=== PATIENT | male | born 1965 | race Caucasian/White ===

== ENCOUNTER → 2021-01-07 | Outpatient (CLI) | payer OTHER ==
[2021-01-07 11:27] LABS: African American GFR (CKD) >90 (>60 ml/min/1.73 sqM); Blood Urea Nitrogen 14 mg/dL (9-20); Non-African American GFR(CKD) >90 (>60 ml/min/1.73 sqM)
--- NOTE | 2021-01-07 13:45 | CT ---
EXAMINATION TYPE: CT angio abd aorta w/Runoff DATE OF EXAM: 01/07/2021 COMPARISON: HISTORY: Occlusion, Iliac and LLE non healing wound CT DLP: 2441.60 mGycm, Automated Exposure Control for Dose Reduction was Utilized. CONTRAST: CT scan of the abdomen and pelvis is performed without and with IV Contrast, patient injected with 10 0 ml mL of Isovue 370. Three-dimensional reconstructions performed on an alternate workstation. FINDINGS: The abdominal aorta shows some atheromatous change. The celiac axis, superior mesenteric a rtery, bilateral renal arteries are patent. Common iliac arteries are patent, left common iliac arter y shows a mildly reduced caliber in relation to the right. Internal iliac arteries are patent bilater ally as is the right external iliac artery, the right external iliac artery is occluded. There is rec onstitution of the external iliac artery peripherally via collateral flow on the left. Common femoral artery on the left shows atheromatous narrowing, plaque. The superficial femoral artery is occluded proximally on the left. The left deep femoral artery branches are patent, there is reconstitution of the popliteal artery central to the level of the knee. The left lower extremity shows patent poplitea l artery at the level of the knee which appears somewhat diminutive. Atheromatous changes are present , the anterior tibial artery is thought to be patent. The tibioperoneal trunk, posterior tibial arter y are not patent proximally but show some possible segmental reconstitution peripherally. The right common femoral artery also shows atheromatous change. Superficial femoral artery shows athe romatous changes, tandem stenoses, areas occlusion at Scott's canal on the right, reconstitution of the popliteal artery is present central to the level of the knee, the trifurcation vessels show ather omatous change, there are atheromatous changes involving the trifurcation vessels which are not well enhanced, posterior tibial artery is diminutive but thought to be patent, peroneal artery does not en aga, anterior tibial artery shows extensive atheromatous change, tandem areas of nonenhancement. There is extensive edema change present bilaterally within the legs. There are coronary calcifications present. LUNG BASES: No significant abnormality is appreciated. LIVER/GB: There is low attenuation within the liver possibly due to hepatic steatosis, gallbladder is within normal limits.. PANCREAS: No significant abnormality is seen. SPLEEN: No significant abnormality is seen. ADRENALS: Prominence of the adrenal glands is noted, possibly due to adrenal hyperplasia. KIDNEYS: No significant abnormality is seen. BOWEL: No significant abnormality is seen. PROSTATE/SEMINAL VESICLES: Prostate shows associated calcification. LYMPH NODES: No greater than 1cm abdominal or pelvic lymph nodes are appreciated. OSSEOUS STRUCTURES: Degenerative disc changes are present visualized spine. There is facet arthropath y especially at the lower lumbar spine.. OTHER: No significant additional abnormality is seen. IMPRESSION: Peripheral vascular occlusive disease as described, additional findings above
== END | disposition home or self-care (01) ==
LOC: RADCTMAIN 10:33
PROVIDERS: ATTEND Surgery
DX: I73.9 Peripheral vascular disease, unspecified (principal)
CPT/HCPCS: 82565; 84520; 75635; 36415; Q9967

== ENCOUNTER → 2021-01-17 | Outpatient (CLI) | payer OTHER ==
[2021-01-17 08:48] LABS: Basophils % (A) 0 %; Eosinophils # (A) 0.1 k/uL (0-0.7); Eosinophils % (A) 1 %; HCT 51.6 % (39.0-53.0); HGB 16.7 gm/dL (13.0-17.5); Lymphocytes # (A) 1.3 k/uL (1.0-4.8); Lymphocytes % (A) 15 %; MCH 33.5 pg (25.0-35.0); MCHC 32.3 g/dL (31.0-37.0); MCV 103.8 fL (80.0-100.0); Macrocytosis Slight; Monocytes # (A) 0.5 k/uL (0-1.0); Monocytes % (A) 5 %; Neutrophils # (A) 6.7 k/uL (1.3-7.7); Neutrophils % (A) 77 %; Platelet Count 246 k/uL (150-450); RBC 4.97 m/uL (4.30-5.90); RDW 13.3 % (11.5-15.5); WBC 8.7 k/uL (3.8-10.6)
[2021-01-17 08:59] LABS: African American GFR (CKD) >90 (>60 ml/min/1.73 sqM); Anion Gap 10 mmol/L; Blood Urea Nitrogen 13 mg/dL (9-20); Carbon Dioxide 24 mmol/L (22-30); Chloride 98 mmol/L (98-107); Non-African American GFR(CKD) >90 (>60 ml/min/1.73 sqM); Potassium 4.5 mmol/L (3.5-5.1); Sodium 132 mmol/L (137-145)
== END | disposition home or self-care (01) ==
LOC: LABPAT 07:44
PROVIDERS: ATTEND Surgery
DX: Z01.812 Encounter for preprocedural laboratory examination (principal); I77.1 Stricture of artery
CPT/HCPCS: 80051; 82565; 84520; 85025

== ENCOUNTER 2021-01-22 07:13 | Inpatient (IN) | payer OTHER ==
[~2021-01-22 07:13] MED LIST: SODIUM CHLORIDE 0.9% 1,000 ML in EMPTY BAG 1 BAG IV ONE
[2021-01-22] MEDS ORDERED: SODIUM CHLORIDE 0.9% 1,000 ML IV ONE (07:59)
[2021-01-22] MEDS ORDERED: LIDOCAINE 1% INJ 10MG/ML (20 ML MDV) ONE (09:10)
[2021-01-22] MEDS ORDERED: fentaNYL (PF) 50 MCG/ML 2 ML AMP ONE (09:18)
[2021-01-22] MEDS ORDERED: MIDAZOLAM 2 MG/2 ML VIAL IVP ONE (09:25)
[2021-01-22] MEDS: fentaNYL (PF) 50 MCG/ML 2 ML AMP IVP ONE ×2 (09:25→09:37)
[2021-01-22] MEDS ORDERED: LIDOCAINE 1% INJ 10MG/ML (20 ML MDV) SQ ONE (09:26)
[2021-01-22] MEDS ORDERED: HYDROmorphone 0.5 MG/0.5 ML SYRINGE IVP ONE (09:56)
[2021-01-22] MEDS ORDERED: IOPAMIDOL-250 100ML BTL INTRAARTER ONE (10:21)
[2021-01-22] MEDS ORDERED: MAG HYDROX/AL HYDROX/SIMETH 30 ML CUP PO PRN (11:02)
--- NOTE | 2021-01-22 11:02 | P.OP ---
Date of Procedure: 01/22/21 Preoperative Diagnosis: #1: Left external iliac artery occlusion in combination with left superficial femoral artery occlusion with secondary arterial insufficiency of the left lower extremity. Postoperative Diagnosis: Same. Procedure(s) Performed: #1: Ultrasound-guided cannulation of the left and right femoral arteries. #2: Abdominal aortogram with runoffs. #3: Selective cannulization of the contralateral iliac artery. #4: Inability to cross lesion. Anesthesia: local (With moderate conscious sedation 55 minutes.) Surgeon: Ramesh Vargas Estimated Blood Loss (ml): 50 Urine output (ml): 0 Pathology: none sent Condition: stable Disposition: other (Admitted for further medical clearance with intent of surgical bypass.) Indications for Procedure: Patient is a 55-year-old male who originally presented with a venous ulceration left lower extremity however soon clear that there was a severe arterial insufficiency component. He had undergone arterial Doppler which demonstrated markedly diminished ankle brachial index. CT angiography was also performed which demonstrated the aforementioned external iliac artery occlusion as well as a left SFA occlusion. A shunt was offered attempt at percutaneous revascularization. The procedure, risk and benefits were discussed with the patient patient wished to proceed. Description of Procedure: Patient was brought to special procedure suite. Both groins were sterilely p repped and draped in usual manner. He did receive both Versed and fentanyl for moderate conscious IV sedation purposes. Utilizing ultrasound the right common femoral artery was identified. Tissues overlying the femoral artery were localized with 1% Xylocaine and through this anesthetized area and with the aid of ultrasound a multipurpose needle was utilized to cannulate the artery. Once cannulated Softip guidewire is advanced into the artery. The needle was withdrawn and a 5-[place] sheath was placed. A Omni flush catheter and guidewire combinations were advanced through the sheath and abdominal aortogram with bilateral femoral, popliteal and tibial angiography was performed. This demonstrated normal aortic as well as a normal right iliac system. The left common iliac artery was patent however there is an occlusion of the external iliac at its origin for a distance of approximately 6- 7 cm. The catheter was then utilized to select the origin of the internal iliac and eventually multiple guidewire and catheter combinations were utilized in an attempt to cross the lesion however this was unsuccessful. As such an attempt to cross lesion from the left femoral approach was then performed. The left common femoral artery was identified with ultrasound and 1% Xylocaine was lysed local anesthesia tissues overlying the femoral artery. Through this anesthetized area a multipurpose needle was utilized candidate the artery with the aid of ultrasound. Once cannulated Softip guidewire is advanced into the artery. The needle was withdrawn and a 6-[place] sheath was placed. Again multiple attempts at crossing the lesion were unsuccessful and this approach was eventually abandoned. With the above findings noted all catheters and guidewires were withdrawn and both she's were withdrawn. Pressure was held at each puncture site for hemostasis. Patient tolerated procedure well and was returned to the outpatient area. Plan is to admit the patient for medical evaluation with eventual femoral- femoral bypass.
--- NOTE | 2021-01-22 12:21 | IR ---
Fluoroscopy HISTORY: Pain left leg 19.3 minutes fluoroscopy time supplied to the referring clinician. 237 intraoperative C-arm images d ocument the procedure. See dictated report from vascular surgery.
[2021-01-22] MEDS: HYDROcodone/APAP 5-325MG 1 EACH TAB PO PRN ×3 (13:28→22:05)
[2021-01-22] MEDS: NICOTINE 21MG/24HR PATCH TRANSDERM SCH (16:16)
[2021-01-22] MEDS: SODIUM CHLORIDE 0.9% 1,000 ML IV SCH ×2 (16:17→22:06)
[2021-01-22] MEDS: NYSTATIN 100,000UNIT/GM CREAM 30 GM TUBE TOPICAL SCH (22:06)
[2021-01-23] MEDS: HYDROcodone/APAP 5-325MG 1 EACH TAB PO PRN ×5 (02:58→21:16)
[2021-01-23] MEDS: SYMBICORT 80-4.5 MCG INHALER INHALATION SCH ×2 (07:41→20:23)
[2021-01-23] MEDS: ASPIRIN 325 MG TAB PO SCH (08:30)
[2021-01-23] MEDS: NICOTINE 21MG/24HR PATCH TRANSDERM SCH (08:30)
[2021-01-23] MEDS: NYSTATIN 100,000UNIT/GM CREAM 30 GM TUBE TOPICAL SCH ×2 (08:31→21:20)
[2021-01-23] MEDS ORDERED: NON FORMULARY DRUG (Potassium Gluconate [Potassium Gluconate Er] 99 MG Tablet) PO SCH (09:00)
[2021-01-23] MEDS ORDERED: hydroCHLOROthiazide 25 MG TAB PO SCH (09:00)
[2021-01-23] MEDS ORDERED: lisinopriL 10 MG TAB PO SCH (09:00)
[2021-01-23 09:11] LABS: Basophils % (A) 0 %; Eosinophils # (A) 0.1 k/uL (0-0.7); Eosinophils % (A) 1 %; HCT 46.6 % (39.0-53.0); HGB 15.9 gm/dL (13.0-17.5); Lymphocytes # (A) 0.8 k/uL (1.0-4.8); Lymphocytes % (A) 8 %; MCH 33.8 pg (25.0-35.0); MCHC 34.1 g/dL (31.0-37.0); MCV 99.2 fL (80.0-100.0); Mean Platelet Volume 7.9; Monocytes # (A) 0.7 k/uL (0-1.0); Monocytes % (A) 7 %; Neutrophils # (A) 8.4 k/uL (1.3-7.7); Neutrophils % (A) 83 %; Platelet Count 266 k/uL (150-450); RBC 4.69 m/uL (4.30-5.90); RDW 13.7 % (11.5-15.5); WBC 10.1 k/uL (3.8-10.6)
[2021-01-23 09:40] LABS: African American GFR (CKD) >90 (>60 ml/min/1.73 sqM); Anion Gap 7 mmol/L; Blood Urea Nitrogen 11 mg/dL (9-20); Calcium 8.9 mg/dL (8.4-10.2); Carbon Dioxide 30 mmol/L (22-30); Chloride 90 mmol/L (98-107); Glucose 108 mg/dL (74-99); Non-African American GFR(CKD) >90 (>60 ml/min/1.73 sqM); Potassium 4.5 mmol/L (3.5-5.1); Sodium 127 mmol/L (137-145)
--- NOTE | 2021-01-23 11:24 | P.CONS ---
History of Present Illness - Reason for Consult Preoperative clearance - History of Present Illness Patient is a pleasant 55-year-old male is admitted the for elective atherotomy and stenting of left iliac and left superficial femoral artery occlusions. Patient has severe professor disease patient can use to smoke. Patient is obese probably has a sleep apnea was never tested for that. I ordered an EKG which is not available yet. Patient is bit hyponatremic does have significant swelling in bilateral lower expertise patient does have chronic venous stasis I'm obtaining an echocardiogram to see if patient has any pulmonary hypertension. Patient is scheduled to undergo stenting of the above-mentioned vessels. Patient does have a venous ulcer please refer to vascular surgery documentation for further details. Patient's functional status although is fairly good. REVIEW OF SYSTEMS: CONSTITUTIONAL: No fever, no malaise, no fatigue. HEENT: No recent visual problems or hearing problems. Denied any sore throat. CARDIOVASCULAR: No chest pain, orthopnea, PND, no palpitations, no syncope. PULMONARY: No shortness of breath, no cough, no hemoptysis. GASTROINTESTINAL: No diarrhea, no nausea, no vomiting, no abdominal pain. NEUROLOGICAL: No headaches, no weakness, no numbness. HEMATOLOGICAL: Denies any bleeding or petechiae. GENITOURINARY: Denies any burning micturition, frequency, or urgency. MUSCULOSKELETAL/RHEUMATOLOGICAL: Denies any joint pain, swelling, or any muscle pain. ENDOCRINE: Denies any polyuria or polydipsia. The rest of the 14-point review of systems is negative. PHYSICAL EXAMINATION: GENERAL: The patient is alert and oriented x3, not in any acute distress. Well developed, well nourished. HEENT: Pupils are round and equally reacting to light. EOMI. No scleral icterus. No conjunctival pallor. Normocephalic, atraumatic. No pharyngeal erythema. No thyromegaly. CARDIOVASCULAR: S1 and S2 present. No murmurs, rubs, or gallops. PULMONARY: Chest is clear to auscultation, no wheezing or crackles. ABDOMEN: Soft, nontender, nondistended, normoactive bowel sounds. No palpable organomegaly. MUSCULOSKELETAL: No joint swelling or deformity. EXTREMITIES: No cyanosis, clubbing, significant swelling in bilateral lower extremities NEUROLOGICAL: Gross neurological examination did not reveal any focal deficits. SKIN: Left lower expertise ulcer for further details refer to vascular surgery Assessment and plan -Preoperative risk assessment: Patient is moderate risk for vascular surgeries risk factors includes smoking, obesity plus or minus pulmonary hypertension. I'll obtain echo cardiac exam imaging EKG. Discussed this with the patient and patient is agreeable to undergo the procedure. -Hypovolemic hyponatremia: Patient will be started on Lasix IV patient has a chronic venous insufficiency clinically not in heart failure. We'll repeat a left twice again tomorrow morning -Severe peripheral vascular disease -Nicotine abuse: Counseling was provided -Hypertension: Patient is on 10 mg of his medicines I'm giving him IV Lasix and patient will undergo surgery and Wednesday his blood pressure is expected to go down and we'll cut down the Lasix to 5 mg -Obesity patient will be worked up for metabolic syndrome although her lipase panel is not emergent, will order hemoglobin A1c. May have sleep apnea. -Venous ulcer and left lower extremity: Management as per the primary service DVT prophylaxis: As per primary service Past Medical History Past Medical History: Hypertension, Osteoarthritis (OA), Skin Disorder, Vascular Disorder Additional Past Medical History / Comment(s): open sore left lombardi History of Any Multi-Drug Resistant Organisms: None Reported Past Surgical History: Cholecystectomy Past Anesthesia/Blood Transfusion Reactions: No Reported Reaction Past Psychological History: No Psychological Hx Reported Smoking Status: Current every day smoker Past Alcohol Use History: Rare Additional Past Alcohol Use History / Comment(s): 1ppd for 30 yrs. Past Drug Use History: None Reported Medications and Allergies Home Medications Medication Instructions Recorded Confirmed Type Aspirin 325 mg PO DAILY 01/21/21 01/22/21 History Benazepril [Lotensin] 10 mg PO DAILY 01/21/21 01/22/21 History Fluticasone Propion/Salmeterol 1 inhalation PO DAILY 01/21/21 01/22/21 History [Wixela 250-50 Inhub] Potassium Gluconate [Potassium 99 mg PO DAILY 01/21/21 01/22/21 History Gluconate ER] hydroCHLOROthiazide [Hydrodiuril] 25 mg PO DAILY 01/21/21 01/22/21 History Allergies Allergy/AdvReac Type Severity Reaction Status Date / Time No Known Allergies Allergy Verified 01/20/21 07:37 Physical Exam Vitals: Vital Signs Temp Pulse Pulse Resp BP Pulse Ox 01/23/21 08:00 99.0 F 101 H 18 128/70 92 L 01/23/21 03:31 97.9 F 95 17 127/85 92 L 01/23/21 02:00 95 19 01/23/21 00:00 97.9 F 95 18 127/85 92 L 01/22/21 22:48 98.6 F 95 17 126/78 93 L 01/22/21 19:39 99.1 F 92 18 119/73 92 L 01/22/21 16:48 96 18 146/82 95 01/22/21 14:59 97.7 F 106 H 18 131/69 92 L 01/22/21 13:03 102 H 16 112/61 95 01/22/21 12:33 100 16 127/75 92 L 01/22/21 12:03 100 18 126/73 92 L 01/22/21 11:33 100 18 125/65 90 L Intake and Output 01/22/21 01/23/21 01/23/21 22:59 06:59 14:59 Intake Total 120 480 Balance 120 480 Intake: Oral 120 480 Other: Voiding Method Urinal Urinal # Voids 1 1 Weight 132.5 kg 133.3 kg Results CBC & Chem 7: 01/23/21 08:07 01/23/21 08:07 Labs: Abnormal Lab Results - Last 24 Hours (Table) 01/23/21 01/23/21 Range/Units 08:07 08:07 Neutrophils # 8.4 H (1.3-7.7) k/uL Lymphocytes # 0.8 L (1.0-4.8) k/uL Sodium 127 L (137-145) mmol/L Chloride 90 L (98-107) mmol/L Glucose 108 H (74-99) mg/dL
[2021-01-23] MEDS: FUROSEMIDE 10 MG/ML 4 ML VIAL IV SCH ×2 (11:27→21:15)
--- NOTE | 2021-01-23 12:48 | P.PN ---
Subjective Progress Note Date: 01/23/21 Principal diagnosis: Left external iliac artery occlusion with left superficial femoral artery occlusion with secondary arterial insufficiency of the left lower extremity. Patient was seen and examined sitting up at the bedside. He is without any complaints or acute changes through the night. Yesterday the patient underwent abdominal aortogram with runoff for left external iliac occlusion in combination with left superficial femoral artery occlusion with secondary arterial insufficiency of the left lower extremity. There was inability to cross the lesion therefore the patient was admitted for further medical evaluation and clearance for femoral-femoral bypass. Objective - Vital Signs Vital signs: Vital Signs Temp 99.0 F 01/23/21 08:00 Pulse 101 H 01/23/21 08:00 Resp 18 01/23/21 08:00 BP 128/70 01/23/21 08:00 Pulse Ox 92 L 01/23/21 08:00 Intake & Output 01/22/21 01/23/21 01/23/21 18:59 06:59 18:59 Intake Total 220 480 Output Total 800 Balance -580 480 Weight 132.5 kg 133.3 kg Intake: IV 100 Oral 120 480 Output: Urine 800 Other: Voiding Method Urinal # Voids 1 - Exam General appearance: The patient is alert, oriented, in no acute distress. Obese. HET: Head is normocephalic and atraumatic. Neck: Supple without lymphadenopathy. Trachea midline. Abdomen: Soft, nontender, nondistended. Obese. Extremities: Bilateral lower extremity edema. Venous ulcer to the left lower extremity with dressing. Bilateral groins with candidiasis. Neurological: No focal deficits. Alert and oriented 3. - Labs CBC & Chem 7: 01/23/21 08:07 01/23/21 08:07 Assessment and Plan Assessment: 1. Left external iliac artery occlusion with left superficial femoral artery occlusion with secondary arterial insufficiency of the left lower extremity. 2. Tobacco abuse 3. Candiadias 4. COPD 5. Obesity next 6. Hypertension 7. Venous insufficiency Plan: 1. Plan is to perform femoral femoral bypass 2. Medicine consulted for medical managment and clearance for fem-fem bypass 3. Nystatin cream to bilateral groins 4. Recommend Smoking cessation 5. Further recommendations on date for procedure, tentatively planned for 01/25/21 The impression and plan of care has been dictated as directed. Dr. Vargas I performed a history and examination of this patient, discussed the same with the dictator. I agree with the dictator's note ,documented as a scribe. Any additional findings or plans will be noted.
[2021-01-24] MEDS: HYDROcodone/APAP 5-325MG 1 EACH TAB PO PRN ×5 (02:51→19:27)
[2021-01-24] MEDS: FUROSEMIDE 10 MG/ML 4 ML VIAL IV SCH ×2 (07:49→21:25)
[2021-01-24] MEDS: NYSTATIN 100,000UNIT/GM CREAM 30 GM TUBE TOPICAL SCH ×2 (07:50→21:26)
[2021-01-24] MEDS: NICOTINE 21MG/24HR PATCH TRANSDERM SCH (07:50)
[2021-01-24] MEDS: ASPIRIN 325 MG TAB PO SCH (07:50)
[2021-01-24] MEDS: lisinopriL 5 MG TAB PO SCH (07:50)
[2021-01-24 08:20] LABS: African American GFR (CKD) >90 (>60 ml/min/1.73 sqM); Anion Gap 6 mmol/L; Blood Urea Nitrogen 13 mg/dL (9-20); Calcium 8.9 mg/dL (8.4-10.2); Carbon Dioxide 29 mmol/L (22-30); Chloride 91 mmol/L (98-107); Glucose 139 mg/dL (74-99); Non-African American GFR(CKD) >90 (>60 ml/min/1.73 sqM); Potassium 4.7 mmol/L (3.5-5.1); Sodium 126 mmol/L (137-145)
[2021-01-24] MEDS: SYMBICORT 80-4.5 MCG INHALER INHALATION SCH ×2 (09:40→19:30)
--- NOTE | 2021-01-24 10:15 | ECHOF ---
Referral Reason:LV function MEASUREMENTS -------- HEIGHT: 165.1 cm WEIGHT: 132.9 kg BP: IVSd: 1.4 cm (0.6 - 1.1) LVIDd: 5.0 cm (3.9 - 5.3) LVPWd: 2.3 cm (0.6 - 1.1) IVSs: 1.9 cm LVIDs: 3.4 cm LVPWs: 2.0 cm FINDINGS -------- Sinus rhythm. Morbid Obesity This was a techncally difficult study with suboptimal views, , Definity utilized for enhancement of images. Overall left ventricular systolic function is low-normal with, an EF between 50 - 55 %. The RV was not well visualized. The left atrium was not well visualized. The right atrium was not well visualized. xx ml of Lumason was utilized for enhancement of images. The aortic valve was not well visualized. The mitral valve was not well visualized. The tricuspid valve was not well visualized. Unable to estimate RVSP due to inadequate TR jet spect ral doppler profile. The pulmonic valve was not well visualized. The aortic root size is normal. There is no pericardial effusion. CONCLUSIONS -------- 1. Morbid Obesity 2. This was a techncally difficult study with suboptimal views, , Definity utilized for enhancement o f images. 3. Overall left ventricular systolic function is low-normal with, an EF between 50 - 55 %. 4. The RV was not well visualized. 5. The left atrium was not well visualized. 6. The right atrium was not well visualized. 7. xx ml of Lumason was utilized for enhancement of images. 8. The aortic valve was not well visualized. 9. The mitral valve was not well visualized. 10. The tricuspid valve was not well visualized. 11. Unable to estimate RVSP due to inadequate TR jet spectral doppler profile. 12. The pulmonic valve was not well visualized. 13. The aortic root size is normal. 14. There is no pericardial effusion. [employer]MENT [employer] ATTORNEY: Anusha Jacques RDCS
--- NOTE | 2021-01-24 10:28 | P.PN ---
Subjective Patient is a pleasant 55-year-old male is admitted the for elective atherotomy and stenting of left iliac and left superficial femoral artery occlusions. Patient has severe professor disease patient can use to smoke. Patient is obese probably has a sleep apnea was never tested for that. I ordered an EKG which is not available yet. Patient is bit hyponatremic does have significant swelling in bilateral lower expertise patient does have chronic venous stasis I'm obtaining an echocardiogram to see if patient has any pulmonary hypertension. Patient is scheduled to undergo stenting of the above-mentioned vessels. Patient does have a venous ulcer please refer to vascular surgery documentation for further details. Patient's functional status although is fairly good. 01/24/21 Patient had an echo cardiac exam showed normal ejection fraction patient the bilateral lower extremity edema is improving although serum sodium dropped by 1 point I'm expecting it to improve by tomorrow because of which are good and continue with IV Lasix but at a lower dose. EKG although not a really good tracing did not show any acute ST-T wave changes. I do not believe patient will need further preoperative evaluation or workup. Unfortunately echocardiogram is unable to assess RVSP. Constitutional: Denied any fatigue denied any fever. Cardio vascular: denied any chest pain, palpitations Gastrointestinal denied any nausea vomiting Pulmonary: Denied any shortness of breath cough Neurologic denied any new focal deficits All inpatient medications were reviewed and appropriate changes in these medications as dictated in the interval history and assessment and plan. PHYSICAL EXAMINATION: GENERAL: The patient is alert and oriented x3, not in any acute distress. Well developed, well nourished. HEENT: Pupils are round and equally reacting to light. EOMI. No scleral icterus. No conjunctival pallor. Normocephalic, atraumatic. No pharyngeal erythema. No thyromegaly. CARDIOVASCULAR: S1 and S2 present. No murmurs, rubs, or gallops. PULMONARY: Chest is clear to auscultation, no wheezing or crackles. ABDOMEN: Soft, nontender, nondistended, normoactive bowel sounds. No palpable organomegaly. MUSCULOSKELETAL: No joint swelling or deformity. EXTREMITIES: No cyanosis, clubbing, significant swelling in bilateral lower extremities NEUROLOGICAL: Gross neurological examination did not reveal any focal deficits. SKIN: Left lower expertise ulcer for further details refer to vascular surgery Assessment and plan -Preoperative risk assessment: Patient is moderate risk for vascular surgeries risk factors includes smoking, obesity plus or minus pulmonary hypertension. I'll obtain echo cardiac exam imaging EKG. Discussed this with the patient and patient is agreeable to undergo the procedure. -Hypovolemic hyponatremia: We will be continued on IV Lasix at a lower dose expecting his serum sodium did improve and repeat the sodium tomorrow as serum sodium of 125 one 26 showed and limit him from going surgery to surgery -Severe peripheral vascular disease -Nicotine abuse: Counseling was provided -Hypertension: Continue to supple 5 mg -Obesity patient will be worked up for metabolic syndrome although her lipase panel is not emergent, will order hemoglobin A1c. May have sleep apnea. -Venous ulcer and left lower extremity: Management as per the primary service DVT prophylaxis: As per primary service Objective - Vital Signs Vital signs: Vital Signs Temp 98 F 01/24/21 07:56 Pulse 94 01/24/21 08:00 Resp 18 01/24/21 08:00 BP 124/71 01/24/21 07:56 Pulse Ox 94 L 01/24/21 07:56 Intake & Output 01/23/21 01/24/21 01/24/21 18:59 06:59 18:59 Intake Total 1277 1500 Output Total 600 1675 Balance 1277 900 -1675 Weight 133.3 kg 133.3 kg Intake: IV 200 Sodium Chloride 0.9% 1, 200 000 ml @ 50 mls/hr IV . Q20H [facility] Rx#:[id number] Oral 1077 1500 Output: Urine 600 1675 Other: Voiding Method Urinal # Voids 1 - Labs CBC & Chem 7: 01/23/21 08:07 01/24/21 07:31 Labs: Abnormal Lab Results - Last 24 Hours (Table) 01/24/21 Range/Units 07:31 Sodium 126 L (137-145) mmol/L Chloride 91 L (98-107) mmol/L Creatinine 0.61 L (0.66-1.25) mg/dL Glucose 139 H (74-99) mg/dL
--- NOTE | 2021-01-24 14:13 | P.PN ---
Subjective Progress Note Date: 01/24/21 Principal diagnosis: Left external iliac artery occlusion with left superficial femoral artery occlusion with secondary arterial insufficiency of the left lower extremity. Patient was seen and examined sitting up at the bedside. He is without any complaints or acute changes through the night. He was tentatively scheduled for fem-fem bypass on Wednesday however this has been moved to Wednesday. Possible fem- fem bypass versus stenting. Patient will need to be nothing by mouth after midnight Wednesday. Objective - Vital Signs Vital signs: Vital Signs Temp 98 F 01/24/21 07:56 Pulse 101 H 01/24/21 07:56 Resp 18 01/24/21 07:56 BP 124/71 01/24/21 07:56 Pulse Ox 94 L 01/24/21 07:56 Intake & Output 01/23/21 01/24/21 01/24/21 18:59 06:59 18:59 Intake Total 1277 1500 Output Total 600 Balance 1277 900 Weight 133.3 kg 133.3 kg Intake: IV 200 Sodium Chloride 0.9% 1, 200 000 ml @ 50 mls/hr IV . Q20H [facility] Rx#:[id number] Oral 1077 1500 Output: Urine 600 Other: Voiding Method Urinal # Voids 1 - Exam General appearance: The patient is alert, oriented, in no acute distress. Obese. HET: Head is normocephalic and atraumatic. Neck: Supple without lymphadenopathy. Trachea midline. Abdomen: Soft, nontender, nondistended. Obese. Extremities: Bilateral lower extremity edema. Venous ulcer to the left lower extremity with dressing. Bilateral groins with candidiasis. Neurological: No focal deficits. Alert and oriented 3. - Labs CBC & Chem 7: 01/23/21 08:07 01/24/21 07:31 Labs: Abnormal Lab Results - Last 24 Hours (Table) 01/23/21 01/23/21 01/24/21 Range/Units 08:07 08:07 07:31 Neutrophils # 8.4 H (1.3-7.7) k/uL Lymphocytes # 0.8 L (1.0-4.8) k/uL Sodium 127 L 126 L (137-145) mmol/L Chloride 90 L 91 L (98-107) mmol/L Creatinine 0.61 L (0.66-1.25) mg/dL Glucose 108 H 139 H (74-99) mg/dL Assessment and Plan Assessment: 1. Left external iliac artery occlusion with left superficial femoral artery occlusion with secondary arterial insufficiency of the left lower extremity. 2. Tobacco abuse 3. Candiadias 4. COPD 5. Obesity next 6. Hypertension 7. Venous insufficiency Plan: 1. Plan is to perform femoral femoral bypass 2. Medicine consulted for medical managment and clearance for fem-fem bypass 3. Nystatin cream to bilateral groins 4. Recommend Smoking cessation 5. Plan is for possible fem-fem bypass versus stenting on 01/26/2021 6. Patient will need to be nothing by mouth after midnight Wednesday 7. Type and screen ordered The impression and plan of care has been dictated as directed. Dr. Montez I performed a history and examination of this patient, discussed the same with the dictator. I agree with the dictator's note ,documented as a scribe. Any additional findings or plans will be noted.
[2021-01-25] MEDS: HYDROcodone/APAP 5-325MG 1 EACH TAB PO PRN ×5 (00:31→19:55)
[2021-01-25] MEDS: SYMBICORT 80-4.5 MCG INHALER INHALATION SCH ×2 (07:30→19:59)
[2021-01-25 08:55] LABS: African American GFR (CKD) >90 (>60 ml/min/1.73 sqM); Anion Gap 6 mmol/L; Blood Urea Nitrogen 16 mg/dL (9-20); Calcium 9.2 mg/dL (8.4-10.2); Carbon Dioxide 29 mmol/L (22-30); Chloride 92 mmol/L (98-107); Glucose 132 mg/dL (74-99); Non-African American GFR(CKD) >90 (>60 ml/min/1.73 sqM); Potassium 4.2 mmol/L (3.5-5.1); Sodium 127 mmol/L (137-145)
[2021-01-25] MEDS: lisinopriL 5 MG TAB PO SCH (09:30)
[2021-01-25] MEDS: ASPIRIN 325 MG TAB PO SCH (09:30)
[2021-01-25] MEDS: NYSTATIN 100,000UNIT/GM CREAM 30 GM TUBE TOPICAL SCH ×2 (09:31→19:58)
[2021-01-25] MEDS: FUROSEMIDE 10 MG/ML 4 ML VIAL IV SCH ×2 (09:31→19:55)
[2021-01-25] MEDS: NICOTINE 21MG/24HR PATCH TRANSDERM SCH (09:31)
[2021-01-26] MEDS: HYDROcodone/APAP 5-325MG 1 EACH TAB PO PRN ×5 (00:15→22:38)
--- NOTE | 2021-01-26 00:24 | P.PN ---
Subjective Progress Note Date: 01/25/21 Principal diagnosis: Left femoral artery occlusion Mr. Blue is a 55-year-old male with a past medical history of significant peripheral vascular disease, hypertension, osteoarthritis admitted for elective atherectomy and stenting of left iliac and left superficial femoral artery occlusion. On 01/25/2021 -patient is seen and examined at the bedside. Patient states that he continues to have pain in the left lower extremity. Patient denies having any chest pain or palpitations. No cough or difficulty in breathing. No fever chills or rigors. NO nausea vomiting or diarrhea. No dysuria or hematuria. On reviewing the patient's vitals T-max of 99.3, heart rate 99, respiratory 20, blood pressure 117 x 71 saturating at 94% on room air. On reviewing the patient's vitals sodium 127, potassium 4.2, chloride 92, bicarb 29, BUN 16, creatinine 0.66. Patient's medications have been reviewed Active Medications Hydrocodone Bitart/Acetaminophen (Hydrocodone/Apap 5-325mg 1 Each Tab) 1 each PO Q4HR PRN PRN Reason: Pain Stop: 02/21/21 11:03 Last Admin: 01/26/21 00:15 Dose: 1 each Documented by: Al Hydroxide/Mg Hydroxide (Mag Hydrox/Al Hydrox/Simeth 30 Ml Cup) 30 ml PO Q4HR PRN PRN Reason: Indigestion Stop: 02/21/21 11:03 Aspirin (Aspirin 325 Mg Tab) 325 mg PO DAILY [facility] Stop: 02/22/21 09:01 Last Admin: 01/25/21 09:30 Dose: 325 mg Documented by: Budesonide/Formoterol Fumarate (Symbicort 80-4.5 Mcg Inhaler) 2 puff INHALATION RT-BID [facility] Stop: 02/22/21 08:01 Last Admin: 01/25/21 19:59 Dose: 2 puff Documented by: Furosemide (Furosemide 10 Mg/Ml 4 Ml Vial) 20 mg IV Q12HR [facility] Last Admin: 01/25/21 19:55 Dose: 20 mg Documented by: Cefazolin Sodium 3 gm/ Sodium (Chloride) 100 mls @ 200 mls/hr IVPB ONCE PRN PRN Reason: PRE-OP Stop: 01/26/21 20:00 Lisinopril (Lisinopril 5 Mg Tab) 5 mg PO DAILY [facility] Stop: 02/22/21 09:01 Last Admin: 01/25/21 09:30 Dose: 5 mg Documented by: Nicotine (Nicotine 21mg/24hr Patch) 1 patch TRANSDERM DAILY [facility] Stop: 02/21/21 10:46 Last Admin: 01/25/21 09:31 Dose: 1 patch Documented by: Nystatin (Nystatin 100,000unit/Gm Cream 30 Gm Tube) 1 applic TOPICAL BID [facility]; Protocol Stop: 02/21/21 21:01 Last Admin: 01/25/21 19:58 Dose: 1 applic Documented by: Objective - Vital Signs Vital signs: Vital Signs Temp 98.3 F 01/25/21 04:00 Pulse 96 01/25/21 04:00 Resp 18 01/25/21 04:00 BP 132/84 01/25/21 04:00 Pulse Ox 96 01/25/21 07:31 Intake & Output 01/24/21 01/25/21 01/25/21 18:59 06:59 18:59 Intake Total 118 10 222 Output Total 2074 3800 2200 Balance -1956 Weight 132.4 kg Intake: IV 10 Invasive Line 1 10 Oral 118 222 Output: Urine 20740 2200 Other: Voiding Method Urinal # Voids 4 - Exam PHYSICAL EXAMINATION: GENERAL: The patient is alert and oriented x3, not in any acute distress. Well developed, well nourished. HEENT: Pupils are round and equally reacting to light. EOMI. No scleral icterus. No conjunctival pallor. Normocephalic, atraumatic. No pharyngeal erythema. No thyromegaly. CARDIOVASCULAR: S1 and S2 present. No murmurs, rubs, or gallops. PULMONARY: Chest is clear to auscultation, no wheezing or crackles. ABDOMEN: Soft, nontender, nondistended, normoactive bowel sounds. No palpable organomegaly. MUSCULOSKELETAL: No joint swelling or deformity. EXTREMITIES: No cyanosis, clubbing, significant swelling in bilateral lower extremities NEUROLOGICAL: Gross neurological examination did not reveal any focal deficits. SKIN: Left lower ulcer for further details refer to vascular surgery - Labs CBC & Chem 7: 01/23/21 08:07 01/25/21 08:17 Labs: Abnormal Lab Results - Last 24 Hours (Table) 01/25/21 Range/Units 08:17 Sodium 127 L (137-145) mmol/L Chloride 92 L (98-107) mmol/L Glucose 132 H (74-99) mg/dL Assessment and Plan Assessment: Assessment and plan -Preoperative risk assessment: Patient is moderate risk for vascular surgeries risk factors includes smoking, obesity plus or minus pulmonary hypertension. -Hypovolemic hyponatremia- Na slowly trending up -Severe peripheral vascular disease -Nicotine abuse -Hypertension -Obesity patient will be worked up for metabolic syndrome although her lipase panel is not emergent, will order hemoglobin A1c. May have sleep apnea. -Venous ulcer and left lower extremity: Management as per the primary service - DVT prophylaxis: As per primary service Plan: As a part of work-up for preop evaluation patient had an echocardiogram done showing ejection fraction of 50 to 55%. RVSP could not be estimated due to inadequate TR jet spectral Doppler profile. Patient sodium has been trending up slowly his sodium from today is 127. He has been getting 20 mg of IV Lasix twice daily. We will repeat his a.m. sodium. Patient is tentatively reported for surgery for tomorrow morning, to be kept NPO tonight. Further recommendations to follow depending on the progress of the patient.
[2021-01-26] MEDS ORDERED: ceFAZolin 3 GM in SODIUM CHLORIDE 0.9% 100 ML IVPB PRN (06:00)
[2021-01-26] MEDS: FUROSEMIDE 10 MG/ML 4 ML VIAL IV SCH ×2 (06:02→22:37)
[2021-01-26] MEDS: NYSTATIN 100,000UNIT/GM CREAM 30 GM TUBE TOPICAL SCH ×2 (06:03→22:38)
[2021-01-26] MEDS: NICOTINE 21MG/24HR PATCH TRANSDERM SCH (06:07)
[2021-01-26] MEDS: ASPIRIN 325 MG TAB PO SCH (06:07)
[2021-01-26] MEDS: lisinopriL 5 MG TAB PO SCH (06:07)
[2021-01-26] MEDS ORDERED: GLYCOPYRROLATE 0.2 MG/ML 2 ML VIAL ONE (07:29)
[2021-01-26] MEDS ORDERED: HEPARIN SODIUM,PORCINE 10,000 UNIT/ML 1 ML VIAL ONE (07:29)
[2021-01-26] MEDS ORDERED: SUCCINYLCHOLINE CHLORIDE VIAL 200 MG/10 ML VIAL IV ONE (07:29)
[2021-01-26] MEDS ORDERED: PROTAMINE SULFATE 10 MG/ML 5 ML VIAL IV ONE (07:29)
[2021-01-26] MEDS ORDERED: NEOSTIGMINE 1 MG/ML 10 ML VIAL ONE (07:29)
[2021-01-26] MEDS ORDERED: ROCURONIUM 10 MG/ML (5 ML VIAL) IV ONE (07:29)
[2021-01-26] MEDS ORDERED: PHENYLEPHRINE-0.9% NACL SYG 1,000 MCG/10 ML SYRINGE ONE (07:29)
[2021-01-26] MEDS ORDERED: PROPOFOL 10 MG/ML 20 ML VIAL IV ONE (07:29)
[2021-01-26] MEDS ORDERED: LIDOCAINE 1% INJ 10MG/ML (20 ML MDV) ONE (07:29)
[2021-01-26] MEDS ORDERED: fentaNYL (PF) 50 MCG/ML 2 ML AMP ONE (07:29)
[2021-01-26] MEDS ORDERED: LACTATED RINGERS 900 ML IV ONE (07:42)
[2021-01-26] MEDS ORDERED: LACTATED RINGERS 1,000 ML IV ONE ×2 (07:42→10:28)
[2021-01-26] MEDS ORDERED: HEPARIN SODIUM,PORCINE 10,000 UNIT in SODIUM CHLORIDE 0.9% 1,000 ML IRRIGATION ONE (07:42)
[2021-01-26] MEDS: SYMBICORT 80-4.5 MCG INHALER INHALATION SCH ×2 (08:02→19:07)
[2021-01-26] MEDS ORDERED: IOPAMIDOL-370 50ML BTL MISCELLANE ONE (08:20)
[2021-01-26] MEDS ORDERED: ceFAZolin 4,000 MG in SODIUM CHLORIDE 0.9% 1,000 ML IRRIGATION ONE (08:38)
[2021-01-26 08:41] LABS: ABG HCO3 28 mmol/L (21-25); ABG Oxygen Saturation 98.5 % (94-97); ABG PCO2 39 mmHg (35-45); ABG PH 7.46 (7.35-7.45); ABG PO2 107 mmHg (83-108); Allen Test Performed? Yes
--- NOTE | 2021-01-26 11:18 | P.OP ---
Date of Procedure: 01/26/21 Preoperative Diagnosis: #1: Left iliac occlusion. #2: Left superficial femoral artery occlusion. #3: Ischemic rest pain and nonhealing ulceration left lower extremity secondary to #1 and #2. Postoperative Diagnosis: Same. Procedure(s) Performed: #1: Ultrasound-guided cannulation right common femoral artery. #2: Selective catheterization left common iliac artery. #3: Left iliac angiogram. #4: Attempt at a setting a left iliac occlusion, unsuccessful. #5: Femoral to femoral bypass utilizing 8 mm polytetrafluoroethylene. Anesthesia: GETA Surgeon: Ramesh Vargas Working Manager #1: Chad Garcia Estimated Blood Loss (ml): 200 Urine output (ml): 150 Pathology: none sent Condition: stable Disposition: no change Indications for Procedure: Patient is a 55-year-old male with a history of hypertension, tobacco abuse, obesity who presented to the office with a complaint of ulceration affecting the medial aspect of the left lower extremity at the malleolar level as well as severe claudication which eventually progressed to ischemic rest pain. Physical examination revealed absent femoral, popliteal, DP and PT pulses on the left and arterial Dopplers demonstrated advanced arterial insufficiency of the left lower extremity. The patient had undergone angiogram with previous attempt at percutaneous revascularization of a totally occluded external iliac segment on the left. This was unsuccessful. Patient is now offered another attempt at percutaneous revascularization of this were to fail than femoral-femoral bypass. The procedures, risk and benefits were discussed. Patient wished to proceed. Description of Procedure: Patient was brought to the [facility] and placed in supine position Mr. general endotracheal anesthesia delivered by the department of anesthesiology. Patient received 2 g of Ancef intravenously in the perioperative phase for prophylactic antibiotic therapy. Montez cath was placed to gravity drainage. The lower abdominal area bilateral inguinal areas and anterior thigh areas were sterilely prepped and draped in usual manner. Utilizing ultrasound the right common femoral artery was identified. Multipurpose needle was utilized to cannulate the common femoral artery with the aid of ultrasound and once cannulated Softip guidewire is advanced into the artery. The needle was withdrawn and a 5-Turkish sheath was advanced over the guidewire. A guidewire and catheter combination were then utilized to cannulate the origin of the left external iliac artery. Angiogram was performed. Utilizing roadmapping multiple attempts at crossing the lesion was unsuccessful and thus attempted percutaneous revascularization was aborted. It was thus felt appropriate to go forward with femoral-femoral bypass. Skin incision was made along the inguinal crease on the right and carried down through subcu change tissues. Hemostasis was achieved using electrocautery. The femoral sheath was incised and the femoral artery was identified. Vesseloops were placed about the common femoral artery and origins of the profundus and superficial femoral segments. A similar procedure was performed on the contralateral side. The patient was systemically heparinized and ACT is were drawn and additional doses of heparin were administered based on ACT measurements. Prior to heparinization a subcutaneous tunnel between the 2 incisions was made and a 8 mm PTFE graft was tunneled between the 2 incisions. Vessel loops surrounding the femoral vessels on the right were drawn closed. Arteriotomy was made and extended with Pott Dubois scissors. Good inflow and backflow was noted. The graft was spatulated match arteriotomy and an end-to-side anastomosis between the graft and the artery was performed utilizing 6-0 Prolene suture. Just prior to completion of the anastomotic line the artery was back flushed and bled and no thrombus was retrieved. The anastomotic line was completed and flow restored through the femoral artery. Excellent pulse at the distal end of the graft was identified and the graft was occluded. Excellent pulse in the superficial and profundus femoris arterial segments was also noted. Vessel loops surrounding the femoral segments on the left were drawn closed. Arteriotomy was made in the distal common femoral extended into the origin of the profundus as the superficial femoral artery was occluded. Good backbleeding was identified. The graft was cut the appropriate length and spatulated. End-to-side anastomosis was completed with 5-0 Prolene suture placed in running fashion. Just prior to completion anastomotic line the graft was flushed the artery was backbled and fore bled and no thrombus was retrieved. The anastomotic line was then completed and flow restored through the graft into the diomede arterial segments. Excellent pulse in the profundus was identified. Patient was admitted to 25 mg of protamine to reverse the heparin effect. Both wounds were irrigated with antibiotic containing solution and were inspected for hemostasis. Hemostasis judged be adequate. Both wounds were closed in multiple layers with Vicryl suture. Dermis was reapproximated using running intradermal suture of 4-0 Monocryl. Steri-Strips and Provine is were placed over each wound. Patient tolerated procedure well awoke without apparent complication was transferred to recovery area satisfactory and stable condition
[2021-01-26 15:50] LABS: Basophils % (A) 0 %; Eosinophils # (A) 0.1 k/uL (0-0.7); Eosinophils % (A) 1 %; HCT 43.5 % (39.0-53.0); HGB 14.1 gm/dL (13.0-17.5); Lymphocytes # (A) 0.7 k/uL (1.0-4.8); Lymphocytes % (A) 5 %; MCH 33.1 pg (25.0-35.0); MCHC 32.5 g/dL (31.0-37.0); MCV 101.9 fL (80.0-100.0); Macrocytosis Slight; Mean Platelet Volume 7.8; Monocytes # (A) 0.7 k/uL (0-1.0); Monocytes % (A) 6 %; Neutrophils # (A) 11.1 k/uL (1.3-7.7); Neutrophils % (A) 87 %; Platelet Count 276 k/uL (150-450); RBC 4.26 m/uL (4.30-5.90); WBC 12.8 k/uL (3.8-10.6)
[2021-01-26 15:59] LABS: African American GFR (CKD) >90 (>60 ml/min/1.73 sqM); Anion Gap 4 mmol/L; Blood Urea Nitrogen 17 mg/dL (9-20); Calcium 7.9 mg/dL (8.4-10.2); Carbon Dioxide 29 mmol/L (22-30); Chloride 94 mmol/L (98-107); Glucose 136 mg/dL (74-99); Non-African American GFR(CKD) >90 (>60 ml/min/1.73 sqM); Potassium 4.8 mmol/L (3.5-5.1); Sodium 127 mmol/L (137-145)
--- NOTE | 2021-01-26 23:06 | P.PN ---
Subjective Progress Note Date: 01/26/21 Principal diagnosis: Left femoral artery occlusion Mr. Blue is a 55-year-old male with a past medical history of significant peripheral vascular disease, hypertension, osteoarthritis admitted for elective atherectomy and stenting of left iliac and left superficial femoral artery occlusion. On 01/25/2021 -patient is seen and examined at the bedside. Patient states that he continues to have pain in the left lower extremity. Patient denies having any chest pain or palpitations. No cough or difficulty in breathing. No fever chills or rigors. NO nausea vomiting or diarrhea. No dysuria or hematuria. On reviewing the patient's vitals T-max of 99.3, heart rate 99, respiratory 20, blood pressure 117 x 71 saturating at 94% on room air. On reviewing the patient's vitals sodium 127, potassium 4.2, chloride 92, bicarb 29, BUN 16, creatinine 0.66. On 01/26/2021 patient is examined at the bedside. Patient just got back from the OR. He denies having any chest pain or palpations. No fever cough or difficulty in breathing. On reviewing the vitals T-max of 98.1, heart rate 77, respiratory rate 25, blood pressure 145/65 saturating at 96% on room air. Labs from this morning still pending. Patient's medications have been reviewed. Active Medications Hydrocodone Bitart/Acetaminophen (Hydrocodone/Apap 5-325mg 1 Each Tab) 1 each PO Q4HR PRN PRN Reason: Pain Stop: 02/21/21 11:03 Last Admin: 01/26/21 22:38 Dose: 1 each Documented by: Al Hydroxide/Mg Hydroxide (Mag Hydrox/Al Hydrox/Simeth 30 Ml Cup) 30 ml PO Q4HR PRN PRN Reason: Indigestion Stop: 02/21/21 11:03 Aspirin (Aspirin 325 Mg Tab) 325 mg PO DAILY [facility] Stop: 02/22/21 09:01 Last Admin: 01/26/21 06:07 Dose: 325 mg Documented by: Budesonide/Formoterol Fumarate (Symbicort 80-4.5 Mcg Inhaler) 2 puff INHALATION RT-BID [facility] Stop: 02/22/21 08:01 Last Admin: 01/26/21 19:07 Dose: 2 puff Documented by: Furosemide (Furosemide 10 Mg/Ml 4 Ml Vial) 20 mg IV Q12HR [facility] Last Admin: 01/26/21 22:37 Dose: 20 mg Documented by: Cefazolin Sodium 2 gm/ Sodium (Chloride) 50 mls @ 100 mls/hr IVPB Q8H [facility] Last Admin: 01/26/21 22:38 Dose: 100 mls/hr Documented by: Lisinopril (Lisinopril 5 Mg Tab) 5 mg PO DAILY [facility] Stop: 02/22/21 09:01 Last Admin: 01/26/21 06:07 Dose: 5 mg Documented by: Nicotine (Nicotine 21mg/24hr Patch) 1 patch TRANSDERM DAILY [facility] Stop: 02/21/21 10:46 Last Admin: 01/26/21 06:07 Dose: 1 patch Documented by: Nystatin (Nystatin 100,000unit/Gm Cream 30 Gm Tube) 1 applic TOPICAL BID [facility]; Protocol Stop: 02/21/21 21:01 Last Admin: 01/26/21 22:38 Dose: 1 applic Documented by: Objective - Vital Signs Vital signs: Vital Signs Temp 98.1 F 01/26/21 10:47 Pulse 93 01/26/21 11:16 Resp 22 01/26/21 11:16 BP 122/57 01/26/21 11:16 Pulse Ox 100 01/26/21 11:16 Intake & Output 01/25/21 01/26/21 01/26/21 19:59 06:59 18:59 Intake Total 1902 Output Total 930 Balance 972 Weight Intake: IV 1902 Oral 0 Output: Urine 730 Estimated Blood Loss 200 Other: Voiding Method # Voids - Exam PHYSICAL EXAMINATION: GENERAL: The patient is alert and oriented x3, not in any acute distress. Well developed, well nourished. HEENT: Pupils are round and equally reacting to light. EOMI. No scleral icterus. No conjunctival pallor. CARDIOVASCULAR: S1 and S2 present. No murmurs, rubs, or gallops. PULMONARY: Chest is clear to auscultation, no wheezing or crackles. ABDOMEN: Soft, nontender, nondistended, normoactive bowel sounds. No palpable organomegaly. MUSCULOSKELETAL: No joint swelling or deformity. EXTREMITIES: No cyanosis, clubbing, significant swelling in bilateral lower extremities NEUROLOGICAL: Gross neurological examination did not reveal any focal deficits. SKIN: Left lower ulcer for further details refer to vascular surgery - Labs CBC & Chem 7: 01/26/21 15:43 01/26/21 15:43 Labs: Abnormal Lab Results - Last 24 Hours (Table) 01/26/21 Range/Units Unknown ABG pH 7.46 H (7.35-7.45) ABG HCO3 28 H (21-25) mmol/L ABG O2 Saturation 98.5 H (94-97) % Assessment and Plan Assessment: Assessment and plan -S/p Femoro femoral by pass grafting done todat 01/26/2021 -Hypovolemic hyponatremia- Na slowly trending up -Severe peripheral vascular disease -Nicotine abuse -Hypertension -Obesity patient will be worked up for metabolic syndrome although her lipase panel is not emergent, will order hemoglobin A1c. May have sleep apnea. -Venous ulcer and left lower extremity: Management as per the primary service - DVT prophylaxis: As per primary service Plan: As a part of work-up for preop evaluation patient had an echocardiogram done showing ejection fraction of 50 to 55%. RVSP could not be estimated due to inadequate TR jet spectral Doppler profile. Patient sodium has been trending up slowly his sodium from today is 127. He has been getting 20 mg of IV Lasix twice daily. Patient had the procedure done this morning, postop doing okay so far. Awaiting labs from this morning. Continue with the rest of his current medication regimen. Further recommendations to follow depending on the progress of the patient.
[2021-01-27] MEDS: HYDROcodone/APAP 5-325MG 1 EACH TAB PO PRN ×4 (05:26→21:36)
--- NOTE | 2021-01-27 06:23 | FL ---
EXAMINATION TYPE: FL guidance operating room DATE OF EXAM: 01/26/2021 CLINICAL HISTORY: Peripheral vascular disease TECHNIQUE: Fluoroscopy. COMPARISON: None. FINDINGS: Fluoroscopic guidance was provided during femoral bypass procedure performed by Dr. Tyrone barr. A total of estimated 15 seconds of fluoroscopic time was utilized during the procedure and 2 spo t images were acquired. IMPRESSION: As Above.
[2021-01-27] MEDS: SYMBICORT 80-4.5 MCG INHALER INHALATION SCH ×2 (08:24→19:49)
[2021-01-27 08:31] VITALS: BMI 40.1
[2021-01-27] MEDS: FUROSEMIDE 10 MG/ML 4 ML VIAL IV SCH ×2 (09:21→21:34)
[2021-01-27] MEDS: NICOTINE 21MG/24HR PATCH TRANSDERM SCH (09:21)
[2021-01-27] MEDS: ASPIRIN 325 MG TAB PO SCH (09:21)
[2021-01-27] MEDS: lisinopriL 5 MG TAB PO SCH (09:21)
[2021-01-27] MEDS: NYSTATIN 100,000UNIT/GM CREAM 30 GM TUBE TOPICAL SCH ×2 (09:22→21:41)
[2021-01-27 10:27] LABS: Basophils % (A) 0 %; Eosinophils # (A) 0.2 k/uL (0-0.7); Eosinophils % (A) 1 %; HGB 15.8 gm/dL (13.0-17.5); Lymphocytes # (A) 0.8 k/uL (1.0-4.8); Lymphocytes % (A) 7 %; MCH 33.5 pg (25.0-35.0); MCHC 33.7 g/dL (31.0-37.0); MCV 99.6 fL (80.0-100.0); Mean Platelet Volume 7.6; Monocytes # (A) 0.8 k/uL (0-1.0); Monocytes % (A) 7 %; Neutrophils # (A) 9.9 k/uL (1.3-7.7); Neutrophils % (A) 84 %; Platelet Count 306 k/uL (150-450); RBC 4.72 m/uL (4.30-5.90); RDW 13.6 % (11.5-15.5); WBC 11.8 k/uL (3.8-10.6)
[2021-01-27 10:45] LABS: African American GFR (CKD) >90 (>60 ml/min/1.73 sqM); Anion Gap 7 mmol/L; Blood Urea Nitrogen 15 mg/dL (9-20); Calcium 8.5 mg/dL (8.4-10.2); Carbon Dioxide 28 mmol/L (22-30); Chloride 93 mmol/L (98-107); Glucose 114 mg/dL (74-99); Non-African American GFR(CKD) >90 (>60 ml/min/1.73 sqM); Potassium 4.4 mmol/L (3.5-5.1); Sodium 128 mmol/L (137-145)
[2021-01-27] MEDS: SODIUM CHLORIDE 0.9% 1,000 ML IV SCH (12:26)
[2021-01-27] MEDS: CLOPIDOGREL 75 MG TAB PO SCH (12:41)
[2021-01-27] MEDS ORDERED: VANCOMYCIN IV PER PHARMACY 1 EACH MISC MISCELLANE PRN (12:47)
[2021-01-27] MEDS ORDERED: VANCOMYCIN 1,750 MG in SODIUM CHLORIDE 0.9% 500 ML 500 ML IVPB ONE (13:15)
--- NOTE | 2021-01-27 13:54 | P.PN ---
Subjective Progress Note Date: 01/27/21 Principal diagnosis: Left external iliac artery occlusion with left superficial femoral artery occlusion with secondary arterial insufficiency of the left lower extremity. Patient seen and examined lying in bed. He is postop day #1 for fem-fem bypass. He is without any major complaints. States he does have some tenderness in the groins. He has Prevena a wound VAC in place. Nursing reported a low-grade temp of 99.3 this morning. No other acute changes through the night. Denies any shortness of breath or chest pain. Denies any chills. He is able to move bilateral lower extremities. Objective - Vital Signs Vital signs: Vital Signs Temp 99.3 F 01/27/21 09:20 Pulse 103 H 01/27/21 09:20 Resp 19 01/27/21 09:20 BP 163/80 01/27/21 09:20 Pulse Ox 95 01/27/21 09:20 Intake & Output 01/26/21 01/27/21 01/27/21 18:59 06:59 18:59 Intake Total 2382 140 Output Total 1280 1900 Balance 1102 -1900 140 Weight 113 kg 113 kg Intake: IV 1902 Oral 480 140 Output: Urine 1080 1900 Estimated Blood Loss 200 Other: Voiding Method Urinal Indwelling Catheter # Bowel Movements 1 - Exam General appearance: The patient is alert, oriented, in no acute distress. Obese. HET: Head is normocephalic and atraumatic. Neck: Supple without lymphadenopathy. Trachea midline. Abdomen: Soft, nontender, nondistended. Obese. Extremities: Bilateral lower extremity edema. Cellulitis to the left lower ext remity. Venous ulcer to the left lower extremity with dressing with copious amounts of pearly length drainage. Ulcer to the left posterior aspect of his lower leg without any drainage.. Neurological: No focal deficits. Alert and oriented 3. - Labs CBC & Chem 7: 01/27/21 09:54 01/27/21 09:54 Labs: Abnormal Lab Results - Last 24 Hours (Table) 01/26/21 01/26/21 Range/Units 15:43 15:43 WBC 12.8 H (3.8-10.6) k/uL RBC 4.26 L (4.30-5.90) m/uL MCV 101.9 H (80.0-100.0) fL Neutrophils # 11.1 H (1.3-7.7) k/uL Lymphocytes # 0.7 L (1.0-4.8) k/uL Sodium 127 L (137-145) mmol/L Chloride 94 L (98-107) mmol/L Glucose 136 H (74-99) mg/dL Calcium 7.9 L (8.4-10.2) mg/dL Assessment and Plan Assessment: 1. Postop day #1 fem-fem bypass 2. 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 Venous ulcer to left lower extremity with cellulitis 4. Tobacco abuse 5. Candi[place]ias 6. COPD 7. Obesity 8. Hypertension 9. Venous insufficiency Plan: 1. Continue current IV antibiotics until patient seen by infectious disease 2. Infectious disease consulted for further recommendations on the antibiotics 3. Wound cultures ordered 4. Consult to wound care clinic 5. Plavix and aspirin 6. Incentive spirometer ordered, please educate and encourage patient to use 7. Encourage ambulation The impression and plan of care has been dictated as directed. I performed a history and examination of this patient, discussed the same with the dictator. I agree with the dictator's note ,documented as a scribe. Any additional findings or plans will be noted.
[2021-01-27] MEDS: VANCOMYCIN 1,750 MG in SODIUM CHLORIDE 0.9% 500 ML 500 ML IVPB SCH (21:34)
--- NOTE | 2021-01-28 01:55 | P.PN ---
Subjective Progress Note Date: 01/27/21 Principal diagnosis: Left femoral artery occlusion Mr. Blue is a 55-year-old male with a past medical history of significant peripheral vascular disease, hypertension, osteoarthritis admitted for elective atherectomy and stenting of left iliac and left superficial femoral artery occlusion. On 01/25/2021 -patient is seen and examined at the bedside. Patient states that he continues to have pain in the left lower extremity. Patient denies having any chest pain or palpitations. No cough or difficulty in breathing. No fever chills or rigors. NO nausea vomiting or diarrhea. No dysuria or hematuria. On reviewing the patient's vitals T-max of 99.3, heart rate 99, respiratory 20, blood pressure 117 x 71 saturating at 94% on room air. On reviewing the patient's vitals sodium 127, potassium 4.2, chloride 92, bicarb 29, BUN 16, creatinine 0.66. On 01/26/2021 patient is examined at the bedside. Patient just got back from the OR. He denies having any chest pain or palpations. No fever cough or difficulty in breathing. On reviewing the vitals T-max of 98.1, heart rate 77, respiratory rate 25, blood pressure 145/65 saturating at 96% on room air. Labs from this morning still pending. On 01/27/2021 patient is seen and examined at the bedside. Patient is comfortably lying in bed appears to be no acute distress. He complains of pain in his left lower extremity. Patient denies having any fever chills or rigors. No chest pain or palpitations. No cough or difficulty breathing. No nausea vomiting or diarrhea. On reviewing the patient's vitals he had a low-grade temperature of 99.3 was slightly tachycardic at 110s, respiratory rate 20, blood pressure 153/78 saturating at 96% on room air. On reviewing the patient's labs white count of 11.8, hemoglobin 15.8, platelets 306. Sodium 138, potassium 4.4, chloride 93, bicarb 28, BUN 15, creatinine 0.65. Patient's medications have been reviewed Objective - Vital Signs Vital signs: Vital Signs Temp 99.3 F 01/27/21 09:20 Pulse 103 H 01/27/21 09:20 Resp 19 01/27/21 09:20 BP 163/80 01/27/21 09:20 Pulse Ox 95 11/08/21 09:20 Intake & Output 01/26/21 01/27/21 01/27/21 18:59 06:59 18:59 Intake Total 2382 140 Output Total 1280 1900 Balance 1102 -1900 140 Weight 113 kg 113 kg Intake: IV 1902 Oral 480 140 Output: Urine 1080 1900 Estimated Blood Loss 200 Other: Voiding Method Urinal Indwelling Catheter # Bowel Movements 1 - Exam PHYSICAL EXAMINATION: GENERAL: The patient is alert and oriented x3, not in any acute distress. Obese HEENT: Pupils are round and equally reacting to light. EOMI. No scleral icterus. No conjunctival pallor. CARDIOVASCULAR: S1 and S2 present. No murmurs, rubs, or gallops. PULMONARY: Chest is clear to auscultation, no wheezing or crackles. ABDOMEN: Soft, nontender, nondistended, normoactive bowel sounds. No palpable organomegaly. MUSCULOSKELETAL: No joint swelling or deformity. EXTREMITIES: No cyanosis, clubbing, significant swelling in bilateral lower extremities NEUROLOGICAL: Gross neurological examination did not reveal any focal deficits. SKIN: Left lower ulcer for further details refer to vascular surgery - Labs CBC & Chem 7: 01/27/21 09:54 01/27/21 09:54 Labs: Abnormal Lab Results - Last 24 Hours (Table) 01/26/21 01/26/21 01/27/21 Range/Units 15:43 15:43 09:54 WBC 12.8 H 11.8 H (3.8-10.6) k/uL RBC 4.26 L (4.30-5.90) m/uL MCV 101.9 H (80.0-100.0) fL Neutrophils # 11.1 H 9.9 H (1.3-7.7) k/uL Lymphocytes # 0.7 L 0.8 L (1.0-4.8) k/uL Sodium 127 L (137-145) mmol/L Chloride 94 L (98-107) mmol/L Creatinine (0.66-1.25) mg/dL Glucose 136 H (74-99) mg/dL Calcium 7.9 L (8.4-10.2) mg/dL 01/27/21 Range/Units 09:54 WBC (3.8-10.6) k/uL RBC (4.30-5.90) m/uL MCV (80.0-100.0) fL Neutrophils # (1.3-7.7) k/uL Lymphocytes # (1.0-4.8) k/uL Sodium 128 L (137-145) mmol/L Chloride 93 L (98-107) mmol/L Creatinine 0.65 L (0.66-1.25) mg/dL Glucose 114 H (74-99) mg/dL Calcium (8.4-10.2) mg/dL Assessment and Plan Assessment: Assessment and plan -S/p Femoro femoral by pass grafting done todat 01/26/2021 -Hypovolemic hyponatremia- Na slowly trending up -Severe peripheral vascular disease -Nicotine abuse -Hypertension -Obesity patient will be worked up for metabolic syndrome although her lipase panel is not emergent, will order hemoglobin A1c. May have sleep apnea. -Venous ulcer and left lower extremity: Management as per the primary service - DVT prophylaxis: As per primary service Plan: Status post femoral-femoral bypass grafting postop day 1 Patient spiked a fever, infectious disease Dr. William consulted for antibiotic stewardship Wound cultures have been taken Patient to be continued on aspirin Plavix He continues to be on Lasix 20 IV twice daily Sodium 128 this morning Continue with the current medication regimen Pain management and anticoagulation as per primary care team
[2021-01-28] MEDS: SODIUM CHLORIDE 0.9% 1,000 ML IV SCH ×2 (03:27→11:25)
[2021-01-28] MEDS: HYDROcodone/APAP 5-325MG 1 EACH TAB PO PRN ×4 (04:03→20:49)
[2021-01-28] MEDS: VANCOMYCIN 1,750 MG in SODIUM CHLORIDE 0.9% 500 ML 500 ML IVPB SCH (05:39)
[2021-01-28] MEDS: SYMBICORT 80-4.5 MCG INHALER INHALATION SCH ×2 (07:30→19:33)
--- NOTE | 2021-01-28 08:15 | P.CONS ---
History of Present Illness - Reason for Consult Consult date: 01/27/21 left leg wound infection Requesting physician: Patricia Sims - Chief Complaint left leg non healing wound x days and redness - History of Present Illness History of present illness : Patient is 55-year-old male with a past medical history significant for a chronic nonhealing wound to the left lower extremity in this patient with underlying PAD admitted elected to leave to the hospital on 01/22/2021 for left lower extremity angiogram and subsequently the patient had did have a unsuccessful left iliac stenting and is status post femoral to femoral bypass patient did have a nonhealing wound to the left lower extremity and noticed to have increasing swelling redness to the left leg patient complaining of some dull aching pain to the left leg foot 5-10 and no radiation patient did not have any fever during this admission he was noticed to have some purulent drainage which has been cultured this morning patient was empirically started on cefazolin infectious disease was consulted for further management of antibiotic therapy patient did have a normal white count on admission to the hospital which is up to 12.8 yesterday however down to 11.8 today did have normal kidney function whitaker PCR was negative during this admission no x-rays of the leg were done Review of system: CONSTITUTIONAL: Positive for weakness denies fever. EYES: No complaint. ENT: No complaint. RESPIRATORY: No complaint. CARDIOVASCULAR: No complaint. GENITOURINARY: No complaint. GASTROINTESTINAL: No complaint. MUSCULOSKELETAL: As per history of present illness. INTEGUMENTARY: As per history of present illness. PSYCHOLOGIC: No complaint. ENDOCRINE: No complaint. NEUROLOGIC: No complaint. Past medical history : Reviewed, documented below Past surgical history : Reviewed, documented below Social history: Reviewed, documented below Medications: Reviewed, as documented below EXAMINATION: Vital sigans= Reviewed and documented below GENERAL DESCRIPTION: Middle-aged male up in bed, no distress. No tachypnea or accessory muscle of respiration use. HEENT: Shows Pallor , no scleral icterus. Oral mucous membrane is dry. NECK: Trachea central, no thyromegaly. LUNGS: Unlabored breathing. Clear to auscultation anteriorly. No wheeze or crackle. HEART: S1, S2, regular rate and rhythm. ABDOMEN: Soft, no tenderness , guarding or rigidity EXTREMITIES: Left lower extremity with the wound on the medial aspect with purulent drainage with surrounding swelling and redness. SKIN: No rash, no masses palpable. NEUROLOGICAL: The patient is awake, alert, oriented x3, mood and affect normal. LABS AND RADIOLOGY: Reviewed results see below Assessment : Patient with a chronic nonhealing wound to the left lower extremity with underlying PAD in this patient with unsuccessful stenting of the left iliac artery s/p femorofemoral bypass surgery during this admission now with evidence of wound infection with purulent drainage and secondary cellulitis over likely from gram-positive skin monica and will need to cover for resistant gram-negative while waiting for the culture to finalize Plan: 1-we will repeat blood cultures CRP and sed rate local culture has only been obtained 2-discontinue cefazolin 3-vancomycin pharmacy to dose with a target trough of 15 while watching kidney function and Vanco trough closely. We will follow on clinical condition and cultures to further adjust medication if needed Thank you for this consultation we will follow the patient along with you Past Medical History Past Medical History: Hypertension, Osteoarthritis (OA), Skin Disorder, Vascular Disorder Additional Past Medical History / Comment(s): open sore left l[place]ardi History of Any Multi-Drug Resistant Organisms: None Reported Past Surgical History: Cholecystectomy Past Anesthesia/Blood Transfusion Reactions: No Reported Reaction Past Psychological History: No Psychological Hx Reported Smoking Status: Current every day smoker Past Alcohol Use History: Rare Additional Past Alcohol Use History / Comment(s): 1ppd for 30 yrs. Past Drug Use History: None Reported Medications and Allergies Home Medications Medication Instructions Recorded Confirmed Type Aspirin 325 mg PO DAILY 01/21/21 01/22/21 History Benazepril [Lotensin] 10 mg PO DAILY 01/21/21 01/22/21 History Fluticasone Propion/Salmeterol 1 inhalation PO DAILY 01/21/21 01/22/21 History [Wixela 250-50 Inhub] Potassium Gluconate [Potassium 99 mg PO DAILY 01/21/21 01/22/21 History Gluconate ER] hydroCHLOROthiazide [Hydrodiuril] 25 mg PO DAILY 01/21/21 01/22/21 History Allergies Allergy/AdvReac Type Severity Reaction Status Date / Time No Known Allergies Allergy Verified 01/20/21 07:37 Physical Exam Vitals: Vital Signs Temp Pulse Pulse Resp BP BP BP 01/27/21 09:20 99.3 F 103 H 19 163/80 01/27/21 08:00 94 11/08/21 05:00 98.1 F 94 18 126/77 01/26/21 12:30 91 100/67 01/26/21 12:15 85 104/66 01/26/21 12:00 89 111/72 01/26/21 11:46 98 20 01/26/21 11:45 90 20 101/66 01/26/21 11:31 93 22 126/62 01/26/21 11:16 93 22 122/57 141/56 01/26/21 11:00 70 25 H 129/61 138/49 01/26/21 10:47 98.1 F 77 25 H 145/65 165/64 Pulse Ox 01/27/21 09:20 95 01/27/21 08:00 01/27/21 05:00 94 L 01/26/21 12:30 92 L 01/26/21 12:15 95 01/26/21 12:00 95 01/26/21 11:46 01/26/21 11:45 95 01/26/21 11:31 97 01/26/21 11:16 100 01/26/21 11:00 97 01/26/21 10:47 97 Intake and Output 01/26/21 01/27/21 01/27/21 22:59 06:59 14:59 Intake Total 140 Output Total 350 1550 Balance -350 -1550 140 Intake: Oral 140 Output: Urine 350 1550 Other: Voiding Method Indwelling Catheter Indwelling Catheter # Bowel Movements 1 Weight 113 kg 113 kg Results CBC & Chem 7: 01/27/21 09:54 01/27/21 09:54 Labs: Abnormal Lab Results - Last 24 Hours (Table) 01/26/21 01/26/21 01/27/21 Range/Units 15:43 15:43 09:54 WBC 12.8 H 11.8 H (3.8-10.6) k/uL RBC 4.26 L (4.30-5.90) m/uL MCV 101.9 H (80.0-100.0) fL Neutrophils # 11.1 H 9.9 H (1.3-7.7) k/uL Lymphocytes # 0.7 L 0.8 L (1.0-4.8) k/uL Sodium 127 L (137-145) mmol/L Chloride 94 L (98-107) mmol/L Glucose 136 H (74-99) mg/dL Calcium 7.9 L (8.4-10.2) mg/dL
[2021-01-28] MEDS: ASPIRIN 81 MG PO SCH (09:19)
[2021-01-28] MEDS: NICOTINE 21MG/24HR PATCH TRANSDERM SCH (09:19)
[2021-01-28] MEDS: FUROSEMIDE 10 MG/ML 4 ML VIAL IV SCH ×2 (09:19→20:48)
[2021-01-28] MEDS: lisinopriL 5 MG TAB PO SCH (09:19)
[2021-01-28] MEDS: CLOPIDOGREL 75 MG TAB PO SCH (09:19)
[2021-01-28] MEDS: NYSTATIN 100,000UNIT/GM CREAM 30 GM TUBE TOPICAL SCH ×2 (09:20→20:54)
--- NOTE | 2021-01-28 10:05 | P.CONS ---
History of Present Illness - Reason for Consult Consult date: 01/28/21 wound care - History of Present Illness This a 55-year-old patient known to Dr. Landon who underwent a fem-fem bypass on Wednesday. Patient has a nonhealing ulceration to the left lower extremity posterior and left lower extremity medial. Patient states that the ulcerations have been there for approximately 1 year. There is a copious amount of drainage from the posterior ulceration. The posterior ulceration measures approximately 3 x 2 x 0.4 cm. There is a significant amount of eschar and purulent drainage to the site. The periwound is macerated with erythema. The medial ulceration measures presently 2 x 2 x 0.2 cm with fat layer exposure. Granulation seen throughout the wound bed, with slough noted. The periwound has erythema. A wound culture was obtained yesterday. Past medical history significant for hypertension, osteoarthritis, vascular disorder, current every day smoker. Denies diabetes. Review Of Systems: Constitutional: No fever, no chills, no night sweats. No weight change. No weakness, fatigue or lethargy. No daytime sleepiness. Integumentary:reports wounds, no lesions. No rash or pruritus. No unusual bruising. No change in hair or nails. Physical exam: General Appearance: Alert, cooperative, no distress, appears stated age. Skin: See HPI all other Skin color, texture, tugor normal, no rashes or lesions. Neurologic: Alert oriented x3 Assessment: 1. Arthrosclerosis of [place] vessel with ulceration to calf and ankle 2. Nonhealing ulceration to the left ankle with fatty layer exposure 3. Nonhealing ulceration to left calf with fat layer exposure 4. Nicotine dependence Plan: 1. Apply Santyl, saline moistened gauze, dry gauze, rolled gauze and secure with paper tape. Change daily. Patient would benefit from aggressive wound debridement and outpatient setting. Discussed with patient the need for continued wound care and outpatient setting patient was agreeable. Thank you for the consultation any questions please contact the wound care center DNP note has been reviewed and discussed with Dr. Stone and the impression and plan of care has been directed as dictated. Past Medical History Past Medical History: Hypertension, Osteoarthritis (OA), Skin Disorder, Vascular Disorder Additional Past Medical History / Comment(s): open sore left l[place] History of Any Multi-Drug Resistant Organisms: None Reported Past Surgical History: Cholecystectomy Past Anesthesia/Blood Transfusion Reactions: No Reported Reaction Past Psychological History: No Psychological Hx Reported Smoking Status: Current every day smoker Past Alcohol Use History: Rare Additional Past Alcohol Use History / Comment(s): 1ppd for 30 yrs. Past Drug Use History: None Reported Medications and Allergies Home Medications Medication Instructions Recorded Confirmed Type Aspirin 325 mg PO DAILY 01/21/21 01/22/21 History Benazepril [Lotensin] 10 mg PO DAILY 01/21/21 01/22/21 History Fluticasone Propion/Salmeterol 1 inhalation PO DAILY 01/21/21 01/22/21 History [Wixela 250-50 Inhub] Potassium Gluconate [Potassium 99 mg PO DAILY 01/21/21 01/22/21 History Gluconate ER] hydroCHLOROthiazide [Hydrodiuril] 25 mg PO DAILY 01/21/21 01/22/21 History Allergies Allergy/AdvReac Type Severity Reaction Status Date / Time No Known Allergies Allergy Verified 01/20/21 07:37 Physical Exam Vitals: Vital Signs Temp Pulse Resp BP BP Pulse Ox 01/28/21 05:00 98.1 F 93 20 135/76 94 L 01/28/21 01:00 98.1 F 103 H 18 110/75 93 L 01/27/21 20:30 98.2 F 102 H 20 153/78 96 01/27/21 19:50 96 01/27/21 16:34 99.4 F 99 17 134/80 94 L 01/27/21 11:57 98.7 F 102 H 18 117/71 91 L Intake and Output 01/27/21 01/28/21 01/28/21 22:59 06:59 14:59 Intake Total 360 1640 236 Output Total 300 1600 600 Balance 60 40 -364 Intake: Intake, IV Titration 1000 Amount Sodium Chloride 0.9% 1, 500 000 ml @ 0 mls/hr IV .[facility] Rx#:[id number] Vancomycin 1,750 mg In 500 Sodium Chloride 0.9% 500 ml 500 ml @ 167 mls/hr IVPB Q8H [facility] Rx#: [id number] Oral 360 640 236 Output: Urine 300 1600 600 Other: # Voids 1 2 Weight 120.5 kg Results CBC & Chem 7: 01/27/21 09:54 01/27/21 09:54 Labs: Abnormal Lab Results - Last 24 Hours (Table) 01/27/21 01/27/21 Range/Units 09:54 09:54 WBC 11.8 H (3.8-10.6) k/uL Neutrophils # 9.9 H (1.3-7.7) k/uL Lymphocytes # 0.8 L (1.0-4.8) k/uL Sodium 128 L (137-145) mmol/L Chloride 93 L (98-107) mmol/L Creatinine 0.65 L (0.66-1.25) mg/dL Glucose 114 H (74-99) mg/dL Microbiology - Last 24 Hours (Table) 01/27/21 12:30 Gram Stain - Preliminary Ankle - Left Wound Culture - Preliminary 01/27/21 12:30 Anaerobic Culture - Preliminary Ankle - Left Assessment and Plan (1) Atherosclerosis of [place] arteries of left leg with ulceration of ankle Current Visit: Yes Status: Acute Code(s): I70.243 - ATHSCL K[place] ARTERIES OF LEFT LEG W ULCERATION OF ANKLE SNOMED Code(s): 321339775 (2) Atherosclerosis of [place] arteries of left leg with ulceration of calf Current Visit: Yes Status: Acute Code(s): I70.242 - ATHSCL [place] ARTERIES OF LEFT LEG W ULCERATION OF CALF SNOMED Code(s): 785096954 (3) Non-pressure chronic ulcer of left ankle with fat layer exposed Current Visit: Yes Status: Acute Code(s): L97.322 - NON-PRESSURE CHRONIC ULCER OF LEFT ANKLE W FAT LAYER EXPOSED SNOMED Code(s): 51434161833403863 (4) Non-pressure chronic ulcer of left calf with fat layer exposed Current Visit: Yes Status: Acute Code(s): L97.222 - NON-PRESSURE CHRONIC ULCER OF LEFT CALF W FAT LAYER EXPOSED SNOMED Code(s): 96388642105274628 (5) Nicotine dependence Current Visit: Yes Status: Acute Code(s): F17.200 - NICOTINE DEPENDENCE, UNSPECIFIED, UNCOMPLICATED SNOMED Code(s): 38460954
--- NOTE | 2021-01-28 10:28 | P.PN ---
Subjective Progress Note Date: 01/28/21 Patient seen and examined lying in bed. He is postop day #2 for fem-fem bypass. He is without any major complaints. States he does have some tenderness in the right groin. He has Prevena a wound VAC in place. No acute changes through the night. Infectious disease saw patient and changed antibiotics to Cefepime. Wound care consulted for further wound management of the left lower extremity ulcers. He's been afebrile. Objective - Vital Signs Vital signs: Vital Signs Temp 98.1 F 01/28/21 05:00 Pulse 93 01/28/21 05:00 Resp 20 01/28/21 05:00 BP 135/76 01/28/21 05:00 Pulse Ox 94 L 01/28/21 05:00 Intake & Output 01/27/21 01/28/21 01/28/21 18:59 06:59 18:59 Intake Total 500 1640 236 Output Total 1400 1900 600 Balance -900 260 -364 Weight 113 kg 120.5 kg Intake: Intake, IV Titration 1000 Amount Sodium Chloride 0.9% 1, 500 000 ml @ 0 mls/hr IV .[facility] Rx#:[id number] Vancomycin 1,750 mg In 500 Sodium Chloride 0.9% 500 ml 500 ml @ 167 mls/hr IVPB Q8H [facility] Rx#: [id number] Oral 500 640 236 Output: Urine 1400 1900 600 Other: Voiding Method Indwelling Catheter # Voids 2 - Exam General appearance: The patient is alert, oriented, in no acute distress. Obese. HET: Head is normocephalic and atraumatic. Neck: Supple without lymphadenopathy. Trachea midline. Abdomen: Soft, nontender, nondistended. Obese. Extremities: Bilateral lower extremity edema. Prevena dressings intact, right groin with significant amount of ecchymosis with no palpable hematoma. Left groin with minimal amount of echymosis. Ulcers left ankle and posterior lower left leg with surrounding cellulitis. Posterior ulcer with eschar and drainage. Ulcer on left ankle with slough tissue and drainage. Bilateral doppler signals, good capillary refills. Neurological: No focal deficits. Alert and oriented 3. - Labs CBC & Chem 7: 01/28/21 10:14 01/28/21 10:15 Labs: Abnormal Lab Results - Last 24 Hours (Table) 01/27/21 01/27/21 Range/Units 09:54 09:54 WBC 11.8 H (3.8-10.6) k/uL Neutrophils # 9.9 H (1.3-7.7) k/uL Lymphocytes # 0.8 L (1.0-4.8) k/uL Sodium 128 L (137-145) mmol/L Chloride 93 L (98-107) mmol/L Creatinine 0.65 L (0.66-1.25) mg/dL Glucose 114 H (74-99) mg/dL Microbiology - Last 24 Hours (Table) 01/27/21 12:30 Gram Stain - Preliminary Ankle - Left Wound Culture - Preliminary 01/27/21 12:30 Anaerobic Culture - Preliminary Ankle - Left Assessment and Plan Assessment: 1. Postop day #2 fem-fem bypass 2. 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 Venous ulcers to left lower extremity with cellulitis 4. Tobacco abuse 5. [place] 6. COPD 7. Obesity 8. Hypertension 9. Venous insufficiency Plan: 1. Continue current IV antibiotics recommended by infectious disease 2. Wound Culture is pending 3. Wound care clinic on consult, local dressing changes per the recommendations 4. Plavix and aspirin 5. Encourage incentive spirometer 6. Encourage ambulation 7. Tobacco cessation 8. Will need to follow up outpatient with wound care clinic The impression and plan of care has been dictated as directed. I performed a history and examination of this patient, discussed the same with the dictator. I agree with the dictator's note ,documented as a scribe. Any additional findings or plans will be noted.
[2021-01-28 10:32] LABS: Basophils # (A) 0.1 k/uL (0-0.2); Basophils % (A) 0 %; Eosinophils # (A) 0.2 k/uL (0-0.7); Eosinophils % (A) 2 %; HCT 45.3 % (39.0-53.0); Lymphocytes % (A) 8 %; MCH 33.4 pg (25.0-35.0); MCHC 33.2 g/dL (31.0-37.0); MCV 100.8 fL (80.0-100.0); Mean Platelet Volume 7.6; Monocytes # (A) 0.9 k/uL (0-1.0); Monocytes % (A) 7 %; Neutrophils # (A) 10.6 k/uL (1.3-7.7); Neutrophils % (A) 82 %; Platelet Count 318 k/uL (150-450); RDW 12.9 % (11.5-15.5)
[2021-01-28 10:46] LABS: African American GFR (CKD) >90 (>60 ml/min/1.73 sqM); Anion Gap 6 mmol/L; Blood Urea Nitrogen 16 mg/dL (9-20); Calcium 8.3 mg/dL (8.4-10.2); Carbon Dioxide 28 mmol/L (22-30); Chloride 94 mmol/L (98-107); Glucose 113 mg/dL (74-99); Non-African American GFR(CKD) >90 (>60 ml/min/1.73 sqM); Potassium 4.3 mmol/L (3.5-5.1); Sodium 128 mmol/L (137-145)
[2021-01-28] MEDS: CEFEPIME 2 GM in SODIUM CHLORIDE 0.9% 100 ML IVPB SCH ×2 (11:25→18:37)
[2021-01-28] MEDS: COLLAGENASE 250 UNIT/GM OINTMENT 30 GM TUBE TOPICAL SCH (11:26)
--- NOTE | 2021-01-28 15:19 | P.PN ---
Subjective Progress Note Date: 01/28/21 Left femoral artery occlusion Mr. Blue is a 55-year-old male with a past medical history of significant peripheral vascular disease, hypertension, osteoarthritis admitted for elective atherectomy and stenting of left iliac and left superficial femoral artery occlusion. On 01/25/2021 -patient is seen and examined at the bedside. Patient states that he continues to have pain in the left lower extremity. Patient denies having any chest pain or palpitations. No cough or difficulty in breathing. No fever chills or rigors. NO nausea vomiting or diarrhea. No dysuria or hematuria. On reviewing the patient's vitals T-max of 99.3, heart rate 99, respiratory 20, blood pressure 117 x 71 saturating at 94% on room air. On reviewing the patient's vitals sodium 127, potassium 4.2, chloride 92, bicarb 29, BUN 16, creatinine 0.66. On 01/26/2021 patient is examined at the bedside. Patient just got back from the OR. He denies having any chest pain or palpations. No fever cough or difficulty in breathing. On reviewing the vitals T-max of 98.1, heart rate 77, respiratory rate 25, blood pressure 145/65 saturating at 96% on room air. Labs from this morning still pending. On 01/27/2021 patient is seen and examined at the bedside. Patient is comfortably lying in bed appears to be no acute distress. He complains of pain in his left lower extremity. Patient denies having any fever chills or rigors. No chest pain or palpitations. No cough or difficulty breathing. No nausea vomiting or diarrhea. On reviewing the patient's vitals he had a low-grade temperature of 99.3 was slightly tachycardic at 110s, respiratory rate 20, blood pressure 153/78 saturating at 96% on room air. On reviewing the patient's labs white count of 11.8, hemoglobin 15.8, platelets 306. Sodium 138, potassium 4.4, chloride 93, bicarb 28, BUN 15, creatinine 0.65. 01/28/2021 Patient is seen and evaluated and follow-up with vascular surgery Dr. Garcia at the bedside. Multiple other medical consultations following including infectious disease and wound care has been consulted. PT/OT therapy to evaluate the patient daily as patient is weak requiring assistance on getting up and needs education on weightbearing restrictions of the left lower extremity. Patient continues on IV cefepime with infectious disease following closely. Preliminary wound culture showing gram-negative bacilli and awaiting for fi nalized cultures. IV vancomycin has been discontinued. Labs: White blood count is 13.0, hemoglobin is 15.0, platelets are 318, sodium is 128, potassium is 4.3, creatinine is 0.65 Review of systems: Constitutional: No reports of fatigue, fever, or chills Cardiovascular: No reports of chest pain or palpitations Respiratory: No reports of shortness of breath or cough GI: No reports of nausea, vomiting, or diarrhea : No reports of dysuria or retention Neurovascular: reports of generalized weakness All medications have been reviewed Active Medications Hydrocodone Bitart/Acetaminophen (Hydrocodone/Apap 5-325mg 1 Each Tab) 1 each PO Q4HR PRN PRN Reason: Pain Stop: 02/21/21 11:03 Last Admin: 01/28/21 09:21 Dose: 1 each Documented by: Al Hydroxide/Mg Hydroxide (Mag Hydrox/Al Hydrox/Simeth 30 Ml Cup) 30 ml PO Q4HR PRN PRN Reason: Indigestion Stop: 02/21/21 11:03 Aspirin (Aspirin 81 Mg) 81 mg PO DAILY [facility] Last Admin: 01/28/21 09:19 Dose: 81 mg Documented by: Budesonide/Formoterol Fumarate (Symbicort 80-4.5 Mcg Inhaler) 2 puff INHALATION RT-BID [facility] Stop: 02/22/21 08:01 Last Admin: 01/28/21 07:30 Dose: 2 puff Documented by: Clopidogrel Bisulfate (Clopidogrel 75 Mg Tab) 75 mg PO DAILY [facility] Last Admin: 01/28/21 09:19 Dose: 75 mg Documented by: Collagenase (Collagenase 250 Unit/Gm Ointment 30 Gm Tube) 1 applic TOPICAL DAILY [facility]; Protocol Last Admin: 01/28/21 11:26 Dose: 1 applic Documented by: Furosemide (Furosemide 10 Mg/Ml 4 Ml Vial) 20 mg IV Q12HR [facility] Last Admin: 01/28/21 09:19 Dose: 20 mg Documented by: Sodium Chloride (Saline 0.9%) 1,000 mls @ 75 mls/hr IV .[id number] [facility] Last Admin: 01/28/21 11:25 Dose: 75 mls/hr Documented by: Cefepime HCl 2 gm/ Sodium (Chloride) 100 mls @ 25 mls/hr IVPB Q8H [facility] Last Admin: 01/28/21 11:25 Dose: 25 mls/hr Documented by: Lisinopril (Lisinopril 5 Mg Tab) 5 mg PO DAILY [facility] Stop: 02/22/21 09:01 Last Admin: 01/28/21 09:19 Dose: 5 mg Documented by: Nicotine (Nicotine 21mg/24hr Patch) 1 patch TRANSDERM DAILY [facility] Stop: 02/21/21 10:46 Last Admin: 01/28/21 09:19 Dose: 1 patch Documented by: Nystatin (Nystatin 100,000unit/Gm Cream 30 Gm Tube) 1 applic TOPICAL BID VISHAL; Protocol Stop: 02/21/21 21:01 Last Admin: 01/28/21 09:20 Dose: 1 applic Documented by: Physical exam: GENERAL: The patient is alert and oriented x3, not in any acute distress. Obese HEENT: Pupils are round and equally reacting to light. EOMI. No scleral icterus. No conjunctival pallor. CARDIOVASCULAR: S1 and S2 present. No murmurs, rubs, or gallops. PULMONARY: Diminished breath sounds bilaterally with some scattered rhonchi noted ABDOMEN: Soft, obese. nontender, nondistended, normoactive bowel sounds. No palpable organomegaly. MUSCULOSKELETAL: No joint swelling or deformity. EXTREMITIES: No cyanosis, clubbing, significant swelling in bilateral lower extremities NEUROLOGICAL: Gross neurological examination did not reveal any focal deficits. SKIN: Left lower ulcer for further details refer to vascular surgery, left lower extremity redness and swelling noted Assessment: -S/p Femoro femoral by pass grafting done 01/26/2021 -Hypovolemic hyponatremia -Severe peripheral vascular disease -Nicotine abuse -Hypertension -Obesity patient will be worked up for metabolic syndrome although her lipase panel is not emergent, will order hemoglobin A1c. May have sleep apnea. -Venous ulcer of left lower extremity: Management as per the primary service -DVT prophylaxis: As per primary service -Full code Plan: Recommend to continue with current medications, management, and symptomatic treatment. Patient is status post fem-pop bypass of the left lower extremity. Multiple medical consultations including infectious disease and wound care consulted and following. Patient is maintained on IV antibiotics in the form of cefepime and awaiting for cultures to finalized. IV vancomycin has been discontinued. Wound care consulted. Patient is maintained on aspirin and Cristina vix per vascular surgery services patient also continues on IV Lasix 20 mg twice daily and sodium continues to be low. Patient was also continued on IV hydration and will discontinue and add fluid restrictions and repeat a.m. labs. PT/OT to evaluate the patient daily as patient is weak and would like to go home on discharge once stabilized. Prognosis is guarded. Further recommendations to follow based on the clinical course of the patient. Thank you for this consultation. Objective - Vital Signs Vital signs: Vital Signs Temp 99.5 F 01/28/21 12:05 Pulse 93 01/28/21 12:05 Resp 17 01/28/21 14:23 BP 134/75 01/28/21 12:05 Pulse Ox 93 L 01/28/21 12:05 Intake & Output 01/27/21 01/28/21 01/28/21 18:59 06:59 18:59 Intake Total 500 1640 316 Output Total 1400 1900 600 Balance -900 260 -284 Weight 113 kg 120.5 kg Intake: Intake, IV Titration 1000 Amount Sodium Chloride 0.9% 1, 500 000 ml @ 0 mls/hr IV [facility] Rx#:[id number] Vancomycin 1,750 mg In 500 Sodium Chloride 0.9% 500 ml 500 ml @ 167 mls/hr IVPB Q8H [facility] Rx#: [id number] Oral 500 640 316 Output: Urine 1400 1900 600 Other: Voiding Method Indwelling Catheter # Voids 2 - Labs CBC & Chem 7: 01/28/21 10:14 01/28/21 10:15 Labs: Abnormal Lab Results - Last 24 Hours (Table) 01/28/21 01/28/21 Range/Units 10:14 10:15 WBC 13.0 H (3.8-10.6) k/uL MCV 100.8 H (80.0-100.0) fL Neutrophils # 10.6 H (1.3-7.7) k/uL Sodium 128 L (137-145) mmol/L Chloride 94 L (98-107) mmol/L Creatinine 0.65 L (0.66-1.25) mg/dL Glucose 113 H (74-99) mg/dL Calcium 8.3 L (8.4-10.2) mg/dL Microbiology - Last 24 Hours (Table) 01/27/21 12:30 Gram Stain - Preliminary Ankle - Left Wound Culture - Preliminary Gram Neg Bacilli 01/27/21 12:30 Anaerobic Culture - Preliminary Ankle - Left
--- NOTE | 2021-01-28 23:03 | PN ---
PROGRESS NOTE DATE OF SERVICE: 01/28/2021 REASON FOR FOLLOWUP: Left leg wound and cellulitis. INTERVAL HISTORY: The patient is afebrile. He is breathing comfortably. The patient denies any worsening pain to the left leg wound area. The patient denies having any chest pain, shortness of breath or cough. No abdominal pain or diarrhea. PHYSICAL EXAMINATION: Blood pressure is 124/76 pulse 103, temperature 99.6. He is 93% on room air. General description is a middle-aged male up in the bed in no distress. Respiratory system: Unlabored breathing, decreased intensity of breath sounds. No wheeze. Heart S1, S2. Regular rate and rhythm. Abdomen soft, no tenderness. Left medial leg wound is currently dressed. No obvious drainage on the dressing. LABS: Hemoglobin is 15, white count 13, BUN of 16, creatinine 0.65. DIAGNOSTIC IMPRESSION AND PLAN: Patient with left leg wound infection with secondary cellulitis. Culture is showing a Gram-negative. Patient's antibiotic has been adjusted to cefepime. That will be continued while waiting for the culture to finalize to determine discharge antibiotics. Local care to continue with Tamela. MMDAINAL / IJN: [id number] /
[2021-01-29] MEDS: CEFEPIME 2 GM in SODIUM CHLORIDE 0.9% 100 ML IVPB SCH ×3 (03:43→18:13)
[2021-01-29 06:34] LABS: African American GFR (CKD) >90 (>60 ml/min/1.73 sqM); Anion Gap 4 mmol/L; Blood Urea Nitrogen 20 mg/dL (9-20); Calcium 8.5 mg/dL (8.4-10.2); Carbon Dioxide 31 mmol/L (22-30); Chloride 97 mmol/L (98-107); Glucose 103 mg/dL (74-99); Non-African American GFR(CKD) >90 (>60 ml/min/1.73 sqM); Potassium 4.7 mmol/L (3.5-5.1); Sodium 132 mmol/L (137-145)
[2021-01-29] MEDS: HYDROcodone/APAP 5-325MG 1 EACH TAB PO PRN ×4 (06:48→22:00)
[2021-01-29 07:50] LABS: Basophils # (A) 0.1 k/uL (0-0.2); Basophils % (A) 1 %; Eosinophils # (A) 0.3 k/uL (0-0.7); Eosinophils % (A) 2 %; HCT 45.2 % (39.0-53.0); HGB 14.7 gm/dL (13.0-17.5); Lymphocytes # (A) 1.1 k/uL (1.0-4.8); Lymphocytes % (A) 10 %; MCH 33.4 pg (25.0-35.0); MCHC 32.5 g/dL (31.0-37.0); Macrocytosis Slight; Mean Platelet Volume 7.8; Monocytes # (A) 0.9 k/uL (0-1.0); Monocytes % (A) 8 %; Neutrophils # (A) 8.2 k/uL (1.3-7.7); Neutrophils % (A) 77 %; Platelet Count 332 k/uL (150-450); RBC 4.39 m/uL (4.30-5.90); RDW 12.9 % (11.5-15.5); WBC 10.7 k/uL (3.8-10.6)
[2021-01-29] MEDS: NICOTINE 21MG/24HR PATCH TRANSDERM SCH (08:36)
[2021-01-29] MEDS: CLOPIDOGREL 75 MG TAB PO SCH (08:36)
[2021-01-29] MEDS: FUROSEMIDE 10 MG/ML 4 ML VIAL IV SCH ×2 (08:36→22:01)
[2021-01-29] MEDS: ASPIRIN 81 MG PO SCH (08:36)
[2021-01-29] MEDS: lisinopriL 5 MG TAB PO SCH (08:36)
[2021-01-29] MEDS: NYSTATIN 100,000UNIT/GM CREAM 30 GM TUBE TOPICAL SCH ×2 (08:44→22:08)
[2021-01-29] MEDS: COLLAGENASE 250 UNIT/GM OINTMENT 30 GM TUBE TOPICAL SCH (08:44)
[2021-01-29] MEDS: SYMBICORT 80-4.5 MCG INHALER INHALATION SCH ×2 (09:05→19:01)
--- NOTE | 2021-01-29 11:24 | P.PN ---
Subjective Progress Note Date: 01/29/21 Patient seen and examined sitting up in the bedside chair. He is postop day #3 for fem-fem bypass. No acute changes through the night. He continues to complain of 5 left lower extremity pain. Apparently according to the physical therapy note he was requiring two-person assist yesterday due to pain in the left lower extremity. Postop she was ordered. Patient today to get up with a 1 person assist is using walker to offload pressure to the left lower extremity. Discussed with patient increased pain to the left lower extremity is to be expected as there is increase blood flow to that area. Currently waiting on final wound cultures, preliminary showing gram-negative bacilli. Patient is covered with cefepime. Prevena wound VACs in place. Patient was seen yesterday by wound care center, recommending C and told to lower extremity ulcers as well as outpatient follow-up for further treatment and care including debridement. He is afebrile. WBC trending down today is 10.7, hemoglobin stable 14.7 Objective - Vital Signs Vital signs: Vital Signs Temp 97.9 F 01/29/21 08:37 Pulse 91 01/29/21 08:37 Resp 18 01/29/21 08:37 BP 136/80 01/29/21 08:37 Pulse Ox 94 L 01/29/21 08:37 Intake & Output 01/28/21 01/29/21 01/29/21 18:59 06:59 18:59 Intake Total 556 118 Output Total 1400 875 Balance -844 -875 118 Weight 129 kg Intake: Oral 556 118 Output: Urine 1400 875 - Exam General appearance: The patient is alert, oriented, in no acute distress. Obese. HET: Head is normocephalic and atraumatic. Neck: Supple without lymphadenopathy. Trachea midline. Abdomen: Soft, nontender, nondistended. Obese. Extremities: Bilateral lower extremity edema. Prevena dressings intact, right groin with significant amount of ecchymosis with no palpable hematoma. Left groin with minimal amount of echymosis. Left lower extremity dressings clean dry and intact. Bilateral doppler signals, good capillary refills. Neurological: No focal deficits. Alert and oriented 3. - Labs CBC & Chem 7: 01/29/21 05:53 01/29/21 05:53 Labs: Abnormal Lab Results - Last 24 Hours (Table) 01/28/21 01/28/21 01/29/21 Range/Units 10:14 10:15 05:53 WBC 13.0 H (3.8-10.6) k/uL MCV 100.8 H (80.0-100.0) fL Neutrophils # 10.6 H (1.3-7.7) k/uL Sodium 128 L 132 L (137-145) mmol/L Chloride 94 L 97 L (98-107) mmol/L Carbon Dioxide 31 H (22-30) mmol/L Creatinine 0.65 L (0.66-1.25) mg/dL Glucose 113 H 103 H (74-99) mg/dL Calcium 8.3 L (8.4-10.2) mg/dL 01/29/21 Range/Units 05:53 WBC 10.7 H (3.8-10.6) k/uL MCV 103.0 H (80.0-100.0) fL Neutrophils # 8.2 H (1.3-7.7) k/uL Sodium (137-145) mmol/L Chloride (98-107) mmol/L Carbon Dioxide (22-30) mmol/L Creatinine (0.66-1.25) mg/dL Glucose (74-99) mg/dL Calcium (8.4-10.2) mg/dL Microbiology - Last 24 Hours (Table) 01/27/21 14:36 Blood Culture - Preliminary Blood No Growth after 24 hours 01/27/21 12:30 Gram Stain - Preliminary Ankle - Left Wound Culture - Preliminary Gram Neg Bacilli Assessment and Plan Assessment: 1. Postop day #3 fem-fem bypass 2. 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 Venous ulcers to left lower extremity with cultures positive for gram negatives bacilli 4. Tobacco abuse 5. Candiadias 6. COPD 7. Obesity 8. Hypertension 9. Venous insufficiency Plan: 1. Continue current IV antibiotics recommended by infectious disease 2. Wound Culture preliminary showing gram negative bacilli, await final culture 3. Wound care clinic on consult, local dressing changes per the recommendations 4. Plavix and aspirin 5. Encourage incentive spirometer 6. Encourage ambulation 7. Tobacco cessation 8. Will need to follow up outpatient with wound care clinic 9. Plan is for discharge home with home care services in the next 24-48 hours pending final wound culture and recommendations for outpatient antibiotics per infectious disease 10. Gabapentin 300 mg 3 times a day started The impression and plan of care has been dictated as directed. Dr. Montez I performed a history and examination of this patient, discussed the same with the dictator. I agree with the dictator's note ,documented as a scribe. Any additional findings or plans will be noted.
[2021-01-29] MEDS ORDERED: VANCOMYCIN TROUGH DUE 1 EACH MISC MISCELLANE ONE (13:00)
--- NOTE | 2021-01-29 14:19 | PN ---
PROGRESS NOTE DATE OF SERVICE: 01/29/2021 REASON FOR FOLLOWUP: Left leg wound and cellulitis. INTERVAL HISTORY: The patient is afebrile. He is currently breathing comfortably. The patient denies having any chest pain or shortness of breath or cough. No abdominal pain or pain to the left lower extremity wound area. PHYSICAL EXAMINATION: Blood pressure 110/66, pulse of 84, temperature 97.4. He is 95% on room air. General description is a middle-aged male up in the bed in no distress. Respiratory system: Unlabored breathing, clear to auscultation anteriorly. Heart S1, S2. Regular rate and rhythm. Abdomen soft, no tenderness. Left medial leg wound is currently dressed. No obvious drainage on the dressing. LABS: Hemoglobin is 14, white count 10.7, creatinine 0.67. Wound culture with E coli and Staph aureus. DIAGNOSTIC IMPRESSION AND PLAN: Patient left leg wound with secondary cellulitis. Culture now showing Staph aureus and E coli. Patient is covered cefepime. Waiting for sensitivity on the Staph aureus to determine discharge antibiotics. Local care with Santyl followed by moist dressing. Continue with supportive care. MMODL / IJN: [id number] /
[2021-01-29] MEDS: GABAPENTIN 300 MG CAP PO SCH ×2 (16:21→22:00)
[2021-01-29] MEDS ORDERED: ACETAMINOPHEN TAB 500 MG TAB PO STA (17:59)
--- NOTE | 2021-01-30 00:33 | P.PN ---
Subjective Progress Note Date: 01/29/21 Left femoral artery occlusion Mr. Blue is a 55-year-old male with a past medical history of significant peripheral vascular disease, hypertension, osteoarthritis admitted for elective atherectomy and stenting of left iliac and left superficial femoral artery occlusion. On 01/25/2021 -patient is seen and examined at the bedside. Patient states that he continues to have pain in the left lower extremity. Patient denies having any chest pain or palpitations. No cough or difficulty in breathing. No fever chills or rigors. NO nausea vomiting or diarrhea. No dysuria or hematuria. On reviewing the patient's vitals T-max of 99.3, heart rate 99, respiratory 20, blood pressure 117 x 71 saturating at 94% on room air. On reviewing the patient's vitals sodium 127, potassium 4.2, chloride 92, bicarb 29, BUN 16, creatinine 0.66. On 01/26/2021 patient is examined at the bedside. Patient just got back from the OR. He denies having any chest pain or palpations. No fever cough or difficulty in breathing. On reviewing the vitals T-max of 98.1, heart rate 77, respiratory rate 25, blood pressure 145/65 saturating at 96% on room air. Labs from this morning still pending. On 01/27/2021 patient is seen and examined at the bedside. Patient is comfortably lying in bed appears to be no acute distress. He complains of pain in his left lower extremity. Patient denies having any fever chills or rigors. No chest pain or palpitations. No cough or difficulty breathing. No nausea vomiting or diarrhea. On reviewing the patient's vitals he had a low-grade temperature of 99.3 was slightly tachycardic at 110s, respiratory rate 20, blood pressure 153/78 saturating at 96% on room air. On reviewing the patient's labs white count of 11.8, hemoglobin 15.8, platelets 306. Sodium 138, potassium 4.4, chloride 93, bicarb 28, BUN 15, creatinine 0.65. 01/28/2021 Patient is seen and evaluated and follow-up with vascular surgery Dr. Garcia at the bedside. Multiple other medical consultations following including infectious disease and wound care has been consulted. PT/OT therapy to evaluate the patient daily as patient is weak requiring assistance on getting up and needs education on weightbearing restrictions of the left lower extremity. Patient continues on IV cefepime with infectious disease following closely. Preliminary wound culture showing gram-negative bacilli and awaiting for fi nalized cultures. IV vancomycin has been discontinued. 01/29/2021 Patient is seen in follow up this morning. Patient is status post fem fem bypass of the left extremity. Vascular surgery, infection disease, wound care following and awaiting for culture sensitivities to finalize as preliminary showing ecoli and presumptive staph aureus. Patient working with physical therapy daily and was able to ambulate today. Plan is for home with homecare and close outpatient follow up at the wound center. Sodium improved and patient is maintained on IV lasix. Encouraged oral intake and increased activity as tolerated. WBC trending down. Patient is afebrile. Labs: White blood count is 10.7, hemoglobin is 14.7, platelets are 332, sodium is 132, potassium is 4.7, creatinine is 0.67 Review of systems: Constitutional: No reports of fatigue, fever, or chills Cardiovascular: No reports of chest pain or palpitations Respiratory: No reports of shortness of breath or cough GI: No reports of nausea, vomiting, or diarrhea : No reports of dysuria or retention Neurovascular: reports of generalized weakness and left leg pain although improving All medications have been reviewed Active Medications Hydrocodone Bitart/Acetaminophen (Hydrocodone/Apap 5-325mg 1 Each Tab) 1 each PO Q4HR PRN PRN Reason: Pain Stop: 02/21/21 11:03 Last Admin: 01/29/21 22:00 Dose: 1 each Documented by: Al Hydroxide/Mg Hydroxide (Mag Hydrox/Al Hydrox/Simeth 30 Ml Cup) 30 ml PO Q4HR PRN PRN Reason: Indigestion Stop: 02/21/21 11:03 Aspirin (Aspirin 81 Mg) 81 mg PO DAILY [facility] Last Admin: 01/29/21 08:36 Dose: 81 mg Documented by: Budesonide/Formoterol Fumarate (Symbicort 80-4.5 Mcg Inhaler) 2 puff INHALATION RT-BID [facility] Stop: 02/22/21 08:01 Last Admin: 01/29/21 19:01 Dose: 2 puff Documented by: Clopidogrel Bisulfate (Clopidogrel 75 Mg Tab) 75 mg PO DAILY [facility] Last Admin: 01/29/21 08:36 Dose: 75 mg Documented by: Collagenase (Collagenase 250 Unit/Gm Ointment 30 Gm Tube) 1 applic TOPICAL DAILY [facility]; Protocol Last Admin: 01/29/21 08:44 Dose: Not Given Documented by: Furosemide (Furosemide 10 Mg/Ml 4 Ml Vial) 20 mg IV Q12HR [facility] Last Admin: 01/29/21 22:01 Dose: 20 mg Documented by: Gabapentin (Gabapentin 300 Mg Cap) 300 mg PO TID [facility] Last Admin: 01/29/21 22:00 Dose: 300 mg Documented by: Cefepime HCl 2 gm/ Sodium (Chloride) 100 mls @ 25 mls/hr IVPB Q8H [facility] Last Admin: 01/29/21 18:13 Dose: 25 mls/hr Documented by: Lisinopril (Lisinopril 5 Mg Tab) 5 mg PO DAILY [facility] Stop: 02/22/21 09:01 Last Admin: 01/29/21 08:36 Dose: 5 mg Documented by: Nicotine (Nicotine 21mg/24hr Patch) 1 patch TRANSDERM DAILY [facility] Stop: 02/21/21 10:46 Last Admin: 01/29/21 08:36 Dose: 1 patch Documented by: Nystatin (Nystatin 100,000unit/Gm Cream 30 Gm Tube) 1 applic TOPICAL BID [facility]; Protocol Stop: 02/21/21 21:01 Last Admin: 01/29/21 22:08 Dose: 1 applic Documented by: Physical exam: GENERAL: The patient is alert and oriented x3, not in any acute distress. Obese. Temp is 97.1, pulse is 91, resp are 18, blood pressure is 136/80, pulse ox is 94% on room air HEENT: Pupils are round and equally reacting to light. EOMI. No scleral icterus. No conjunctival pallor. CARDIOVASCULAR: S1 and S2 muffled PULMONARY: Diminished breath sounds bilaterally with no wheezing or rhonchi noted ABDOMEN: Soft, obese. nontender, nondistended, normoactive bowel sounds. No palpable organomegaly. MUSCULOSKELETAL: No joint swelling or deformity. EXTREMITIES: No cyanosis, clubbing, significant swelling in bilateral lower extremities NEUROLOGICAL: Gross neurological examination did not reveal any focal deficits. SKIN: Left lower ulcer wound is covered with dressing, left lower extremity redness and swelling noted, improving Assessment: -S/p Femoro femoral by pass grafting done 01/26/2021 -Hypovolemic hyponatremia -Severe peripheral vascular disease -Nicotine abuse -Hypertension -Obesity with possible component of sleep apnea. -Venous ulcers of left lower extremity -DVT prophylaxis -Full code Plan: Recommend to continue with current medications, management, and symptomatic treatment. Patient is status post fem-pop bypass of the left lower extremity. Multiple medical consultations including infectious disease and wound care following. Patient is maintained on IV antibiotics in the form of cefepime and awaiting for cultures to finalize. Cultures showing ecoli and presumptive staph aureus and awaiting for sensitivities to determine discharge antibiotics. Wound care following for left lower extremity ulcer and recommend to continue with santyl and dressing changes. Patient will need outpatient follow up at the wound care center. Patient is maintained on aspirin and Plavix per vascular surgery services patient also continues on IV Lasix 20 mg twice daily. Case management following and working on discharge planning needs. Plan is for home with homecare once stabilized and discharged. Prognosis is guarded. Further recommendations to follow based on the clinical course of the patient. Thank you for this consultation. Objective - Vital Signs Vital signs: Vital Signs Temp 99.4 F 01/29/21 03:46 Pulse 92 01/29/21 03:46 Resp 16 01/29/21 03:46 BP 133/80 01/29/21 03:46 Pulse Ox 93 L 01/29/21 03:46 Intake & Output 01/28/21 01/29/21 01/29/21 18:59 06:59 18:59 Intake Total 556 Output Total 1400 875 Balance -844 -875 Weight 129 kg Intake: Oral 556 Output: Urine 1400 875 - Labs CBC & Chem 7: 01/29/21 05:53 01/29/21 05:53 Labs: Abnormal Lab Results - Last 24 Hours (Table) 01/28/21 01/28/21 01/29/21 Range/Units 10:14 10:15 05:53 WBC 13.0 H (3.8-10.6) k/uL MCV 100.8 H (80.0-100.0) fL Neutrophils # 10.6 H (1.3-7.7) k/uL Sodium 128 L 132 L (137-145) mmol/L Chloride 94 L 97 L (98-107) mmol/L Carbon Dioxide 31 H (22-30) mmol/L Creatinine 0.65 L (0.66-1.25) mg/dL Glucose 113 H 103 H (74-99) mg/dL Calcium 8.3 L (8.4-10.2) mg/dL 01/29/21 Range/Units 05:53 WBC 10.7 H (3.8-10.6) k/uL MCV 103.0 H (80.0-100.0) fL Neutrophils # 8.2 H (1.3-7.7) k/uL Sodium (137-145) mmol/L Chloride (98-107) mmol/L Carbon Dioxide (22-30) mmol/L Creatinine (0.66-1.25) mg/dL Glucose (74-99) mg/dL Calcium (8.4-10.2) mg/dL Microbiology - Last 24 Hours (Table) 01/27/21 14:36 Blood Culture - Preliminary Blood No Growth after 24 hours 01/27/21 12:30 Gram Stain - Preliminary Ankle - Left Wound Culture - Preliminary Gram Neg Bacilli
[2021-01-30] MEDS: HYDROcodone/APAP 5-325MG 1 EACH TAB PO PRN ×4 (03:18→23:12)
[2021-01-30] MEDS: CEFEPIME 2 GM in SODIUM CHLORIDE 0.9% 100 ML IVPB SCH ×3 (03:55→18:47)
[2021-01-30] MEDS: SYMBICORT 80-4.5 MCG INHALER INHALATION SCH ×2 (09:04→19:52)
[2021-01-30] MEDS: lisinopriL 5 MG TAB PO SCH (11:00)
[2021-01-30] MEDS: ASPIRIN 81 MG PO SCH (11:00)
[2021-01-30] MEDS: FUROSEMIDE 10 MG/ML 4 ML VIAL IV SCH ×2 (11:00→21:01)
[2021-01-30] MEDS: GABAPENTIN 300 MG CAP PO SCH ×3 (11:00→21:02)
[2021-01-30] MEDS: CLOPIDOGREL 75 MG TAB PO SCH (11:00)
[2021-01-30] MEDS: NICOTINE 21MG/24HR PATCH TRANSDERM SCH (11:01)
--- NOTE | 2021-01-30 13:53 | P.PN ---
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 Patient seen and examined sitting up in the bedside chair. He is postop day #4 for fem-fem bypass. No acute changes through the night. He continues to complain of 5 left lower extremity pain. Apparently according to the physical therapy note he was requiring two-person assist yesterday due to pain in the left lower extremity. Postop she was ordered. Patient today to get up with a 1 person assist is using walker to offload pressure to the left lower extremity. Discussed with patient increased pain to the left lower extremity is to be expected as there is increase blood flow to that area. Currently waiting on final wound cultures, preliminary showing gram-negative bacilli. Patient is covered with cefepime. Prevena wound VACs in place. Wound culture final showing E. coli and Staphylococcus coccus aureus, sensitivity pending. Awaiting recommendations from infectious disease on home antibiotics. Patient states he's been up and ambulating with assistance. States he still has pain in his lower extremity however it is improved with the gabapentin. Objective - Vital Signs Vital signs: Vital Signs Temp 98.4 F 01/30/21 09:00 Pulse 95 01/30/21 09:00 Resp 18 01/30/21 09:00 BP 146/88 01/30/21 09:00 Pulse Ox 93 L 01/30/21 09:00 Intake & Output 01/29/21 01/30/21 01/30/21 18:59 06:59 18:59 Intake Total 332 480 Output Total 550 1600 Balance -218 -1600 480 Weight 129.5 kg Intake: Oral 332 480 Output: Urine 550 1600 - Exam General appearance: The patient is alert, oriented, in no acute distress. Obese. HET: Head is normocephalic and atraumatic. Neck: Supple without lymphadenopathy. Trachea midline. Abdomen: Soft, nontender, nondistended. Obese. Extremities: Bilateral lower extremity edema. Prevena dressings intact, right groin with significant amount of ecchymosis with no palpable hematoma. Left groin with minimal amount of echymosis. Left lower extremity dressings clean dry and intact. Bilateral doppler signals, good capillary refills. Neurological: No focal deficits. Alert and oriented 3. - Labs CBC & Chem 7: 01/29/21 05:53 01/29/21 05:53 Labs: Microbiology - Last 24 Hours (Table) 01/27/21 12:30 Gram Stain - Final Ankle - Left Wound Culture - Final Escherichia coli Staphylococcus aureus 01/27/21 14:36 Blood Culture - Preliminary Blood No Growth after 48 hours 01/27/21 12:30 Anaerobic Culture - Preliminary Ankle - Left Assessment and Plan Assessment: 1. Postop day #3 fem-fem bypass 2. 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 Venous ulcers to left lower extremity with cultures positive for E. coli and Staphylococcus aureus 4. Tobacco abuse 5. Candiadias 6. COPD 7. Obesity 8. Hypertension 9. Venous insufficiency Plan: 1. Continue current IV antibiotics recommended by infectious disease. Await recommendations for outpatient antibiotics 2. Wound care clinic on consult, local dressing changes per the recommendations 3. Plavix and aspirin 3. Encourage incentive spirometer 4. Encourage ambulation 5. Tobacco cessation 6. Will need to follow up outpatient with wound care clinic for further wound management and debridement. 7. Plan is for discharge home with home care services in the next 24-48 hours pending final wound culture and recommendations for outpatient antibiotics per infectious disease 8. Gabapentin 300 mg 3 times a day started 9. Patient is cleared for discharge from vascular surgery once infectious disease gives a recommendation on outpatient antibiotics The impression and plan of care has been dictated as directed. Dr. Montez I performed a history and examination of this patient, discussed the same with the dictator. I agree with the dictator's note ,documented as a scribe. Any additional findings or plans will be noted.
[2021-01-30] MEDS: COLLAGENASE 250 UNIT/GM OINTMENT 30 GM TUBE TOPICAL SCH (18:23)
[2021-01-30] MEDS: NYSTATIN 100,000UNIT/GM CREAM 30 GM TUBE TOPICAL SCH ×2 (18:23→21:02)
--- NOTE | 2021-01-30 22:31 | PN ---
PROGRESS NOTE DATE OF SERVICE: 01/30/2021 REASON FOR FOLLOWUP: Left medial leg wound infection. INTERVAL HISTORY: The patient is afebrile. The patient is feeling better, breathing comfortably. Denies having any chest pain or shortness of breath or cough. No abdominal pain or diarrhea. PHYSICAL EXAMINATION: Blood pressure is 147/68 with a pulse of 79, temperature 98.4. He is 92% on 2 L nasal cannula. General description is a middle-aged male up in the bed in no distress. Respiratory system: Unlabored breathing, clear to auscultation anteriorly. Heart S1, S2. Regular rate and rhythm. Abdomen soft, no tenderness. Extremities no edema of the feet. LABS: Hemoglobin is 14.7, white count 10.7, creatinine 0.67. DIAGNOSTIC IMPRESSION AND PLAN: Patient with left leg wound infection with secondary cellulitis. Culture has been positive for MSSA and E coli. Patient is on cefepime. Finish therapy with oral Keflex 500 mg 3 times a day for 10 days. Local wound care with Santyl and close outpatient followup. MMODL / IJN: [id number] /
--- NOTE | 2021-01-30 22:50 | P.PN ---
Subjective Progress Note Date: 01/30/21 Left femoral artery occlusion Mr. Blue is a 55-year-old male with a past medical history of significant peripheral vascular disease, hypertension, osteoarthritis admitted for elective atherectomy and stenting of left iliac and left superficial femoral artery occlusion. On 01/25/2021 -patient is seen and examined at the bedside. Patient states that he continues to have pain in the left lower extremity. Patient denies having any chest pain or palpitations. No cough or difficulty in breathing. No fever chills or rigors. NO nausea vomiting or diarrhea. No dysuria or hematuria. On reviewing the patient's vitals T-max of 99.3, heart rate 99, respiratory 20, blood pressure 117 x 71 saturating at 94% on room air. On reviewing the patient's vitals sodium 127, potassium 4.2, chloride 92, bicarb 29, BUN 16, creatinine 0.66. On 01/26/2021 patient is examined at the bedside. Patient just got back from the OR. He denies having any chest pain or palpations. No fever cough or difficulty in breathing. On reviewing the vitals T-max of 98.1, heart rate 77, respiratory rate 25, blood pressure 145/65 saturating at 96% on room air. Labs from this morning still pending. On 01/27/2021 patient is seen and examined at the bedside. Patient is comfortably lying in bed appears to be no acute distress. He complains of pain in his left lower extremity. Patient denies having any fever chills or rigors. No chest pain or palpitations. No cough or difficulty breathing. No nausea vomiting or diarrhea. On reviewing the patient's vitals he had a low-grade temperature of 99.3 was slightly tachycardic at 110s, respiratory rate 20, blood pressure 153/78 saturating at 96% on room air. On reviewing the patient's labs white count of 11.8, hemoglobin 15.8, platelets 306. Sodium 138, potassium 4.4, chloride 93, bicarb 28, BUN 15, creatinine 0.65. 01/28/2021 Patient is seen and evaluated and follow-up with vascular surgery Dr. Garcia at the bedside. Multiple other medical consultations following including infectious disease and wound care has been consulted. PT/OT therapy to evaluate the patient daily as patient is weak requiring assistance on getting up and needs education on weightbearing restrictions of the left lower extremity. Patient continues on IV cefepime with infectious disease following closely. Preliminary wound culture showing gram-negative bacilli and awaiting for fi nalized cultures. IV vancomycin has been discontinued. 01/29/2021 Patient is seen in follow up this morning. Patient is status post fem fem bypass of the left extremity. Vascular surgery, infection disease, wound care following and awaiting for culture sensitivities to finalize as preliminary showing ecoli and presumptive staph aureus. Patient working with physical therapy daily and was able to ambulate today. Plan is for home with homecare and close outpatient follow up at the wound center. Sodium improved and patient is maintained on IV lasix. Encouraged oral intake and increased activity as tolerated. WBC trending down. Patient is afebrile. 01/30/2021 Patien in seen and examined this morning and following along closely with Vascular surgery. Patient is having brief episodes of heart rate being in the 40s-50s and asymptomatic. Recommend to continue telemetry. Patient is extremely weak and states he is unable to get up this morning and awaiting physical therapy. Discussed with the patient about discharge planning and he was unsure, but stated he will have homecare. Encouraged increased activity as tolerated. Patient continues with lower extremity weakness and pain. Review of systems: Constitutional: No reports of fatigue, fever, or chills Cardiovascular: No reports of chest pain or palpitations Respiratory: No reports of shortness of breath or cough GI: No reports of nausea, vomiting, or diarrhea : No reports of dysuria or retention Neurovascular: reports of generalized weakness and left leg pain although improving All medications have been reviewed Active Medications Hydrocodone Bitart/Acetaminophen (Hydrocodone/Apap 5-325mg 1 Each Tab) 1 each PO Q4HR PRN PRN Reason: Pain Stop: 02/21/21 11:03 Last Admin: 01/30/21 18:18 Dose: 1 each Documented by: Al Hydroxide/Mg Hydroxide (Mag Hydrox/Al Hydrox/Simeth 30 Ml Cup) 30 ml PO Q4HR PRN PRN Reason: Indigestion Stop: 02/21/21 11:03 Aspirin (Aspirin 81 Mg) 81 mg PO DAILY [facility] Last Admin: 01/30/21 11:00 Dose: 81 mg Documented by: Budesonide/Formoterol Fumarate (Symbicort 80-4.5 Mcg Inhaler) 2 puff INHALATION RT-BID [facility] Stop: 02/22/21 08:01 Last Admin: 01/30/21 19:52 Dose: 2 puff Documented by: Clopidogrel Bisulfate (Clopidogrel 75 Mg Tab) 75 mg PO DAILY [facility] Last Admin: 01/30/21 11:00 Dose: 75 mg Documented by: Collagenase (Collagenase 250 Unit/Gm Ointment 30 Gm Tube) 1 applic TOPICAL DAILY [facility]; Protocol Last Admin: 01/30/21 18:23 Dose: 1 applic Documented by: Furosemide (Furosemide 10 Mg/Ml 4 Ml Vial) 20 mg IV Q12HR [facility] Last Admin: 01/30/21 21:01 Dose: 20 mg Documented by: Gabapentin (Gabapentin 300 Mg Cap) 300 mg PO TID [facility] Last Admin: 01/30/21 21:02 Dose: 300 mg Documented by: Cefepime HCl 2 gm/ Sodium (Chloride) 100 mls @ 25 mls/hr IVPB Q8H [facility] Last Admin: 01/30/21 18:47 Dose: 25 mls/hr Documented by: Lisinopril (Lisinopril 5 Mg Tab) 5 mg PO DAILY [facility] Stop: 02/22/21 09:01 Last Admin: 01/30/21 11:00 Dose: 5 mg Documented by: Nicotine (Nicotine 21mg/24hr Patch) 1 patch TRANSDERM DAILY [facility] Stop: 02/21/21 10:46 Last Admin: 01/30/21 11:01 Dose: 1 patch Documented by: Nystatin (Nystatin 100,000unit/Gm Cream 30 Gm Tube) 1 applic TOPICAL BID [facility]; Protocol Stop: 02/21/21 21:01 Last Admin: 01/30/21 21:02 Dose: 1 applic Documented by: Physical exam: GENERAL: The patient is alert and oriented x3, Lying flat. Obese. Temp is 98.4, pulse is 95, resp are 18, blood pressure is 146/88, pulse ox is 93% on room air HEENT: Pupils are round and equally reacting to light. EOMI. No scleral icterus. No conjunctival pallor. CARDIOVASCULAR: S1 and S2 muffled PULMONARY: Diminished breath sounds bilaterally with no wheezing or rhonchi noted ABDOMEN: Soft, obese. nontender, nondistended, normoactive bowel sounds. No palpable organomegaly. MUSCULOSKELETAL: No joint swelling or deformity. EXTREMITIES: No cyanosis, clubbing, improving swelling in bilateral lower extremities NEUROLOGICAL: Gross neurological examination did not reveal any focal deficits. SKIN: Left lower ulcer wound is covered, left lower extremity redness and swelling noted, improving Assessment: -S/p Femoro femoral by pass grafting done 01/26/2021 -Hypovolemic hyponatremia -Severe peripheral vascular disease -Nicotine abuse -Hypertension -Obesity with possible component of sleep apnea. -Venous ulcers of left lower extremity -DVT prophylaxis -Full code Plan: Recommend to continue with current medications, management, and symptomatic treatment. Patient is status post fem-pop bypass of the left lower extremity. Multiple medical consultations including infectious disease and wound care following. Patient is maintained on IV antibiotics in the form of cefepime and cultures have finalized with ecoli and staph aureus with sensitivities and ID recommending discharge antibiotics. Wound care following and patient will need close outpatient follow up. Case management following and working on discharge planning needs. Plan is for home with homecare once stabilized and discharged. PT/OT to work with patient daily. Prognosis is guarded. Further recommendations to follow based on the clinical course of the patient. Thank you for this consultation. Objective - Vital Signs Vital signs: Vital Signs Temp 98.3 F 01/30/21 01:00 Pulse 88 01/30/21 05:00 Resp 20 01/30/21 05:00 BP 131/77 01/30/21 05:00 Pulse Ox 93 L 01/30/21 05:00 Intake & Output 01/29/21 01/30/21 01/30/21 18:59 06:59 18:59 Intake Total 332 Output Total 550 1600 Balance -218 -1600 Weight 129.5 kg Intake: Oral 332 Output: Urine 550 1600 - Labs CBC & Chem 7: 01/29/21 05:53 01/29/21 05:53 Labs: Microbiology - Last 24 Hours (Table) 01/27/21 14:36 Blood Culture - Preliminary Blood No Growth after 48 hours 01/27/21 12:30 Anaerobic Culture - Preliminary Ankle - Left 01/27/21 12:30 Gram Stain - Preliminary Ankle - Left Wound Culture - Preliminary Escherichia coli Presumptive Staph aureus
[2021-01-31] MEDS: CEFEPIME 2 GM in SODIUM CHLORIDE 0.9% 100 ML IVPB SCH ×2 (03:35→15:02)
[2021-01-31 04:37] VITALS: RESP 20
[2021-01-31 08:48] LABS: Basophils # (A) 0.1 k/uL (0-0.2); Basophils % (A) 1 %; Eosinophils # (A) 0.2 k/uL (0-0.7); Eosinophils % (A) 2 %; HCT 45.8 % (39.0-53.0); HGB 14.6 gm/dL (13.0-17.5); Lymphocytes # (A) 1.6 k/uL (1.0-4.8); Lymphocytes % (A) 20 %; MCH 32.9 pg (25.0-35.0); MCHC 31.9 g/dL (31.0-37.0); Macrocytosis Slight; Mean Platelet Volume 7.6; Monocytes # (A) 0.5 k/uL (0-1.0); Monocytes % (A) 6 %; Neutrophils # (A) 5.8 k/uL (1.3-7.7); Neutrophils % (A) 71 %; Platelet Count 360 k/uL (150-450); RBC 4.44 m/uL (4.30-5.90); RDW 13.1 % (11.5-15.5); WBC 8.2 k/uL (3.8-10.6)
[2021-01-31] MEDS: SYMBICORT 80-4.5 MCG INHALER INHALATION SCH (09:17)
[2021-01-31 09:25] LABS: African American GFR (CKD) >90 (>60 ml/min/1.73 sqM); Anion Gap 3 mmol/L; Blood Urea Nitrogen 23 mg/dL (9-20); Calcium 8.8 mg/dL (8.4-10.2); Carbon Dioxide 31 mmol/L (22-30); Chloride 100 mmol/L (98-107); Glucose 121 mg/dL (74-99); Non-African American GFR(CKD) >90 (>60 ml/min/1.73 sqM); Sodium 134 mmol/L (137-145)
[2021-01-31] MEDS: NICOTINE 21MG/24HR PATCH TRANSDERM SCH (09:25)
[2021-01-31] MEDS: FUROSEMIDE 10 MG/ML 4 ML VIAL IV SCH (09:25)
[2021-01-31] MEDS: CLOPIDOGREL 75 MG TAB PO SCH (09:25)
[2021-01-31] MEDS: HYDROcodone/APAP 5-325MG 1 EACH TAB PO PRN ×2 (09:26→14:46)
[2021-01-31] MEDS: ASPIRIN 81 MG PO SCH (09:26)
[2021-01-31] MEDS: GABAPENTIN 300 MG CAP PO SCH ×2 (09:26→14:46)
[2021-01-31] MEDS: lisinopriL 5 MG TAB PO SCH (09:26)
[2021-01-31 11:07] VITALS: TEMP 97.8
--- NOTE | 2021-01-31 12:51 | P.DS ---
Providers Date of admission: 01/22/21 10:20 Attending physician: Ramesh Vargas DO Consults: 01/22/21 10:40 Consult Physician Routine Consulting Provider: Karma Resendiz Consult Reason/Comments: medical management and medical clearance for Fem/Fem bypass on 01/24/21 Do you want consulting provider notified?: Yes 01/27/21 09:46 Consult Physician Routine Consulting Provider: Dl William Consult Reason/Comments: left lower extremity ulcer, cellulitis Do you want consulting provider notified?: Yes Primary care physician: Chip Elder [facility] Course: This a 55-year-old male with multiple comorbidities including left external iliac artery occlusion in combination with left superficial femoral artery occlusion with secondary arterial insufficiency to the left lower extremity. He initially came in on 01/22/2021 to undergo outpatient ultrasound-guided abdominal aortogram with runoffs with selective cannulization of the contralateral iliac artery however inability to cross lesion. Patient then admitted to the hospital for medical clearance for a femoral to femoral bypass. The patient also had left lower extremity venous ulcers with concern for infection and cellulitis. Cultures were obtained during the admission and infectious disease was consulted for further antibiotic management. The patient did undergo a femoral to femoral bypass on 01/26/2021. He tolerated procedure well. He has been working with physical therapy was having some difficulty with ambulation due to pain in the left lower extremity. Also was awaiting final cultures and sensitivities from left lower extremity wound. Patient is going to be discharged home on oral Keflex 500 mg 3 times a day. He will be discharged with home care for dressing changes as well as follow-up with outpatient wound care weekly for treatment of ulcers including debridement. He has been afebrile, WBC 8.2 hemoglobin 14.6. It has been up and ambulating with use of walker. He was started on gabapentin 300 mg 3 times a day with improvement in left lower extremity pain. Plan is for discharge home today on Physical exam: General appearance: The patient is alert, oriented, appears in no acute distress. Obese. HET: Head is normocephalic and atraumatic. Pupils are equal and reactive. Oropharynx is clear without lesions. Neck: Supple without lymphadenopathy. Trachea midline. Heart: S1 S2. Regular rate and rhythm. Lungs: No crackles or wheezes are heard. Abdomen: Soft, nontender, nondistended. Extremities: Bilateral dressing removed. Incisions well approximated and clean dry and intact. Prevena Left lower extremity with dressing clean dry and intact, still some cellulitis noted to the left lombardi. Bilateral lower extremities warm to the touch with good capillary refill. Neurological: No focal deficits. Strength and sensation are grossly intact. The impression and plan of care has been dictated as directed. Dr. Montez I performed a history and examination of this patient, discussed the same with the dictator. I agree with the dictator's note ,documented as a scribe. Any additional findings or plans will be noted. Procedures: 01/22/2021 ultrasound-guided abdominal aortogram with runoffs with selective cannulization of the contralateral iliac artery however inability to cross lesi on 01/26/2021 femoral to femoral bypass Patient Condition at Discharge: Stable Plan - Discharge Summary Discharge Rx Participant: No New Discharge Prescriptions: New Aspirin 81 mg PO DAILY tab Nicotine 21Mg/24Hr Patch [Habitrol] 1 patch TRANSDERM DAILY #30 patch Nystatin 100,000Unit/gm Cream [Mycostatin Cream] 1 applic TOPICAL BID #30 gm Clopidogrel [Plavix] 75 mg PO DAILY #30 tab Cephalexin [Keflex] 500 mg PO Q8HR 10 Days #30 cap Gabapentin [Neurontin] 300 mg PO TID 7 Days #21 cap Furosemide [Lasix] 20 mg PO DAILY 30 Days #30 tab Collagenase [Santyl] 1 applic TOPICAL DAILY #30 gm Continue Benazepril [Lotensin] 10 mg PO DAILY Fluticasone Propion/Salmeterol [Wixela 250-50 Inhub] 1 inhalation PO DAILY Discontinued hydroCHLOROthiazide [Hydrodiuril] 25 mg PO DAILY Aspirin 325 mg PO DAILY Potassium Gluconate [Potassium Gluconate ER] 99 mg PO DAILY Discharge Medication List Benazepril [Lotensin] 10 mg PO DAILY 01/21/21 [History] Fluticasone Propion/Salmeterol [Wixela 250-50 Inhub] 1 inhalation PO DAILY 01/21/21 [History] Aspirin 81 mg PO DAILY tab 01/29/21 [Rx] Clopidogrel [Plavix] 75 mg PO DAILY #30 tab 01/29/21 [Rx] Nicotine 21Mg/24Hr Patch [Habitrol] 1 patch TRANSDERM DAILY #30 patch 01/29/21 [Rx] Nystatin 100,000Unit/gm Cream [Mycostatin Cream] 1 applic TOPICAL BID #30 gm 01/29/21 [Rx] Cephalexin [Keflex] 500 mg PO Q8HR 10 Days #30 cap 01/31/21 [Rx] Collagenase [Santyl] 1 applic TOPICAL DAILY #30 gm 01/31/21 [Rx] Furosemide [Lasix] 20 mg PO DAILY 30 Days #30 tab 01/31/21 [Rx] Gabapentin [Neurontin] 300 mg PO TID 7 Days #21 cap 01/31/21 [Rx] Follow up Appointment(s)/Referral(s): Ramesh Vargas DO [Doctor of Osteopathic Medicine] - 1 Week [facility], [NON-STAFF] - Wound Center,[facility] [NON-STAFF] - 1 Week Chip Bauman III, MD [Primary Care Provider] - 3 Days Patient Instructions/Handouts: How to Stop Smoking (DC), Cigarette Smoking and Your Health (GEN) Activity/Diet/Wound Care/Special Instructions: Patient requires a bedside commode at discharge secondary to inability to climb stairs to get into his bathroom due to unsteady gait from iliac artery occlusion s/p fem-fem bypass No heavy lifting or strenuous activity greater than 5-10 pounds. Patient may shower but no tub bathing until further evaluated by vascular surgery. Discharge Disposition: HOME WITH HOME HEALTH SERVICES
--- NOTE | 2021-01-31 14:28 | P.PN ---
Subjective Progress Note Date: 01/31/21 Left femoral artery occlusion Mr. Blue is a 55-year-old male with a past medical history of significant peripheral vascular disease, hypertension, osteoarthritis admitted for elective atherectomy and stenting of left iliac and left superficial femoral artery occlusion. On 01/25/2021 -patient is seen and examined at the bedside. Patient states that he continues to have pain in the left lower extremity. Patient denies having any chest pain or palpitations. No cough or difficulty in breathing. No fever chills or rigors. NO nausea vomiting or diarrhea. No dysuria or hematuria. On reviewing the patient's vitals T-max of 99.3, heart rate 99, respiratory 20, blood pressure 117 x 71 saturating at 94% on room air. On reviewing the patient's vitals sodium 127, potassium 4.2, chloride 92, bicarb 29, BUN 16, creatinine 0.66. On 01/26/2021 patient is examined at the bedside. Patient just got back from the OR. He denies having any chest pain or palpations. No fever cough or difficulty in breathing. On reviewing the vitals T-max of 98.1, heart rate 77, respiratory rate 25, blood pressure 145/65 saturating at 96% on room air. Labs from this morning still pending. On 01/27/2021 patient is seen and examined at the bedside. Patient is comfortably lying in bed appears to be no acute distress. He complains of pain in his left lower extremity. Patient denies having any fever chills or rigors. No chest pain or palpitations. No cough or difficulty breathing. No nausea vomiting or diarrhea. On reviewing the patient's vitals he had a low-grade temperature of 99.3 was slightly tachycardic at 110s, respiratory rate 20, blood pressure 153/78 saturating at 96% on room air. On reviewing the patient's labs white count of 11.8, hemoglobin 15.8, platelets 306. Sodium 138, potassium 4.4, chloride 93, bicarb 28, BUN 15, creatinine 0.65. 01/28/2021 Patient is seen and evaluated and follow-up with vascular surgery Dr. Garcia at the bedside. Multiple other medical consultations following including infectious disease and wound care has been consulted. PT/OT therapy to evaluate the patient daily as patient is weak requiring assistance on getting up and needs education on weightbearing restrictions of the left lower extremity. Patient continues on IV cefepime with infectious disease following closely. Preliminary wound culture showing gram-negative bacilli and awaiting for fi nalized cultures. IV vancomycin has been discontinued. 01/29/2021 Patient is seen in follow up this morning. Patient is status post fem fem bypass of the left extremity. Vascular surgery, infection disease, wound care following and awaiting for culture sensitivities to finalize as preliminary showing ecoli and presumptive staph aureus. Patient working with physical therapy daily and was able to ambulate today. Plan is for home with homecare and close outpatient follow up at the wound center. Sodium improved and patient is maintained on IV lasix. Encouraged oral intake and increased activity as tolerated. WBC trending down. Patient is afebrile. 01/30/2021 Patien in seen and examined this morning and following along closely with Vascular surgery. Patient is having brief episodes of heart rate being in the 40s-50s and asymptomatic. Recommend to continue telemetry. Patient is extremely weak and states he is unable to get up this morning and awaiting physical therapy. Discussed with the patient about discharge planning and he was unsure, but stated he will have homecare. Encouraged increased activity as tolerated. Patient continues with lower extremity weakness and pain. 01/31/2021 Patient is seen and evaluated in follow up this morning with no acute overnight issues. Has been evaluated by PT/OT therapy and will be going home with home care and will require a commode as he is confined and unable to climb stairs secondary to his recent fem-fem bypass of the left lower extremity. Patient to continue with current medication regimen on med reconciliation and follow-up wit h his primary care provider in regards to blood pressure medications. Vascular surgery arranging for discharge planning. Review of systems: Constitutional: No reports of fatigue, fever, or chills Cardiovascular: No reports of chest pain or palpitations Respiratory: No reports of shortness of breath or cough GI: No reports of nausea, vomiting, or diarrhea : No reports of dysuria or retention Neurovascular: reports of generalized weakness and left leg pain although improving All medications have been reviewed Active Medications Hydrocodone Bitart/Acetaminophen (Hydrocodone/Apap 5-325mg 1 Each Tab) 1 each PO Q4HR PRN PRN Reason: Pain Stop: 02/21/21 11:03 Last Admin: 01/31/21 09:26 Dose: 1 each Documented by: Al Hydroxide/Mg Hydroxide (Mag Hydrox/Al Hydrox/Simeth 30 Ml Cup) 30 ml PO Q4HR PRN PRN Reason: Indigestion Stop: 02/21/21 11:03 Aspirin (Aspirin 81 Mg) 81 mg PO DAILY [facility] Last Admin: 01/31/21 09:26 Dose: 81 mg Documented by: Budesonide/Formoterol Fumarate (Symbicort 80-4.5 Mcg Inhaler) 2 puff INHALATION RT-BID [facility] Stop: 02/22/21 08:01 Last Admin: 01/31/21 09:17 Dose: 2 puff Documented by: Clopidogrel Bisulfate (Clopidogrel 75 Mg Tab) 75 mg PO DAILY [facility] Last Admin: 01/31/21 09:25 Dose: 75 mg Documented by: Collagenase (Collagenase 250 Unit/Gm Ointment 30 Gm Tube) 1 applic TOPICAL DAILY [facility]; Protocol Last Admin: 01/30/21 18:23 Dose: 1 applic Documented by: Furosemide (Furosemide 10 Mg/Ml 4 Ml Vial) 20 mg IV Q12HR [facility] Last Admin: 01/31/21 09:25 Dose: 20 mg Documented by: Gabapentin (Gabapentin 300 Mg Cap) 300 mg PO TID [facility] Last Admin: 01/31/21 09:26 Dose: 300 mg Documented by: Cefepime HCl 2 gm/ Sodium (Chloride) 100 mls @ 25 mls/hr IVPB Q8H [facility] Last Admin: 01/31/21 03:35 Dose: 25 mls/hr Documented by: Lisinopril (Lisinopril 5 Mg Tab) 5 mg PO DAILY [facility] Stop: 02/22/21 09:01 Last Admin: 01/31/21 09:26 Dose: 5 mg Documented by: Nicotine (Nicotine 21mg/24hr Patch) 1 patch TRANSDERM DAILY [facility] Stop: 02/21/21 10:46 Last Admin: 01/31/21 09:25 Dose: 1 patch Documented by: Nystatin (Nystatin 100,000unit/Gm Cream 30 Gm Tube) 1 applic TOPICAL BID [facility]; Protocol Stop: 02/21/21 21:01 Last Admin: 01/30/21 21:02 Dose: 1 applic Documented by: Physical exam: GENERAL: The patient is alert and oriented x3,. Morbidly Obese. Well- developed, well-nourished HEENT: Pupils are round and equally reacting to light. EOMI. No scleral icterus. No conjunctival pallor. CARDIOVASCULAR: S1 and S2 muffled PULMONARY: Diminished breath sounds bilaterally with no wheezing or rhonchi noted ABDOMEN: Soft, obese. nontender, nondistended, normoactive bowel sounds. No palpable organomegaly. MUSCULOSKELETAL: No joint swelling or deformity. EXTREMITIES: No cyanosis, clubbing, improving swelling in bilateral lower extremities NEUROLOGICAL: Gross neurological examination did not reveal any focal deficits. SKIN: Left lower ulcer wound is covered, left lower extremity redness and swelling noted, improving Assessment: -S/p Femoro femoral by pass grafting done 01/26/2021 -Hypovolemic hyponatremia -Severe peripheral vascular disease -Nicotine abuse -Hypertension -Obesity with possible component of sleep apnea. -Venous ulcers of left lower extremity -DVT prophylaxis -Full code Plan: Recommend to continue with current medications, management, and symptomatic treatment. Patient is status post fem-pop bypass of the left lower extremity. Multiple medical consultations including infectious disease and wound care following. Patient is maintained on IV antibiotics in the form of cefepime and cultures have finalized with ecoli and staph aureus with sensitivities and ID recommending discharge antibiotics in the form of Keflex. Wound care following and patient will need close outpatient follow up. Case management following and working on discharge planning needs. Patient being arranged for homecare today with possible discharge from vascular surgery. Prognosis is guarded. Med reconciliation done and recommend the patient to continue with current medication regimen and monitor blood pressure closely and follow-up with primary care provider once discharged. Will continue to follow with vascular surgery during hospitalization. Thank you for this consultation. Patient is being discharged today. Objective - Vital Signs Vital signs: Vital Signs Temp 98.4 F 01/30/21 19:00 Pulse 92 01/31/21 03:00 Resp 20 01/31/21 03:00 BP 140/72 01/31/21 03:00 Pulse Ox 91 L 01/31/21 03:00 Intake & Output 01/30/21 01/31/21 01/31/21 18:59 06:59 18:59 Intake Total 720 118 Output Total 500 625 Balance 220 -625 118 Weight 129.3 kg Intake: Oral 720 118 Output: Urine 500 625 Other: Voiding Method Indwelling Catheter - Labs CBC & Chem 7: 01/31/21 08:09 01/31/21 08:09 Labs: Abnormal Lab Results - Last 24 Hours (Table) 01/31/21 01/31/21 Range/Units 08:09 08:09 MCV 103.0 H (80.0-100.0) fL Sodium 134 L (137-145) mmol/L Carbon Dioxide 31 H (22-30) mmol/L BUN 23 H (9-20) mg/dL Creatinine 0.65 L (0.66-1.25) mg/dL Glucose 121 H (74-99) mg/dL Microbiology - Last 24 Hours (Table) 01/27/21 14:36 Blood Culture - Preliminary Blood No Growth after 72 hours 01/27/21 12:30 Gram Stain - Final Ankle - Left Wound Culture - Final Escherichia coli Staphylococcus aureus
[2021-01-31 15:00] VITALS: BP 130/76; PULSE 92
[2021-01-31] MEDS: NYSTATIN 100,000UNIT/GM CREAM 30 GM TUBE TOPICAL SCH (15:03)
[2021-01-31] MEDS: COLLAGENASE 250 UNIT/GM OINTMENT 30 GM TUBE TOPICAL SCH (15:03)
--- NOTE | 2021-01-31 17:46 | PN ---
PROGRESS NOTE DATE OF SERVICE: 01/31/2021 REASON FOR FOLLOWUP: Left lower extremity wound and cellulitis. INTERVAL HISTORY: The patient is afebrile. The patient is currently breathing comfortably. The patient denies having any chest pain or shortness of breath or cough. No abdominal pain. Overall pain to the left foot is currently controlled. PHYSICAL EXAMINATION: Blood pressure 130/76, pulse of 92, temperature 97.8. He is 94% on room air. General description is a middle-aged male up in the chair in no distress. Respiratory system: Unlabored breathing, clear to auscultation anteriorly. Heart S1, S2. Regular rate and rhythm. Abdomen soft, no tenderness. Left foot overall swelling and redness has decreased. No drainage on the dressing. LABS: Hemoglobin is 14.6, white count 8.2, creatinine 0.65. DIAGNOSTIC IMPRESSION AND PLAN: Patient with left leg wound with secondary cellulitis. Culture positive for MSSA and E coli. Patient to finish therapy with oral Keflex 500 mg every 8 hours for 10 days and close outpatient followup. Questions and concerns were answered. MMODL / IJN: [id number] /
== END 2021-01-31 15:30 | disposition home health service (06) | DRG 253 ==
LOC: CATHCVL 07:13 → 3SCARD 10:20
PROVIDERS: ADMIT Surgery; ATTEND Surgery
PROC: B41D1ZZ Fluoroscopy of Aorta and Bilateral Lower Extremity Arteries using Low Osmolar Contrast (ICD-10-PCS; 2021-01-22 09:00)
PROC: 04HJ33Z Insertion of Infusion Device into Left External Iliac Artery, Percutaneous Approach (ICD-10-PCS; 2021-01-26)
PROC: 3E053KZ Introduction of Other Diagnostic Substance into Peripheral Artery, Percutaneous Approach (ICD-10-PCS; 2021-01-26)
PROC: B41J1ZZ Fluoroscopy of Other Lower Arteries using Low Osmolar Contrast (ICD-10-PCS; 2021-01-26)
PROC: 041L0JJ Bypass Left Femoral Artery to Left Femoral Artery with Synthetic Substitute, Open Approach (ICD-10-PCS; principal; 2021-01-26 07:30)
DX: I74.5 Embolism and thrombosis of iliac artery (principal); I74.3 Embolism and thrombosis of arteries of the lower extremities; E87.1 Hypo-osmolality and hyponatremia; B37.89 Other sites of candidiasis; L03.116 Cellulitis of left lower limb; L97.322 Non-pressure chronic ulcer of left ankle with fat layer exposed; L97.222 Non-pressure chronic ulcer of left calf with fat layer exposed; E66.9 Obesity, unspecified; I10 Essential (primary) hypertension; M19.90 Unspecified osteoarthritis, unspecified site; I87.2 Venous insufficiency (chronic) (peripheral); I87.8 Other specified disorders of veins; E86.1 Hypovolemia; Z20.822 Contact with and (suspected) exposure to COVID-19; Z71.6 Tobacco abuse counseling; I70.242 Atherosclerosis of native arteries of left leg with ulceration of calf; I70.243 Atherosclerosis of native arteries of left leg with ulceration of ankle; J44.9 Chronic obstructive pulmonary disease, unspecified; Z79.51 Long term (current) use of inhaled steroids; Z79.82 Long term (current) use of aspirin; Z79.899 Other long term (current) drug therapy; B95.61 Methicillin susceptible Staphylococcus aureus infection as the cause of diseases classified elsewhere; B96.20 Unspecified Escherichia coli [E. coli] as the cause of diseases classified elsewhere; F17.200 Nicotine dependence, unspecified, uncomplicated; G47.30 Sleep apnea, unspecified; L98.9 Disorder of the skin and subcutaneous tissue, unspecified
CPT/HCPCS: 36200; 75625; 75716; 80048; 82805; 83036; 85025; 86850; 86900; 86901; 87040; 87070; 87075; 87077; 87186; 87205; 87635; 93306; 94640; 94760

== ENCOUNTER 2021-02-19 15:59 | Inpatient (IN) | payer OTHER ==
[2021-02-19] MEDS ORDERED: HYDROcodone/APAP 5-325MG 1 EACH TAB PO STA (17:00)
[2021-02-19] MEDS ORDERED: MORPHINE SULFATE 4 MG/ML SYRINGE IVP STA (20:30)
[2021-02-19] MEDS ORDERED: cefTRIAXone IN SWFI 1,000 MG/10 ML SYRINGE IVP STA (20:30)
[2021-02-19] MEDS ORDERED: VANCOMYCIN IV PER PHARMACY 1 EACH MISC MISCELLANE PRN (20:30)
[2021-02-19] MEDS ORDERED: VANCOMYCIN 1,750 MG in SODIUM CHLORIDE 0.9% 500 ML 500 ML IVPB ONE (21:00)
--- NOTE | 2021-02-19 21:17 | XR ---
EXAMINATION TYPE: XR ankle limited LT DATE OF EXAM: 02/19/2021 COMPARISON: None HISTORY: Chronic pain and nonhealing wound TECHNIQUE: 2 view left ankle FINDINGS: There may be a wound on the posterior and medial ankle. No acute osseous abnormality is hyun dent. No cortical erosions are evident. Achilles tendon calcaneal heel spur is present. IMPRESSION: 1. No suspicious changes to suggest osteomyelitis. 2. Wound along the posterior and medial aspect of the distal ankle is evident.
--- NOTE | 2021-02-19 21:27 | ED ---
Wound/Laceration HPI - General Chief Complaint: Wound/Laceration Stated Complaint: wound on leg Time Seen by Provider: 02/19/21 19:59 Source: patient, RN notes reviewed, old records reviewed Mode of arrival: wheelchair Limitations: no limitations - History of Present Illness Initial Comments: Patient is a 55-year-old male with history of vascular disorder, hypertension, presenting to the emergency department from the wound care requesting admission for IV antibiotics. Patient has been dealing with a chronic wound on the medial dorsal of his left foot for over a year now. He states about 3-4 weeks ago they noticed another wound open up on his left heel. Patient was at wound care today and they recommended coming in for IV antibiotics. Patient states his pain has been increasing over the past couple days, the redness and swelling in his left leg has also worsened. Patient has not been on antibiotics for over a week, he was on Keflex. Patient denies any fevers, no nausea or vomiting, no chest pain or shortness of breath. He states he's been just trying to take Tylenol or Motrin for discomfort but it is not working. Patient did have a recent femoral to femoral bypass on January 26 secondary to an occluded left iliac. Patient has no further complaints at this time. Upon arrival to the ER, his vital signs are stable. - Related Data Home Medications Medication Instructions Recorded Confirmed Benazepril [Lotensin] 10 mg PO DAILY 01/21/21 02/19/21 Fluticasone Propion/Salmeterol 1 puff INHALATION RT-DAILY 01/21/21 02/19/21 [Wixela 250-50 Inhub] Medihoney Patches 1 patch TOPICAL DAILY PRN 02/19/21 02/19/21 Nicotine Gum (Polacrilex) 2 mg BUCCAL Q3H PRN 02/19/21 02/19/21 [Nicorette] Previous Rx's Medication Instructions Recorded Clopidogrel [Plavix] 75 mg PO DAILY #30 tab 01/29/21 Nicotine 21Mg/24Hr Patch [Habitrol] 1 patch TRANSDERM DAILY #30 patch 01/29/21 Furosemide [Lasix] 20 mg PO DAILY 30 Days #30 tab 01/31/21 Gabapentin [Neurontin] 300 mg PO TID 7 Days #21 cap 01/31/21 Allergies Allergy/AdvReac Type Severity Reaction Status Date / Time No Known Allergies Allergy Verified 02/19/21 21:30 Review of Systems ROS Statement: Those systems with pertinent positive or pertinent negative responses have been documented in the HPI. ROS Other: All systems not noted in ROS Statement are negative. Past Medical History Past Medical History: Hypertension, Osteoarthritis (OA), Skin Disorder, Vascular Disorder Additional Past Medical History / Comment(s): open sore left lombardi History of Any Multi-Drug Resistant Organisms: None Reported Past Surgical History: Cholecystectomy Past Anesthesia/Blood Transfusion Reactions: No Reported Reaction Past Psychological History: No Psychological Hx Reported Smoking Status: Former smoker Past Alcohol Use History: Rare Past Drug Use History: None Reported General Exam - General Exam Comments Initial Comments: GENERAL: Patient is well-developed and well-nourished. Patient is nontoxic and in no acute distress. HEAD: Atraumatic, normocephalic. EYES: Pupils equal round and reactive to light, extraocular movements intact, sclera anicteric, conjunctiva are normal. Eyelids were unremarkable. ENT: Moist mucous membranes. NECK: Normal range of motion, supple without lymphadenopathy or JVD. LUNGS: Unlabored respirations. Breath sounds clear to auscultation bilaterally and equal. No wheezes rales or rhonchi. HEART: Regular rate and rhythm without murmurs, rubs or gallops. ABDOMEN: Soft, nontender, normoactive bowel sounds. MUSCULOSKELETAL: Normal extremities with adequate strength and normal range of motion. Patient has bilateral lower leg edema. No clubbing or cyanosis. NEUROLOGICAL: Patient is alert and oriented x 3. SKIN: Warm, Dry, normal turgor. Patient has an approximate 2 cm in diameter chronic wound to the left dorsal ankle, medial aspect. There is surrounding erythema and swelling noted to the area with some mild drainage. Patient has a second open wound on the left Achilles, approximate 5 x 3 cm with visible tendon exposure. His left lower leg is erythematous, painful to the touch. The right lower leg is also slightly erythematous, no pain in the right lower leg. No open sores of the right lower leg. Limitations: no limitations Course Vital Signs 02/19/21 02/19/21 16:54 21:26 Temperature 98.6 F Pulse Rate 106 H 94 Respiratory 18 17 Rate Blood Pressure 117/64 114/62 O2 Sat by Pulse 93 L 96 Oximetry Medical Decision Making - Medical Decision Making Patient is a 55-year-old male with history of hypertension, vascular disorder, presenting from a wound care for IV antibiotics. Patient has 2 wounds on his left ankle, one on the left heel which has exposed Achilles tendon. He has worsening erythema and spreading infection, discontinued oral antibiotics over a week ago with increasing symptoms. His vital signs are stable today. Labs show a normal white count, rest of labs unremarkable, x-ray of the left ankle reveal no signs of osteomyelitis. Blood cultures are pending. Patient was started on Rocephin and vancomycin. Patient will be admitted with a wound care consult. Patient exhibited by Dr. Cabrales. Case discussed with Dr. Pretty. - Lab Data Result diagrams: 02/19/21 21:06 02/19/21 21:06 Lab Results 02/19/21 02/19/21 02/19/21 Range/Units 21:06 21:06 21:06 WBC 7.9 (3.8-10.6) k/uL RBC 4.05 L (4.30-5.90) m/uL Hgb 14.2 (13.0-17.5) gm/dL Hct 40.6 (39.0-53.0) % MCV 100.3 H (80.0-100.0) fL MCH 35.1 H (25.0-35.0) pg MCHC 35.0 (31.0-37.0) g/dL RDW 13.8 (11.5-15.5) % Plt Count 246 (150-450) k/uL MPV 8.0 Neutrophils % 76 % Lymphocytes % 15 % Monocytes % 6 % Eosinophils % 2 % Basophils % 0 % Neutrophils # 6.0 (1.3-7.7) k/uL Lymphocytes # 1.2 (1.0-4.8) k/uL Monocytes # 0.4 (0-1.0) k/uL Eosinophils # 0.1 (0-0.7) k/uL Basophils # 0.0 (0-0.2) k/uL Macrocytosis Slight Sodium 137 (137-145) mmol/L Potassium 4.5 (3.5-5.1) mmol/L Chloride 106 (98-107) mmol/L Carbon Dioxide 25 (22-30) mmol/L Anion Gap 6 mmol/L BUN 14 (9-20) mg/dL Creatinine 0.69 (0.66-1.25) mg/dL Est GFR (CKD-EPI)AfAm >90 (>60 ml/min/1.73 sqM) Est GFR (CKD-EPI)NonAf >90 (>60 ml/min/1.73 sqM) Glucose 97 (74-99) mg/dL Plasma Lactic Acid Rob 1.5 (0.7-2.0) mmol/L Calcium 9.1 (8.4-10.2) mg/dL Total Bilirubin 0.4 (0.2-1.3) mg/dL AST 34 (17-59) U/L ALT 44 (4-49) U/L Alkaline Phosphatase 81 (38-126) U/L C-Reactive Protein 1.4 H (<1.0) mg/dL Total Protein 6.0 L (6.3-8.2) g/dL Albumin 3.4 L (3.5-5.0) g/dL Disposition Clinical Impression: Non-healing open wound of left heel, Cellulitis of left lower leg, Pain in left leg, Non-pressure chronic ulcer of left ankle with fat layer exposed Disposition: ADMITTED IP TO THIS HOSP Condition: Stable Referrals: Chip Bauman III, MD [Primary Care Provider] - 1-2 days Decision Date: 02/19/21 Decision Time: 22:00
[2021-02-19 21:28] LABS: ALT 44 U/L (4-49); AST 34 U/L (17-59); African American GFR (CKD) >90 (>60 ml/min/1.73 sqM); Albumin 3.4 g/dL (3.5-5.0); Alkaline Phosphatase 81 U/L (38-126); Anion Gap 6 mmol/L; Blood Urea Nitrogen 14 mg/dL (9-20); C Reactive Protein 1.4 mg/dL (<1.0); Calcium 9.1 mg/dL (8.4-10.2); Carbon Dioxide 25 mmol/L (22-30); Chloride 106 mmol/L (98-107); Glucose 97 mg/dL (74-99); Non-African American GFR(CKD) >90 (>60 ml/min/1.73 sqM); Potassium 4.5 mmol/L (3.5-5.1); Sodium 137 mmol/L (137-145); Total Bilirubin 0.4 mg/dL (0.2-1.3)
[2021-02-19 21:49] LABS: Basophils % (A) 0 %; Eosinophils # (A) 0.1 k/uL (0-0.7); Eosinophils % (A) 2 %; HCT 40.6 % (39.0-53.0); HGB 14.2 gm/dL (13.0-17.5); Lymphocytes # (A) 1.2 k/uL (1.0-4.8); Lymphocytes % (A) 15 %; MCH 35.1 pg (25.0-35.0); MCV 100.3 fL (80.0-100.0); Macrocytosis Slight; Monocytes # (A) 0.4 k/uL (0-1.0); Monocytes % (A) 6 %; Neutrophils % (A) 76 %; Platelet Count 246 k/uL (150-450); RBC 4.05 m/uL (4.30-5.90); RDW 13.8 % (11.5-15.5); WBC 7.9 k/uL (3.8-10.6)
[2021-02-19] MEDS ORDERED: ONDANSETRON 4 MG/2 ML VIAL IVP PRN (21:55)
[2021-02-19] MEDS ORDERED: ACETAMINOPHEN TAB 325 MG TAB PO PRN (21:55)
[2021-02-19] MEDS ORDERED: NALOXONE 0.4 MG/ML 1 ML VIAL IV PRN (21:55)
[2021-02-19] MEDS ORDERED: IBUPROFEN 400 MG TAB PO PRN (21:55)
[2021-02-19 22:20] LABS: Erythrocyte Sedimentation Rate 28 mm/hr (0-15)
[2021-02-20] MEDS: MORPHINE SULFATE 4 MG/ML SYRINGE IV PRN ×3 (00:35→11:24)
[2021-02-20] MEDS: HYDROcodone/APAP 5-325MG 1 EACH TAB PO PRN ×4 (03:43→20:55)
[2021-02-20] MEDS: VANCOMYCIN 2,000 MG in SODIUM CHLORIDE 0.9% 500 ML 500 ML IVPB SCH ×2 (11:38→20:55)
[2021-02-20] MEDS ORDERED: MEDIHONEY TOPICAL PRN (11:42)
[2021-02-20] MEDS ORDERED: FUROSEMIDE 10 MG/ML 2 ML VIAL IV SCH (11:45)
[2021-02-20] MEDS: lisinopriL 10 MG TAB PO SCH (13:24)
[2021-02-20] MEDS: NICOTINE 21MG/24HR PATCH TRANSDERM SCH (13:25)
--- NOTE | 2021-02-20 13:53 | P.HPIM ---
History of Present Illness 55-year-old male was sent in from our wound care clinic because of possible infected ulcers patient has left leg a small ulcer on the lombardi area and a large ulcer posterior aspect of the leg just above the ankle. Patient has a stage IV ulcers with the purulent drainage in both ulcers wound cultures were obtained patient was started on IV antibiotics that is Rocephin and the vancomycin infectious disease was consulted. Ankle x-ray did not show any costochondritis. Patient quit smoking. Patient denied any history of peripheral artery disease patient does have swelling in both lower expertise appears to be chronic venous stasis he usually uses 20 mg of Lasix oral at home. Patient does have upper vascular disease had a recent femoral to femoral bypass surgery secondary to occluded left iliac. REVIEW OF SYSTEMS: CONSTITUTIONAL: No fever, no malaise, no fatigue. HEENT: No recent visual problems or hearing problems. Denied any sore throat. CARDIOVASCULAR: No chest pain, orthopnea, PND, no palpitations, no syncope. PULMONARY: No shortness of breath, no cough, no hemoptysis. GASTROINTESTINAL: No diarrhea, no nausea, no vomiting, no abdominal pain. NEUROLOGICAL: No headaches, no weakness, no numbness. HEMATOLOGICAL: Denies any bleeding or petechiae. GENITOURINARY: Denies any burning micturition, frequency, or urgency. MUSCULOSKELETAL/RHEUMATOLOGICAL: Denies any joint pain, swelling, or any muscle pain. ENDOCRINE: Denies any polyuria or polydipsia. The rest of the 14-point review of systems is negative. PHYSICAL EXAMINATION: GENERAL: The patient is alert and oriented x3, not in any acute distress. Well developed, well nourished. HEENT: Pupils are round and equally reacting to light. EOMI. No scleral icterus. No conjunctival pallor. Normocephalic, atraumatic. No pharyngeal erythema. No thyromegaly. CARDIOVASCULAR: S1 and S2 present. No murmurs, rubs, or gallops. PULMONARY: Chest is clear to auscultation, no wheezing or crackles. ABDOMEN: Soft, nontender, nondistended, normoactive bowel sounds. No palpable organomegaly. MUSCULOSKELETAL: No joint swelling or deformity. EXTREMITIES: No cyanosis, clubbing, or pedal edema. NEUROLOGICAL: Gross neurological examination did not reveal any focal deficits. SKIN: About 4 x 2 cm ulcer in the left lombardi area stage IV with purulent draina ge. And the larger posterior overall ulcer which appears to be infected as well. Assessment and plan -Infected left lower extremity ulcers wound cultures were obtained patient will will be continued on above-mentioned above-mentioned antibiotics Rocephin and vancomycin infectious disease was consulted. X-ray didn't show an also myelitis. Patient may need MRI and MRA of the bone scan to rule out osteomyelitis -Chronic venous stasis bilateral lower extremities IV Lasix with the electrolyte and kidney function monitoring -Peripheral vascular disease patient quit smoking recently -Hypertension DVT prophylaxis: Lovenox Past Medical History Past Medical History: Hypertension, Osteoarthritis (OA), Skin Disorder, Vascular Disorder Additional Past Medical History / Comment(s): open sore left lombardi History of Any Multi-Drug Resistant Organisms: None Reported Past Surgical History: Cholecystectomy Additional Past Surgical History / Comment(s): Femoral femoral bypass 01/26/21 Past Anesthesia/Blood Transfusion Reactions: No Reported Reaction Past Psychological History: No Psychological Hx Reported Smoking Status: Former smoker Past Alcohol Use History: Rare Additional Past Alcohol Use History / Comment(s): 1ppd for 30 yrs. Past Drug Use History: None Reported - Past Family History Father Family Medical History: Cancer, Myocardial Infarction ([place]) Additional Family Medical History / Comment(s): Lung CA Mother Family Medical History: Cancer Sister(s) Family Medical History: Cancer Additional Family Medical History / Comment(s): Leukemia Medications and Allergies Home Medications Medication Instructions Recorded Confirmed Type Benazepril [Lotensin] 10 mg PO DAILY 01/21/21 02/19/21 History Fluticasone Propion/Salmeterol 1 puff INHALATION RT-DAILY 01/21/21 02/19/21 History [Wixela 250-50 Inhub] Clopidogrel [Plavix] 75 mg PO DAILY #30 tab 01/29/21 02/19/21 Rx Nicotine 21Mg/24Hr Patch [Habitrol] 1 patch TRANSDERM DAILY #30 patch 01/29/21 02/19/21 Rx Furosemide [Lasix] 20 mg PO DAILY 30 Days #30 tab 01/31/21 02/19/21 Rx Gabapentin [Neurontin] 300 mg PO TID 7 Days #21 cap 01/31/21 02/19/21 Rx Medihoney Patches 1 patch TOPICAL DAILY PRN 02/19/21 02/19/21 History Nicotine Gum (Polacrilex) 2 mg BUCCAL Q3H PRN 02/19/21 02/19/21 History [Nicorette] Allergies Allergy/AdvReac Type Severity Reaction Status Date / Time No Known Allergies Allergy Verified 02/19/21 21:30 Physical Exam Vitals: Vital Signs Temp Pulse Pulse Resp BP BP Pulse Ox 02/20/21 12:44 98.1 F 87 19 125/72 93 L 02/20/21 08:00 98.2 F 61 17 135/82 94 L 02/20/21 04:06 18 02/20/21 03:09 98.1 F 91 139/77 97 02/20/21 00:00 98.0 F 89 16 101/60 96 02/19/21 21:26 94 17 114/62 96 02/19/21 16:54 98.6 F 106 H 18 117/64 93 L Intake and Output 02/19/21 02/20/21 02/20/21 22:59 06:59 14:59 Output Total 400 Balance -400 Output: Urine 400 Other: Voiding Method Urinal Weight 117.934 kg 117.934 kg Results CBC & Chem 7: 02/19/21 21:06 02/19/21 21:06 Labs: Abnormal Lab Results - Last 24 Hours (Table) 02/19/21 02/19/21 Range/Units 21:06 21:06 RBC 4.05 L (4.30-5.90) m/uL MCV 100.3 H (80.0-100.0) fL MCH 35.1 H (25.0-35.0) pg ESR 28 H (0-15) mm/hr C-Reactive Protein 1.4 H (<1.0) mg/dL Total Protein 6.0 L (6.3-8.2) g/dL Albumin 3.4 L (3.5-5.0) g/dL Microbiology - Last 24 Hours (Table) 02/19/21 21:03 Gram Stain - Preliminary Ankle - Left Wound Culture - Preliminary Thrombosis Risk Factor Assmnt - Choose All That Apply Each Factor Represents 1 point: Age 41-60 years, Obesity (BMI >25), Swollen legs (current) Thrombosis Risk Factor Assessment Total Risk Factor Score: 3 Thrombosis Risk Factor Assessment Level: Moderate Risk
[2021-02-20] MEDS: GABAPENTIN 300 MG CAP PO SCH ×2 (15:25→20:54)
[2021-02-20] MEDS: FAMOTIDINE 20 MG TAB PO SCH (20:54)
[2021-02-20] MEDS: FUROSEMIDE 10 MG/ML 2 ML VIAL IV SCH (20:55)
[2021-02-21] MEDS: CEFEPIME 2 GM in SODIUM CHLORIDE 0.9% 100 ML IVPB SCH ×4 (00:21→23:47)
[2021-02-21] MEDS: HYDROcodone/APAP 5-325MG 1 EACH TAB PO PRN ×4 (03:25→21:05)
[2021-02-21] MEDS: FAMOTIDINE 20 MG TAB PO SCH ×2 (08:13→21:55)
[2021-02-21] MEDS: NICOTINE 21MG/24HR PATCH TRANSDERM SCH (08:13)
[2021-02-21] MEDS: CLOPIDOGREL 75 MG TAB PO SCH (08:13)
[2021-02-21] MEDS: ENOXAPARIN 40 MG/0.4 ML SYRINGE SQ SCH (08:13)
[2021-02-21] MEDS: GABAPENTIN 300 MG CAP PO SCH ×3 (08:13→21:55)
[2021-02-21] MEDS: lisinopriL 10 MG TAB PO SCH (08:13)
[2021-02-21] MEDS: FUROSEMIDE 10 MG/ML 2 ML VIAL IV SCH (08:21)
[2021-02-21] MEDS ORDERED: FUROSEMIDE 20 MG TAB PO SCH (09:00)
[2021-02-21] MEDS: SYMBICORT 80-4.5 MCG INHALER INHALATION SCH (09:00)
--- NOTE | 2021-02-21 09:15 | P.CONS ---
History of Present Illness - Reason for Consult Consult date: 02/20/21 left leg wound infection Requesting physician: Karma Resendiz - Chief Complaint left leg pain and redness x days - History of Present Illness History of present illness : Patient is 55-year-old male with a past medical history significant for a chronic nonhealing wound to the left leg wound with the patient to follow-up at [facility] patient was sent to the ER yesterday from the wound care with concern for worsening cellulitis to the left leg and need for IV antibiotic therapy patient be complaining of increasing pain to the left leg wound area over the last few days more of a dull aching at times throbbing 5-6 out of 10 and no radiation patient did have associated swelling or redness in the left leg which seem to have burst patient apparently has been treated with oral Keflex without any improvement with the symptom the patient was evaluated by the ER physician on arrival to the ER the patient was afebrile patient did have a normal white count sed rate of 28 creatinine was normal whitaker PCR was negative wound cultures were obtained which are currently pending patient was started on vancomycin infectious disease was consulted for further management of antibiotic therapy patient did have x-rays of the ankle which was negative for osteomyelitis Review of system: CONSTITUTIONAL: Positive for weakness denies high-grade fever. EYES: No complaint. ENT: No complaint. RESPIRATORY: No complaint. CARDIOVASCULAR: No complaint. GENITOURINARY: No complaint. GASTROINTESTINAL: No complaint. MUSCULOSKELETAL: As per history of present illness. INTEGUMENTARY: As per history of present illness. PSYCHOLOGIC: No complaint. ENDOCRINE: No complaint. NEUROLOGIC: No complaint. Past medical history : Reviewed, documented below Past surgical history : Reviewed, documented below Social history: Reviewed, documented below Medications: Reviewed, as documented below EXAMINATION: Vital sigans= Reviewed and documented below GENERAL DESCRIPTION: Middle-aged male lying in bed, no distress. No tachypnea or accessory muscle of respiration use. HEENT: Shows Pallor , no scleral icterus. Oral mucous membrane is dry. NECK: Trachea central, no thyromegaly. LUNGS: Unlabored breathing. Clear to auscultation anteriorly. No wheeze or crackle. HEART: S1, S2, regular rate and rhythm. ABDOMEN: Soft, no tenderness , guarding or rigidity EXTREMITIES: Left posterior leg wound is deeper with the tendon exposed he did have a wound on the dorsum aspect of the left leg with minimal slough tissue did have a swelling redness to the left leg slightly warm to touch. SKIN: No rash, no masses palpable. NEUROLOGICAL: The patient is awake, alert, oriented x3, mood and affect normal. LABS AND RADIOLOGY: Reviewed results see below Assessment : Patient being admitted to hospital with left leg chronic nonhealing wound now with evidence of secondary cellulitis that has failed outpatient oral Keflex therapy local wound culture now showing presumptive MRSA and gram- negative x-rays were negative for any osteomyelitis Plan: 1-vancomycin pharmacy to dose with a target trough of 15 while watching kidney function and Vanco trough closely. 2-we will add cefepime 2 g every 8 hours to cover for the gram-negative 3-local wound care per the wound care team We will follow on clinical condition and cultures to further adjust medication if needed Thank you for this consultation we will follow the patient along with you Past Medical History Past Medical History: Hypertension, Osteoarthritis (OA), Skin Disorder, Vascular Disorder Additional Past Medical History / Comment(s): open sore left lombardi History of Any Multi-Drug Resistant Organisms: None Reported Past Surgical History: Cholecystectomy Additional Past Surgical History / Comment(s): Femoral femoral bypass 01/26/21 Past Anesthesia/Blood Transfusion Reactions: No Reported Reaction Past Psychological History: No Psychological Hx Reported Smoking Status: Former smoker Past Alcohol Use History: Rare Additional Past Alcohol Use History / Comment(s): 1ppd for 30 yrs. Past Drug Use History: None Reported - Past Family History Father Family Medical History: Cancer, Myocardial Infarction ([place]) Additional Family Medical History / Comment(s): Lung CA Mother Family Medical History: Cancer Sister(s) Family Medical History: Cancer Additional Family Medical History / Comment(s): Leukemia Medications and Allergies Home Medications Medication Instructions Recorded Confirmed Type Benazepril [Lotensin] 10 mg PO DAILY 01/21/21 02/19/21 History Fluticasone Propion/Salmeterol 1 puff INHALATION RT-DAILY 01/21/21 02/19/21 History [Wixela 250-50 Inhub] Clopidogrel [Plavix] 75 mg PO DAILY #30 tab 01/29/21 02/19/21 Rx Nicotine 21Mg/24Hr Patch [Habitrol] 1 patch TRANSDERM DAILY #30 patch 01/29/21 02/19/21 Rx Furosemide [Lasix] 20 mg PO DAILY 30 Days #30 tab 01/31/21 02/19/21 Rx Gabapentin [Neurontin] 300 mg PO TID 7 Days #21 cap 01/31/21 02/19/21 Rx Medihoney Patches 1 patch TOPICAL DAILY PRN 02/19/21 02/19/21 History Nicotine Gum (Polacrilex) 2 mg BUCCAL Q3H PRN 02/19/21 02/19/21 History [Nicorette] Allergies Allergy/AdvReac Type Severity Reaction Status Date / Time No Known Allergies Allergy Verified 02/19/21 21:30 Physical Exam Vitals: Vital Signs Temp Pulse Pulse Resp BP BP Pulse Ox 02/20/21 08:00 98.2 F 61 17 135/82 94 L 02/20/21 04:06 18 02/20/21 03:09 98.1 F 91 139/77 97 02/20/21 00:00 98.0 F 89 16 101/60 96 02/19/21 21:26 94 17 114/62 96 02/19/21 16:54 98.6 F 106 H 18 117/64 93 L Intake and Output 02/19/21 02/20/21 02/20/21 22:59 06:59 14:59 Output Total 400 Balance -400 Output: Urine 400 Other: Voiding Method Urinal Weight 117.934 kg 117.934 kg Results CBC & Chem 7: 02/19/21 21:06 02/19/21 21:06 Labs: Abnormal Lab Results - Last 24 Hours (Table) 02/19/21 02/19/21 Range/Units 21:06 21:06 RBC 4.05 L (4.30-5.90) m/uL MCV 100.3 H (80.0-100.0) fL MCH 35.1 H (25.0-35.0) pg ESR 28 H (0-15) mm/hr C-Reactive Protein 1.4 H (<1.0) mg/dL Total Protein 6.0 L (6.3-8.2) g/dL Albumin 3.4 L (3.5-5.0) g/dL Microbiology - Last 24 Hours (Table) 02/19/21 21:03 Gram Stain - Preliminary Ankle - Left Wound Culture - Preliminary
[2021-02-21 11:07] LABS: African American GFR (CKD) >90 (>60 ml/min/1.73 sqM); Anion Gap 5 mmol/L; Blood Urea Nitrogen 14 mg/dL (9-20); Calcium 8.9 mg/dL (8.4-10.2); Carbon Dioxide 29 mmol/L (22-30); Chloride 101 mmol/L (98-107); Glucose 97 mg/dL (74-99); Non-African American GFR(CKD) >90 (>60 ml/min/1.73 sqM); Potassium 4.2 mmol/L (3.5-5.1); Sodium 135 mmol/L (137-145)
[2021-02-21 11:31] LABS: HCT 38.8 % (39.0-53.0); HGB 13.2 gm/dL (13.0-17.5); Mean Platelet Volume 7.9; Platelet Count 229 k/uL (150-450); RBC 3.88 m/uL (4.30-5.90); RDW 13.2 % (11.5-15.5); WBC 6.9 k/uL (3.8-10.6)
[2021-02-21] MEDS: VANCOMYCIN 2,000 MG in SODIUM CHLORIDE 0.9% 500 ML 500 ML IVPB SCH ×2 (11:33→21:46)
[2021-02-21 11:40] VITALS: BMI 41.9
--- NOTE | 2021-02-21 12:47 | P.PN ---
Subjective Progress Note Date: 02/21/21 55-year-old male was sent in from our wound care clinic because of possible infected ulcers patient has left leg a small ulcer on the lombardi area and a large ulcer posterior aspect of the leg just above the ankle. Patient has a stage IV ulcers with the purulent drainage in both ulcers wound cultures were obtained patient was started on IV antibiotics that is Rocephin and the vancomycin infectious disease was consulted. Ankle x-ray did not show any costochondritis. Patient quit smoking. Patient denied any history of peripheral artery disease patient does have swelling in both lower expertise appears to be chronic venous stasis he usually uses 20 mg of Lasix oral at home. Patient does have upper v ascular disease had a recent femoral to femoral bypass surgery secondary to occluded left iliac. 02/21/2021 Patient evaluated today resting in bed. Left lower extremity is wrapped with Eligio. Medihoney patches were ordered for topical daily to the leg wound patient states that has not been changed. Continues on IV cefepime and IV vancomycin as recommended by ID. Wound cultures are still pending, currently growing gram- negative bacilli and presumptive staph aureus. Blood culture shows no growth over 24 hours. Patient states that the IV Lasix has helped his edema the right leg more than the left. There is still surrounding erythema the left lower extremity. Labs today show white count 6.9, hemoglobin routine 13.2, sodium 135. Vital signs temp 97.8, heart rate 85, blood pressure 111/74 and he is 93% on 3 L nasal cannula. ROS Constitutional: Denied any fatigue denied any fever. Cardio vascular: denied any chest pain, palpitations Gastrointestinal denied any nausea vomiting Pulmonary: Denied any shortness of breath cough Neurologic denied any new focal deficits All inpatient medications were reviewed and appropriate changes in these medications as dictated in the interval history and assessment and plan. PHYSICAL EXAMINATION: GENERAL: The patient is alert and oriented x3, not in any acute distress. Well developed, well nourished. HEENT: Pupils are round and equally reacting to light. EOMI. No scleral icterus. No conjunctival pallor. Normocephalic, atraumatic. No pharyngeal erythema. No thyromegaly. CARDIOVASCULAR: S1 and S2 present. No murmurs, rubs, or gallops. PULMONARY: Chest is clear to auscultation, no wheezing or crackles. ABDOMEN: Soft, nontender, nondistended, normoactive bowel sounds. No palpable organomegaly. MUSCULOSKELETAL: No joint swelling or deformity. EXTREMITIES: No cyanosis, clubbing, or pedal edema. NEUROLOGICAL: Gross neurological examination did not reveal any focal deficits. SKIN: About 4 x 2 cm ulcer in the left lombardi area stage IV with purulent drainage. And the larger posterior overall ulcer which appears to be infected as well. Assessment and plan -Infected left lower extremity ulcers, ID on consult, IV antibiotics as mentioned above, cultures are pending -Chronic venous stasis bilateral lower extremities - IV Lasix decreased to daily -hyponatremia due to diuresis, decreased IV lasix -Peripheral vascular disease patient quit smoking recently -Hypertension -Obesity DVT prophylaxis: Lovenox Plan Discharge to rehab once cultures are finalized and antibiotic recommendations from ID Review metabolic panel tomorrow Objective - Vital Signs Vital signs: Vital Signs Temp 97.8 F 02/21/21 08:18 Pulse 85 02/21/21 08:18 Resp 16 02/21/21 08:18 BP 111/74 02/21/21 08:18 Pulse Ox 93 L 02/21/21 08:18 Intake & Output 02/20/21 02/21/21 02/21/21 18:59 06:59 18:59 Output Total 1000 2000 Balance -1000 -1999 Weight 117.934 kg Output: Urine 1000 1999 Other: Voiding Method Urinal Urinal # Voids 1 # Bowel Movements 1 - Labs CBC & Chem 7: 02/21/21 10:15 02/21/21 10:15 Labs: Abnormal Lab Results - Last 24 Hours (Table) 02/21/21 02/21/21 Range/Units 10:15 10:15 RBC 3.88 L (4.30-5.90) m/uL Hct 38.8 L (39.0-53.0) % Sodium 135 L (137-145) mmol/L Microbiology - Last 24 Hours (Table) 02/19/21 21:03 Blood Culture - Preliminary Blood No Growth after 24 hours 02/19/21 20:06 Blood Culture - Preliminary Blood No Growth after 24 hours 02/19/21 21:03 Gram Stain - Preliminary Ankle - Left Wound Culture - Preliminary Gram Neg Bacilli Presumptive Staph aureus
--- NOTE | 2021-02-21 15:31 | PN ---
PROGRESS NOTE DATE OF SERVICE: 02/21/2021 REASON FOR FOLLOWUP: Left leg wound and cellulitis. INTERVAL HISTORY: The patient is afebrile. The patient is currently breathing comfortably. The patient denies having any chest pain or shortness of breath or cough. No abdominal pain or worsening pain to the left leg wound area. PHYSICAL EXAMINATION: Blood pressure 111/74, pulse 85, temperature 97.8. He is 93% on L nasal cannula. General description is a middle-aged male lying in bed in no distress. Respiratory system: Unlabored breathing, clear to auscultation anteriorly. Heart S1, S2. Regular rate and rhythm. Abdomen soft, no tenderness. Left leg anterior wound with minimal slough tissue, surrounding redness. Left posterior leg wound did have a tendon exposed and there is slough tissue. LABS: Hemoglobin 13.1, white count 6.9, creatinine 0.74. Wound culture with presumptive Staph aureus and Gram-negative bacilli. DIAGNOSTIC IMPRESSION AND PLAN: Patient with extensive left leg wound with tendon exposed. Will benefit from vascular surgery evaluation for possible debridement of the wound. Patient is covered with cefepime and vancomycin and will be discharged with antibiotics on the basis of the culture report. Continue with supportive care. MMODL / IJN: [id number] /
[2021-02-21] MEDS: MORPHINE SULFATE 4 MG/ML SYRINGE IV PRN (23:39)
[2021-02-22] MEDS: NICOTINE 21MG/24HR PATCH TRANSDERM SCH (07:45)
[2021-02-22] MEDS: CLOPIDOGREL 75 MG TAB PO SCH (07:45)
[2021-02-22] MEDS: FAMOTIDINE 20 MG TAB PO SCH (07:45)
[2021-02-22] MEDS: lisinopriL 10 MG TAB PO SCH (07:45)
[2021-02-22] MEDS: CEFEPIME 2 GM in SODIUM CHLORIDE 0.9% 100 ML IVPB SCH ×2 (07:45→16:20)
[2021-02-22] MEDS: FUROSEMIDE 10 MG/ML 4 ML VIAL IV SCH (07:45)
[2021-02-22] MEDS: ENOXAPARIN 40 MG/0.4 ML SYRINGE SQ SCH (07:45)
[2021-02-22] MEDS: GABAPENTIN 300 MG CAP PO SCH ×2 (07:46→16:20)
[2021-02-22] MEDS: HYDROcodone/APAP 5-325MG 1 EACH TAB PO PRN (07:46)
[2021-02-22] MEDS ORDERED: VANCOMYCIN TROUGH DUE 1 EACH MISC MISCELLANE ONE (09:00)
[2021-02-22] MEDS: SYMBICORT 80-4.5 MCG INHALER INHALATION SCH (09:20)
[2021-02-22 10:09] LABS: African American GFR (CKD) >90 (>60 ml/min/1.73 sqM); Anion Gap 3 mmol/L; Blood Urea Nitrogen 16 mg/dL (9-20); Calcium 8.7 mg/dL (8.4-10.2); Carbon Dioxide 32 mmol/L (22-30); Chloride 102 mmol/L (98-107); Glucose 135 mg/dL (74-99); Non-African American GFR(CKD) >90 (>60 ml/min/1.73 sqM); Potassium 4.3 mmol/L (3.5-5.1); Sodium 137 mmol/L (137-145)
[2021-02-22] MEDS: VANCOMYCIN 2,000 MG in SODIUM CHLORIDE 0.9% 500 ML 500 ML IVPB SCH (12:09)
[2021-02-22] MEDS: MORPHINE SULFATE 4 MG/ML SYRINGE IV PRN ×2 (12:09→16:20)
--- NOTE | 2021-02-22 14:16 | P.PN ---
Subjective Progress Note Date: 02/22/21 55-year-old male was sent in from our wound care clinic because of possible infected ulcers patient has left leg a small ulcer on the lombardi area and a large ulcer posterior aspect of the leg just above the ankle. Patient has a stage IV ulcers with the purulent drainage in both ulcers wound cultures were obtained patient was started on IV antibiotics that is Rocephin and the vancomycin infectious disease was consulted. Ankle x-ray did not show any costochondritis. Patient quit smoking. Patient denied any history of peripheral artery disease patient does have swelling in both lower expertise appears to be chronic venous stasis he usually uses 20 mg of Lasix oral at home. Patient does have upper v ascular disease had a recent femoral to femoral bypass surgery secondary to occluded left iliac. 02/21/2021 Patient evaluated today resting in bed. Left lower extremity is wrapped with Eligio. Medihoney patches were ordered for topical daily to the leg wound patient states that has not been changed. Continues on IV cefepime and IV vancomycin as recommended by ID. Wound cultures are still pending, currently growing gram- negative bacilli and presumptive staph aureus. Blood culture shows no growth over 24 hours. Patient states that the IV Lasix has helped his edema the right leg more than the left. There is still surrounding erythema the left lower extremity. Labs today show white count 6.9, hemoglobin routine 13.2, sodium 135. Vital signs temp 97.8, heart rate 85, blood pressure 111/74 and he is 93% on 3 L nasal cannula. 02/22/2021 Patient is a pending consultation from Dr. Salinas. Cultures were completed today which show E. coli and staph aureus, currently on cefepime and Vanco. Vital signs temp 98, heart rate 71, blood pressure 127/85 and he is 96% on room air. Sodium today improved , 137, potassium 4.3, CO2 32 BUN 16, creatinine 0.75, glucose 135. Lungs are clear, we will continue on IV lasix daily for peripheral edema. ROS Constitutional: Denied any fatigue denied any fever. Cardio vascular: denied any chest pain, palpitations Gastrointestinal denied any nausea vomiting Pulmonary: Denied any shortness of breath cough Neurologic denied any new focal deficits All inpatient medications were reviewed and appropriate changes in these medications as dictated in the interval history and assessment and plan. PHYSICAL EXAMINATION: GENERAL: The patient is alert and oriented x3, not in any acute distress. Well developed, well nourished. HEENT: Pupils are round and equally reacting to light. EOMI. No scleral icterus. No conjunctival pallor. Normocephalic, atraumatic. No pharyngeal erythema. No thyromegaly. CARDIOVASCULAR: S1 and S2 present. No murmurs, rubs, or gallops. PULMONARY: Chest is clear to auscultation, no wheezing or crackles. ABDOMEN: Soft, nontender, nondistended, normoactive bowel sounds. No palpable organomegaly. MUSCULOSKELETAL: No joint swelling or deformity. EXTREMITIES: No cyanosis, clubbing, or pedal edema. NEUROLOGICAL: Gross neurological examination did not reveal any focal deficits. SKIN: About 4 x 2 cm ulcer in the left lombardi area stage IV with purulent drainage. And the larger posterior overall ulcer which appears to be infected as well. Assessment and plan -Infected left lower extremity ulcers, ID on consult, IV antibiotics as mentioned above, vascular consult -Chronic venous stasis bilateral lower extremities - IV Lasix decreased to daily -hyponatremia due to diuresis, improved -Peripheral vascular disease patient quit smoking recently -Hypertension -Obesity DVT prophylaxis: Lovenox Plan Pending Vascular Consult Discharge to rehab hopefully today if there is no plan for surgical debridment. Cultures finalized, IV antibiotics per ID. Objective - Vital Signs Vital signs: Vital Signs Temp 98 F 02/22/21 07:57 Pulse 71 02/22/21 07:57 Resp 16 02/22/21 07:57 BP 127/85 02/22/21 07:57 Pulse Ox 96 02/22/21 07:57 Intake & Output 02/21/21 02/22/21 02/22/21 18:59 06:59 18:59 Intake Total 240 1140 Balance 240 1140 Weight 117.934 kg Intake: Intake, IV Titration 600 Amount Cefepime 2 gm In Sodium 100 Chloride 0.9% 100 ml @ 25 mls/hr IVPB Q8HR [facility] Rx# :[id number] Vancomycin 2,000 mg In 500 Sodium Chloride 0.9% 500 ml 500 ml @ 167 mls/hr IVPB Q12H [facility] Rx#: [id number] Oral 240 540 Other: Voiding Method Urinal Urinal # Voids 2 # Bowel Movements 1 - Labs CBC & Chem 7: 02/21/21 10:15 02/22/21 09:21 Labs: Abnormal Lab Results - Last 24 Hours (Table) 02/22/21 Range/Units 09:21 Carbon Dioxide 32 H (22-30) mmol/L Glucose 135 H (74-99) mg/dL Microbiology - Last 24 Hours (Table) 02/19/21 21:03 Blood Culture - Preliminary Blood No Growth after 48 hours 02/19/21 20:06 Blood Culture - Preliminary Blood No Growth after 48 hours 02/19/21 21:03 Gram Stain - Final Ankle - Left Wound Culture - Final Escherichia coli Staphylococcus aureus
--- NOTE | 2021-02-22 21:06 | PN ---
PROGRESS NOTE DATE OF SERVICE: 02/22/2021 REASON FOR FOLLOWUP: Infected left leg wound with secondary cellulitis. INTERVAL HISTORY: The patient is afebrile, breathing comfortably. No chest pain, shortness of breath or cough. No abdominal pain. Pain to the left leg is currently controlled. No nausea, vomiting or diarrhea. PHYSICAL EXAMINATION: Blood pressure 121/75 with a pulse of 73, temperature 98.2. He is 95% on room air. General description is a middle-aged male lying in bed in no distress. Respiratory system: Unlabored breathing, clear to auscultation anteriorly. Heart S1, S2. Regular rate and rhythm. Abdomen soft, no tenderness. Left leg wound is currently dressed. No obvious drainage on the dressing. LABS: Creatinine 0.75. Culture with MSSA and E coli. DIAGNOSTIC IMPRESSION AND PLAN: Patient with left leg wound infection with secondary cellulitis. Posterior left leg wound is showing a deep wound with tendon exposed. May benefit from vascular surgery evaluation, which has been consulted. Antibiotic will be adjusted to cefazolin. Continue supportive care. MMODL / IJN: [id number] /
[2021-02-23] MEDS: GABAPENTIN 300 MG CAP PO SCH ×4 (00:01→21:53)
[2021-02-23] MEDS: FAMOTIDINE 20 MG TAB PO SCH ×3 (00:01→21:53)
[2021-02-23] MEDS: SYMBICORT 80-4.5 MCG INHALER INHALATION SCH (08:20)
[2021-02-23] MEDS: CLOPIDOGREL 75 MG TAB PO SCH (11:45)
[2021-02-23] MEDS: FUROSEMIDE 10 MG/ML 4 ML VIAL IV SCH (11:45)
[2021-02-23] MEDS: ENOXAPARIN 40 MG/0.4 ML SYRINGE SQ SCH (11:45)
[2021-02-23] MEDS: MORPHINE SULFATE 4 MG/ML SYRINGE IV PRN ×2 (11:45→16:08)
[2021-02-23] MEDS: lisinopriL 10 MG TAB PO SCH (11:45)
[2021-02-23] MEDS: NICOTINE 21MG/24HR PATCH TRANSDERM SCH (11:47)
--- NOTE | 2021-02-23 13:01 | P.PN ---
Subjective Progress Note Date: 02/23/21 55-year-old male was sent in from our wound care clinic because of possible infected ulcers patient has left leg a small ulcer on the lombardi area and a large ulcer posterior aspect of the leg just above the ankle. Patient has a stage IV ulcers with the purulent drainage in both ulcers wound cultures were obtained patient was started on IV antibiotics that is Rocephin and the vancomycin infectious disease was consulted. Ankle x-ray did not show any costochondritis. Patient quit smoking. Patient denied any history of peripheral artery disease patient does have swelling in both lower expertise appears to be chronic venous stasis he usually uses 20 mg of Lasix oral at home. Patient does have upper v ascular disease had a recent femoral to femoral bypass surgery secondary to occluded left iliac. 02/21/2021 Patient evaluated today resting in bed. Left lower extremity is wrapped with Eligio. Medihoney patches were ordered for topical daily to the leg wound patient states that has not been changed. Continues on IV cefepime and IV vancomycin as recommended by ID. Wound cultures are still pending, currently growing gram- negative bacilli and presumptive staph aureus. Blood culture shows no growth over 24 hours. Patient states that the IV Lasix has helped his edema the right leg more than the left. There is still surrounding erythema the left lower extremity. Labs today show white count 6.9, hemoglobin routine 13.2, sodium 135. Vital signs temp 97.8, heart rate 85, blood pressure 111/74 and he is 93% on 3 L nasal cannula. 02/22/2021 Patient is a pending consultation from Dr. Salinas. Cultures were completed today which show E. coli and staph aureus, currently on cefepime and Vanco. Vital signs temp 98, heart rate 71, blood pressure 127/85 and he is 96% on room air. Sodium today improved , 137, potassium 4.3, CO2 32 BUN 16, creatinine 0.75, glucose 135. Lungs are clear, we will continue on IV lasix daily for peripheral edema. 02/23/2021 Patient evaluated today resting in bed. He is pending evaluation by vascular group, which was changed as he [facility] and was seen on Wednesday. There are no labs available today we'll recheck tomorr ow. Otherwise there were no acute events overnight patient has no complaints of pain. He denies any cough or shortness of breath, denies chest pain, chest pressure. Vitals: Temp 98, heart rate 80 sinus rhythm, blood pressure 132/82 and he is 94% on room air. ROS Constitutional: Denied any fatigue denied any fever. Cardio vascular: denied any chest pain, palpitations Gastrointestinal denied any nausea vomiting Pulmonary: Denied any shortness of breath cough Neurologic denied any new focal deficits All inpatient medications were reviewed and appropriate changes in these medications as dictated in the interval history and assessment and plan. PHYSICAL EXAMINATION: GENERAL: The patient is alert and oriented x3, not in any acute distress. Well developed, well nourished. HEENT: Pupils are round and equally reacting to light. EOMI. No scleral icterus. No conjunctival pallor. Normocephalic, atraumatic. No pharyngeal erythema. No thyromegaly. CARDIOVASCULAR: S1 and S2 present. No murmurs, rubs, or gallops. PULMONARY: Chest is clear to auscultation, no wheezing or crackles. ABDOMEN: Soft, nontender, nondistended, normoactive bowel sounds. No palpable organomegaly. MUSCULOSKELETAL: No joint swelling or deformity. EXTREMITIES: No cyanosis, clubbing, or pedal edema. NEUROLOGICAL: Gross neurological examination did not reveal any focal deficits. SKIN: About 4 x 2 cm ulcer in the left lombardi area stage IV with purulent drainage. And the larger posterior overall ulcer which appears to be infected as well with exposed tendon. Assessment and plan -Infected left lower extremity ulcers, ID on consult, IV antibiotics as mentioned above, vascular consult -Chronic venous stasis bilateral lower extremities -hyponatremia due to diuresis, improved -Peripheral vascular disease patient quit smoking recently -Hypertension -Obesity DVT prophylaxis: Lovenox FULL CODE Plan Pending Vascular Consult Possible surgical debridement if recommended Repeat labs tomorrow Change lasix to PO Objective - Vital Signs Vital signs: Vital Signs Temp 98 F 02/23/21 02:00 Pulse 80 02/23/21 02:00 Resp 18 02/23/21 02:00 BP 132/82 02/23/21 02:00 Pulse Ox 94 L 02/23/21 02:00 Intake & Output 02/22/21 02/23/21 02/23/21 18:59 06:59 18:59 Intake Total 1000 Output Total 2099 1999 1199 Balance -2099 -1000 -1200 Intake: Oral 1000 Output: Urine 2100 1999 1200 Other: Voiding Method Urinal Urinal # Voids 2 # Bowel Movements 0 0 - Labs CBC & Chem 7: 02/21/21 10:15 02/22/21 09:21 Labs: Microbiology - Last 24 Hours (Table) 02/19/21 21:03 Blood Culture - Preliminary Blood No Growth after 72 hours 02/19/21 20:06 Blood Culture - Preliminary Blood No Growth after 72 hours
[2021-02-23] MEDS: HYDROcodone/APAP 5-325MG 1 EACH TAB PO PRN ×2 (14:00→18:26)
--- NOTE | 2021-02-23 21:17 | PN ---
PROGRESS NOTE DATE OF SERVICE: 02/23/2021 REASON FOR FOLLOWUP: Left leg infected wound and cellulitis. INTERVAL HISTORY: The patient is afebrile. The patient's pain to the left leg is currently controlled. No chest pain, shortness of breath or cough. No abdominal pain or diarrhea. PHYSICAL EXAMINATION: Blood pressure is 113/69, pulse of 83, temperature 98.2. He is 96% on room air. General description is a middle-aged male lying in bed in no distress. Respiratory system: Unlabored breathing. Clear to auscultation anteriorly. Heart S1, S2. Regular rate and rhythm. Abdomen soft, no tenderness. Left leg is currently dressed. No obvious drainage on the dressing. LABS: Creatinine 0.75. Wound culture with MSSA and E coli. DIAGNOSTIC IMPRESSION AND PLAN: Patient with infected left leg wound with the tendon exposed. Will need surgical debridement. Waiting for vascular surgery evaluation. Patient is covered cefazolin to cover for the two pathogens patient is currently growing from these wounds. Continue supportive care. MMODL / IJN: [id number] /
[2021-02-24] MEDS: HYDROcodone/APAP 5-325MG 1 EACH TAB PO PRN ×3 (08:00→22:00)
[2021-02-24] MEDS: FAMOTIDINE 20 MG TAB PO SCH ×2 (08:02→22:00)
[2021-02-24] MEDS: CLOPIDOGREL 75 MG TAB PO SCH (08:02)
[2021-02-24] MEDS: FUROSEMIDE 40 MG TAB PO SCH (08:02)
[2021-02-24] MEDS: lisinopriL 10 MG TAB PO SCH (08:02)
[2021-02-24] MEDS: NICOTINE 21MG/24HR PATCH TRANSDERM SCH (08:02)
[2021-02-24] MEDS: GABAPENTIN 300 MG CAP PO SCH ×3 (08:02→22:00)
[2021-02-24] MEDS: ENOXAPARIN 40 MG/0.4 ML SYRINGE SQ SCH (08:02)
[2021-02-24] MEDS: SYMBICORT 80-4.5 MCG INHALER INHALATION SCH (08:30)
[2021-02-24] MEDS: MORPHINE SULFATE 4 MG/ML SYRINGE IV PRN (11:42)
[2021-02-24 12:14] LABS: African American GFR (CKD) >90 (>60 ml/min/1.73 sqM); Anion Gap 4 mmol/L; Blood Urea Nitrogen 20 mg/dL (9-20); Calcium 9.1 mg/dL (8.4-10.2); Carbon Dioxide 31 mmol/L (22-30); Chloride 101 mmol/L (98-107); Glucose 121 mg/dL (74-99); Non-African American GFR(CKD) >90 (>60 ml/min/1.73 sqM); Sodium 136 mmol/L (137-145)
[2021-02-24 12:18] LABS: Potassium 5.2 mmol/L (3.5-5.1)
--- NOTE | 2021-02-24 12:23 | P.PN ---
Subjective Progress Note Date: 02/24/21 55-year-old male was sent in from our wound care clinic because of possible infected ulcers patient has left leg a small ulcer on the lombardi area and a large ulcer posterior aspect of the leg just above the ankle. Patient has a stage IV ulcers with the purulent drainage in both ulcers wound cultures were obtained patient was started on IV antibiotics that is Rocephin and the vancomycin infectious disease was consulted. Ankle x-ray did not show any costochondritis. Patient quit smoking. Patient denied any history of peripheral artery disease patient does have swelling in both lower expertise appears to be chronic venous stasis he usually uses 20 mg of Lasix oral at home. Patient does have upper v ascular disease had a recent femoral to femoral bypass surgery secondary to occluded left iliac. 02/21/2021 Patient evaluated today resting in bed. Left lower extremity is wrapped with Eligio. Medihoney patches were ordered for topical daily to the leg wound patient states that has not been changed. Continues on IV cefepime and IV vancomycin as recommended by ID. Wound cultures are still pending, currently growing gram- negative bacilli and presumptive staph aureus. Blood culture shows no growth over 24 hours. Patient states that the IV Lasix has helped his edema the right leg more than the left. There is still surrounding erythema the left lower extremity. Labs today show white count 6.9, hemoglobin routine 13.2, sodium 135. Vital signs temp 97.8, heart rate 85, blood pressure 111/74 and he is 93% on 3 L nasal cannula. 02/22/2021 Patient is a pending consultation from Dr. Salinas. Cultures were completed today which show E. coli and staph aureus, currently on cefepime and Vanco. Vital signs temp 98, heart rate 71, blood pressure 127/85 and he is 96% on room air. Sodium today improved , 137, potassium 4.3, CO2 32 BUN 16, creatinine 0.75, glucose 135. Lungs are clear, we will continue on IV lasix daily for peripheral edema. 02/23/2021 Patient evaluated today resting in bed. He is pending evaluation by vascular group, which was changed as he follows with [facility] and was seen on Wednesday. There are no labs available today we'll recheck tomorr ow. Otherwise there were no acute events overnight patient has no complaints of pain. He denies any cough or shortness of breath, denies chest pain, chest pressure. Vitals: Temp 98, heart rate 80 sinus rhythm, blood pressure 132/82 and he is 94% on room air. 02/24/2021 Patient evaluated today resting in bed. Pending evaluation by vascular surgery regarding left lower extremity wound. This addressed the time of examination, the piercing increasing erythema and cellulitis surrounding the ulcer as well as exposed tendon. Patient does have some pain to the left extremity rates it about a 6 out of 10 and is being controlled with Motrin and Tornado. Denies any other complaints, no acute events overnight. He is eating well. Labs today show a sodium of 136, potassium 5.2. He was changed to oral Lasix yesterday, we will discontinue lisinopril today and monitor blood pressure. Blood pressures on the lower side and BP is 113/75, heart rate 75, afebrile, 94% on room air. ROS Constitutional: Denied any fatigue denied any fever. Cardio vascular: denied any chest pain, palpitations Gastrointestinal: denied any nausea vomiting Pulmonary: Denied any shortness of breath cough Neurologic denied any new focal deficits All inpatient medications were reviewed and appropriate changes in these medications as dictated in the interval history and assessment and plan. PHYSICAL EXAMINATION: GENERAL: The patient is alert and oriented x3, not in any acute distress. Well developed, well nourished. HEENT: Pupils are round and equally reacting to light. EOMI. No scleral icterus. No conjunctival pallor. Normocephalic, atraumatic. No pharyngeal erythema. No thyromegaly. CARDIOVASCULAR: S1 and S2 present. No murmurs, rubs, or gallops. PULMONARY: Chest is clear to auscultation, no wheezing or crackles. ABDOMEN: Soft, nontender, nondistended, normoactive bowel sounds. No palpable organomegaly. MUSCULOSKELETAL: No joint swelling or deformity. EXTREMITIES: No cyanosis, clubbing, or pedal edema. NEUROLOGICAL: Gross neurological examination did not reveal any focal deficits. SKIN: About 4 x 2 cm ulcer in the left lombardi area stage IV with purulent drainage. And the larger posterior overall ulcer which appears to be infected as well with exposed tendon. Assessment and plan -Infected left lower extremity ulcers, ID on consult, IV antibiotics as mentioned above, vascular consult -Chronic venous stasis bilateral lower extremities -hyponatremia due to diuresis, improved -Hyperkalemia, stopped lisinopril, small dose of kayexelate, repeat -Peripheral vascular disease patient quit smoking recently -Hypertension -Obesity DVT prophylaxis: Lovenox FULL CODE Plan Discontinued lisinopril, monitor blood pressures Small dose of kayexelate ordered Pending Vascular Consult Possible surgical debridement if recommended Repeat labs tomorrow Change lasix to PO Objective - Vital Signs Vital signs: Vital Signs Temp 97.6 F 02/24/21 08:00 Pulse 79 02/24/21 08:00 Resp 18 02/24/21 08:00 BP 113/75 02/24/21 08:00 Pulse Ox 94 L 02/24/21 08:00 Intake & Output 02/23/21 02/24/21 02/24/21 18:59 06:59 18:59 Intake Total 50 100 Output Total 2900 500 Balance -2850 -400 Intake: Intake, IV Titration 50 100 Amount ceFAZolin 2 gm In Sodium 50 100 Chloride 0.9% 50 ml @ 100 mls/hr IVPB Q8HR [facility] Rx# :[id number] Output: Urine 2900 500 Other: Voiding Method Urinal Urinal - Labs CBC & Chem 7: 02/21/21 10:15 02/22/21 09:21 Labs: Microbiology - Last 24 Hours (Table) 02/19/21 21:03 Blood Culture - Preliminary Blood No Growth after 96 hours 02/19/21 20:06 Blood Culture - Preliminary Blood No Growth after 96 hours
[2021-02-24] MEDS ORDERED: SODIUM POLYSTYRENE SULFONATE 15 GM/60 ML BOTTLE PO ONE (12:30)
--- NOTE | 2021-02-24 12:36 | P.GSCN ---
History of Present Illness Consult date: 02/24/21 Reason for Consult: left lower extremity debridement Requesting physician: Irma Delong History of present illness: This is a 55-year-old male with a history of peripheral arterial disease, obesity, and hypertension who had presented initially with complaints of venous ulceration to left lower extremity, however there was also found that he had severe arterial insufficiency. In January he had CT angiogram angiography which was performed demonstrating external iliac artery occlusion as well as a left SFA occlusion. He had come in on 01/22/2021 for an aortogram with runoff and selective cannulization of contralateral iliac artery however was unable to cross the lesion. He underwent a femoral to femoral bypass on 01/26/2021. He was discharged and followed up with the wound care center. On 02 19 the patient was admitted to the hospital after being seen by the wound care center with concerns for infected wound with cellulitis. Infectious disease was consulted, left ankle wound culture came back with E. coli and Staphylococcus aureus, and he is currently on cefazolin. He has been afebrile states he does have pain down in the area of the ankle and exposed tendon. Ankle x-ray showed no suspicious changes to suggest osteomyelitis. States he has been walking on that foot. Past Medical History Past Medical History: Hypertension, Osteoarthritis (OA), Skin Disorder, Vascular Disorder Additional Past Medical History / Comment(s): open sore left lombardi History of Any Multi-Drug Resistant Organisms: None Reported Past Surgical History: Cholecystectomy Additional Past Surgical History / Comment(s): Femoral femoral bypass 01/26/21 Past Anesthesia/Blood Transfusion Reactions: No Reported Reaction Past Psychological History: No Psychological Hx Reported Smoking Status: Former smoker Past Alcohol Use History: Rare Additional Past Alcohol Use History / Comment(s): 1ppd for 30 yrs. Past Drug Use History: None Reported - Past Family History Father Family Medical History: Cancer, Myocardial Infarction (MS) Additional Family Medical History / Comment(s): Lung CA Mother Family Medical History: Cancer Sister(s) Family Medical History: Cancer Additional Family Medical History / Comment(s): Leukemia Medications and Allergies Home Medications Medication Instructions Recorded Confirmed Type Benazepril [Lotensin] 10 mg PO DAILY 01/21/21 02/19/21 History Fluticasone Propion/Salmeterol 1 puff INHALATION RT-DAILY 01/21/21 02/19/21 History [Wixela 250-50 Inhub] Clopidogrel [Plavix] 75 mg PO DAILY #30 tab 01/29/21 02/19/21 Rx Nicotine 21Mg/24Hr Patch [Habitrol] 1 patch TRANSDERM DAILY #30 patch 01/29/21 02/19/21 Rx Furosemide [Lasix] 20 mg PO DAILY 30 Days #30 tab 01/31/21 02/19/21 Rx Gabapentin [Neurontin] 300 mg PO TID 7 Days #21 cap 01/31/21 02/19/21 Rx Medihoney Patches 1 patch TOPICAL DAILY PRN 02/19/21 02/19/21 History Nicotine Gum (Polacrilex) 2 mg BUCCAL Q3H PRN 02/19/21 02/19/21 History [Nicorette] Allergies Allergy/AdvReac Type Severity Reaction Status Date / Time No Known Allergies Allergy Verified 02/19/21 21:30 Surgical - Exam Vital Signs Temp Pulse Resp BP Pulse Ox 98.6 F 106 H 18 117/64 93 L 02/19/21 16:54 02/19/21 16:54 02/19/21 16:54 02/19/21 16:54 02/19/21 16:54 Results - Labs 02/21/21 10:15 02/24/21 11:31 Microbiology - Last 24 Hours (Table) 02/19/21 21:03 Blood Culture - Preliminary Blood No Growth after 96 hours 02/19/21 20:06 Blood Culture - Preliminary Blood No Growth after 96 hours Assessment and Plan Assessment: 1. Left lower extremity wound, tendon exposed 2. Left lower extremity cellulitis 3. History of peripheral arterial disease status post fem-fem bypass 01/26/2021 4. Obesity 5. History of hypertension Plan: 1. Continue symptomatic and supportive care 2. Patient may have regular diet 3. Plan is for debridement of left lower extremity on Wednesday 4. Hold [facility] [place] morning of surgery Thank you for this consultation. We will continue to follow. The impression and plan of care has been dictated as directed. Dr. Garcia I performed a history and examination of this patient, discussed the same with the dictator. I agree with the dictator's note ,documented as a scribe. Any additional findings or plans will be noted.
--- NOTE | 2021-02-24 22:03 | PN ---
PROGRESS NOTE DATE OF SERVICE: 02/24/2021 REASON FOR FOLLOWUP: Left leg infected wound. INTERVAL HISTORY: Patient is afebrile. The patient is breathing comfortably. No chest pain, shortness of breath or cough. No abdominal pain or any worsening pain to the left leg wound area. PHYSICAL EXAMINATION: Blood pressure 99/65, pulse of 93, temperature 98. He is 92% on room air. General description is a middle-aged male lying in bed in no distress. Respiratory system: Unlabored breathing. Clear to auscultation anteriorly. Heart S1, S2. Regular rate and rhythm. Abdomen soft, no tenderness. Left leg posterior wound with tendon exposed surrounding swelling, redness has decreased. No drainage. LABS: Creatinine 0.80. DIAGNOSTIC IMPRESSION AND PLAN: Patient with left leg wound infection with secondary cellulitis with tendon exposed. Waiting for surgical debridement. The patient is covered with cefazolin, culture. Continue supportive care. MMODL / IJN: [id number] /
[2021-02-25 05:58] LABS: Basophils % (A) 0 %; Eosinophils # (A) 0.2 k/uL (0-0.7); Eosinophils % (A) 3 %; HCT 42.3 % (39.0-53.0); HGB 14.1 gm/dL (13.0-17.5); Lymphocytes # (A) 1.3 k/uL (1.0-4.8); Lymphocytes % (A) 20 %; MCH 33.5 pg (25.0-35.0); MCHC 33.2 g/dL (31.0-37.0); MCV 100.7 fL (80.0-100.0); Mean Platelet Volume 7.9; Monocytes # (A) 0.4 k/uL (0-1.0); Monocytes % (A) 7 %; Neutrophils # (A) 4.3 k/uL (1.3-7.7); Neutrophils % (A) 68 %; Platelet Count 224 k/uL (150-450); RDW 13.3 % (11.5-15.5); WBC 6.4 k/uL (3.8-10.6)
[2021-02-25 06:18] LABS: African American GFR (CKD) >90 (>60 ml/min/1.73 sqM); Anion Gap 3 mmol/L; Blood Urea Nitrogen 22 mg/dL (9-20); Calcium 8.8 mg/dL (8.4-10.2); Carbon Dioxide 33 mmol/L (22-30); Chloride 101 mmol/L (98-107); Glucose 107 mg/dL (74-99); Non-African American GFR(CKD) >90 (>60 ml/min/1.73 sqM); Potassium 4.6 mmol/L (3.5-5.1); Sodium 137 mmol/L (137-145)
[2021-02-25] MEDS: NICOTINE 21MG/24HR PATCH TRANSDERM SCH (08:43)
[2021-02-25] MEDS: CLOPIDOGREL 75 MG TAB PO SCH ×2 (08:45→18:41)
[2021-02-25] MEDS: FUROSEMIDE 40 MG TAB PO SCH (08:45)
[2021-02-25] MEDS: GABAPENTIN 300 MG CAP PO SCH ×3 (08:45→22:18)
[2021-02-25] MEDS: ENOXAPARIN 40 MG/0.4 ML SYRINGE SQ SCH ×2 (08:45→18:41)
[2021-02-25] MEDS: FAMOTIDINE 20 MG TAB PO SCH ×2 (08:46→22:18)
[2021-02-25] MEDS: HYDROcodone/APAP 5-325MG 1 EACH TAB PO PRN ×4 (08:53→22:17)
[2021-02-25] MEDS: SYMBICORT 80-4.5 MCG INHALER INHALATION SCH (08:59)
--- NOTE | 2021-02-25 10:28 | P.PN ---
Subjective Progress Note Date: 02/25/21 The patient is seen and examined lying in bed. He is without any acute changes through the night. He denies any fevers or chills. No leukocytosis. His been afebrile. Plan is for debridement of left lower extremity wounds tomorrow. Objective - Vital Signs Vital signs: Vital Signs Temp 98.2 F 02/25/21 09:22 Pulse 82 02/25/21 09:22 Resp 16 02/25/21 09:22 BP 118/80 02/25/21 09:22 Pulse Ox 93 L 02/25/21 09:22 Intake & Output 02/24/21 02/25/21 02/25/21 18:59 06:59 18:59 Intake Total 640 300 Balance 640 300 Intake: Intake, IV Titration 100 Amount ceFAZolin 2 gm In Sodium 100 Chloride 0.9% 50 ml @ 100 mls/hr IVPB Q8HR [facility] Rx# :[id number] Oral 540 300 Other: Voiding Method Urinal Urinal # Voids 2 1 # Bowel Movements 1 - Exam General appearance: The patient is alert, oriented, appears in no acute distress. Obese. HET: Head is normocephalic and atraumatic. Neck: Supple without lymphadenopathy. Trachea midline. Extremities: Left lower extremity with dressing clean dry and intact. Meghan lulitis dorsal aspect of left lower extremity. Neuological: No focal deficits. Alert and oriented x3. - Labs CBC & Chem 7: 02/25/21 05:22 02/25/21 05:22 Labs: Abnormal Lab Results - Last 24 Hours (Table) 02/24/21 02/25/21 02/25/21 Range/Units 11:31 05:22 05:22 RBC 4.20 L (4.30-5.90) m/uL MCV 100.7 H (80.0-100.0) fL Sodium 136 L (137-145) mmol/L Potassium 5.2 H (3.5-5.1) mmol/L Carbon Dioxide 31 H 33 H (22-30) mmol/L BUN 22 H (9-20) mg/dL Glucose 121 H 107 H (74-99) mg/dL Microbiology - Last 24 Hours (Table) 02/19/21 21:03 Blood Culture - Preliminary Blood No Growth after 120 hours 02/19/21 20:06 Blood Culture - Preliminary Blood No Growth after 120 hours Assessment and Plan Assessment: 1. Left lower extremity wounds, tendon exposed 2. Left lower extremity cellulitis 3. History of peripheral arterial disease status post fem-fem bypass 01/26/2021 4. Obesity 5. History of hypertension Plan: 1. Continue symptomatic and supportive care 2. Patient may have regular diet, NPO after midnight 3. Plan is for debridement of left lower extremity tomorrow 4. Hold Lovenox for surgery 8. Continue antibiotics per recommendations from I.D. Thank you for this consultation. We will continue to follow. The impression and plan of care has been dictated as directed. Dr. Garcia I performed a history and examination of this patient, discussed the same with the dictator. I agree with the dictator's note ,documented as a scribe. Any additional findings or plans will be noted.
--- NOTE | 2021-02-25 13:08 | P.PN ---
Subjective Progress Note Date: 02/25/21 55-year-old male was sent in from our wound care clinic because of possible infected ulcers patient has left leg a small ulcer on the lombardi area and a large ulcer posterior aspect of the leg just above the ankle. Patient has a stage IV ulcers with the purulent drainage in both ulcers wound cultures were obtained patient was started on IV antibiotics that is Rocephin and the vancomycin infectious disease was consulted. Ankle x-ray did not show any costochondritis. Patient quit smoking. Patient denied any history of peripheral artery disease patient does have swelling in both lower expertise appears to be chronic venous stasis he usually uses 20 mg of Lasix oral at home. Patient does have upper v ascular disease had a recent femoral to femoral bypass surgery secondary to occluded left iliac. 02/21/2021 Patient evaluated today resting in bed. Left lower extremity is wrapped with Eligio. Medihoney patches were ordered for topical daily to the leg wound patient states that has not been changed. Continues on IV cefepime and IV vancomycin as recommended by ID. Wound cultures are still pending, currently growing gram- negative bacilli and presumptive staph aureus. Blood culture shows no growth over 24 hours. Patient states that the IV Lasix has helped his edema the right leg more than the left. There is still surrounding erythema the left lower extremity. Labs today show white count 6.9, hemoglobin routine 13.2, sodium 135. Vital signs temp 97.8, heart rate 85, blood pressure 111/74 and he is 93% on 3 L nasal cannula. 02/22/2021 Patient is a pending consultation from Dr. Salinas. Cultures were completed today which show E. coli and staph aureus, currently on cefepime and Vanco. Vital signs temp 98, heart rate 71, blood pressure 127/85 and he is 96% on room air. Sodium today improved , 137, potassium 4.3, CO2 32 BUN 16, creatinine 0.75, glucose 135. Lungs are clear, we will continue on IV lasix daily for peripheral edema. 02/23/2021 Patient evaluated today resting in bed. He is pending evaluation by vascular group, which was changed as he follows with Dr Stone in [facility] and was seen on Wednesday. There are no labs available today we'll recheck tomorr ow. Otherwise there were no acute events overnight patient has no complaints of pain. He denies any cough or shortness of breath, denies chest pain, chest pressure. Vitals: Temp 98, heart rate 80 sinus rhythm, blood pressure 132/82 and he is 94% on room air. 02/24/2021 Patient evaluated today resting in bed. Pending evaluation by vascular surgery regarding left lower extremity wound. This addressed the time of examination, the piercing increasing erythema and cellulitis surrounding the ulcer as well as exposed tendon. Patient does have some pain to the left extremity rates it about a 6 out of 10 and is being controlled with Motrin and [place]. Denies any other complaints, no acute events overnight. He is eating well. Labs today show a sodium of 136, potassium 5.2. He was changed to oral Lasix yesterday, we will discontinue lisinopril today and monitor blood pressure. Blood pressures on the lower side and BP is 113/75, heart rate 75, afebrile, 94% on room air. 02/25/2021 Patient evaluated today resting in bed. No new complaints today. Patient is scheduled for a surgical debridement of the left lower leg wounds with Dr Garcia tomorrow. Denies chest pain, cough, shortness of breath. Labs today are better, potassium 4.6. Blood pressure 118/80, we will continue to hold li sinopril. Patient is afebrile, heart rate 82, 93% room air. Patient continues IV cefazolin, Lasix daily. Continue to recommend subacute rehab on discharge once stable. ROS Constitutional: Denied any fatigue denied any fever. Cardio vascular: denied any chest pain, palpitations Gastrointestinal: denied any nausea vomiting Pulmonary: Denied any shortness of breath cough Neurologic denied any new focal deficits All inpatient medications were reviewed and appropriate changes in these medications as dictated in the interval history and assessment and plan. PHYSICAL EXAMINATION: GENERAL: The patient is alert and oriented x3, not in any acute distress. Well developed, well nourished. HEENT: Pupils are round and equally reacting to light. EOMI. No scleral icterus. No conjunctival pallor. Normocephalic, atraumatic. No pharyngeal erythema. No thyromegaly. CARDIOVASCULAR: S1 and S2 present. No murmurs, rubs, or gallops. PULMONARY: Chest is clear to auscultation, no wheezing or crackles. ABDOMEN: Soft, nontender, nondistended, normoactive bowel sounds. No palpable organomegaly. MUSCULOSKELETAL: No joint swelling or deformity. EXTREMITIES: No cyanosis, clubbing, or pedal edema. NEUROLOGICAL: Gross neurological examination did not reveal any focal deficits. SKIN: About 4 x 2 cm ulcer in the left lombardi area stage IV with purulent drainage. And the larger posterior overall ulcer which appears to be infected as well with exposed tendon. Assessment and plan -Infected left lower extremity ulcers, ID on consult, IV antibiotics as mentioned above -Chronic venous stasis bilateral lower extremities -hyponatremia due to diuresis, improved -Hyperkalemia, stopped lisinopril, small dose of kayexelate, improved -Peripheral vascular disease patient quit smoking recently -Hypertension, currently BP on the lower side, hold lisinopril -Obesity DVT prophylaxis: Lovenox FULL CODE Plan *Surgical debridement tomorrow Continue IV antibiotics Repeat labs tomorrow Continue all other supportive care Discharged to rehab once stable Objective - Vital Signs Vital signs: Vital Signs Temp 97.8 F 02/25/21 05:55 Pulse 81 02/25/21 05:55 Resp 18 02/25/21 05:55 BP 121/72 02/25/21 05:55 Pulse Ox 94 L 02/25/21 05:55 Intake & Output 02/24/21 02/25/21 02/25/21 18:59 06:59 18:59 Intake Total 640 300 Balance 640 300 Intake: Intake, IV Titration 100 Amount ceFAZolin 2 gm In Sodium 100 Chloride 0.9% 50 ml @ 100 mls/hr IVPB Q8HR [facility] Rx# :[id number] Oral 540 300 Other: Voiding Method Urinal Urinal # Voids 2 1 # Bowel Movements 1 - Labs CBC & Chem 7: 02/25/21 05:22 02/25/21 05:22 Labs: Abnormal Lab Results - Last 24 Hours (Table) 02/24/21 02/25/21 02/25/21 Range/Units 11:31 05:22 05:22 RBC 4.20 L (4.30-5.90) m/uL MCV 100.7 H (80.0-100.0) fL Sodium 136 L (137-145) mmol/L Potassium 5.2 H (3.5-5.1) mmol/L Carbon Dioxide 31 H 33 H (22-30) mmol/L BUN 22 H (9-20) mg/dL Glucose 121 H 107 H (74-99) mg/dL Microbiology - Last 24 Hours (Table) 02/19/21 21:03 Blood Culture - Preliminary Blood No Growth after 120 hours 02/19/21 20:06 Blood Culture - Preliminary Blood No Growth after 120 hours
[2021-02-25] MEDS: MORPHINE SULFATE 4 MG/ML SYRINGE IV PRN (17:08)
--- NOTE | 2021-02-25 22:10 | PN ---
PROGRESS NOTE DATE OF SERVICE: 02/25/2021 REASON FOR FOLLOWUP: Left leg infected wound, MSSA. INTERVAL HISTORY: The patient is afebrile. The patient is breathing comfortably. The patient denies having any chest pain, shortness of breath or cough. No abdominal pain or any worsening pain to the left leg area. PHYSICAL EXAMINATION: Blood pressure 146/77 with a pulse of 70, temperature 98.5. He is 94% on room air. General description is a middle-aged male lying in bed in no distress. Respiratory system: Unlabored breathing. Clear to auscultation anteriorly. Heart S1, S2. Regular rate and rhythm. Abdomen soft, no tenderness. Left leg wound is currently dressed. Minimal drainage on the dressing. LABS: Hemoglobin is 14, white count 6.4, creatinine 0.77. DIAGNOSTIC IMPRESSION AND PLAN: Patient with left leg wound infection with a tendon exposed on the left posterior leg. Waiting for surgical debridement. Patient is covered with cefazolin on the basis of the culture with MSSA and E coli. Continue supportive care. MMODL / IJN: [id number] /
[2021-02-26] MEDS ORDERED: MORPHINE SULFATE 4 MG/ML SYRINGE ONE (02:37)
[2021-02-26 06:45] LABS: African American GFR (CKD) >90 (>60 ml/min/1.73 sqM); Anion Gap 4 mmol/L; Blood Urea Nitrogen 21 mg/dL (9-20); Calcium 8.8 mg/dL (8.4-10.2); Carbon Dioxide 30 mmol/L (22-30); Chloride 102 mmol/L (98-107); Glucose 109 mg/dL (74-99); Non-African American GFR(CKD) >90 (>60 ml/min/1.73 sqM); Potassium 4.6 mmol/L (3.5-5.1); Sodium 136 mmol/L (137-145)
[2021-02-26] MEDS: GABAPENTIN 300 MG CAP PO SCH ×3 (08:02→19:55)
[2021-02-26] MEDS: HYDROcodone/APAP 5-325MG 1 EACH TAB PO PRN ×2 (08:02→19:51)
[2021-02-26] MEDS: FAMOTIDINE 20 MG TAB PO SCH ×2 (08:02→19:51)
[2021-02-26] MEDS: NICOTINE 21MG/24HR PATCH TRANSDERM SCH (08:03)
[2021-02-26] MEDS: SYMBICORT 80-4.5 MCG INHALER INHALATION SCH (09:21)
[2021-02-26] MEDS: MORPHINE SULFATE 4 MG/ML SYRINGE IV PRN ×2 (14:35→23:35)
--- NOTE | 2021-02-26 15:35 | P.PN ---
Subjective Progress Note Date: 02/26/21 Principal diagnosis: Infected left lower extremity ulcers/ PVD Chronic venous stasis bilateral lower extremities Hyponatremia Hyperkalemia 55-year-old male was sent in from our wound care clinic because of possible infected ulcers patient has left leg a small ulcer on the lombardi area and a large ulcer posterior aspect of the leg just above the ankle. Patient has a stage IV ulcers with the purulent drainage in both ulcers wound cultures were obtained p atient was started on IV antibiotics that is Rocephin and the vancomycin infectious disease was consulted. Ankle x-ray did not show any costochondritis. Patient quit smoking. Patient denied any history of peripheral artery disease patient does have swelling in both lower expertise appears to be chronic venous stasis he usually uses 20 mg of Lasix oral at home. Patient does have upper vascular disease had a recent femoral to femoral bypass surgery secondary to occluded left iliac. 02/26/2021 Patient is seen and evaluated resting in bed; awaits wound debridement Vital signs are stable with temperature of 98.2, pulse 81, respiration 18 and blood pressure 136/84, O2 saturation 93-94% on room air Chemical profile revealed sodium 136, potassium 4.6, BUN/creatinine of 21/0.71 Patient remains on IV antibiotics per ID recommendations Patient remains nothing by mouth for surgical debridement this morning; Lovenox remains on hold Objective - Vital Signs Vital signs: Vital Signs Temp 98.2 F 02/26/21 08:32 Pulse 81 02/26/21 08:32 Resp 18 02/26/21 08:32 BP 136/84 02/26/21 08:32 Pulse Ox 93 L 02/26/21 08:32 Intake & Output 02/25/21 02/26/21 02/26/21 18:59 06:59 18:59 Intake Total 100 100 Output Total 1600 Balance -1500 100 Weight 117.934 kg Intake: Intake, IV Titration 100 100 Amount ceFAZolin 2 gm In Sodium 100 100 Chloride 0.9% 50 ml @ 100 mls/hr IVPB Q8HR [facility] Rx# :[id number] Output: Urine 1600 Other: Voiding Method Urinal Urinal - Exam GENERAL: The patient is alert and oriented x3, not in any acute distress. Well developed, well nourished. HEENT: Pupils are round and equally reacting to light. EOMI. No scleral icterus. No conjunctival pallor. Normocephalic, atraumatic. No pharyngeal erythema. No thyromegaly. CARDIOVASCULAR: S1 and S2 present. No murmurs, rubs, or gallops. PULMONARY: Chest is clear to auscultation, no wheezing or crackles. ABDOMEN: Soft, nontender, nondistended, normoactive bowel sounds. No palpable organomegaly. MUSCULOSKELETAL: No joint swelling or deformity. EXTREMITIES: No cyanosis, clubbing, or pedal edema. NEUROLOGICAL: Gross neurological examination did not reveal any focal deficits. SKIN: About 4 x 2 cm ulcer in the left lombardi area stage IV with purulent drainage. And the larger posterior overall ulcer which appears to be infected as well with exposed tendon. - Labs CBC & Chem 7: 02/25/21 05:22 02/26/21 06:15 Labs: Abnormal Lab Results - Last 24 Hours (Table) 02/26/21 Range/Units 06:15 Sodium 136 L (137-145) mmol/L BUN 21 H (9-20) mg/dL Glucose 109 H (74-99) mg/dL Microbiology - Last 24 Hours (Table) 02/19/21 21:03 Blood Culture - Final Blood No Growth after 144 hours 02/19/21 20:06 Blood Culture - Final Blood No Growth after 144 hours Assessment and Plan Assessment: -Infected left lower extremity ulcers, ID on consult, IV antibiotics as mentioned above -Chronic venous stasis bilateral lower extremities -hyponatremia due to diuresis, improved -Hyperkalemia, stopped lisinopril, small dose of kayexelate, improved -Peripheral vascular disease patient quit smoking recently -Hypertension, currently BP on the lower side, hold lisinopril -Obesity DVT prophylaxis: Lovenox FULL CODE Plan *Surgical debridement today Continue IV antibiotics Repeat labs tomorrow Continue all other supportive care
[2021-02-26] MEDS ORDERED: IV FLUID CONTINUATION 1,000 ML IV ONE (16:26)
[2021-02-26] MEDS ORDERED: MIDAZOLAM 2 MG/2 ML VIAL ONE (16:46)
[2021-02-26] MEDS ORDERED: .fentaNYL (PF) 50 MCG/ML 2 ML AMP ONE (16:46)
[2021-02-26] MEDS ORDERED: HYDROmorphone (PF) 1 MG/ML ONE (16:46)
[2021-02-26] MEDS ORDERED: KETAMINE 10 MG/ML 20 ML VIAL ONE (16:46)
[2021-02-26] MEDS ORDERED: PROPOFOL 10 MG/ML 20 ML VIAL IV ONE (16:46)
[2021-02-26] MEDS ORDERED: SODIUM CHLORIDE 0.9% 100 ML with ceFAZolin 2 GM IV ONE ×4 (17:00)
--- NOTE | 2021-02-26 17:29 | P.OP ---
Date of Procedure: 02/26/21 Description of Procedure: Preoperative diagnosis: Left lower extremity wounds Postoperative diagnosis: Same Procedure: []sharp excisional debridement left lower extremity wounds #1 medial calf 7 x 6 x 0.2 cm to subcutaneous tissue #2 posterior 13 x 9 x 0.3 cm to tendon Surgeon: Pushpa Montez D.O. EBL: [5 mL see records] IV fluids: [See records] Urine output: [Not measured] Drains: [None] Complications: [None immediately apparent] Condition: [Stable to recovery] Operative indication and findings: [Patient is a 55-year-old male with peripheral arterial disease and wound to underwent recent revascularization. He continues to have wound of his left lower extremity with areas of necrotic tissue therefore he was recommended undergo operative debridement. Risks and benefits were discussed. He seem understood and was willing to proceed as such] Procedure in detail: [The patient was taken to the operative suite and placed in supine position. The left lower extremity was prepped and draped in usual sterile fashion. A preprocedure timeout was performed, all parties were in agreement. Using a scalpel the overlying portion of tendon that appeared to be necrotic was excised. There was no evidence of purulent drainage or tracking or tunneling with this. The more medial portion of this posterior wound was then debrided with a curet of all its fibrinous slough and debris. The area was abraded down to healthy-appearing tissue. There seemed to be adequate bleeding. The anterior medial wound was then debrided with curet down to healthy appearing subcutaneous tissue. Again bleeding appeared to be adequate. The areas were copiously irrigated. Dressings were placed and the patient was transferred to recovery in stable condition having tolerated the procedure well]
--- NOTE | 2021-02-26 17:43 | PN ---
PROGRESS NOTE DATE OF SERVICE: 02/26/2021 REASON FOR FOLLOWUP: Left leg infected wound and cellulitis. INTERVAL HISTORY: The patient is afebrile. The patient is currently breathing more comfortably. Denies any chest pain or shortness of breath or cough. No abdominal pain or worsening pain to the left leg wound area. PHYSICAL EXAMINATION: Blood pressure 145/76, pulse of 94, temperature 98.2. He is 94% on room air. General description is a middle-aged male lying in bed in no distress. Respiratory system: Unlabored breathing. Clear to auscultation anteriorly. Heart S1, S2. Regular rate and rhythm. Abdomen soft, no tenderness. Left leg wound is currently dressed. No obvious drainage on the dressing. LABS: Creatinine 0.71. DIAGNOSTIC IMPRESSION AND PLAN: Patient with left leg infected wound with exposed, waiting for debridement. Vascular Surgery is on the case. Patient is covered with cefazolin; to continue. Will monitor his clinical course closely. Continue with supportive care. MMODL / IJN: [id number] /
[2021-02-26] MEDS ORDERED: HYDROmorphone 0.5 MG/0.5 ML SYRINGE IVP ONE ×4 (17:44→18:12)
[2021-02-26] MEDS: FUROSEMIDE 40 MG TAB PO SCH (19:51)
[2021-02-27 06:20] LABS: Basophils % (A) 0 %; Eosinophils # (A) 0.2 k/uL (0-0.7); Eosinophils % (A) 2 %; HCT 44.2 % (39.0-53.0); HGB 14.4 gm/dL (13.0-17.5); Lymphocytes # (A) 1.6 k/uL (1.0-4.8); Lymphocytes % (A) 23 %; MCH 34.4 pg (25.0-35.0); MCHC 32.7 g/dL (31.0-37.0); MCV 105.3 fL (80.0-100.0); Macrocytosis Moderate; Mean Platelet Volume 7.8; Monocytes # (A) 0.4 k/uL (0-1.0); Monocytes % (A) 5 %; Neutrophils # (A) 4.5 k/uL (1.3-7.7); Neutrophils % (A) 67 %; Platelet Count 239 k/uL (150-450); RDW 13.8 % (11.5-15.5); WBC 6.7 k/uL (3.8-10.6)
[2021-02-27 06:37] LABS: African American GFR (CKD) >90 (>60 ml/min/1.73 sqM); Anion Gap 5 mmol/L; Blood Urea Nitrogen 17 mg/dL (9-20); Calcium 8.8 mg/dL (8.4-10.2); Carbon Dioxide 30 mmol/L (22-30); Chloride 101 mmol/L (98-107); Glucose 114 mg/dL (74-99); Non-African American GFR(CKD) >90 (>60 ml/min/1.73 sqM); Potassium 4.4 mmol/L (3.5-5.1); Sodium 136 mmol/L (137-145)
[2021-02-27] MEDS: FUROSEMIDE 40 MG TAB PO SCH (08:44)
[2021-02-27] MEDS: ENOXAPARIN 40 MG/0.4 ML SYRINGE SQ SCH (08:44)
[2021-02-27] MEDS: GABAPENTIN 300 MG CAP PO SCH ×3 (08:44→21:02)
[2021-02-27] MEDS: NICOTINE 21MG/24HR PATCH TRANSDERM SCH (08:44)
[2021-02-27] MEDS: FAMOTIDINE 20 MG TAB PO SCH ×2 (08:45→21:02)
[2021-02-27] MEDS: HYDROcodone/APAP 5-325MG 1 EACH TAB PO PRN ×3 (08:47→21:02)
[2021-02-27] MEDS: SYMBICORT 80-4.5 MCG INHALER INHALATION SCH (08:55)
[2021-02-27] MEDS: MORPHINE SULFATE 4 MG/ML SYRINGE IV PRN ×2 (10:49→17:17)
--- NOTE | 2021-02-27 12:01 | P.PN ---
Subjective Progress Note Date: 02/27/21 The patient is seen and examined sitting up in bed. He is postop day #1 status post debridement of the left lower extremity wounds. States he has some discomfort at the debridement site. Denies any fevers or chills or acute changes through the night. He remains on cefazolin per recommendations from in fectious disease. He is afebrile. No leukocytosis. Objective - Vital Signs Vital signs: Vital Signs Temp 97.9 F 02/27/21 08:00 Pulse 67 02/27/21 08:00 Resp 18 02/27/21 08:00 BP 130/78 02/27/21 08:00 Pulse Ox 95 02/27/21 08:00 Intake & Output 02/26/21 02/27/21 02/27/21 18:59 06:59 18:59 Intake Total 450 Output Total 5 350 Balance 445 -350 Weight 117.934 kg Intake: IV 450 Output: Urine 350 Estimated Blood Loss 5 Other: Voiding Method Urinal - Exam General appearance: The patient is alert, oriented, appears in no acute distress. Obese. HET: Head is normocephalic and atraumatic. Neck: Supple without lymphadenopathy. Trachea midline. Extremities: Left lower extremity with debridement medial calf subcutaneous tissue with scant amount of bleeding. Left posterior debridement site down to the tendon, minimal amount of bleeding. Neuological: No focal deficits. Alert and oriented x3. - Labs CBC & Chem 7: 02/27/21 05:52 02/27/21 05:52 Labs: Abnormal Lab Results - Last 24 Hours (Table) 02/27/21 02/27/21 Range/Units 05:52 05:52 RBC 4.20 L (4.30-5.90) m/uL MCV 105.3 H (80.0-100.0) fL Sodium 136 L (137-145) mmol/L Glucose 114 H (74-99) mg/dL Assessment and Plan Assessment: 1. Postop day 1 for sharp excisional debridement of left lower extremity wounds 2. Left lower extremity wounds, tendon exposed 3. Left lower extremity cellulitis 4. History of peripheral arterial disease status post fem-fem bypass 01/26/2021 5. Obesity 6. History of hypertension Plan: 1. Continue symptomatic and supportive care 2. Daily Wet-to-dry dressing changes to debridement sites 3. May resume Lovenox 4. Continue antibiotics per recommendations from infectious disease 5. Patient will need to follow-up in the outpatient wound clinic 6. Patient is cleared for discharge from vascular surgery. Recommend medical boot to the left lower extremity. Offload weight to the left lower extremity Thank you for this consultation. The impression and plan of care has been dictated as directed. Dr. Montez I performed a history and examination of this patient, discussed the same with the dictator. I agree with the dictator's note ,documented as a scribe. Any additional findings or plans will be noted.
--- NOTE | 2021-02-27 15:04 | P.PN ---
Subjective Progress Note Date: 02/27/21 Principal diagnosis: Infected left lower extremity ulcers/ PVD Chronic venous stasis bilateral lower extremities Hyponatremia Hyperkalemia 55-year-old male was sent in from our wound care clinic because of possible infected ulcers patient has left leg a small ulcer on the lombardi area and a large ulcer posterior aspect of the leg just above the ankle. Patient has a stage IV ulcers with the purulent drainage in both ulcers wound cultures were obtained p atient was started on IV antibiotics that is Rocephin and the vancomycin infectious disease was consulted. Ankle x-ray did not show any costochondritis. Patient quit smoking. Patient denied any history of peripheral artery disease patient does have swelling in both lower expertise appears to be chronic venous stasis he usually uses 20 mg of Lasix oral at home. Patient does have upper vascular disease had a recent femoral to femoral bypass surgery secondary to occluded left iliac. 02/26/2021 Patient is seen and evaluated resting in bed; awaits wound debridement Vital signs are stable with temperature of 98.2, pulse 81, respiration 18 and blood pressure 136/84, O2 saturation 93-94% on room air Chemical profile revealed sodium 136, potassium 4.6, BUN/creatinine of 21/0.71 Patient remains on IV antibiotics per ID recommendations Patient remains nothing by mouth for surgical debridement this morning; Lovenox remains on hold 02/27/2021 Patient seen and evaluated resting in bed; reports uncontrollable pain with current regimen; patient is status post debridement of left lower extremity wound; POD 1 Vital signs reviewed stable with temperature of 97.9, pulse 67, respiration 18 and blood pressure 130/78 Lab review, sodium 136, potassium 4.4, BUN 17, creatinine 0.7 and blood glucose of 114, WBC 6.7, hemoglobin 14.4 and platelet count of 239 Patient is status post sharp excisional debridement of left lower extremity wounds with tendon exposed; POD #1; remains on IV antibiotics for lower extremity cellulitis Continue with current management, vascular surgery recommending daily wet-to-dry dressing changes to debridement sites; offload weight to left lower extremity, patient has been cleared to resume Lovenox; IV antibiotics per ID recommendations Objective - Vital Signs Vital signs: Vital Signs Temp 97.9 F 02/27/21 08:00 Pulse 67 02/27/21 08:00 Resp 18 02/27/21 08:00 BP 130/78 02/27/21 08:00 Pulse Ox 95 02/27/21 08:00 Intake & Output 02/26/21 02/27/21 02/27/21 18:59 06:59 18:59 Intake Total 450 Output Total 5 350 Balance 445 -350 Weight 117.934 kg Intake: IV 450 Output: Urine 350 Estimated Blood Loss 5 Other: Voiding Method Urinal - Exam GENERAL: The patient is alert and oriented x3, not in any acute distress. Well developed, well nourished. HEENT: Pupils are round and equally reacting to light. EOMI. No scleral icterus. No conjunctival pallor. Normocephalic, atraumatic. No pharyngeal erythema. No thyromegaly. CARDIOVASCULAR: S1 and S2 present. No murmurs, rubs, or gallops. PULMONARY: Chest is clear to auscultation, no wheezing or crackles. ABDOMEN: Soft, nontender, nondistended, normoactive bowel sounds. No palpable organomegaly. MUSCULOSKELETAL: No joint swelling or deformity. EXTREMITIES: No cyanosis, clubbing, or pedal edema. NEUROLOGICAL: Gross neurological examination did not reveal any focal deficits. SKIN: About 4 x 2 cm ulcer in the left lombardi area stage IV with purulent drainage. And the larger posterior overall ulcer which appears to be infected as well with exposed tendon. - Labs CBC & Chem 7: 02/27/21 05:52 02/27/21 05:52 Labs: Abnormal Lab Results - Last 24 Hours (Table) 02/27/21 02/27/21 Range/Units 05:52 05:52 RBC 4.20 L (4.30-5.90) m/uL MCV 105.3 H (80.0-100.0) fL Sodium 136 L (137-145) mmol/L Glucose 114 H (74-99) mg/dL Assessment and Plan Assessment: -Infected left lower extremity ulcers, ID on consult, IV antibiotics as mentioned above -Chronic venous stasis bilateral lower extremities -hyponatremia due to diuresis, improved -Hyperkalemia, stopped lisinopril, small dose of kayexelate, improved -Peripheral vascular disease patient quit smoking recently -Hypertension, currently BP on the lower side, hold lisinopril -Obesity DVT prophylaxis: Lovenox FULL CODE Plan *Surgical debridement today Continue IV antibiotics Repeat labs tomorrow Continue all other supportive care
--- NOTE | 2021-02-28 00:33 | PN ---
PROGRESS NOTE DATE OF SERVICE: 02/27/2021 REASON FOR FOLLOWUP: Left leg wound infection. INTERVAL HISTORY: The patient is afebrile. The patient is status post debridement of his wound, left leg. The patient has been complaining of more pain to the left leg wound are. The patient denies having any chest pain, shortness of breath or cough. No abdominal pain, no diarrhea. PHYSICAL EXAMINATION: Blood pressure 124/75, pulse of 79, temperature 98.1. He is 94% on room air. General description is a middle-aged male lying in bed in no distress. Respiratory system: Unlabored breathing, clear to auscultation anteriorly. Heart S1, S2. Regular rate and rhythm. Abdomen soft. LABS: Hemoglobin is 14.4, white count 6.7 creatinine 0.74. DIAGNOSTIC IMPRESSION AND PLAN: Patient with left leg wound infection status post debridement. Patient is covered with cefazolin. Local care to continue per surgery. Re-evaluate the wound tomorrow to determine discharge antibiotics. Continue supportive care. MMODL / IJN: [id number] /
[2021-02-28] MEDS: HYDROcodone/APAP 5-325MG 1 EACH TAB PO PRN ×3 (03:59→15:07)
[2021-02-28] MEDS: GABAPENTIN 300 MG CAP PO SCH ×3 (07:53→21:39)
[2021-02-28] MEDS: NICOTINE 21MG/24HR PATCH TRANSDERM SCH (07:54)
[2021-02-28] MEDS: ENOXAPARIN 40 MG/0.4 ML SYRINGE SQ SCH (07:54)
[2021-02-28] MEDS: FAMOTIDINE 20 MG TAB PO SCH ×2 (07:54→21:39)
[2021-02-28] MEDS: FUROSEMIDE 40 MG TAB PO SCH (07:54)
[2021-02-28] MEDS: SYMBICORT 80-4.5 MCG INHALER INHALATION SCH ×2 (08:15→08:39)
[2021-02-28] MEDS: MORPHINE SULFATE 4 MG/ML SYRINGE IV PRN ×3 (08:51→21:39)
--- NOTE | 2021-02-28 10:21 | P.CONS ---
History of Present Illness - Reason for Consult Consult date: 02/28/21 wound care - History of Present Illness This is a 55-year-old gentleman who is known to the wound care center who is being seen on observation for wound care orders. Patient was seen previously in the wound care center where was discussed that he needed additional help in a surgical debridement. Patient states that he will be going to an extended care facility to assist with wound care. Patient has a ulceration to the left Achilles that has tendon exposed. The ulceration was related to arterial insufficiency) pressure ulcer. It measures approximately 6.5 x 5.1 x 1.2 cm no tunneling or undermining noted. Significant amount of serous drainage. Wound edges are distinct without light attached to the wound base. There is granulation is seen throughout the wound bed and minimal necrotic tissue that includes Slough. Second ulcer is to the left distal medial lower leg measuring approximately 2.8 x 2.7 x 0.6 cm Limited to skin breakdown. No tunneling or undermining noted. There is a medium amount of serous drainage noted. The wound margins distinct without light attached to the wound base. There is gran ulation seen within the wound that moderate amount of necrotic tissue that includes Slough. Past medical history is significant for arterial insufficiency, former smoker, denies diabetes, a femoral-femoral bypass on 01/26/2021, and hypertension. Review Of Systems: Constitutional: No fever, no chills, no night sweats. No weight change. No weakness, fatigue or lethargy. No daytime sleepiness. Integumentary:reports wounds, no lesions. No rash or pruritus. No unusual bruising. No change in hair or nails. Physical exam: General Appearance: Alert, cooperative, no distress, appears stated age. Skin: See HPI all other Skin color, texture, tugor normal, no rashes or lesions. Neurologic: Alert oriented x3 Assessment: 1. 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 Arthrosclerosis of torres martinez vessels of left leg with ulceration of ankle 3. Atherosclerosis of torres martinez vessels of left leg with ulceration of calf Plan: 1.Left Achilles and left lower extremity medial distal ulcerations: Apply absorptive silver, saline moistened gauze, dry gauze, rolled gauze and secure with paper tape. Patient's next appointment in the wound care center is March 05 at 1:45 Thank you for the consultation any questions please contact the wound care center DNP note has been reviewed and discussed with Dr. Stone and the impression and plan of care has been directed as dictated. Past Medical History Past Medical History: Hypertension, Osteoarthritis (OA), Skin Disorder, Vascular Disorder Additional Past Medical History / Comment(s): open sore left lombardi History of Any Multi-Drug Resistant Organisms: None Reported Past Surgical History: Cholecystectomy Additional Past Surgical History / Comment(s): Femoral femoral bypass 01/26/21 Past Anesthesia/Blood Transfusion Reactions: No Reported Reaction Past Psychological History: No Psychological Hx Reported Smoking Status: Former smoker Past Alcohol Use History: Rare Additional Past Alcohol Use History / Comment(s): 1ppd for 30 yrs. Past Drug Use History: None Reported - Past Family History Father Family Medical History: Cancer, Myocardial Infarction ([place]) Additional Family Medical History / Comment(s): Lung CA Mother Family Medical History: Cancer Sister(s) Family Medical History: Cancer Additional Family Medical History / Comment(s): Leukemia Medications and Allergies Home Medications Medication Instructions Recorded Confirmed Type Benazepril [Lotensin] 10 mg PO DAILY 01/21/21 02/19/21 History Fluticasone Propion/Salmeterol 1 puff INHALATION RT-DAILY 01/21/21 02/19/21 History [Wixela 250-50 Inhub] Clopidogrel [Plavix] 75 mg PO DAILY #30 tab 01/29/21 02/19/21 Rx Nicotine 21Mg/24Hr Patch [Habitrol] 1 patch TRANSDERM DAILY #30 patch 01/29/21 02/19/21 Rx Furosemide [Lasix] 20 mg PO DAILY 30 Days #30 tab 01/31/21 02/19/21 Rx Gabapentin [Neurontin] 300 mg PO TID 7 Days #21 cap 01/31/21 02/19/21 Rx Medihoney Patches 1 patch TOPICAL DAILY PRN 02/19/21 02/19/21 History Nicotine Gum (Polacrilex) 2 mg BUCCAL Q3H PRN 02/19/21 02/19/21 History [Nicorette] Allergies Allergy/AdvReac Type Severity Reaction Status Date / Time No Known Allergies Allergy Verified 02/19/21 21:30 Physical Exam Vitals: Vital Signs Temp Pulse Pulse Resp BP Pulse Ox 02/28/21 08:06 97.9 F 70 14 131/83 96 12/10/21 02:00 97.4 F L 83 20 114/79 95 02/27/21 20:00 98.3 F 81 78 18 123/74 93 L 02/27/21 13:53 98.4 F 79 18 124/75 94 L Intake and Output 02/27/21 02/28/21 02/28/21 22:59 06:59 14:59 Output Total 400 500 Balance -400 -500 Output: Urine 400 500 Other: Voiding Method Urinal Results CBC & Chem 7: 02/27/21 05:52 02/27/21 05:52 Assessment and Plan (1) Non-pressure chronic ulcer of left ankle with fat layer exposed Current Visit: Yes Status: Acute Code(s): L97.322 - NON-PRESSURE CHRONIC ULCER OF LEFT ANKLE W FAT LAYER EXPOSED SNOMED Code(s): 56140338936138108 (2) Atherosclerosis of torres martinez arteries of left leg with ulceration of ankle Current Visit: No Status: Acute Code(s): I70.243 - ATHSCL [place] ARTERIES OF LEFT LEG W ULCERATION OF ANKLE SNOMED Code(s): 160597067 (3) Atherosclerosis of torres martinez arteries of left leg with ulceration of calf Current Visit: No Status: Acute Code(s): I70.242 - ATHSCL [place] ARTERIES OF LEFT LEG W ULCERATION OF CALF SNOMED Code(s): 921682568
--- NOTE | 2021-02-28 10:58 | P.PN ---
Subjective Progress Note Date: 02/28/21 The patient is seen and examined sitting up in bed. He is postop day #2 status post debridement of the left lower extremity wounds. States he has some discomfort at the debridement site. Denies any fevers or chills or acute changes through the night. He remains on cefazolin per recommendations from in fectious disease. He is afebrile. No leukocytosis. Objective - Vital Signs Vital signs: Vital Signs Temp 97.9 F 02/28/21 08:06 Pulse 70 02/28/21 08:06 Resp 14 02/28/21 08:06 BP 131/83 02/28/21 08:06 Pulse Ox 96 02/28/21 08:06 Intake & Output 02/27/21 02/28/21 02/28/21 18:59 06:59 18:59 Intake Total 118 Output Total 200 400 500 Balance -82 -400 -500 Intake: Oral 118 Output: Urine 200 400 500 Other: Voiding Method Urinal - Exam General appearance: The patient is alert, oriented, appears in no acute distress. Obese. HET: Head is normocephalic and atraumatic. Neck: Supple without lymphadenopathy. Trachea midline. Extremities: Left lower extremity with resting clean dry and intact. Neuological: No focal deficits. Alert and oriented x3. - Labs CBC & Chem 7: 02/27/21 05:52 02/27/21 05:52 Assessment and Plan Assessment: 1. Postop day 2 for sharp excisional debridement of left lower extremity wounds 2. Left lower extremity wounds, tendon exposed 3. Left lower extremity cellulitis 4. History of peripheral arterial disease status post fem-fem bypass 01/26/2021 5. Obesity 6. History of hypertension Plan: 1. Continue symptomatic and supportive care 2. Daily Wet-to-dry dressing changes to debridement sites 3. May resume Lovenox 4. Continue antibiotics per recommendations from infectious disease 5. Patient will need to follow-up in the outpatient wound clinic 6. Consult to retail specialist for recommendations on discharge dressing orders as patient follows with them in the outpatient setting 7. Patient is cleared for discharge from vascular surgery. Recommend medi-boot to the left lower extremity. Offload weight to the left lower extremity Thank you for this consultation. The impression and plan of care has been dictated as directed. Dr. Tc Pierson performed a history and examination of this patient, discussed the same with the dictator. I agree with the dictator's note ,documented as a scribe. Any additional findings or plans will be noted.
--- NOTE | 2021-02-28 15:02 | PN ---
PROGRESS NOTE DATE OF SERVICE: 02/28/2021 REASON FOR FOLLOW UP: Left leg wound infection and cellulitis. INTERVAL HISTORY: The patient is afebrile. The patient is breathing comfortably. The patient denies having any chest pain, shortness of breath or cough. No abdominal pain. Still pain to the left leg wound area but no worsening. PHYSICAL EXAMINATION: Blood pressure 131/83, pulse 70, temperature 97.9. He is 96% on room air. General description is a middle-aged male lying in bed in no distress. Respiratory system: Unlabored breathing. Clear to auscultation anteriorly. Heart S1, S2. Regular rate and rhythm. Abdomen soft, no tenderness. Left leg is currently dressed. No obvious drainage on the dressing. LAB: Hemoglobin 14.5, white count 6.7, creatinine 0.74. DIAGNOSTIC IMPRESSION AND PLAN: This patient with left leg wound infection status post debridement. Culture positive for MSSA E coli. Plan is to continue cefazolin 2 grams q.8 hours for two weeks and close outpatient follow up. Continue supportive care. MMODL / IJN: [id number] /
[2021-03-01] MEDS: HYDROcodone/APAP 5-325MG 1 EACH TAB PO PRN ×4 (01:24→21:23)
[2021-03-01] MEDS: SYMBICORT 80-4.5 MCG INHALER INHALATION SCH (09:28)
[2021-03-01] MEDS: GABAPENTIN 300 MG CAP PO SCH ×3 (09:44→21:23)
[2021-03-01] MEDS: FAMOTIDINE 20 MG TAB PO SCH ×2 (09:44→21:23)
[2021-03-01] MEDS: ENOXAPARIN 40 MG/0.4 ML SYRINGE SQ SCH (09:44)
[2021-03-01] MEDS: FUROSEMIDE 40 MG TAB PO SCH (09:44)
[2021-03-01] MEDS: MORPHINE SULFATE 4 MG/ML SYRINGE IV PRN ×2 (09:44→16:20)
[2021-03-01] MEDS: NICOTINE 21MG/24HR PATCH TRANSDERM SCH (09:46)
[2021-03-02] MEDS: MORPHINE SULFATE 4 MG/ML SYRINGE IV PRN ×2 (00:18→21:13)
--- NOTE | 2021-03-02 02:03 | PN ---
PROGRESS NOTE DATE OF SERVICE: 03/01/2021 REASON FOR FOLLOWUP: Left leg infected wound. INTERVAL HISTORY: Patient is afebrile. The patient is breathing comfortably. Pain to the left leg is currently controlled. No chest pain, shortness of breath or cough. No abdominal pain. No diarrhea. PHYSICAL EXAMINATION: Blood pressure 146/72 with a pulse of 77, temperature 98.5. He is 95% on room air. General description is a middle-aged male lying in bed in no distress. Respiratory system: Unlabored breathing, clear to auscultation anteriorly. Heart S1, S2. Regular rate and rhythm. Abdomen soft, no tenderness. Leg leg wounds is currently dressed. No obvious drainage on the dressing. LABS: Hemoglobin 14.1, white count 6.7, BUN of 17, creatinine 0.74. DIAGNOSTIC IMPRESSION AND PLAN: Patient with left leg infected wound with secondary cellulitis, culture positive for E. Coli and Staph aureus status debridement. The patient to continue cefazolin. Local wound care to continue as ordered and monitor clinical course closely. MMODL / IJN: [id number] /
[2021-03-02 04:09] VITALS: RESP 16
[2021-03-02] MEDS: HYDROcodone/APAP 5-325MG 1 EACH TAB PO PRN ×3 (05:45→17:59)
[2021-03-02] MEDS: SYMBICORT 80-4.5 MCG INHALER INHALATION SCH (08:26)
[2021-03-02] MEDS: NICOTINE 21MG/24HR PATCH TRANSDERM SCH (10:35)
[2021-03-02] MEDS: ENOXAPARIN 40 MG/0.4 ML SYRINGE SQ SCH (10:35)
[2021-03-02] MEDS: GABAPENTIN 300 MG CAP PO SCH ×3 (10:36→21:13)
[2021-03-02] MEDS: FAMOTIDINE 20 MG TAB PO SCH ×2 (10:36→21:13)
[2021-03-02] MEDS: FUROSEMIDE 40 MG TAB PO SCH (10:36)
--- NOTE | 2021-03-02 17:12 | P.PN ---
Subjective Progress Note Date: 02/28/21 Principal diagnosis: Infected left lower extremity ulcers/ PVD Chronic venous stasis bilateral lower extremities Hyponatremia Hyperkalemia 55-year-old male was sent in from our wound care clinic because of possible infected ulcers patient has left leg a small ulcer on the lombardi area and a large ulcer posterior aspect of the leg just above the ankle. Patient has a stage IV ulcers with the purulent drainage in both ulcers wound cultures were obtained p atient was started on IV antibiotics that is Rocephin and the vancomycin infectious disease was consulted. Ankle x-ray did not show any costochondritis. Patient quit smoking. Patient denied any history of peripheral artery disease patient does have swelling in both lower expertise appears to be chronic venous stasis he usually uses 20 mg of Lasix oral at home. Patient does have upper vascular disease had a recent femoral to femoral bypass surgery secondary to occluded left iliac. 02/26/2021 Patient is seen and evaluated resting in bed; awaits wound debridement Vital signs are stable with temperature of 98.2, pulse 81, respiration 18 and blood pressure 136/84, O2 saturation 93-94% on room air Chemical profile revealed sodium 136, potassium 4.6, BUN/creatinine of 21/0.71 Patient remains on IV antibiotics per ID recommendations Patient remains nothing by mouth for surgical debridement this morning; Lovenox remains on hold 02/27/2021 Patient seen and evaluated resting in bed; reports uncontrollable pain with current regimen; patient is status post debridement of left lower extremity wound; POD 1 Vital signs reviewed stable with temperature of 97.9, pulse 67, respiration 18 and blood pressure 130/78 Lab review, sodium 136, potassium 4.4, BUN 17, creatinine 0.7 and blood glucose of 114, WBC 6.7, hemoglobin 14.4 and platelet count of 239 Patient is status post sharp excisional debridement of left lower extremity wounds with tendon exposed; POD #1; remains on IV antibiotics for lower extremity cellulitis Continue with current management, vascular surgery recommending daily wet-to-dry dressing changes to debridement sites; offload weight to left lower extremity, patient has been cleared to resume Lovenox; IV antibiotics per ID recommendations 02/28/2021 Patient is seen and evaluated in room at bedside; reports episodes of uncontrolled leg pain otherwise no specific complaints Vital signs are reviewed with temperature 97.9, pulse 70, respiration 14 and blood pressure 131/83 Patient is POD #2 sharp excisional debridement of left lower extremity which also revealed exposed tendon; patient remains on IV antibiotics ID on board and recommending to continue with IV cefazolin at this time; further recommendations pending Objective - Vital Signs Vital signs: Vital Signs Temp 97.9 F 02/28/21 08:06 Pulse 70 02/28/21 08:06 Resp 14 02/28/21 08:06 BP 131/83 02/28/21 08:06 Pulse Ox 96 02/28/21 08:06 Intake & Output 02/27/21 02/28/21 02/28/21 18:59 06:59 18:59 Intake Total 118 Output Total 185 087 0202 Balance -82 -400 -1450 Intake: Oral 118 Output: Urine 260 192 5960 Other: Voiding Method Urinal Urinal # Voids 2 - Exam GENERAL: The patient is alert and oriented x3, not in any acute distress. Well developed, well nourished. HEENT: Pupils are round and equally reacting to light. EOMI. No scleral icterus. No conjunctival pallor. Normocephalic, atraumatic. No pharyngeal erythema. No thyromegaly. CARDIOVASCULAR: S1 and S2 present. No murmurs, rubs, or gallops. PULMONARY: Chest is clear to auscultation, no wheezing or crackles. ABDOMEN: Soft, nontender, nondistended, normoactive bowel sounds. No palpable organomegaly. MUSCULOSKELETAL: No joint swelling or deformity. EXTREMITIES: No cyanosis, clubbing, or pedal edema. NEUROLOGICAL: Gross neurological examination did not reveal any focal deficits. SKIN: About 4 x 2 cm ulcer in the left lombardi area stage IV with purulent drainage. And the larger posterior overall ulcer which appears to be infected as well with exposed tendon. - Labs CBC & Chem 7: 02/27/21 05:52 02/27/21 05:52 Assessment and Plan Assessment: -Infected left lower extremity ulcers, ID on consult, IV antibiotics as mentioned above -Chronic venous stasis bilateral lower extremities -hyponatremia due to diuresis, improved -Hyperkalemia, stopped lisinopril, small dose of kayexelate, improved -Peripheral vascular disease patient quit smoking recently -Hypertension, currently BP on the lower side, hold lisinopril -Obesity DVT prophylaxis: Lovenox FULL CODE Plan *Surgical debridement today Continue IV antibiotics Repeat labs tomorrow Continue all other supportive care
--- NOTE | 2021-03-02 17:14 | P.PN ---
Subjective Progress Note Date: 03/01/21 Principal diagnosis: Infected left lower extremity ulcers/ PVD Chronic venous stasis bilateral lower extremities Hyponatremia Hyperkalemia 55-year-old male was sent in from our wound care clinic because of possible infected ulcers patient has left leg a small ulcer on the lombardi area and a large ulcer posterior aspect of the leg just above the ankle. Patient has a stage IV ulcers with the purulent drainage in both ulcers wound cultures were obtained p atient was started on IV antibiotics that is Rocephin and the vancomycin infectious disease was consulted. Ankle x-ray did not show any costochondritis. Patient quit smoking. Patient denied any history of peripheral artery disease patient does have swelling in both lower expertise appears to be chronic venous stasis he usually uses 20 mg of Lasix oral at home. Patient does have upper vascular disease had a recent femoral to femoral bypass surgery secondary to occluded left iliac. 02/26/2021 Patient is seen and evaluated resting in bed; awaits wound debridement Vital signs are stable with temperature of 98.2, pulse 81, respiration 18 and blood pressure 136/84, O2 saturation 93-94% on room air Chemical profile revealed sodium 136, potassium 4.6, BUN/creatinine of 21/0.71 Patient remains on IV antibiotics per ID recommendations Patient remains nothing by mouth for surgical debridement this morning; Lovenox remains on hold 02/27/2021 Patient seen and evaluated resting in bed; reports uncontrollable pain with current regimen; patient is status post debridement of left lower extremity wound; POD 1 Vital signs reviewed stable with temperature of 97.9, pulse 67, respiration 18 and blood pressure 130/78 Lab review, sodium 136, potassium 4.4, BUN 17, creatinine 0.7 and blood glucose of 114, WBC 6.7, hemoglobin 14.4 and platelet count of 239 Patient is status post sharp excisional debridement of left lower extremity wounds with tendon exposed; POD #1; remains on IV antibiotics for lower extremity cellulitis Continue with current management, vascular surgery recommending daily wet-to-dry dressing changes to debridement sites; offload weight to left lower extremity, patient has been cleared to resume Lovenox; IV antibiotics per ID recommendations 02/28/2021 Patient is seen and evaluated in room at bedside; reports episodes of uncontrolled leg pain otherwise no specific complaints Vital signs are reviewed with temperature 97.9, pulse 70, respiration 14 and blood pressure 131/83 Patient is POD #2 sharp excisional debridement of left lower extremity which also revealed exposed tendon; patient remains on IV antibiotics ID on board and recommending to continue with IV cefazolin at this time; further recommendations pending 03/01/2021 Patient is seen and evaluated; reports improved pain control; denies any complaint of chest pain or shortness of breath Vital signs are stable with blood pressure 146/72, pulse 77, temperature of 98.5 and O2 saturation of 95% on room air Patient under treatment for left lower extremity infected wound and cellulitis; culture reveals E. coli and staph aureus; patient is currently on IV cefazolin; ID on board and recommending to continue with local wound treatment and cefazolin at this time; we will monitor CBC, CRP and pro-calcitonin Objective - Vital Signs Vital signs: Vital Signs Temp 98.4 F 03/01/21 15:00 Pulse 76 03/01/21 15:00 Resp 16 03/01/21 15:00 BP 123/82 03/01/21 15:00 Pulse Ox 95 03/01/21 15:00 Intake & Output 02/28/21 03/01/21 03/01/21 18:59 06:59 18:59 Intake Total 120 700 180 Output Total 1750 1000 400 Balance -1630 -300 -220 Intake: Intake, IV Titration 100 Amount ceFAZolin 2 gm In Sodium 100 Chloride 0.9% 50 ml @ 100 mls/hr IVPB Q8HR [facility] Rx# :[id number] Oral 120 600 180 Output: Urine 1750 1000 400 Other: Voiding Method Urinal Urinal # Voids 2 1 # Bowel Movements 1 - Exam GENERAL: The patient is alert and oriented x3, not in any acute distress. Well developed, well nourished. HEENT: Pupils are round and equally reacting to light. EOMI. No scleral icterus. No conjunctival pallor. Normocephalic, atraumatic. No pharyngeal erythema. No thyromegaly. CARDIOVASCULAR: S1 and S2 present. No murmurs, rubs, or gallops. PULMONARY: Chest is clear to auscultation, no wheezing or crackles. ABDOMEN: Soft, nontender, nondistended, normoactive bowel sounds. No palpable organomegaly. MUSCULOSKELETAL: No joint swelling or deformity. EXTREMITIES: No cyanosis, clubbing, or pedal edema. NEUROLOGICAL: Gross neurological examination did not reveal any focal deficits. SKIN: About 4 x 2 cm ulcer in the left lombardi area stage IV with purulent drainage. And the larger posterior overall ulcer which appears to be infected as well with exposed tendon. - Labs CBC & Chem 7: 02/27/21 05:52 02/27/21 05:52 Assessment and Plan Assessment: -Infected left lower extremity ulcers, ID on consult, IV antibiotics as mentioned above -Chronic venous stasis bilateral lower extremities -hyponatremia due to diuresis, improved -Hyperkalemia, stopped lisinopril, small dose of kayexelate, improved -Peripheral vascular disease patient quit smoking recently -Hypertension, currently BP on the lower side, hold lisinopril -Obesity DVT prophylaxis: Lovenox FULL CODE Plan *Surgical debridement today Continue IV antibiotics Repeat labs tomorrow Continue all other supportive care
--- NOTE | 2021-03-02 19:08 | P.PN ---
Subjective Progress Note Date: 03/02/21 Principal diagnosis: Infected left lower extremity ulcers/ PVD Chronic venous stasis bilateral lower extremities Hyponatremia Hyperkalemia 55-year-old male was sent in from our wound care clinic because of possible infected ulcers patient has left leg a small ulcer on the lombardi area and a large ulcer posterior aspect of the leg just above the ankle. Patient has a stage IV ulcers with the purulent drainage in both ulcers wound cultures were obtained p atient was started on IV antibiotics that is Rocephin and the vancomycin infectious disease was consulted. Ankle x-ray did not show any costochondritis. Patient quit smoking. Patient denied any history of peripheral artery disease patient does have swelling in both lower expertise appears to be chronic venous stasis he usually uses 20 mg of Lasix oral at home. Patient does have upper vascular disease had a recent femoral to femoral bypass surgery secondary to occluded left iliac. 02/26/2021 Patient is seen and evaluated resting in bed; awaits wound debridement Vital signs are stable with temperature of 98.2, pulse 81, respiration 18 and blood pressure 136/84, O2 saturation 93-94% on room air Chemical profile revealed sodium 136, potassium 4.6, BUN/creatinine of 21/0.71 Patient remains on IV antibiotics per ID recommendations Patient remains nothing by mouth for surgical debridement this morning; Lovenox remains on hold 02/27/2021 Patient seen and evaluated resting in bed; reports uncontrollable pain with current regimen; patient is status post debridement of left lower extremity wound; POD 1 Vital signs reviewed stable with temperature of 97.9, pulse 67, respiration 18 and blood pressure 130/78 Lab review, sodium 136, potassium 4.4, BUN 17, creatinine 0.7 and blood glucose of 114, WBC 6.7, hemoglobin 14.4 and platelet count of 239 Patient is status post sharp excisional debridement of left lower extremity wounds with tendon exposed; POD #1; remains on IV antibiotics for lower extremity cellulitis Continue with current management, vascular surgery recommending daily wet-to-dry dressing changes to debridement sites; offload weight to left lower extremity, patient has been cleared to resume Lovenox; IV antibiotics per ID recommendations 02/28/2021 Patient is seen and evaluated in room at bedside; reports episodes of uncontrolled leg pain otherwise no specific complaints Vital signs are reviewed with temperature 97.9, pulse 70, respiration 14 and blood pressure 131/83 Patient is POD #2 sharp excisional debridement of left lower extremity which also revealed exposed tendon; patient remains on IV antibiotics ID on board and recommending to continue with IV cefazolin at this time; further recommendations pending 03/01/2021 Patient is seen and evaluated; reports improved pain control; denies any complaint of chest pain or shortness of breath Vital signs are stable with blood pressure 146/72, pulse 77, temperature of 98.5 and O2 saturation of 95% on room air Patient under treatment for left lower extremity infected wound and cellulitis; culture reveals E. coli and staph aureus; patient is currently on IV cefazolin; ID on board and recommending to continue with local wound treatment and cefazolin at this time; we will monitor CBC, CRP and pro-calcitonin 03/02/2021 Patient is evaluated at bedside; reports improved pain control Vital signs are reviewed and diffuse temperature of 98.2, pulse 85, respirations 16 and blood pressure 165/78 with O2 saturation of 93% on room air Patient with left lower extremity with cellulitis; cultures positive for E. coli and staph aureus; patient is status post debridement; ID is on board and recommending to continue with Cefzil as ordered along with local wound care Objective - Vital Signs Vital signs: Vital Signs Temp 98.2 F 03/02/21 15:00 Pulse 85 03/02/21 15:00 Resp 16 03/02/21 15:00 BP 165/78 03/02/21 15:00 Pulse Ox 93 L 03/02/21 15:00 Intake & Output 03/01/21 03/02/21 03/02/21 18:59 06:59 18:59 Intake Total 360 700 180 Output Total 917 623 4097 Balance -40 300 -1000 Intake: Intake, IV Titration 100 Amount ceFAZolin 2 gm In Sodium 100 Chloride 0.9% 50 ml @ 100 mls/hr IVPB Q8HR [facility] Rx# :[id number] Oral 360 600 180 Output: Urine 249 714 3285 Other: Voiding Method Urinal # Voids 1 2 3 # Bowel Movements 1 1 - Exam GENERAL: The patient is alert and oriented x3, not in any acute distress. Well developed, well nourished. HEENT: Pupils are round and equally reacting to light. EOMI. No scleral icterus. No conjunctival pallor. Normocephalic, atraumatic. No pharyngeal erythema. No thyromegaly. CARDIOVASCULAR: S1 and S2 present. No murmurs, rubs, or gallops. PULMONARY: Chest is clear to auscultation, no wheezing or crackles. ABDOMEN: Soft, nontender, nondistended, normoactive bowel sounds. No palpable organomegaly. MUSCULOSKELETAL: No joint swelling or deformity. EXTREMITIES: No cyanosis, clubbing, or pedal edema. NEUROLOGICAL: Gross neurological examination did not reveal any focal deficits. SKIN: About 4 x 2 cm ulcer in the left lombardi area stage IV with purulent drainage. And the larger posterior overall ulcer which appears to be infected as well with exposed tendon. - Labs CBC & Chem 7: 02/27/21 05:52 02/27/21 05:52 Assessment and Plan Assessment: -Infected left lower extremity ulcers, ID on consult, IV antibiotics as mentioned above -Chronic venous stasis bilateral lower extremities -hyponatremia due to diuresis, improved -Hyperkalemia, stopped lisinopril, small dose of kayexelate, improved -Peripheral vascular disease patient quit smoking recently -Hypertension, currently BP on the lower side, hold lisinopril -Obesity DVT prophylaxis: Lovenox FULL CODE Plan *Surgical debridement today Continue IV antibiotics Repeat labs tomorrow Continue all other supportive care
--- NOTE | 2021-03-02 23:52 | PN ---
PROGRESS NOTE DATE OF SERVICE: 03/02/2021 REASON FOR FOLLOWUP: Left leg infected wound. INTERVAL HISTORY: The patient is afebrile. The patient is breathing comfortably. Denies having any chest pain, shortness of breath or cough. No nausea, vomiting. No abdominal pain or worsening pain to the left leg wound area. PHYSICAL EXAMINATION: Blood pressure 155/78 with a pulse of 85, temperature 98.2. He is 93% on room air. General description is a middle-aged male lying in bed in no distress. Respiratory system: Unlabored breathing. Clear to auscultation anteriorly. Heart S1, S2. Regular rate and rhythm. Abdomen soft, no tenderness. Left leg wound is currently covered. No drainage on the dressing. LABS: Hemoglobin 14.4, white count 6.7. No new labs have been done today. DIAGNOSTIC IMPRESSION AND PLAN: Patient with left leg infected wound with secondary cellulitis. Culture with multiple pathogens. Patient waiting for placement. Local care to continue per Surgery. Continue supportive care. MMODL / IJN: [id number] /
[2021-03-03] MEDS: HYDROcodone/APAP 5-325MG 1 EACH TAB PO PRN ×2 (01:59→09:37)
[2021-03-03 05:14] VITALS: PULSE 72
[2021-03-03] MEDS: MORPHINE SULFATE 4 MG/ML SYRINGE IV PRN ×2 (07:29→14:18)
[2021-03-03] MEDS: SYMBICORT 80-4.5 MCG INHALER INHALATION SCH (07:35)
[2021-03-03 08:16] VITALS: BP 141/87; TEMP 97.3
[2021-03-03] MEDS: FAMOTIDINE 20 MG TAB PO SCH (09:31)
[2021-03-03] MEDS: GABAPENTIN 300 MG CAP PO SCH ×2 (09:31→15:58)
[2021-03-03] MEDS: ENOXAPARIN 40 MG/0.4 ML SYRINGE SQ SCH (09:31)
[2021-03-03] MEDS: FUROSEMIDE 40 MG TAB PO SCH (09:31)
[2021-03-03] MEDS: NICOTINE 21MG/24HR PATCH TRANSDERM SCH (09:31)
--- NOTE | 2021-03-03 13:43 | P.DS ---
Providers Date of admission: 02/19/21 21:59 Expected date of discharge: 03/03/21 Attending physician: Whitney Cabrales Consults: 02/20/21 11:41 Consult Physician Routine Consulting Provider: Dl William Consult Reason/Comments: Cellulitis Do you want consulting provider notified?: Yes Primary care physician: Chip Bauman [facility] Course: Final diagnosis -Infected left lower extremity ulcers -Chronic venous stasis bilateral lower extremities -hyponatremia due to diuresis, improved -Hyperkalemia, improved -Peripheral vascular disease -Mode history of nicotine dependence, recently quit -Hypertension -Obesity -DVT prophylaxis -FULL CODE Discharge disposition Patient is being discharged in a stable condition with guarded prognosis to [facility] for continued PT/OT therapy. Patient will follow-up with Dr. Bauman in the outpatient setting upon discharge. Patient will also need to follow-up at the wound care center with infectious disease Dr. William along with vascular surgery Dr. Montez in one week Patient is to continue with IV antibiotics in the form of cefazolin 2 g every 8 hours for the next 10 days to complete the course. Total time taken is greater than 35 minutes. Hospital course This is a 55-year-old male who was sent to the emergency department from the wound care clinic because of a possible infected ulcer and a left leg ulceration on the lombardi area along with just above the ankle was being closely monitored. Patient was seen and evaluated by vascular surgery as he recently underwent fem- pop bypass surgery secondary to an occluded left iliac. Patient will continue on Lovenox along with IV cefazolin and will need close outpatient follow-up with wound care and infectious disease in the outpatient setting. Patient does have an appointment on March 05 at 1:45 PM at the wound care center. Patient to continue with local wound care as mentioned below. Patient receiving a midline and will continue 10 more days of IV antibiotics in the form of cefazolin every 8 hours. Currently no reports of chest pain, shortness of breath, or palpitations. Patient is afebrile. No reports of nausea or vomiting and patient is tolerating diet. Patient will be going to [facility] today. Physical exam: GENERAL: The patient is alert and oriented x3, not in any acute distress. Well developed, well nourished. HEENT: Pupils are round and equally reacting to light. EOMI. No scleral icterus. No conjunctival pallor. Normocephalic, atraumatic. No pharyngeal erythema. No thyromegaly. CARDIOVASCULAR: S1 and S2 present. No murmurs, rubs, or gallops. PULMONARY: Chest is clear to auscultation, no wheezing or crackles. ABDOMEN: Soft, nontender, nondistended, normoactive bowel sounds. No palpable organomegaly. MUSCULOSKELETAL: No joint swelling or deformity. EXTREMITIES: No cyanosis, clubbing, or pedal edema. NEUROLOGICAL: Gross neurological examination did not reveal any focal deficits. SKIN: About 4 x 2 cm ulcer in the left lombardi area stage IV with purulent drainage. And the larger posterior overall ulcer which appears to be infected as well with exposed tendon. Please refer to medication reconciliation sheet for a list of medications. Patient Condition at Discharge: Stable Plan - Discharge Summary Discharge Rx Participant: No New Discharge Prescriptions: New Enoxaparin [Lovenox] 40 mg SQ DAILY each HYDROcodone/APAP 5-325MG [[employer] 5-325] 1 each PO Q4HR PRN #6 tab PRN Reason: Moderate Pain ceFAZolin [Kefzol] 2 gm IVP Q8HR 14 Days #42 each Furosemide [Lasix] 40 mg PO DAILY tab Famotidine [Pepcid] 20 mg PO BID tab Acetaminophen Tab [Tylenol] 650 mg PO Q6HR PRN tab PRN Reason: Mild Pain Or Fever > 100.5 Continue Benazepril [Lotensin] 10 mg PO DAILY Fluticasone Propion/Salmeterol [Wixela 250-50 Inhub] 1 puff INHALATION RT- DAILY Nicotine 21Mg/24Hr Patch [Habitrol] 1 patch TRANSDERM DAILY #30 patch Nicotine Gum (Polacrilex) [Nicorette] 2 mg BUCCAL Q3H PRN PRN Reason: Nicotine Cravings Medihoney Patches 1 patch TOPICAL DAILY PRN PRN Reason: LEG WOUND Gabapentin [Neurontin] 300 mg PO TID 7 Days #6 cap Discontinued Clopidogrel [Plavix] 75 mg PO DAILY #30 tab Furosemide [Lasix] 20 mg PO DAILY 30 Days #30 tab Discharge Medication List Benazepril [Lotensin] 10 mg PO DAILY 01/21/21 [History] Fluticasone Propion/Salmeterol [[place]ela 250-50 Inhub] 1 puff INHALATION RT-DAILY 01/21/21 [History] Nicotine 21Mg/24Hr Patch [Habitrol] 1 patch TRANSDERM DAILY #30 patch 01/29/21 [Rx] Medihoney Patches 1 patch TOPICAL DAILY PRN 02/19/21 [History] Nicotine Gum (Polacrilex) [Nicorette] 2 mg BUCCAL Q3H PRN 02/19/21 [History] ceFAZolin [Kefzol] 2 gm IVP Q8HR 14 Days #42 each 02/28/21 [Rx] Acetaminophen Tab [Tylenol] 650 mg PO Q6HR PRN tab 03/03/21 [Rx] Enoxaparin [Lovenox] 40 mg SQ DAILY each 03/03/21 [Rx] Famotidine [Pepcid] 20 mg PO BID tab 03/03/21 [Rx] Furosemide [Lasix] 40 mg PO DAILY tab 03/03/21 [Rx] Gabapentin [Neurontin] 300 mg PO TID 7 Days #6 cap 03/03/21 [Rx] HYDROcodone/APAP 5-325MG [[employer] 5-325] 1 each PO Q4HR PRN #6 tab 03/03/21 [Rx] Follow up Appointment(s)/Referral(s): Chip Bauman III, MD [Primary Care Provider] - 1-2 days Pushpa Montez DO [STAFF PHYSICIAN] - 2 Weeks [facility], [NON-STAFF] - [facility] [NON-STAFF] - 1 Week Dl William MD [STAFF PHYSICIAN] - 1 Week Patient Instructions/Handouts: Cellulitis (DC) Activity/Diet/Wound Care/Special Instructions: Daily Wet to dry dressing changes until further evaluated by Wound clinic Patient is going to [facility] Activity as tolerated Continue local wound care by cleansing the area on /Wednesday/Wednesday to the left Achilles and left lower extremity medial distal and left anterior ulcerations apply absorbent silver, saline moistened gauze, dry gauze, rolled gauze and then secured paper tape Patient's appointment for March 05 at 145pm at the wound care center Continue heart healthy diet Continue Lovenox injections Follow-up with vascular surgery Dr. Montez in 1-2 weeks Follow-up with the wound care center Patient will continue on IV antibiotics for a total of 2 weeks with 10 days remaining Discharge Disposition: TRANSFER TO SNF/ECF
--- NOTE | 2021-03-03 16:17 | PN ---
PROGRESS NOTE DATE OF SERVICE: 03/03/2021 REASON FOR FOLLOWUP: Left leg infected wound. INTERVAL HISTORY: The patient is afebrile. The patient is feeling better, breathing comfortably. The patient denies having any chest pain, shortness of breath or cough. No abdominal pain or any worsening pain to the left leg area. PHYSICAL EXAMINATION: Blood pressure 141/87, pulse of 72, temperature 97.3. He is 92% on room air. General description is a middle-aged male up in the bed in no distress. Respiratory system: Unlabored breathing. Clear to auscultation anteriorly. Heart S1, S2. Regular rate and rhythm. Abdomen soft, no tenderness. Left anterior leg wound looks pretty clean. Posterior leg wound with the tendon exposed; however, less slough tissue, and surrounding redness has improved. DIAGNOSTIC IMPRESSION AND PLAN: Patient with left leg infected wound. Culture positive for E coli and MSSA, on cefazolin. Continue for another 10 days. Local wound care per Surgery and close outpatient followup. MMODL / IJN: [id number] /
== END 2021-03-03 16:50 | DRG 571 ==
LOC: EC 15:59 → 4SSUR 21:59 → 1SOBS 02-20 00:45 → 6NMEDSUR 02-28 17:27
PROVIDERS: ADMIT Hospitalist; ATTEND Hospitalist
PROC: 0JBR0ZZ Excision of Left Foot Subcutaneous Tissue and Fascia, Open Approach (ICD-10-PCS; principal; 2021-02-26 07:30)
PROC: 05HF33Z Insertion of Infusion Device into Left Cephalic Vein, Percutaneous Approach (ICD-10-PCS; 2021-03-03 11:30)
DX: L97.323 Non-pressure chronic ulcer of left ankle with necrosis of muscle (principal); Z68.41 Body mass index [BMI] 40.0-44.9, adult; E87.1 Hypo-osmolality and hyponatremia; L03.116 Cellulitis of left lower limb; L97.429 Non-pressure chronic ulcer of left heel and midfoot with unspecified severity; B95.61 Methicillin susceptible Staphylococcus aureus infection as the cause of diseases classified elsewhere; B96.20 Unspecified Escherichia coli [E. coli] as the cause of diseases classified elsewhere; E66.9 Obesity, unspecified; E87.5 Hyperkalemia; I10 Essential (primary) hypertension; I70.242 Atherosclerosis of native arteries of left leg with ulceration of calf; I70.243 Atherosclerosis of native arteries of left leg with ulceration of ankle; I87.8 Other specified disorders of veins; T50.2X5A Adverse effect of carbonic-anhydrase inhibitors, benzothiadiazides and other diuretics, initial encounter; Z20.822 Contact with and (suspected) exposure to COVID-19; Z79.02 Long term (current) use of antithrombotics/antiplatelets; Z79.899 Other long term (current) drug therapy; Z80.1 Family history of malignant neoplasm of trachea, bronchus and lung; Z80.6 Family history of leukemia; Z82.49 Family history of ischemic heart disease and other diseases of the circulatory system; Z87.891 Personal history of nicotine dependence; Z95.828 Presence of other vascular implants and grafts
CPT/HCPCS: 36410; 36415; 76937; 80048; 80053; 80202; 83605; 83735; 85025; 85027; 85652; 86140; 87040; 87070; 87077; 87186; 87205; 87635; 94640; 96374; 96375; 99284

== ENCOUNTER 2021-03-07 02:07 | Inpatient (IN) | payer OTHER ==
[2021-03-07] MEDS ORDERED: ACETAMINOPHEN TAB 500 MG TAB PO STA (02:15)
--- NOTE | 2021-03-07 02:23 | ED ---
SOB HPI - General Chief Complaint: Shortness of Breath Stated Complaint: SOB Time Seen by Provider: 03/07/21 02:15 Source: patient, EMS, RN notes reviewed, old records reviewed Mode of arrival: EMS Limitations: no limitations - History of Present Illness Initial Comments: This is a 55-year-old male DEL with severe shortness of breath. Patient is severe hypoxia upon arrival to the emergency department. Patient is a positive exposure to coronavirus was tested for coronavirus yesterday although negative. Patient presents by EMS with improved oxygenation and supplemental O2. Oxygen found to be around 60s to 70s prior to arrival MD Complaint: shortness of breath, cough, chest pain Radiation: back Severity: moderate Severity scale (1-10): 6 Quality: sharp Consistency: intermittent Improves With: nothing Worsens With: nothing Context: recent URI, recent illness Associated Symptoms: pain with inspiration, fever, cough, sputum production Treatments Prior to Arrival: oxygen - Related Data Home Medications Medication Instructions Recorded Confirmed Benazepril [Lotensin] 10 mg PO DAILY 01/21/21 02/19/21 Fluticasone Propion/Salmeterol 1 puff INHALATION RT-DAILY 01/21/21 02/19/21 [Wixela 250-50 Inhub] Medihoney Patches 1 patch TOPICAL DAILY PRN 02/19/21 02/19/21 Nicotine Gum (Polacrilex) 2 mg BUCCAL Q3H PRN 02/19/21 02/19/21 [Nicorette] Previous Rx's Medication Instructions Recorded Nicotine 21Mg/24Hr Patch [Habitrol] 1 patch TRANSDERM DAILY #30 patch 01/29/21 ceFAZolin [Kefzol] 2 gm IVP Q8HR 14 Days #42 each 02/28/21 Acetaminophen Tab [Tylenol] 650 mg PO Q6HR PRN tab 03/03/21 Clopidogrel Bisulfate [Plavix] 75 mg PO DAILY #2 tab 03/03/21 Enoxaparin [Lovenox] 40 mg SQ DAILY each 03/03/21 Famotidine [Pepcid] 20 mg PO BID tab 03/03/21 Furosemide [Lasix] 40 mg PO DAILY tab 03/03/21 Gabapentin [Neurontin] 300 mg PO TID 7 Days #6 cap 03/03/21 HYDROcodone/APAP 10-325MG [Winslow 1 tab PO Q6HR PRN 3 Days #6 tab 12/13/21 10-325] Multivitamins, Thera [Multivitamin] 1 tab PO DAILY #30 tablet 03/03/21 Allergies Allergy/AdvReac Type Severity Reaction Status Date / Time No Known Allergies Allergy Verified 02/19/21 21:30 Review of Systems ROS Statement: Those systems with pertinent positive or pertinent negative responses have been documented in the HPI. ROS Other: All systems not noted in ROS Statement are negative. Past Medical History Past Medical History: Hypertension, Osteoarthritis (OA), Skin Disorder, Vascular Disorder Additional Past Medical History / Comment(s): open sore left lombardi History of Any Multi-Drug Resistant Organisms: None Reported Past Surgical History: Cholecystectomy Additional Past Surgical History / Comment(s): Femoral femoral bypass 01/26/21 Past Anesthesia/Blood Transfusion Reactions: No Reported Reaction Past Psychological History: No Psychological Hx Reported Smoking Status: Former smoker Past Alcohol Use History: Rare Past Drug Use History: None Reported - Past Family History Father Family Medical History: Cancer, Myocardial Infarction ([place]) Additional Family Medical History / Comment(s): Lung CA Mother Family Medical History: Cancer Sister(s) Family Medical History: Cancer Additional Family Medical History / Comment(s): Leukemia General Exam Limitations: no limitations General appearance: alert, in no apparent distress, anxious Head exam: Present: atraumatic, normocephalic, normal inspection Eye exam: Present: normal appearance, PERRL, EOMI. Absent: scleral icterus, conjunctival injection, periorbital swelling ENT exam: Present: normal exam, mucous membranes moist Neck exam: Present: normal inspection. Absent: tenderness, meningismus, lymphadenopathy Respiratory exam: Present: normal lung sounds bilaterally, respiratory distress, rales, rhonchi, decreased breath sounds, prolonged expiratory. Absent: stridor Cardiovascular Exam: Present: regular rate, normal rhythm, normal heart sounds. Absent: systolic murmur, diastolic murmur, rubs, gallop, clicks GI/Abdominal exam: Present: soft, normal bowel sounds. Absent: distended, tenderness, guarding, rebound, rigid Extremities exam: Present: normal inspection, full ROM, normal capillary refill. Absent: tenderness, pedal edema, joint swelling, calf tenderness Back exam: Present: normal inspection Neurological exam: Present: alert, oriented X3, CN II-XII intact Psychiatric exam: Present: normal affect, normal mood Skin exam: Present: warm, dry, intact, normal color. Absent: rash Course Vital Signs 03/07/21 03/07/21 03/07/21 02:09 02:14 03:30 Temperature 99.6 F Pulse Rate 91 83 87 Respiratory 18 18 18 Rate Blood Pressure 140/95 126/94 143/77 O2 Sat by Pulse 96 96 98 Oximetry - Reevaluation(s) Reevaluation #1: 03/07/21 03:37 Medical record is reviewed Reevaluation #2: 03/07/21 03:37 A she shortness of breath is improved with supplemental O2 Reevaluation #3: 03/07/21 03:37 Patient informed of results and questions answered 03/07/21 04:10 Negative for coronavirus Reevaluation #4: 03/07/21 04:10 Oxygen and vital signs remain normal especially blood pressure - Consultations Consultation #1: Spoke with [facility] we'll admit this patient Medical Decision Making - Medical Decision Making 45 male to the emergency department for evaluation of severe hypoxia shortness of breath but no serious chest pain. Patient does have large significant PE. W e'll place on anticoagulation and vascular surgery evaluate - Lab Data Result diagrams: 03/07/21 02:15 03/07/21 02:15 Lab Results 03/07/21 03/07/21 03/07/21 Range/Units 02:15 02:15 02:15 WBC 8.5 (3.8-10.6) k/uL RBC 4.40 (4.30-5.90) m/uL Hgb 14.7 (13.0-17.5) gm/dL Hct 45.7 (39.0-53.0) % MCV 104.0 H (80.0-100.0) fL MCH 33.3 (25.0-35.0) pg MCHC 32.1 (31.0-37.0) g/dL RDW 14.2 (11.5-15.5) % Plt Count 254 (150-450) k/uL MPV 7.9 Neutrophils % 76 % Lymphocytes % 15 % Monocytes % 6 % Eosinophils % 2 % Basophils % 0 % Neutrophils # 6.4 (1.3-7.7) k/uL Lymphocytes # 1.3 (1.0-4.8) k/uL Monocytes # 0.5 (0-1.0) k/uL Eosinophils # 0.1 (0-0.7) k/uL Basophils # 0.0 (0-0.2) k/uL Macrocytosis Slight PT 10.3 (9.0-12.0) sec INR 1.0 (<1.2) APTT 23.0 (22.0-30.0) sec D-Dimer 7.28 H (<0.60) mg/L FEU Sodium 137 (137-145) mmol/L Potassium 4.4 (3.5-5.1) mmol/L Chloride 100 (98-107) mmol/L Carbon Dioxide 28 (22-30) mmol/L Anion Gap 9 mmol/L BUN 18 (9-20) mg/dL Creatinine 0.75 (0.66-1.25) mg/dL Est GFR (CKD-EPI)AfAm >90 (>60 ml/min/1.73 sqM) Est GFR (CKD-EPI)NonAf >90 (>60 ml/min/1.73 sqM) Glucose 114 H (74-99) mg/dL Plasma Lactic Acid Rob (0.7-2.0) mmol/L Calcium 9.0 (8.4-10.2) mg/dL Magnesium 2.1 (1.6-2.3) mg/dL Total Bilirubin 0.4 (0.2-1.3) mg/dL AST 24 (17-59) U/L ALT 19 (4-49) U/L Alkaline Phosphatase 71 (38-126) U/L Lactate Dehydrogenase 604 (313-618) U/L C-Reactive Protein 2.4 H (<1.0) mg/dL NT-Pro-B Natriuret Pep pg/mL Total Protein 6.3 (6.3-8.2) g/dL Albumin 3.7 (3.5-5.0) g/dL Coronavirus (PCR) (Not Detectd) 03/07/21 03/07/21 03/07/21 Range/Units 02:15 02:15 02:25 WBC (3.8-10.6) k/uL RBC (4.30-5.90) m/uL Hgb (13.0-17.5) gm/dL Hct (39.0-53.0) % MCV (80.0-100.0) fL MCH (25.0-35.0) pg MCHC (31.0-37.0) g/dL RDW (11.5-15.5) % Plt Count (150-450) k/uL MPV Neutrophils % % Lymphocytes % % Monocytes % % Eosinophils % % Basophils % % Neutrophils # (1.3-7.7) k/uL Lymphocytes # (1.0-4.8) k/uL Monocytes # (0-1.0) k/uL Eosinophils # (0-0.7) k/uL Basophils # (0-0.2) k/uL Macrocytosis PT (9.0-12.0) sec INR (<1.2) APTT (22.0-30.0) sec D-Dimer (<0.60) mg/L FEU Sodium (137-145) mmol/L Potassium (3.5-5.1) mmol/L Chloride (98-107) mmol/L Carbon Dioxide (22-30) mmol/L Anion Gap mmol/L BUN (9-20) mg/dL Creatinine (0.66-1.25) mg/dL Est GFR (CKD-EPI)AfAm (>60 ml/min/1.73 sqM) Est GFR (CKD-EPI)NonAf (>60 ml/min/1.73 sqM) Glucose (74-99) mg/dL Plasma Lactic Acid Rob 1.2 (0.7-2.0) mmol/L Calcium (8.4-10.2) mg/dL Magnesium (1.6-2.3) mg/dL Total Bilirubin (0.2-1.3) mg/dL AST (17-59) U/L ALT (4-49) U/L Alkaline Phosphatase (38-126) U/L Lactate Dehydrogenase (313-618) U/L C-Reactive Protein (<1.0) mg/dL NT-Pro-B Natriuret Pep 108 pg/mL Total Protein (6.3-8.2) g/dL Albumin (3.5-5.0) g/dL Coronavirus (PCR) Not Detected (Not Detectd) - EKG Data -: EKG Interpreted by Me (EKG shows nsr 88 MN 162 QRS 76 QTc 447) - Radiology Data Radiology results: report reviewed (EKG is positive for large left pa PE), image reviewed Critical Care Time Critical Care Time: Yes Total Critical Care Time: 31 Disposition Clinical Impression: Left pulmonary embolus, Hypoxia Disposition: ADMITTED IP TO THIS HOSP Condition: Serious Is patient prescribed a controlled substance at d/c from ED?: No Referrals: Chip Bauman III, MD [Primary Care Provider] - 1-2 days
[2021-03-07 03:00] LABS: Basophils % (A) 0 %; Eosinophils # (A) 0.1 k/uL (0-0.7); Eosinophils % (A) 2 %; HCT 45.7 % (39.0-53.0); HGB 14.7 gm/dL (13.0-17.5); Lymphocytes # (A) 1.3 k/uL (1.0-4.8); Lymphocytes % (A) 15 %; MCH 33.3 pg (25.0-35.0); MCHC 32.1 g/dL (31.0-37.0); Macrocytosis Slight; Mean Platelet Volume 7.9; Monocytes # (A) 0.5 k/uL (0-1.0); Monocytes % (A) 6 %; Neutrophils # (A) 6.4 k/uL (1.3-7.7); Neutrophils % (A) 76 %; Platelet Count 254 k/uL (150-450); RDW 14.2 % (11.5-15.5); WBC 8.5 k/uL (3.8-10.6)
[2021-03-07 03:22] LABS: ALT 19 U/L (4-49); AST 24 U/L (17-59); African American GFR (CKD) >90 (>60 ml/min/1.73 sqM); Albumin 3.7 g/dL (3.5-5.0); Alkaline Phosphatase 71 U/L (38-126); Anion Gap 9 mmol/L; Blood Urea Nitrogen 18 mg/dL (9-20); C Reactive Protein 2.4 mg/dL (<1.0); Carbon Dioxide 28 mmol/L (22-30); Chloride 100 mmol/L (98-107); Glucose 114 mg/dL (74-99); LDH 604 U/L (313-618); Magnesium 2.1 mg/dL (1.6-2.3); Non-African American GFR(CKD) >90 (>60 ml/min/1.73 sqM); Potassium 4.4 mmol/L (3.5-5.1); Sodium 137 mmol/L (137-145); Total Bilirubin 0.4 mg/dL (0.2-1.3); Total Protein 6.3 g/dL (6.3-8.2)
[2021-03-07 03:24] LABS: Prothrombin Time 10.3 sec (9.0-12.0)
--- NOTE | 2021-03-07 03:26 | XR ---
EXAMINATION TYPE: XR chest 1V portable DATE OF EXAM: 03/07/2021 COMPARISON: NONE HISTORY: Short of breath TECHNIQUE: Single view FINDINGS: Heart size is normal. Lungs appear clear of consolidation. There are no hilar masses. There are chest leads. Costophrenic angles are clear. Bony thorax is intact. IMPRESSION: No active cardiopulmonary disease. Normal heart.
[2021-03-07] MEDS: SODIUM CHLORIDE 0.9% 1,000 ML IV SCH ×2 (03:29→15:52)
[2021-03-07] MEDS ORDERED: HEPARIN SODIUM 1,000 UN/ML (10ML VL) IV PRN (04:06)
[2021-03-07] MEDS ORDERED: LORazepam 2 MG/ML INJ IV PRN (04:06)
[2021-03-07] MEDS ORDERED: HEPARIN SODIUM 1,000 UN/ML (10ML VL) IV ONE (04:06)
[2021-03-07] MEDS ORDERED: NALOXONE 0.4 MG/ML 1 ML VIAL IV PRN (04:06)
[2021-03-07] MEDS ORDERED: ONDANSETRON 4 MG/2 ML VIAL IVP PRN (04:06)
--- NOTE | 2021-03-07 04:09 | CT ---
EXAMINATION TYPE: CT angio chest DATE OF EXAM: 03/07/2021 COMPARISON: None HISTORY: elevated d-dimer. rule out PE CT DLP: 901.9 mGycm Automated exposure control for dose reduction was used. CONTRAST: Performed with IV Contrast, patient injected with 75ml mL of Isovue 370. There are 3-D post processed images. There are some mild reticular interstitial scattered pulmonary infiltrates. These are more noticeable in the left upper lobe. There is no pleural effusion. Heart size is normal. There is no pericardial effusion. There is no mediastinal adenopathy. There are multiple large emboli in the left lower lobe pulmonary artery and also involvement of the left upper lobe pulmonary artery. No evidence of a filling defect in the right pulmonary artery. Thoracic aorta is intact. There is no aneurysm or dissection. There are no hilar masses. Thoracic spi ne is intact. There is no compression fracture. Sternum is intact. IMPRESSION: Large emboli involving left upper lobe and left lower lobe pulmonary artery. Mild patchy pulmonary interstitial infiltrates. No evidence of right heart strain. Normal heart size.
[2021-03-07] MEDS: HEPARIN SOD,PORK IN 0.45% NACL 25,000 UNIT in 0.45% NACL 1 250ML.BAG IV SCH ×2 (04:31→17:11)
--- NOTE | 2021-03-07 10:32 | ECHOF ---
Referral Reason:Large PE MEASUREMENTS -------- HEIGHT: 165.1 cm WEIGHT: 95.3 kg BP: RVIDd: 4.0 cm (< 3.3) FINDINGS -------- Sinus rhythm. Morbid Obesity Echo done 02/09: TDS Study unable to comment on RV strain. Overall left ventricular systolic function is low-normal with, an EF between 50 - 55 %. RV appears to be enlarged, unable to comment on strain. 5.0mg OF Lumason UTLIZED: 2 OR MORE WALL SEGMENTS NOT VISUALIZED. Echo free space represents a pericardial fat pad. CONCLUSIONS -------- 1. Morbid Obesity 2. Echo done 02/09: TDS Study unable to comment on RV strain. 3. Overall left ventricular systolic function is low-normal with, an EF between 50 - 55 %. 4. RV appears to be enlarged, unable to comment on strain. 5. 5.0mg OF Lumason UTLIZED: 2 OR MORE WALL SEGMENTS NOT VISUALIZED. 6. Echo free space represents a pericardial fat pad. FIRE [employer]PPRESSION CAPTAIN: Anusha Jacques RDCS
--- NOTE | 2021-03-07 10:33 | P.CRDCN ---
History of Present Illness Consult date: 03/07/21 Requesting physician: Whitney Cabrales Reason for Consult (text): Echo, PE Chief complaint: shortness of breath, low oxygen saturation History of present illness: This is a 55-year-old gentleman who does not follow with cardiology. Has a history of hypertension, PAD with recent fem-fem bypass on 01/22/2021 and subsequent wound excision involving the left foot on 02/26/2021, obesity, and nicotine dependence. He is currently in [facility] for IV antibiotics and rehab. Had been complaining of some shortness of breath. He was noted to have low oxygen saturation and EMS was called. Return values on admission showed troponin negative 1, normal NT proBNP, elevated CRP and elevated d-dimer. Co mputed tomography scan of the chest showed a large emboli involving the left upper lobe and left lower lobe pulmonary artery, mild patchy pulmonary interstitial infiltrates, no evidence of right heart strain. He has been initiated and IV heparin. Placed on supplemental oxygen with improvement in his oxygen saturation. He had no complaints of chest discomfort and has had no syncope or near syncope. We were asked to see The patient in consultation to review echocardiogram due to PE. Patient did have echocardiogram done last month which was a technically difficult study and Definity was used that showed low normal LV systolic function with an ejection fraction of 50-55% the RV was not well-visualized. Past Medical History Past Medical History: Hypertension, Osteoarthritis (OA), Skin Disorder, Vascular Disorder Additional Past Medical History / Comment(s): open sore left lombardi History of Any Multi-Drug Resistant Organisms: None Reported Past Surgical History: Cholecystectomy Additional Past Surgical History / Comment(s): Femoral femoral bypass 01/26/21 Past Anesthesia/Blood Transfusion Reactions: No Reported Reaction Past Psychological History: No Psychological Hx Reported Smoking Status: Former smoker Past Alcohol Use History: Rare Past Drug Use History: None Reported - Past Family History Father Family Medical History: Cancer, Myocardial Infarction ([place]) Additional Family Medical History / Comment(s): Lung CA Mother Family Medical History: Cancer Sister(s) Family Medical History: Cancer Additional Family Medical History / Comment(s): Leukemia Medications and Allergies Home Medications Medication Instructions Recorded Confirmed Type Benazepril [Lotensin] 10 mg PO DAILY@0800 01/21/21 03/07/21 History Acetaminophen [Tylenol 8 Hour] 650 mg PO Q6H PRN 03/07/21 03/07/21 History Clopidogrel Bisulfate [Plavix] 75 mg PO DAILY@0800 03/07/21 03/07/21 History Enoxaparin [Lovenox] 40 mg SQ DAILY@0800 03/07/21 03/07/21 History Famotidine [Pepcid] 20 mg PO BID@0800,1600 03/07/21 03/07/21 History Fluticasone/Salmeterol [Advair 2 puff INHALATION RT-DAILY@0800 03/07/21 03/07/21 History 250-50 Diskus] Furosemide [Lasix] 40 mg PO DAILY@0800 03/07/21 03/07/21 History Gabapentin [Neurontin] 300 mg PO TID@0600,1400,2200 03/07/21 03/07/21 History HYDROcodone/APAP 10-325MG [Michie 1 tab PO Q6H PRN 03/07/21 03/07/21 History 10-325] Ipratropium-Albuterol Nebulize 3 ml INHALATION RT-Q4H 03/07/21 03/07/21 History [Duoneb 0.5 mg-3 mg/3 ml Soln] Multivitamins, Thera [Multivitamin] 1 tab PO DAILY@0800 03/07/21 03/07/21 History Nicotine 21Mg/24Hr Patch [Habitrol] 1 patch TRANSDERM DAILY@0800 03/07/21 03/07/21 History ceFAZolin [Kefzol] 2 gm IVP TID@0600,1400,2200 03/07/21 03/07/21 History predniSONE [Deltasone] 40 mg PO DAILY@0800 03/07/21 03/07/21 History Allergies Allergy/AdvReac Type Severity Reaction Status Date / Time No Known Allergies Allergy Verified 03/07/21 07:46 Physical Exam Vitals: Vital Signs Temp Pulse Resp BP Pulse Ox 03/07/21 09:45 98.5 F 79 26 H 131/89 94 L 03/07/21 06:32 98.6 F 80 18 120/85 96 03/07/21 04:37 89 18 123/75 96 03/07/21 03:30 87 18 143/77 98 03/07/21 02:14 83 18 126/94 96 03/07/21 02:09 99.6 F 91 18 140/95 96 Intake and Output 03/06/21 03/07/21 03/07/21 22:59 06:59 14:59 Other: Weight 140.614 kg PHYSICAL EXAMINATION: This is a 55-year-old male who appears mildly dyspneic with minimal exertion at the time of my examination. VITAL SIGNS: Blood pressure 131/89, heart rate 79, respirations 26, temp 98.5F. Patient is 94% on 4 L via nasal cannula. HEENT: Head is atraumatic, normocephalic. Pupils are equal, round. Sclerae anicteric. Conjunctivae are clear. Mucous membranes of the mouth are moist. Neck is supple. There is no elevated jugular venous pressure. No carotid bruit is heard. CHEST EXAMINATION: Lungs reveal diminished air entry bilaterally. No wheezes rales or rhonchi. Respirations even with mild dyspnea with minimal exertion. HEART EXAMINATION: Heart regular, positive S1 and S2. No S3. No S4. No clicks, rubs or murmurs. ABDOMEN: Soft, nontender. Bowel sounds are heard. No organomegaly noted. EXTREMITIES: 2+ peripheral pulses with evidence of trace peripheral edema and chronic skin changes, Eligio wrap noted to left foot and ankle. NEUROLOGIC EXAMINATION: Patient is awake, alert and oriented x3. Results 03/07/21 02:15 03/07/21 02:15 Cardiac Enzymes 03/07/21 03/07/21 Range/Units 02:15 02:15 AST 24 (17-59) U/L Lactate Dehydrogenase 604 (313-618) U/L Troponin I <0.012 (0.000-0.034) ng/mL Coagulation 03/07/21 Range/Units 02:15 PT 10.3 (9.0-12.0) sec APTT 23.0 (22.0-30.0) sec CBC 03/07/21 Range/Units 02:15 WBC 8.5 (3.8-10.6) k/uL RBC 4.40 (4.30-5.90) m/uL Hgb 14.7 (13.0-17.5) gm/dL Hct 45.7 (39.0-53.0) % Plt Count 254 (150-450) k/uL Comprehensive Metabolic Panel 03/07/21 Range/Units 02:15 Sodium 137 (137-145) mmol/L Potassium 4.4 (3.5-5.1) mmol/L Chloride 100 (98-107) mmol/L Carbon Dioxide 28 (22-30) mmol/L BUN 18 (9-20) mg/dL Creatinine 0.75 (0.66-1.25) mg/dL Glucose 114 H (74-99) mg/dL Calcium 9.0 (8.4-10.2) mg/dL AST 24 (17-59) U/L ALT 19 (4-49) U/L Alkaline Phosphatase 71 (38-126) U/L Total Protein 6.3 (6.3-8.2) g/dL Albumin 3.7 (3.5-5.0) g/dL Current Medications Generic Name Dose Route Start Last Admin Trade Name Freq PRN Reason Stop Dose Admin Heparin Sodium (Porcine) 0 unit 03/07/21 04:06 Heparin Sodium 1,000 Un/Ml (10ml Vl) IV PER PROTOCOL PRN Low PTT Protocol Sodium Chloride 1,000 mls @ 130 mls/hr 03/07/21 02:15 03/07/21 03:29 Saline 0.9% IV 130 mls/hr .[id number] VISAHL Administration Heparin Sodium/Sodium Chloride 250 mls @ 23 mls/hr 03/07/21 04:15 03/07/21 04:31 25,000 unit/ Sodium Chloride IV 16.3568 units/kg/hr .[id number] VISHAL 23 mls/hr Administration Protocol 16.3568 UNITS/KG/HR Lorazepam 0.5 mg 03/07/21 04:06 Lorazepam 2 Mg/Ml Inj IV Q6HR PRN Anxiety Morphine Sulfate 4 mg 03/07/21 04:06 Morphine Sulfate 4 Mg/Ml Syringe IV Q4HR PRN Severe Pain Naloxone HCl 0.2 mg 03/07/21 04:06 Naloxone 0.4 Mg/Ml 1 Ml Vial IV Q2M PRN Opioid Reversal Ondansetron HCl 4 mg 03/07/21 04:06 Ondansetron 4 Mg/2 Ml Vial IVP Q8HR PRN Nausea And Vomiting Intake and Output 03/06/21 03/07/21 03/07/21 22:59 06:59 14:59 Other: Weight 140.614 kg 03/07/21 02:15 03/07/21 02:15 Assessment and Plan Assessment: #1 pulmonary emboli, on heparin drip per protocol #2 PVD #3 hypertension #4 nicotine dependence, quit about one month ago, currently using nicotine patch #5 obesity Plan: From cardiology's perspective will obtain a 2-D echo with Doppler study. If there is evidence of RV strain patient may be candidate for EKOS. We will continue to follow the patient arrived further recommendations accordingly. SOLUTION LEAD note has been reviewed, I agree with a documented findings and plan of care. Patient was seen and examined.
--- NOTE | 2021-03-07 13:25 | P.GSCN ---
History of Present Illness Consult date: 03/07/21 Reason for Consult: Large pulmonary embolism Requesting physician: Whitney Cabrales History of present illness: This is a 55-year-old male with a history of peripheral arterial disease, obesity, and hypertension who had presented initially with complaints of venous ulceration to left lower extremity, however there was also found that he had severe arterial insufficiency. In January he had CT angiogram angiography whic h was performed demonstrating external iliac artery occlusion as well as a left SFA occlusion. He had come in on 01/22/2021 for an aortogram with runoff and selective cannulization of contralateral iliac artery however was unable to cross the lesion. He underwent a femoral to femoral bypass on 01/26/2021. He was discharged and followed up with the wound care center. On 02/19/21 the patient was admitted to the hospital after being seen by the wound care center with concerns for infected wound with cellulitis, vascular surgery was consulted and the patient underwent sharp excisional debridement of the left lower extremity wounds. He was discharged this past Wednesday03/03/2021 to [facility] or rehab. He states he has been active with rehab therapy. Prior to that though the patient was very sedentary. Apparently the patient had complained of some shortness of breath while at medical and they checked and oxygen level which he states was low. He was brought to the emergency department for further evaluation. He had a CT angiogram of the chest that showed a large emboli involving the left upper lobe and left lower lobe pulmonary artery. Mild patchy pulmonary interstitial infiltrates. No evidence of right heart strain. Normal heart size. He is currently on 5 L of nasal cannula with oxygen saturation 94- 96%. He denies any shortness of breath currently denies any chest pain. He he has had left lower extremity pain but also has chronic wounds to that leg as well. Troponins were ordered which were normal 2. He was started on heparin drip. Echocardiogram shows EF between 50-55%. RV appears to be enlarged unable to comment on strain. States it was a technically difficult study due to his obesity he had a previous echocardiogram done in January of this year as well that that was a technical difficult study in RV was not easily visualized. Review of Systems 14 point review of systems was completed all pertinent positives and negatives as stated in the HPI Past Medical History Past Medical History: Hypertension, Osteoarthritis (OA), Skin Disorder, Vascular Disorder Additional Past Medical History / Comment(s): open sore left lombardi History of Any Multi-Drug Resistant Organisms: None Reported Past Surgical History: Cholecystectomy Additional Past Surgical History / Comment(s): Femoral femoral bypass 01/26/21 Past Anesthesia/Blood Transfusion Reactions: No Reported Reaction Past Psychological History: No Psychological Hx Reported Smoking Status: Former smoker Past Alcohol Use History: Rare Past Drug Use History: None Reported - Past Family History Father Family Medical History: Cancer, Myocardial Infarction ([place]) Additional Family Medical History / Comment(s): Lung CA Mother Family Medical History: Cancer Sister(s) Family Medical History: Cancer Additional Family Medical History / Comment(s): Leukemia Medications and Allergies Home Medications Medication Instructions Recorded Confirmed Type Benazepril [Lotensin] 10 mg PO DAILY@0800 01/21/21 03/07/21 History Acetaminophen [Tylenol 8 Hour] 650 mg PO Q6H PRN 03/07/21 03/07/21 History Clopidogrel Bisulfate [Plavix] 75 mg PO DAILY@0800 03/07/21 03/07/21 History Enoxaparin [Lovenox] 40 mg SQ DAILY@0800 03/07/21 03/07/21 History Famotidine [Pepcid] 20 mg PO BID@0800,1600 03/07/21 03/07/21 History Fluticasone/Salmeterol [Advair 2 puff INHALATION RT-DAILY@0800 03/07/21 03/07/21 History 250-50 Diskus] Furosemide [Lasix] 40 mg PO DAILY@0800 03/07/21 03/07/21 History Gabapentin [Neurontin] 300 mg PO TID@0600,1400,2200 03/07/21 03/07/21 History HYDROcodone/APAP 10-325MG [[place] 1 tab PO Q6H PRN 03/07/21 03/07/21 History 10-325] Ipratropium-Albuterol Nebulize 3 ml INHALATION RT-Q4H 03/07/21 03/07/21 History [Duoneb 0.5 mg-3 mg/3 ml Soln] Multivitamins, Thera [Multivitamin] 1 tab PO DAILY@0800 03/07/21 03/07/21 History Nicotine 21Mg/24Hr Patch [Habitrol] 1 patch TRANSDERM DAILY@0800 03/07/21 03/07/21 History ceFAZolin [Kefzol] 2 gm IVP TID@0600,1400,2200 03/07/21 03/07/21 History predniSONE [Deltasone] 40 mg PO DAILY@0800 03/07/21 03/07/21 History Allergies Allergy/AdvReac Type Severity Reaction Status Date / Time No Known Allergies Allergy Verified 03/07/21 07:46 Surgical - Exam Vital Signs Temp Pulse Resp BP Pulse Ox 99.6 F 91 18 140/95 96 03/07/21 02:09 03/07/21 02:09 03/07/21 02:09 03/07/21 02:09 03/07/21 02:09 General appearance: The patient is alert, oriented, appears in no acute distress. Morbidly obese. HET: Head is normocephalic and atraumatic. Neck: Supple without lymphadenopathy. Trachea midline. Heart: S1 S2. Regular rate and rhythm. Lungs: Clear to auscultation. No crackles or wheezes are heard. Abdomen: Soft, nontender, nondistended. Extremities: Normal skin color and turgor. Some nonpitting lower extremity edema. Left lower extremity with Eligio wrap clean dry and intact. Neurological: No focal deficits. Strength and sensation are grossly intact. Results - Labs 03/07/21 02:15 03/07/21 02:15 Abnormal Lab Results - Last 24 Hours (Table) 03/07/21 03/07/21 03/07/21 Range/Units 02:15 02:15 02:15 MCV 104.0 H (80.0-100.0) fL D-Dimer 7.28 H (<0.60) mg/L FEU Glucose 114 H (74-99) mg/dL C-Reactive Protein 2.4 H (<1.0) mg/dL Diabetes panel 03/07/21 Range/Units 02:15 Sodium 137 (137-145) mmol/L Potassium 4.4 (3.5-5.1) mmol/L Chloride 100 (98-107) mmol/L Carbon Dioxide 28 (22-30) mmol/L BUN 18 (9-20) mg/dL Creatinine 0.75 (0.66-1.25) mg/dL Glucose 114 H (74-99) mg/dL Calcium 9.0 (8.4-10.2) mg/dL AST 24 (17-59) U/L ALT 19 (4-49) U/L Alkaline Phosphatase 71 (38-126) U/L Total Protein 6.3 (6.3-8.2) g/dL Albumin 3.7 (3.5-5.0) g/dL Calcium panel 03/07/21 Range/Units 02:15 Calcium 9.0 (8.4-10.2) mg/dL Albumin 3.7 (3.5-5.0) g/dL Pituitary panel 03/07/21 Range/Units 02:15 Sodium 137 (137-145) mmol/L Potassium 4.4 (3.5-5.1) mmol/L Chloride 100 (98-107) mmol/L Carbon Dioxide 28 (22-30) mmol/L BUN 18 (9-20) mg/dL Creatinine 0.75 (0.66-1.25) mg/dL Glucose 114 H (74-99) mg/dL Calcium 9.0 (8.4-10.2) mg/dL Adrenal panel 03/07/21 Range/Units 02:15 Sodium 137 (137-145) mmol/L Potassium 4.4 (3.5-5.1) mmol/L Chloride 100 (98-107) mmol/L Carbon Dioxide 28 (22-30) mmol/L BUN 18 (9-20) mg/dL Creatinine 0.75 (0.66-1.25) mg/dL Glucose 114 H (74-99) mg/dL Calcium 9.0 (8.4-10.2) mg/dL Total Bilirubin 0.4 (0.2-1.3) mg/dL AST 24 (17-59) U/L ALT 19 (4-49) U/L Alkaline Phosphatase 71 (38-126) U/L Total Protein 6.3 (6.3-8.2) g/dL Albumin 3.7 (3.5-5.0) g/dL - Imaging Comments: Preliminary echocardiogram reviewed CT scan - chest: report reviewed Assessment and Plan Assessment: 1. Large pulmonary emboli left upper lobe and left lower lobe pulmonary artery 2. Morbidly obese 3. History of peripheral arterial disease status post fem-fem bypass and recent debridement Plan: 1. Echocardiogram ordered await cardiology to read 2. Continue IV heparin drip, transition to oral anticoagulation tomorrow 3. Does not appear to have right heart strain per CT angiogram as well as normal troponins. Echocardiogram technically difficult study, shows some possible RV enlargement however this is likely to be chronic as it was seen on echocardiogram from 01/2021 4. No plans/indication on EKOS procedure at this time Thank you for this consultation and allowing us take part in the plan of care of your patient during his hospital stay The impression and plan of care has been dictated as directed. Dr. Montez I performed a history and examination of this patient, discussed the same with the dictator. I agree with the dictator's note ,documented as a scribe. Any additional findings or plans will be noted.
--- NOTE | 2021-03-07 14:12 | US ---
EXAMINATION TYPE: US venous doppler duplex LE DATE OF EXAM: 03/07/2021 1:47 PM COMPARISON: NONE CLINICAL HISTORY: pulmonary embolism. PE SIDE PERFORMED: bilateral TECHNIQUE: The lower extremity deep venous system is examined utilizing real time linear array sonog matt with graded compression, doppler sonography and color-flow sonography. VESSELS IMAGED: Common Femoral Vein Deep Femoral Vein Greater Saphenous Vein * Femoral Vein Popliteal Vein Small Saphenous Vein * Proximal Calf Veins (* superficial vessels) Technical limitations due to patient's body habitus. patient unable to tolerate compressions bilate ral lower femoral veins Right Leg: no evidence of DVT as visualized Left Leg: positive for DVT left lower femoral vein extending into popliteal vein and proximal calf veins Grayscale, color doppler, spectral doppler imaging performed of the deep veins of the bilateral lower extremities. IMPRESSION: Acute DVT beginning in the distal left superficial femoral vein extending below the knee into the left lower extremity. Patient has known pulmonary emboli.
[2021-03-07] MEDS ORDERED: ACETAMINOPHEN TAB 325 MG TAB PO PRN (17:00)
[2021-03-07] MEDS: ASCORBIC ACID 500 MG TAB PO SCH (18:18)
[2021-03-07] MEDS: ZINC SULFATE 220 MG CAP PO SCH (18:18)
[2021-03-07] MEDS: CHOLECALCIFEROL 25 MCG (1000 IU) TABLET PO SCH (18:18)
[2021-03-07 18:35] LABS: Appearance,Urine Clear (Clear); Bilirubin,Urine Negative (Negative); Blood,Urine Negative (Negative); Color,Urine Yellow; Glucose,Urine (UA) Negative (Negative); Ketones,Urine Negative (Negative); Leukocyte Esterase,Urine Negative (Negative); Nitrite,Urine Negative (Negative); Protein,Urine Negative (Negative); Urobilinogen,Urine <2.0 mg/dL (<2.0)
--- NOTE | 2021-03-07 19:04 | HP ---
HISTORY AND PHYSICAL CHIEF COMPLAINT: Shortness of breath. HISTORY OF PRESENT ILLNESS: This 55-year-old gentleman with a past medical history of multiple medical problems, being followed by Dr. Bauman in the outpatient setting, was recently admitted with infected left lower extremity ulcers and chronic venostasis of the bilateral lower extremities. The patient also had hyponatremia. The patient was subsequently discharged to [facility] at this time and the patient apparently had COVID-19 exposure. But COVID-19 was found to be negative. The patient was complaining of shortness of breath and he came to [facility] and is admitted for further evaluation and treatment. The patient underwent extensive evaluations after finding D-dimer of 7.28. The chest CTA was personally reviewed by me. It showed evidence of mild patchy pulmonary infiltrate and large emboli involving the left upper lobe and the left lower lobe pulmonary artery. The venous ultrasound showed left leg positive DVT. The patient is admitted for further evaluation and treatment at this time. The patient was also seen by Vascular Surgery recently. A consultation was obtained. The patient had a history of peripheral vascular disease and fem-fem bypass and recent debridement also. Cardiology has seen the patient and recommended a 2D echo with Doppler. There is no history of fever, rigors, chills at this time. PAST MEDICAL HISTORY: History of recent debridement, COPD, peripheral vascular disease, DJD, cholecystectomy. MEDICATIONS: Medications prior to admission include Kefzol, Habitrol, multivitamins, DuoNeb, [place], Neurontin, Lasix. The doses and other medications are reviewed. ALLERGIES: NONE. FAMILY HISTORY: History of cancer, myocardial infarction, lung cancer in the family. SOCIAL HISTORY: No history of smoking. No history of alcohol intake. REVIEW OF SYSTEMS: ENT: No diminished hearing. No diminished vision. CARDIOVASCULAR SYSTEM: As mentioned earlier. RESPIRATORY SYSTEM: As mentioned earlier. GI: No nausea, vomiting, diarrhea. : No dysuria. NERVOUS SYSTEM: No numbness, weakness. ALLERGY/IMMUNOLOGY: No asthma or hay fever. MUSCULOSKELETAL: As mentioned earlier. HEMATOLOGY/ONCOLOGY: No history of anemia. ENDOCRINE: As mentioned earlier. CONSTITUTIONAL: As mentioned earlier. DERMATOLOGY: Negative. RHEUMATOLOGY: Negative. PSYCHIATRY: As mentioned earlier. PHYSICAL EXAMINATION: Alert and oriented x3. Pulse 79, blood pressure 131/89, respiration 26, temperature 98.2, pulse ox 94% on 4 L. HEENT: Conjunctivae normal. Oral mucosa moist. NECK: No jugular venous distention. No carotid bruit. No lymph node enlargement. CARDIOVASCULAR: S1, S2 muffled. RESPIRATION: Breath sounds diminished at the bases. A few scattered rhonchi and crackles. ABDOMEN: Soft, obese, non-tender. LEGS: Bilateral leg edema. The patient left leg is bandaged. NERVOUS SYSTEM: Higher functions as mentioned earlier. Moves all 4 limbs. No focal motor or sensory deficit. LYMPHATICS: No lymph node palpable in neck, axillae or groin. SKIN: No ulcer, rash, bleeding. JOINTS: No active deforming arthropathy. LABS: MCV 104. D-dimer is 7.28. Sodium 137, potassium 4.4. CRP is 2.4. ASSESSMENT: 1. Shortness of breath with acute pulmonary embolism, left upper and left lower lobes with acute hypoxic respiratory failure. 2. History of recent excisional debridement of the left leg. 3. History of recent femorofemoral bypass for severe peripheral vascular disease. 4. Elevated D-dimer with pulmonary embolism. 5. Left leg deep vein thrombosis. 6. Increased mean corpuscular volume. 7. Recent exposure to COVID-19. 8. Possible COVID-19 bilateral interstitial pneumonia early. 9. History of chronic obstructive pulmonary disease. 10.Chronic obstructive pulmonary disease, acute exacerbation. 11.Hypertension. 12.History of degenerative joint disease. 13.History of skin disorder. 14.History of cholecystectomy. 15.History of nicotine dependence. 16.Obesity with body mass index of 50. 17.FULL CODE. RECOMMENDATIONS AND DISCUSSION: In this 55-year-old gentleman who presented with multiple complex medical issues, we will monitor the patient closely, continue the current medications, continue symptomatic treatment. Otherwise at this time IV heparin has been initiated. I would recommend pulmonary and cardiology consultations. I would also recommend intensive bronchodilators. I would also recommend evaluation by Infectious Disease because of the possibility of COVID-19. COVID-19 PCR also will be requested. Overall prognosis guarded. Further recommendations to follow. A copy of this dictation is being forwarded to Dr. Bauman, who is the primary physician. Please note that the patient is coming from [facility] at this time during a stint of rehab. MMODL / IJN: [id number] / [facility] HOSPITALHeike
[2021-03-07] MEDS ORDERED: IPRATROPIUM-ALBUTEROL 3 ML NEB INHALATION SCH (20:00)
[2021-03-07] MEDS ORDERED: IPRATROPIUM-ALBUTEROL 3 ML NEB INHALATION PRN (20:04)
[2021-03-07] MEDS: HYDROcodone/APAP 10-325MG 1 EACH TAB PO PRN (20:25)
[2021-03-07] MEDS: GABAPENTIN 300 MG CAP PO SCH (20:25)
[2021-03-07] MEDS ORDERED: NON FORMULARY DRUG (Cefazolin 2 GM/20 ML Each) IVP SCH (22:00)
[2021-03-08] MEDS: HEPARIN SOD,PORK IN 0.45% NACL 25,000 UNIT in 0.45% NACL 1 250ML.BAG IV SCH (04:14)
[2021-03-08] MEDS: GABAPENTIN 300 MG CAP PO SCH ×3 (06:01→20:21)
[2021-03-08 07:05] LABS: Basophils % (A) 0 %; Eosinophils # (A) 0.2 k/uL (0-0.7); Eosinophils % (A) 3 %; HCT 42.3 % (39.0-53.0); HGB 13.6 gm/dL (13.0-17.5); Lymphocytes # (A) 0.9 k/uL (1.0-4.8); Lymphocytes % (A) 11 %; MCH 33.5 pg (25.0-35.0); MCHC 32.2 g/dL (31.0-37.0); MCV 103.9 fL (80.0-100.0); Macrocytosis Slight; Mean Platelet Volume 8.2; Monocytes # (A) 0.4 k/uL (0-1.0); Monocytes % (A) 6 %; Neutrophils # (A) 6.3 k/uL (1.3-7.7); Neutrophils % (A) 80 %; Platelet Count 209 k/uL (150-450); RBC 4.07 m/uL (4.30-5.90); RDW 13.6 % (11.5-15.5); WBC 7.8 k/uL (3.8-10.6)
[2021-03-08 07:38] LABS: ALT 15 U/L (4-49); AST 20 U/L (17-59); African American GFR (CKD) >90 (>60 ml/min/1.73 sqM); Albumin 3.2 g/dL (3.5-5.0); Alkaline Phosphatase 82 U/L (38-126); Anion Gap 4 mmol/L; Blood Urea Nitrogen 11 mg/dL (9-20); Calcium 8.8 mg/dL (8.4-10.2); Carbon Dioxide 28 mmol/L (22-30); Chloride 104 mmol/L (98-107); Glucose 101 mg/dL (74-99); Non-African American GFR(CKD) >90 (>60 ml/min/1.73 sqM); Potassium 4.3 mmol/L (3.5-5.1); Sodium 136 mmol/L (137-145); Total Bilirubin 0.6 mg/dL (0.2-1.3); Total Protein 5.8 g/dL (6.3-8.2)
[2021-03-08] MEDS: SYMBICORT 80-4.5 MCG INHALER INHALATION SCH ×2 (07:43→20:59)
[2021-03-08] MEDS: IPRATROPIUM-ALBUTEROL 3 ML NEB INHALATION SCH ×4 (07:43→21:00)
[2021-03-08] MEDS: HYDROcodone/APAP 10-325MG 1 EACH TAB PO PRN ×2 (10:53→17:16)
[2021-03-08] MEDS: MULTIVITAMINS, THERA 1 EACH TAB PO SCH (10:54)
[2021-03-08] MEDS: FAMOTIDINE 20 MG TAB PO SCH ×2 (10:54→17:16)
[2021-03-08] MEDS: lisinopriL 10 MG TAB PO SCH (10:54)
[2021-03-08] MEDS: CHOLECALCIFEROL 25 MCG (1000 IU) TABLET PO SCH (10:54)
[2021-03-08] MEDS: FUROSEMIDE 40 MG TAB PO SCH (10:54)
[2021-03-08] MEDS: ZINC SULFATE 220 MG CAP PO SCH (10:54)
[2021-03-08] MEDS: NICOTINE 21MG/24HR PATCH TRANSDERM SCH (10:55)
[2021-03-08] MEDS: ASCORBIC ACID 500 MG TAB PO SCH (10:55)
[2021-03-08] MEDS: CLOPIDOGREL 75 MG TAB PO SCH (10:55)
--- NOTE | 2021-03-08 12:02 | PN ---
PROGRESS NOTE Mr. Blue is a 55-year-old male with history of peripheral vascular disease who presented with acute episode of dyspnea, was diagnosed with pulmonary embolism and DVT. He is feeling better today. His breathing is better. He is denying any chest pain. He denies any dizziness. He denies any palpitations. He continues to be on the IV heparin, Plavix 75 mg daily, Lasix 40 mg daily, lisinopril 10 mg daily. PHYSICAL EXAMINATION: Blood pressure 114/70 with a heart rate in the 80s. Lungs: No wheezes. HEART: Regular rate and rhythm. S1, S2. No S3. No rub. Abdomen soft, nontender. Extremities: Dressing on the left lower extremity. LAB DATA: Lab data revealed BUN and creatinine of 11 and 0.6, potassium 4.3, hemoglobin of 13.6. IMPRESSION: 1. Pulmonary embolism with deep vein thrombosis. 2. History of peripheral vascular disease. 3. Hypertension. 4. Prior history of smoking. RECOMMENDATIONS: From the cardiac standpoint, he is stable. I would recommend to switch him from IV heparin to Eliquis on the pulmonary embolism protocol and increase his activity. Hopefully he will be able to be discharged home soon. MMODL / IJN: [id number] /
[2021-03-08] MEDS: APIXABAN 5 MG TAB PO SCH ×2 (13:15→20:21)
--- NOTE | 2021-03-08 14:53 | P.CNPUL ---
History of Present Illness Consult date: 03/08/21 Requesting physician: Whitney Cabrales Reason for consult: dyspnea, chest pain, hypoxemia, pulmonary embolism, abnormal CXR/CT Chief complaint: Shortness of breath. History of present illness: Pulmonary consult dated 03/08/2021. 55-year-old male, who presented to the emergency department on March 07, complaining of shortness of breath. The patient was evaluated in the emergency room, and was found to have a pulmonary embolism, in the left lung, and also a DVT in the left lower extremity. The patient was apparently a recent admission here for infection in the left leg. He was discharged to one of the local nursing homes in [facility]. From there, he came back here for evaluati on of shortness of breath. The patient states that his shortness of breath began just about a day or so prior to admission. He denied any chest pain or chest discomfort. There was no fever or chills. Apparently when EMS arrived, the patient's saturations were in the high 60s and low 70s. Currently, the patient is on 3 L nasal cannula. He was found to have a large pulmonary embolism in the left upper lobe and left lower lobe. He was also found to have a DVT in the left lower extremity. Currently, he is getting saline at 10 mL an hour, and a heparin drip. His medical problems include hypertension, chronic infection in the left leg, osteoarthritis, COPD, and peripheral vascular occlusi ve disease. White count 7.8, hemoglobin 13.6, hematocrit 42.3, and platelet count 209,000. PTT is 43.5. Sodium 136, potassium 4.3, chlorides 104, CO2 28, anion gap 4, BUN 11, creatinine 0.61. Chest x-ray was normal. A venous Doppler study showed a DVT in the left lower extremity. CT angiogram was reviewed. There was no right heart strain. Review of Systems REVIEW OF SYSTEMS: CONSTITUTIONAL: [Negative.] NEUROLOGIC: [ Negative.] HEENT: [ Negative.] CARDIAC: [Negative.] PULMONARY: Sudden shortness of breath. GI: [Negative.] : [Negative.] RHEUMATOLOGIC: [ Negative.] IMMUNOLOGIC: [ Negative.] ENDOCRINE: [Negative. ] DERMATOLOGIC: Chronic nonhealing infection, left leg. Past Medical History Past Medical History: COPD, Hypertension, Osteoarthritis (OA), Skin Disorder, Vascular Disorder Additional Past Medical History / Comment(s): open sore left lombardi History of Any Multi-Drug Resistant Organisms: None Reported Past Surgical History: Cholecystectomy Additional Past Surgical History / Comment(s): Femoral femoral bypass 01/26/21 Past Anesthesia/Blood Transfusion Reactions: No Reported Reaction Past Psychological History: No Psychological Hx Reported Smoking Status: Never smoker Past Alcohol Use History: Rare Additional Past Alcohol Use History / Comment(s): 1ppd for 30 yrs. Past Drug Use History: None Reported - Past Family History Father Family Medical History: Cancer, Myocardial Infarction ([place]) Additional Family Medical History / Comment(s): Lung CA Mother Family Medical History: Cancer Sister(s) Family Medical History: Cancer Additional Family Medical History / Comment(s): Leukemia Medications and Allergies Home Medications Medication Instructions Recorded Confirmed Type Benazepril [Lotensin] 10 mg PO DAILY@0800 01/21/21 03/07/21 History Acetaminophen [Tylenol 8 Hour] 650 mg PO Q6H PRN 03/07/21 03/07/21 History Clopidogrel Bisulfate [Plavix] 75 mg PO DAILY@0800 03/07/21 03/07/21 History Enoxaparin [Lovenox] 40 mg SQ DAILY@0800 03/07/21 03/07/21 History Famotidine [Pepcid] 20 mg PO BID@0800,1600 03/07/21 03/07/21 History Fluticasone/Salmeterol [Advair 2 puff INHALATION RT-DAILY@0800 03/07/21 03/07/21 History 250-50 Diskus] Furosemide [Lasix] 40 mg PO DAILY@0800 03/07/21 03/07/21 History Gabapentin [Neurontin] 300 mg PO TID@0600,1400,2200 03/07/21 03/07/21 History HYDROcodone/APAP 10-325MG [[place] 1 tab PO Q6H PRN 03/07/21 03/07/21 History 10-325] Ipratropium-Albuterol Nebulize 3 ml INHALATION RT-Q4H 03/07/21 03/07/21 History [Duoneb 0.5 mg-3 mg/3 ml Soln] Multivitamins, Thera [Multivitamin] 1 tab PO DAILY@0800 03/07/21 03/07/21 History Nicotine 21Mg/24Hr Patch [Habitrol] 1 patch TRANSDERM DAILY@0800 03/07/21 03/07/21 History ceFAZolin [Kefzol] 2 gm IVP TID@0600,1400,2200 03/07/21 03/07/21 History predniSONE [Deltasone] 40 mg PO DAILY@0800 03/07/21 03/07/21 History Allergies Allergy/AdvReac Type Severity Reaction Status Date / Time No Known Allergies Allergy Verified 03/07/21 07:46 Physical Exam Osteopathic Statement: *. No significant issues noted on an osteopathic structural exam other than those noted in the History and Physical/Consult. Vitals: Vital Signs Temp Pulse Pulse Resp BP Pulse Ox 03/08/21 11:50 98.3 F 75 16 116/71 96 03/08/21 10:35 97.5 F L 84 16 114/76 97 03/08/21 07:54 84 16 03/08/21 07:44 82 16 03/08/21 03:58 97.9 F 81 17 142/87 97 03/08/21 02:15 98 03/08/21 01:55 81 18 03/07/21 23:15 97.8 F 81 18 133/75 94 L 03/07/21 20:10 88 03/07/21 20:05 87 03/07/21 20:00 98.0 F 84 19 144/89 95 03/07/21 15:35 98.5 F 83 20 140/80 95 03/07/21 15:33 98.5 F 83 20 140/80 95 Intake and Output 03/07/21 03/08/21 03/08/21 22:59 06:59 14:59 Intake Total 209.767 223.066 309.533 Output Total 700 425 Balance 209.767 -476.934 -115.467 Intake: Intake, IV Titration 89.767 223.066 129.533 Amount Heparin Sod,Pork in 0.45% 89.767 223.066 129.533 NaCl 25,000 unit In 0.45 % NaCl 1 250ml.bag @ 16. 3568 UNITS/KG/HR 23 mls/ hr IV .[id number] [facility] Rx#: [id number] Oral 120 180 Output: Urine 700 425 Other: Voiding Method Urinal Urinal Urinal # Voids 1 2 Weight 140.614 kg No acute distress, oriented 3. Currently on 3 L nasal cannula. No obvious respiratory distress, use of accessory muscles, or conversational dyspnea. HEENT examination is grossly unremarkable. Neck supple. Full range of motion. No adenopathy thyromegaly or neck vein distention. Cardiovascular examination reveals regular rhythm rate. S1-S2 normal. No S3 or S4. No discernible murmur noted. Heart rate 75 bpm. Lungs reveal mild scattered rhonchi. No wheezes or crackles. Breath sounds equal bilaterally. Abdomen soft bowel sounds are heard. No masses or tenderness. Extremities reveal a dressing, to the left leg. No cyanosis or clubbing. Skin is without rash or lesion. Neurologic examination is brief but nonfocal. Results - Laboratory Findings CBC and BMP: 03/08/21 05:52 03/08/21 05:52 PT/INR, D-dimer PT 10.3 sec (9.0-12.0) 03/07/21 02:15 INR 1.0 (<1.2) 03/07/21 02:15 D-Dimer 7.28 mg/L FEU (<0.60) H 03/07/21 02:15 Abnormal lab findings: Abnormal Labs 03/07/21 03/07/21 03/07/21 02:15 02:15 02:15 RBC MCV 104.0 H Lymphocytes # APTT D-Dimer 7.28 H Sodium Creatinine Glucose 114 H C-Reactive Protein 2.4 H Total Protein Albumin 03/07/21 03/07/21 03/08/21 10:22 16:55 05:52 RBC 4.07 L MCV 103.9 H Lymphocytes # 0.9 L APTT 86.6 H 52.4 H D-Dimer Sodium Creatinine Glucose C-Reactive Protein Total Protein Albumin 03/08/21 03/08/21 05:52 05:52 RBC MCV Lymphocytes # APTT 43.5 H D-Dimer Sodium 136 L Creatinine 0.61 L Glucose 101 H C-Reactive Protein Total Protein 5.8 L Albumin 3.2 L - Diagnostic Findings Chest x-ray: image reviewed CT scan - chest: image reviewed Assessment and Plan Assessment: Acute shortness of breath, secondary to pulmonary embolism, left lung, with an acute DVT, of the left leg. Recent admission to [facility], for an infection on the left leg. History of hypertension. History of osteoarthritis. History of peripheral vascular occlusive disease, status post femoral/femoral bypass, 2020 History of COPD from previous tobacco use. Plan: Plan dated 03/08/2021. The patient can be started on a factor X a inhibitor. The heparin can be discontinued. Clinically, the patient appears to be doing relatively well. He is on 3 L nasal cannula. He is currently receiving Ancef for his leg infection. Additional recommendations and suggestions are forthcoming. We will continue to follow make recommendations were appropriate. Prognosis is guarded. The patient will likely eventually go back to [facility]. Time with Patient: Greater than 30
--- NOTE | 2021-03-08 18:53 | PN ---
PROGRESS NOTE DATE OF SERVICE: 03/08/2021 This 55-year-old gentleman who was admitted with shortness of breath, acute pulmonary embolism, is being switched to Eliquis at this time. No chest pain. No palpitations. No fever. Multiple consultants are following the patient closely. A venous Doppler study showed positive DVT on the left lower leg extending to the popliteal vein. No chest pain. No palpitations. No fever. PHYSICAL EXAMINATION: Alert and oriented x3. Pulse is 79, blood pressure 112/70, respiration 18, temperature 99.1, pulse ox 97% on 4 L. HEENT: Conjunctivae normal. NECK: No jugular venous distention. CARDIOVASCULAR: S1, S2 muffled. RESPIRATION: Breath sounds diminished at the bases. Bilateral scattered rhonchi and crackles. ABDOMEN: Soft. NERVOUS SYSTEM: No focal deficit. LABS: MCV 101. Other labs are noted. ASSESSMENT: 1. Shortness of breath with acute pulmonary embolism, left upper lobe and left lower lobe with acute hypoxic respiratory failure. 2. History of recent excisional debridement of the left leg. 3. Acute left leg deep vein thrombosis of the left femoral vein extending to the popliteal vein and proximal calf veins. 4. Elevated D-dimer with acute pulmonary embolism. 5. History of recent femorofemoral bypass with severe peripheral vascular disease. 6. Increased mean corpuscular volume. 7. History of recent exposure to COVID-19. 8. Possible COVID-19 bilateral interstitial pneumonia, early. 9. History of chronic obstructive pulmonary disease. 10.Chronic obstructive pulmonary disease, acute exacerbation. 11.Hypertension. 12.History of degenerative joint disease. 13.History of skin disorder. 14.History of cholecystectomy. 15.History of nicotine dependence. 16.Obesity with body mass index of 50. 17.FULL CODE. RECOMMENDATIONS AND DISCUSSION: I recommend to continue current medications, continue with the monitoring, symptomatic treatment. Continue with Eliquis. Continue the rest of the medication, bronchodilators. Closely follow with Pulmonary. Guarded prognosis. Further recommendations to follow. MMODL / IJN: [id number] /
[2021-03-08] MEDS: MORPHINE SULFATE 4 MG/ML SYRINGE IV PRN (20:22)
--- NOTE | 2021-03-08 23:23 | PN ---
PROGRESS NOTE DATE OF SERVICE: 03/08/2021. REASON FOR FOLLOWUP: 1. Left leg wound cellulitis. 2. Question of possible Covid infection. INTERVAL HISTORY: The patient is afebrile. The patient is breathing slightly comfortably. Occasional chest pain though. No nausea, no vomiting. No abdominal pain or any worsening pain to the left leg wound. PHYSICAL EXAMINATION: Blood pressure 125/77 with a pulse of 84, temperature 98.9. He is 95% on 4 L nasal cannula. General description is a middle-aged male lying in bed in no distress. Respiratory system: Unlabored breathing, decreased intensity of breath sounds. No wheeze. Heart S1, S2. Regular rate and rhythm. Abdomen: Soft, no tenderness. Left leg wound with no significant slough tissue, surrounding swelling, redness has slightly decreased. LABS: Hemoglobin 13.1, white count 7.8, creatinine 0.61. DIAGNOSTIC IMPRESSION AND PLAN: 1. Patient with left leg wound with cellulitis. Previous culture positive for E coli and MSSA. Patient is covered with cefazolin. Local care with dry Aquacel Silver dressing. 2. Admitted to the hospital with pulmonary embolism, no clinical features of Covid 19 infection. Continue supportive care. MMODL / IJN: [id number] /
[2021-03-09] MEDS: GABAPENTIN 300 MG CAP PO SCH ×3 (06:29→21:42)
[2021-03-09] MEDS: HYDROcodone/APAP 10-325MG 1 EACH TAB PO PRN ×3 (06:32→19:36)
[2021-03-09] MEDS: CHOLECALCIFEROL 25 MCG (1000 IU) TABLET PO SCH (08:21)
[2021-03-09] MEDS: lisinopriL 10 MG TAB PO SCH (08:21)
[2021-03-09] MEDS: APIXABAN 5 MG TAB PO SCH ×2 (08:21→21:42)
[2021-03-09] MEDS: NICOTINE 21MG/24HR PATCH TRANSDERM SCH (08:22)
[2021-03-09] MEDS: FUROSEMIDE 40 MG TAB PO SCH (08:22)
[2021-03-09] MEDS: FAMOTIDINE 20 MG TAB PO SCH ×2 (08:22→16:31)
[2021-03-09] MEDS: ZINC SULFATE 220 MG CAP PO SCH (08:22)
[2021-03-09] MEDS: MORPHINE SULFATE 4 MG/ML SYRINGE IV PRN (08:22)
[2021-03-09] MEDS: CLOPIDOGREL 75 MG TAB PO SCH (08:22)
[2021-03-09] MEDS: MULTIVITAMINS, THERA 1 EACH TAB PO SCH (08:22)
[2021-03-09] MEDS: ASCORBIC ACID 500 MG TAB PO SCH (08:22)
[2021-03-09] MEDS: SYMBICORT 80-4.5 MCG INHALER INHALATION SCH ×2 (08:43→20:29)
[2021-03-09] MEDS: IPRATROPIUM-ALBUTEROL 3 ML NEB INHALATION SCH ×4 (08:43→20:29)
[2021-03-09] MEDS: methylPREDNISolone SOD SUCCI 40 MG/ML 1 ML VIAL IV SCH ×2 (12:18→19:28)
--- NOTE | 2021-03-09 12:21 | PN ---
PROGRESS NOTE Mr. Blue is a 55-year-old male who has history of peripheral disease, presented with symptoms of acute dyspnea, was diagnosed with a DVT and pulmonary embolism. He is complaining of respirophasic chest discomfort at this time. His breathing is better. He denies any dizziness. He denies any palpitations. He was started on Eliquis protocol yesterday. He continues to be in sinus mechanism, continues Plavix 75 mg daily, Lasix 40 mg daily, lisinopril 10 mg a day. PHYSICAL EXAMINATION: Blood pressure 123/70 with a heart rate in 70s. Lungs: Clear regular rate and rhythm S1, S2. No S3. No rub. Abdomen: Soft, nontender. Extremities: Dressing on the left lower extremity. LAB DATA: BUN and creatinine of 11 and 0.61. IMPRESSION: 1. Pulmonary embolism and deep vein thrombosis. 2. Respirophasic chest discomfort related to the pulmonary embolism. 3. History of peripheral vascular disease. 4. Hypertension. 5. Prior history of smoking. RECOMMENDATIONS: From the cardiac standpoint, we will continue present therapy. He is followed by the vascular surgery team regarding his left leg wound and cellulitis as well as followed by Dr. William. We will continue on the Eliquis at the present dose per protocol. MMODL / IJN: [id number] /
--- NOTE | 2021-03-09 13:44 | P.PN ---
Subjective Progress Note Date: 03/09/21 This is a 55-year-old male who was recently admitted with shortness of breath, acute pulmonary embolism and is being closely monitored. Cardiology, infectious disease, and pulmonary following along with vascular surgery. Patient continues to oral eliquis and IV heparin has been discontinued. Patient continues with shortness of breath and currently maintained on 4 L. Patient states he feels chest pressure midsternal although no different from previous. Patient did have a venous Doppler done which showed a DVT in the left lower leg that extends to the popliteal vein. Review of systems: Constitutional: No reports of fatigue, fever, or chills Cardiovascular: reports of mid sternal chest pain he describes in the lungs Respiratory: reports of shortness of breath GI: No reports of nausea, vomiting, diarrhea : No reports of dysuria or retention Neurovascular: Generalized weakness reported All medications have been reviewed Active Medications Acetaminophen (Acetaminophen Tab 325 Mg Tab) 650 mg PO Q6H PRN PRN Reason: Pain Hydrocodone Bitart/Acetaminophen (Hydrocodone/Apap 10-325mg 1 Each Tab) 1 each PO Q6H PRN PRN Reason: Pain Last Admin: 03/09/21 12:18 Dose: 1 each Documented by: Albuterol/Ipratropium (Ipratropium-Albuterol 3 Ml Neb) 3 ml INHALATION RT-QID [facility] Last Admin: 03/09/21 12:00 Dose: 3 ml Documented by: Albuterol/Ipratropium (Ipratropium-Albuterol 3 Ml Neb) 3 ml INHALATION RT-Q2H PRN PRN Reason: Shortness Of Breath Or Wheezing Apixaban (Apixaban 5 Mg Tab) 10 mg PO BID [facility]; Protocol Stop: 03/14/21 11:47 Last Admin: 03/09/21 08:21 Dose: 10 mg Documented by: Ascorbic Acid (Ascorbic Acid 500 Mg Tab) 500 mg PO DAILY [facility] Last Admin: 03/09/21 08:22 Dose: 500 mg Documented by: Budesonide/Formoterol Fumarate (Symbicort 80-4.5 Mcg Inhaler) 2 puff INHALATION RT-BID [facility] Last Admin: 03/09/21 08:43 Dose: 2 puff Documented by: Cholecalciferol (Cholecalciferol 25 Mcg (1000 Iu) Tablet) 25 mcg PO DAILY [facility] Last Admin: 03/09/21 08:21 Dose: 25 mcg Documented by: Clopidogrel Bisulfate (Clopidogrel 75 Mg Tab) 75 mg PO DAILY@0800 [facility] Last Admin: 03/09/21 08:22 Dose: 75 mg Documented by: Famotidine (Famotidine 20 Mg Tab) 20 mg PO BID@0800,1600 [facility] Last Admin: 03/09/21 08:22 Dose: 20 mg Documented by: Furosemide (Furosemide 40 Mg Tab) 40 mg PO DAILY@0800 [facility] Last Admin: 03/09/21 08:22 Dose: 40 mg Documented by: Gabapentin (Gabapentin 300 Mg Cap) 300 mg PO TID@0600,1400,2200 [facility] Last Admin: 03/09/21 06:29 Dose: 300 mg Documented by: Cefazolin Sodium 2 gm/ Sodium (Chloride) 50 mls @ 100 mls/hr IVPB Q8HR [facility] Stop: 03/18/21 18:01 Last Admin: 03/09/21 08:21 Dose: 100 mls/hr Documented by: Lisinopril (Lisinopril 10 Mg Tab) 10 mg PO DAILY@0800 [facility] Last Admin: 03/09/21 08:21 Dose: 10 mg Documented by: Lorazepam (Lorazepam 2 Mg/Ml Inj) 0.5 mg IV Q6HR PRN PRN Reason: Anxiety Methylprednisolone Sodium Succinate (Methylprednisolone Sod Succi 40 Mg/Ml 1 Ml Vial) 40 mg IV Q6HR [facility] Last Admin: 03/09/21 12:18 Dose: 40 mg Documented by: Morphine Sulfate (Morphine Sulfate 4 Mg/Ml Syringe) 4 mg IV Q4HR PRN PRN Reason: Severe Pain Last Admin: 03/09/21 08:22 Dose: 4 mg Documented by: Multivitamins (Multivitamins, Thera 1 Each Tab) 1 each PO DAILY@0800 [facility] Last Admin: 03/09/21 08:22 Dose: 1 each Documented by: Naloxone HCl (Naloxone 0.4 Mg/Ml 1 Ml Vial) 0.2 mg IV Q2M PRN PRN Reason: Opioid Reversal Nicotine (Nicotine 21mg/24hr Patch) 1 patch TRANSDERM DAILY@0800 [facility] Last Admin: 03/09/21 08:22 Dose: 1 patch Documented by: Ondansetron HCl (Ondansetron 4 Mg/2 Ml Vial) 4 mg IVP Q8HR PRN PRN Reason: Nausea And Vomiting Zinc Sulfate (Zinc Sulfate 220 Mg Cap) 220 mg PO DAILY [facility] Last Admin: 03/09/21 08:22 Dose: 220 mg Documented by: Physical exam: Gen: This is a 55-year-old male awake, alert and oriented 3, well-developed, well-nourished, Temp is 98.7 F, pulse is 98, respirations are 22, blood pressure is 124/77, oxygen saturation is 92 % on room air. HEENT: Head is atraumatic, normocephalic. Pupils equal, round. Sclerae is anicteric. NECK: Supple. No JVD. No lymphadenopathy. No thyromegaly. LUNGS: Diminished breath sounds bilaterally with some scattered rhonchi noted.. No intercostal retractions. HEART: S1, S2 are muffled. ABDOMEN: Soft. Obese. Bowel sounds are present. No masses. No tenderness. EXTREMITIES: No pedal edema. No calf tenderness. Left lower extremity wrapped with Eligio wrap with continued dependent edema noted and dry flaking skin NEUROLOGICAL: Patient is awake, alert and oriented x3. no focal deficits. diffu sely weak Assessment: Shortness of breath with acute pulmonary embolism, left upper lobe and left lower lobe with acute hypoxic respiratory failure History of recent excisional debridement of the left leg Acute left leg DVT of the left femoral vein extending to the popliteal vein and proximal calf veins Elevated d-dimer with acute pulmonary embolism history of recent femoro-femoral bypass with severe peripheral vascular disease Increased MCV History of recent exposure to COVID-19 Possible COVID-19 bilateral interstitial pneumonia, early Chronic obstructive pulmonary disease acute exacerbation hypertension history degenerative joint disease history of skin disorder history of cholecystectomy History of nicotine dependence obesity with a body mass index of 50 Full code Plan: recommend to continue current medications and management. Medical consultations following patient continues on 4 L of oxygen continues to state he is having shortness of breath and will continue with breathing inhalational treatments and will add IV steroids and monitor closely. Patient is maintained on oral anticoagulant with cardiology following as well pulmonary is following. Patient was at rehab and will return [facility] once stabilized. Repeat am labs. Encouraged increased activity and oral intake as tolerated. Due to multiple complex medical issues, prognosis is guarded. Possible discharge in 24-48 hours. Objective - Vital Signs Vital signs: Vital Signs Temp 97.9 F 03/09/21 04:00 Pulse 85 12/19/21 12:00 Resp 18 03/09/21 04:00 BP 123/76 03/09/21 04:00 Pulse Ox 97 03/09/21 08:43 Intake & Output 03/08/21 03/09/21 03/09/21 18:59 06:59 18:59 Intake Total 309.533 50 420 Output Total 725 450 Balance -415.467 -400 420 Intake: Intake, IV Titration 129.533 50 Amount Heparin Sod,Pork in 0.45% 129.533 NaCl 25,000 unit In 0.45 % NaCl 1 250ml.bag @ 16. 3568 UNITS/KG/HR 23 mls/ hr IV .[id number] [facility] Rx#: [id number] ceFAZolin 2 gm In Sodium 50 Chloride 0.9% 50 ml @ 100 mls/hr IVPB Q8HR [facility] Rx# :[id number] Oral 180 420 Output: Urine 725 450 Other: Voiding Method Urinal Urinal # Voids 1 - Labs CBC & Chem 7: 03/08/21 05:52 03/08/21 05:52 Labs: Microbiology - Last 24 Hours (Table) 03/07/21 02:27 Blood Culture - Preliminary Blood No Growth after 48 hours 03/07/21 02:27 Blood Culture - Preliminary Blood No Growth after 48 hours
--- NOTE | 2021-03-09 14:59 | P.PN ---
Subjective Progress Note Date: 03/09/21 Principal diagnosis: Pulmonary embolism. Pulmonary consult dated 03/08/2021. 55-year-old male, who presented to the emergency department on March 07, complaining of shortness of breath. The patient was evaluated in the emergency room, and was found to have a pulmonary embolism, in the left lung, and also a DVT in the left lower extremity. The patient was apparently a recent admission here for infection in the left leg. He was discharged to one of the local nursing homes in [facility]. From there, he came back here for evaluation of shortness of breath. The patient states that his shortness of breath began just about a day or so prior to admission. He denied any chest pain or chest discomfort. There was no fever or chills. Apparently when EMS arrived, the patient's saturations were in the high 60s and low 70s. Currently, the patient is on 3 L nasal cannula. He was found to have a large pulmonary embolism in the left upper lobe and left lower lobe. He was also found to have a DVT in the left lower extremity. Currently, he is getting saline at 10 mL an hour, and a heparin drip. His medical problems include hypertension, chronic infection in the left leg, osteoarthritis, COPD, and peripheral vascular occlusive disease. White count 7.8, hemoglobin 13.6, hematocrit 42.3, and platelet count 209,000. PTT is 43.5. Sodium 136, potassium 4.3, chlorides 104, CO2 28, anion gap 4, BUN 11, creatinine 0.61. Chest x-ray was normal. A venous Doppler study showed a DVT in the left lower extremity. CT angiogram was reviewed. There was no right heart strain. Progress note dated 03/09/2021. A 55-year-old male, seen yesterday in consultation. The patient is in room 359. He's currently on 4 L nasal cannula, and saline at 10 mL an hour. His IV heparin has been discontinued in favor of Eliquis. The Doppler study of the left lower extremity was positive for DVT. CT angiogram showed evidence of left upper lobe and left lower lobe pulmonary embolism. Currently, the patient is complaining of shortness of breath on exertion. He denies any chest pain or pressure. He's feeling slightly better than he did yesterday. No new labs toda y. His labs from yesterday were reviewed. He has a history of hypertension, chronic infection in the left leg, osteoarthritis, COPD, and peripheral vascular occlusive disease. Objective - Vital Signs Vital signs: Vital Signs Temp 98.7 F 03/09/21 12:00 Pulse 87 03/09/21 12:10 Resp 22 03/09/21 12:00 BP 124/77 03/09/21 12:00 Pulse Ox 92 L 03/09/21 12:00 Intake & Output 03/08/21 03/09/21 03/09/21 18:59 06:59 18:59 Intake Total 309.533 50 420 Output Total 725 450 450 Balance -415.467 -400 -30 Intake: Intake, IV Titration 129.533 50 Amount Heparin Sod,Pork in 0.45% 129.533 NaCl 25,000 unit In 0.45 % NaCl 1 250ml.bag @ 16. 3568 UNITS/KG/HR 23 mls/ hr IV .[id number] [facility] Rx#: [id number] ceFAZolin 2 gm In Sodium 50 Chloride 0.9% 50 ml @ 100 mls/hr IVPB Q8HR [facility] Rx# :[id number] Oral 180 420 Output: Urine 725 450 450 Other: Voiding Method Urinal Urinal # Voids 1 - Exam No acute distress, oriented 3. Currently on 4 L nasal cannula. No obvious respiratory distress, use of accessory muscles, or conversational dyspnea. HEENT examination is grossly unremarkable. Neck supple. Full range of motion. No adenopathy thyromegaly or neck vein distention. Cardiovascular examination reveals regular rhythm rate. S1-S2 normal. No S3 or S4. No discernible murmur noted. Heart rate 87 bpm. Lungs reveal mild scattered rhonchi. No wheezes or crackles. Breath sounds equal bilaterally. Abdomen soft bowel sounds are heard. No masses or tenderness. Extremities reveal a dressing, to the left leg. No cyanosis or clubbing. Skin is without rash or lesion. Neurologic examination is brief but nonfocal. - Labs CBC & Chem 7: 03/08/21 05:52 03/08/21 05:52 Labs: Microbiology - Last 24 Hours (Table) 03/07/21 02:27 Blood Culture - Preliminary Blood No Growth after 48 hours 03/07/21 02:27 Blood Culture - Preliminary Blood No Growth after 48 hours Assessment and Plan Assessment: Acute shortness of breath, secondary to pulmonary embolism, left lung, with an a cute DVT, of the left leg. Recent admission to [facility], for an infection on the left leg. History of hypertension. History of osteoarthritis. History of peripheral vascular occlusive disease, status post femoral/femoral bypass, 2020 History of COPD from previous tobacco use. Plan: Plan dated 03/08/2021. The patient can be started on a factor X a inhibitor. The heparin can be discontinued. Clinically, the patient appears to be doing relatively well. He is on 3 L nasal cannula. He is currently receiving Ancef for his leg infection. Additional recommendations and suggestions are forthcoming. We will continue to follow make recommendations were appropriate. Prognosis is guarded. The patient will likely eventually go back to [facility]. Plan dated 03/09/2021. The patient was started on Eliquis. He is on 4 L nasal cannula. He is getting saline at 10 mL an hour. He is also receiving Ancef for his left leg infection. Clinically, he feels better today than he did yesterday. He is sitting at the edge of the bed. His saturations are reasonable. His vital signs are otherwise stable. For his COPD, we have him on Symbicort, DuoNeb's, and Solu-Medrol. Additional recommendations and suggestions are forthcoming. Prognosis is guarded. Time with Patient: Less than 30
--- NOTE | 2021-03-09 17:45 | PN ---
PROGRESS NOTE DATE OF SERVICE: 03/09/2021. REASON FOR FOLLOWUP: Left leg wound and cellulitis. INTERVAL HISTORY: Patient is afebrile. The patient is breathing comfortably. Still complaining of chest pain. No worsening. No nausea, no vomiting. No abdominal pain. No pain to the left leg area. PHYSICAL EXAMINATION: Blood pressure 104/77 with a pulse of 98, temperature 98.7. He is 92% on 4 L nasal cannula. General description is a middle-aged male lying in bed in no distress. Respiratory system: Unlabored breathing, decreased intensity of breath sounds. No wheeze. Heart S1, S2. Regular rate and rhythm. Abdomen soft, no tenderness. Left leg is currently dressed. No obvious drainage on the dressing. LABS: Hemoglobin 13.6, white count 7.8, creatinine 0.61. DIAGNOSTIC IMPRESSION AND PLAN: Patient with left leg wound with secondary cellulitis. Patient to continue wound care with dry Aquacel dressing, cefazolin and monitor clinical course closely. MMODL / IJN: [id number] /
[2021-03-10] MEDS: methylPREDNISolone SOD SUCCI 40 MG/ML 1 ML VIAL IV SCH ×3 (01:10→09:21)
[2021-03-10] MEDS: HYDROcodone/APAP 10-325MG 1 EACH TAB PO PRN ×2 (04:42→09:20)
[2021-03-10] MEDS: GABAPENTIN 300 MG CAP PO SCH ×2 (06:13→12:49)
[2021-03-10] MEDS: SYMBICORT 80-4.5 MCG INHALER INHALATION SCH (08:35)
[2021-03-10] MEDS: IPRATROPIUM-ALBUTEROL 3 ML NEB INHALATION SCH ×3 (08:35→16:43)
[2021-03-10] MEDS: APIXABAN 5 MG TAB PO SCH (09:19)
[2021-03-10] MEDS: CLOPIDOGREL 75 MG TAB PO SCH (09:19)
[2021-03-10] MEDS: FUROSEMIDE 40 MG TAB PO SCH (09:19)
[2021-03-10] MEDS: MULTIVITAMINS, THERA 1 EACH TAB PO SCH (09:19)
[2021-03-10] MEDS: lisinopriL 10 MG TAB PO SCH (09:20)
[2021-03-10] MEDS: ASCORBIC ACID 500 MG TAB PO SCH (09:21)
[2021-03-10] MEDS: NICOTINE 21MG/24HR PATCH TRANSDERM SCH (09:21)
[2021-03-10] MEDS: FAMOTIDINE 20 MG TAB PO SCH (09:21)
[2021-03-10] MEDS: ZINC SULFATE 220 MG CAP PO SCH (09:21)
[2021-03-10] MEDS: CHOLECALCIFEROL 25 MCG (1000 IU) TABLET PO SCH (09:22)
--- NOTE | 2021-03-10 09:22 | PN ---
PROGRESS NOTE Gilmer is a 55-year-old gentleman with history of peripheral vascular disease, history of cellulitis, DVT and pulmonary embolism. The patient also has COPD. At the time of my evaluation this morning, he appears comfortable at rest. Denies chest pain. His shortness of breath has improved. EXAM: He is comfortable at rest. Afebrile. Heart rate is 80 beats per minute. Blood pressure is 106/79, respiratory 18, O2 saturation is 95% on 4 L. chest exam reveals good air entry bilaterally. Heart exam reveals first and second heart sounds. No gallop. No murmur. ABDOMEN: Soft. Exam of extremities reveals cellulitis over the left leg with mild bilateral leg edema. Both the foot pulses are palpable. His D-dimer was elevated on admission. Hemoglobin is normal at 13.6. Potassium is 4.3, creatinine is 0.6, platelet count is 209. Current medications include DuoNeb, Plavix 75 mg daily, Lasix 40 mg daily, Neurontin, Zestril 10 daily, and Eliquis 10 b.i.d. ASSESSMENT AND PLAN: 1. Pulmonary embolism. 2. Peripheral vascular disease. 3. Chronic obstructive pulmonary disease. PLAN: The patient will continue current medications. An echocardiogram on this admission revealed normal LV function. MMODL / IJN: [id number] /
[2021-03-10 11:54] VITALS: BP 148/89; RESP 18; TEMP 98.1
--- NOTE | 2021-03-10 13:19 | P.PN ---
Subjective Progress Note Date: 03/10/21 On today's evaluation of 03/10/2021, the patient is quite comfortable. The patient has extensive peripheral vascular disease. The patient undergone previous fem-fem bypass surgery and a stent insertion in the iliac artery and subsequently, the patient developed a DVT of the left lower extremity with sec ondary pulmonary embolism. He presented to us of worsening shortness of breath. He was evaluated by vascular surgery. The patient is currently on Eliquis. The patient is not a candidate for intra-arterial thrombolytic therapy as the patient did not have any significant hemodynamic instability or RV strain pattern. Currently the patient is on 3 L about 2 by nasal cannula. He is on IV Solu-Medrol. He is also on IV cefazolin for a chronic wound in the left foot/heel area. As mentioned, he is known to have peripheral vascular disease. He is morbidly obese. He has underlying history of COPD. He has also history of hypertension. No nausea. No vomiting. No chest pain. No other new co mplaints otherwise for now. Hemodynamically stable. Objective - Vital Signs Vital signs: Vital Signs Temp 98.1 F 03/10/21 11:53 Pulse 96 03/10/21 13:06 Resp 18 03/10/21 11:53 BP 148/89 03/10/21 11:53 Pulse Ox 95 03/10/21 11:53 Intake & Output 03/09/21 03/10/21 03/10/21 18:59 06:59 18:59 Intake Total 882 10 118 Output Total 450 1950 Balance 432 -1940 118 Intake: IV 10 Invasive Line 2 10 Oral 882 118 Output: Urine 450 1950 Other: Voiding Method Urinal Urinal - Exam No acute distress, oriented 3. Currently on 3 L nasal cannula. No obvious respiratory distress, use of accessory muscles, or conversational dyspnea. HEENT examination is grossly unremarkable. Neck supple. Full range of motion. No adenopathy thyromegaly or neck vein distention. Cardiovascular examination reveals regular rhythm rate. S1-S2 normal. No S3 or S4. No discernible murmur noted. Heart rate 87 bpm. Lungs reveal mild scattered rhonchi. No wheezes or crackles. Breath sounds equal bilaterally. Abdomen soft bowel sounds are heard. No masses or tenderness. Extremities reveal a dressing, to the left leg. No cyanosis or clubbing. The patient has diminished pulses in lower extremity is bilaterally. The patient has his left lower extremity wrapped and the wounds were not inspected on today's evaluation. Skin is without rash or lesion. Patient has chronic foot wound on the left. Neurologic examination is brief but nonfocal. - - Labs CBC & Chem 7: 03/08/21 05:52 03/08/21 05:52 Labs: Microbiology - Last 24 Hours (Table) 03/07/21 02:27 Blood Culture - Preliminary Blood No Growth after 72 hours 03/07/21 02:27 Blood Culture - Preliminary Blood No Growth after 72 hours Assessment and Plan Plan: 1 acute pulmonary embolism with secondary hypoxic respiratory failure 2 acute shortness of breath secondary to above 3 acute left lower extremity DVT with secondary pulmonary embolism currently on Eliquis 4 obesity with a BMI of 50 5 severe peripheral vascular disease with previous fem-fem bypass surgery followed by insertion of an iliac stent 6 COPD 7 history of smoking 8 hypertension 9 osteoarthritis 10 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
[2021-03-10 13:50] VITALS: BMI 50.0
--- NOTE | 2021-03-10 14:42 | P.DS ---
Providers Date of admission: 03/07/21 04:06 Expected date of discharge: 03/10/21 Attending physician: Whitney Cabrales Consults: 03/07/21 04:08 Consult Physician Routine Consulting Provider: Ramesh Vargas Consult Reason/Comments: PE Do you want consulting provider notified?: Yes Consult Physician Routine Consulting Provider: German Talamantes Consult Reason/Comments: ECHO,PE Do you want consulting provider notified?: Yes 03/07/21 17:02 Consult Physician Routine Consulting Provider: Kareem Moran Consult Reason/Comments: copd Do you want consulting provider notified?: Yes Consult Physician Routine Consulting Provider: Dl William Consult Reason/Comments: covid??? Do you want consulting provider notified?: Yes Primary care physician: Chip Montero Hospital Course: Final diagnosis Shortness of breath with acute pulmonary embolism, left upper lobe and left lower lobe with acute hypoxic respiratory failure History of recent excisional debridement of the left leg Acute left leg DVT of the left femoral vein extending to the popliteal vein and proximal calf veins Elevated d-dimer with acute pulmonary embolism history of recent femoro-femoral bypass with severe peripheral vascular disease Increased MCV History of recent exposure to COVID-19 Possible COVID-19 bilateral interstitial pneumonia, early Chronic obstructive pulmonary disease acute exacerbation hypertension history degenerative joint disease history of skin disorder history of cholecystectomy History of nicotine dependence obesity with a body mass index of 50 Full code Discharge disposition Patient is being discharged in a stable condition with guarded prognosis to [facility]. Patient will follow-up with Dr. montero upon discharge. Patient will also need follow-up with pulmonary and wound care Dr. William in the outpatient setting. Patient will continue on oral Eliquis and milligrams twice a day for the next 5 days and then transition to 5 mg twice daily thereafter. Patient also requires IV antibiotic therapy and has a PICC line and will continue with IV cefazolin every 8 hours for the next 1 week. Total time taken is greater than 35 minutes. Hospital course This is a 55-year-old male who was recently admitted with shortness of breath, acute pulmonary embolism and is being closely monitored. Patient was also noted to have a DVT of the left lower extremity. Cardiology, infectious disease, and pulmonary following along with vascular surgery. Patient continues on 4 L and will continue to wean as tolerated and continue with breathing inhalational treatments along with a prednisone taper on discharge. Patient states his shortness of breath is improved and denies any chest pain at this time. Currently no reports of chest pain, shortness of breath, or palpitations. Patient is afebrile. No reports of nausea or vomiting and patient is tolerating diet. Patient is being discharged to [facility].. Guarded prognosis. Physical exam: Gen: Patient is awake, alert and oriented 3, well-developed, well-nourished, morbidly obese. HEENT: Head is atraumatic, normocephalic. Pupils equal, round. Sclerae is anicteric. NECK: Supple. No JVD. No lymphadenopathy. No thyromegaly. LUNGS: Diminished breath sounds bilaterally with scattered rhonchi noted.. No intercostal retractions. HEART: S1, S2 are muffled. ABDOMEN: Soft. obese. Bowel sounds are present. No masses. No tenderness. EXTREMITIES: No pedal edema. No calf tenderness. NEUROLOGICAL: Patient is awake, alert and oriented x3. diffusely weak. Please refer to medication reconciliation sheet for a list of medications. Patient Condition at Discharge: Stable Plan - Discharge Summary Discharge Rx Participant: No New Discharge Prescriptions: New Ipratropium-Albuterol Nebulize [Duoneb 0.5 mg-3 mg/3 ml Soln] 3 ml INHALATION RT-QID ml predniSONE 10 mg PO DIRECTED #30 tab Ascorbic Acid [Vitamin C] 500 mg PO DAILY tab Cholecalciferol [Vitamin D3 (25 Mcg = 1000 Iu)] 25 mcg PO DAILY tablet Ipratropium-Albuterol Nebulize [Duoneb 0.5 mg-3 mg/3 ml Soln] 3 ml INHALATION RT-Q2H PRN ml PRN Reason: Shortness Of Breath Or Wheezing Apixaban [Eliquis] 10 mg PO BID tab Zinc Sulfate [Orazinc] 220 mg PO DAILY cap Continue Benazepril [Lotensin] 10 mg PO DAILY@0800 Acetaminophen [Tylenol 8 Hour] 650 mg PO Q6H PRN PRN Reason: Pain Clopidogrel Bisulfate [Plavix] 75 mg PO DAILY@0800 Fluticasone/Salmeterol [Advair 250-50 Diskus] 2 puff INHALATION RT-DAILY@0800 Multivitamins, Thera [Multivitamin (formulary)] 1 tab PO DAILY@0800 Famotidine [Pepcid] 20 mg PO BID@0800,1600 Furosemide [Lasix] 40 mg PO DAILY@0800 Nicotine 21Mg/24Hr Patch [Habitrol] 1 patch TRANSDERM DAILY@0800 Changed ceFAZolin [Kefzol] 2 gm IVP TID@0600,1400,2200 7 Days #21 each Gabapentin [Neurontin] 300 mg PO TID@0600,1400,2200 #6 cap HYDROcodone/APAP 10-325MG [[place] 10-325] 1 tab PO Q6H PRN #6 tab PRN Reason: Pain Discontinued predniSONE [Deltasone] 40 mg PO DAILY@0800 Enoxaparin [Lovenox] 40 mg SQ DAILY@0800 Ipratropium-Albuterol Nebulize [Duoneb 0.5 mg-3 mg/3 ml Soln] 3 ml INHALATION RT-Q4H Discharge Medication List Benazepril [Lotensin] 10 mg PO DAILY@0800 01/21/21 [History] Acetaminophen [Tylenol 8 Hour] 650 mg PO Q6H PRN 03/07/21 [History] Clopidogrel Bisulfate [Plavix] 75 mg PO DAILY@0800 03/07/21 [History] Famotidine [Pepcid] 20 mg PO BID@0800,1600 03/07/21 [History] Fluticasone/Salmeterol [Advair 250-50 Diskus] 2 puff INHALATION RT-DAILY@0800 03/07/21 [History] Furosemide [Lasix] 40 mg PO DAILY@0800 03/07/21 [History] Multivitamins, Thera [Multivitamin (formulary)] 1 tab PO DAILY@0800 03/07/21 [History] Nicotine 21Mg/24Hr Patch [Habitrol] 1 patch TRANSDERM DAILY@0800 03/07/21 [History] Apixaban [Eliquis] 10 mg PO BID tab 03/10/21 [Rx] Ascorbic Acid [Vitamin C] 500 mg PO DAILY tab 03/10/21 [Rx] Cholecalciferol [Vitamin D3 (25 Mcg = 1000 Iu)] 25 mcg PO DAILY tablet 03/10/21 [Rx] Gabapentin [Neurontin] 300 mg PO TID@0600,1400,2200 #6 cap 03/10/21 [Rx] HYDROcodone/APAP 10-325MG [[place] 10-325] 1 tab PO Q6H PRN #6 tab 03/10/21 [Rx] Ipratropium-Albuterol Nebulize [Duoneb 0.5 mg-3 mg/3 ml Soln] 3 ml INHALATION RT -Q2H PRN ml 03/10/21 [Rx] Ipratropium-Albuterol Nebulize [Duoneb 0.5 mg-3 mg/3 ml Soln] 3 ml INHALATION RT-QID ml 03/10/21 [Rx] Zinc Sulfate [Orazinc] 220 mg PO DAILY cap 03/10/21 [Rx] ceFAZolin [Kefzol] 2 gm IVP TID@0600,1400,2200 7 Days #21 each 03/10/21 [Rx] predniSONE 10 mg PO DIRECTED #30 tab 03/10/21 [Rx] Follow up Appointment(s)/Referral(s): Chip Montero III, MD [Primary Care Provider] - 1-2 days Kareem Moran DO [Doctor of Osteopathic Medicine] - 1 Week Patient Instructions/Handouts: Pulmonary Embolism (DC) Activity/Diet/Wound Care/Special Instructions: Patient is returning to [facility] Activity as tolerated Continue medications as prescribed Follow-up with pulmonary outpatient Follow-up with cardiology and vascular surgery outpatient Follow-up at the wound care center with infectious disease Dr. William in 1-2 weeks Continue IV cefazolin 3 times daily for 7 days Continue local wound care Continue prednisone taper breathing inhalational treatments Follow-up primary care provider on discharge Patient to continue with O2 via nasal cannula at 4 L and wean as tolerated continue with incentive spirometer at least 10 times every hour Discharge Disposition: TRANSFER TO SNF/ECF
[2021-03-10 16:52] VITALS: PULSE 92
== END 2021-03-10 16:50 | DRG 175 ==
LOC: EC 02:07 → 3SCARD 04:06
PROVIDERS: ADMIT Hospitalist; ATTEND Hospitalist
PROC: 3E0F7SF Introduction of Other Gas into Respiratory Tract, Via Natural or Artificial Opening (ICD-10-PCS; principal; 2021-03-07)
DX: I26.99 Other pulmonary embolism without acute cor pulmonale (principal); J96.01 Acute respiratory failure with hypoxia; E87.1 Hypo-osmolality and hyponatremia; I82.412 Acute embolism and thrombosis of left femoral vein; J44.1 Chronic obstructive pulmonary disease with (acute) exacerbation; J84.9 Interstitial pulmonary disease, unspecified; L97.929 Non-pressure chronic ulcer of unspecified part of left lower leg with unspecified severity; Z68.43 Body mass index [BMI] 50.0-59.9, adult; I82.432 Acute embolism and thrombosis of left popliteal vein; L03.116 Cellulitis of left lower limb; I82.4Z2 Acute embolism and thrombosis of unspecified deep veins of left distal lower extremity; J44.0 Chronic obstructive pulmonary disease with (acute) lower respiratory infection; Z20.822 Contact with and (suspected) exposure to COVID-19; I70.202 Unspecified atherosclerosis of native arteries of extremities, left leg; Z87.891 Personal history of nicotine dependence; I10 Essential (primary) hypertension; E66.01 Morbid (severe) obesity due to excess calories; M19.90 Unspecified osteoarthritis, unspecified site; Z79.01 Long term (current) use of anticoagulants; Z79.02 Long term (current) use of antithrombotics/antiplatelets; Z79.899 Other long term (current) drug therapy; Z86.711 Personal history of pulmonary embolism; Z86.718 Personal history of other venous thrombosis and embolism; Z90.49 Acquired absence of other specified parts of digestive tract; Z95.820 Peripheral vascular angioplasty status with implants and grafts
CPT/HCPCS: 36415; 71045; 71275; 80053; 81003; 83605; 83615; 83735; 83880; 84484; 85025; 85379; 85610; 85730; 86140; 87040; 87635; 93005; 93308; 93970; 94640; 94760; 99291

== ENCOUNTER 2021-04-16 10:23 | Day surgery (SDC) | payer OTHER ==
[2021-04-11 09:36] VITALS: BMI 50.0
[~2021-04-16 10:23] MED LIST changes: +DEXAMETHASONE SOD PHOSPHATE 4 MG/ML 1 ML VIAL IV ONE; +HYDROmorphone 0.5 MG/0.5 ML SYRINGE IVP PRN; +LACTATED RINGERS 1,000 ML IV SCH; +LIDOCAINE 1% (10MG/ML) FOR IV START INTRADERMA PRN; +ONDANSETRON 4 MG/2 ML VIAL IVP ONE; -SODIUM CHLORIDE 0.9% 1,000 ML in EMPTY BAG 1 BAG IV ONE; +ceFAZolin 3 GM in SODIUM CHLORIDE 0.9% 100 ML IVPB PRN
--- NOTE | 2021-04-16 10:48 | P.GSHP ---
History of Present Illness H&P Date: 04/16/21 Chief Complaint: Ulcer left ankle The patient is status post fem-fem bypass for left iliac occlusion. He had his left Achilles tendon fully exposed. With wound care he has had excellent granulation over this area. Past Medical History Past Medical History: COPD, Deep Vein Thrombosis (DVT), Hypertension, Osteoarthritis (OA), Pulmonary Embolus (PE), Skin Disorder, Vascular Disorder Additional Past Medical History / Comment(s): Wound open sore left posterior lombardi, [facility] patient. PE, DVT 03/07/21. Edema feet mild. History of Any Multi-Drug Resistant Organisms: None Reported Past Surgical History: Cholecystectomy Additional Past Surgical History / Comment(s): Lt leg Femoral-femoral bypass 01/26/21. PICC line, now removed. Past Anesthesia/Blood Transfusion Reactions: No Reported Reaction Smoking Status: Former smoker - Past Family History Father Family Medical History: Cancer, Myocardial Infarction ([place]) Additional Family Medical History / Comment(s): Lung [place] Mother Family Medical History: Cancer Additional Family Medical History / Comment(s): pancreatic cancer Sister(s) Family Medical History: Cancer Additional Family Medical History / Comment(s): Leukemia Medications and Allergies Home Medications Medication Instructions Recorded Confirmed Type Benazepril [Lotensin] 10 mg PO DAILY@0800 01/21/21 04/11/21 History Acetaminophen [Tylenol 8 Hour] 650 mg PO Q6H PRN 03/07/21 04/11/21 History Clopidogrel Bisulfate [Plavix] 75 mg PO DAILY@0800 03/07/21 04/11/21 History Famotidine [Pepcid] 20 mg PO BID@0800,1600 03/07/21 04/11/21 History Fluticasone/Salmeterol [Advair 2 puff INHALATION RT-DAILY@0800 03/07/21 04/11/21 History 250-50 Diskus] Furosemide [Lasix] 40 mg PO DAILY@0800 03/07/21 04/11/21 History Multivitamins, Thera [Multivitamin 1 tab PO DAILY@0800 03/07/21 04/11/21 History (formulary)] Nicotine 21Mg/24Hr Patch [Habitrol] 1 patch TRANSDERM DAILY@0800 03/07/21 04/11/21 History Apixaban [Eliquis] 10 mg PO BID tab 12/20/21 01/21/22 Rx Ascorbic Acid [Vitamin C] 500 mg PO DAILY tab 03/10/21 04/11/21 Rx Cholecalciferol [Vitamin D3 (25 25 mcg PO DAILY tablet 03/10/21 04/11/21 Rx Mcg = 1000 Iu)] Gabapentin [Neurontin] 300 mg PO TID@0600,1400,2200 #6 cap 03/10/21 04/11/21 Rx HYDROcodone/APAP 10-325MG [[place] 1 tab PO Q6H PRN #6 tab 03/10/21 04/11/21 Rx 10-325] Ipratropium-Albuterol Nebulize 3 ml INHALATION RT-QID ml 03/10/21 04/11/21 Rx [Duoneb 0.5 mg-3 mg/3 ml Soln] Zinc 50 mg PO DAILY 04/11/21 04/11/21 History Allergies Allergy/AdvReac Type Severity Reaction Status Date / Time No Known Allergies Allergy Verified 04/11/21 09:01 Surgical - Exam Osteopathic Statement: *. No significant issues noted on an osteopathic structural exam other than those noted in the History and Physical/Consult. - General well developed, well nourished, no distress, obese - Eyes normal ocular movement, no icteric - ENT no hearing loss, no congestion - Neck no masses, trachea midline - Respiratory normal respiratory effort, clear to auscultation - Abdomen Abdomen: soft, non tender, no guarding, no rigid, no rebound - Integumentary no rash, no abnormal pigmentation - Neurologic no disoriented, no combative - Psychiatric oriented to time, oriented to person, oriented to place, speech is normal, memory intact Ulcer over the left Achilles tendon area. Excellent granulation tissue throughout. Assessment and Plan (1) Atherosclerosis of [place] arteries of left leg with ulceration of ankle Current Visit: No Status: Acute Code(s): I70.243 - ATHSCL IONE ARTERIES OF LEFT LEG W ULCERATION OF ANKLE SNOMED Code(s): 388565413 (2) Non-pressure chronic ulcer of left ankle with fat layer exposed Current Visit: No Status: Acute Code(s): L97.322 - NON-PRESSURE CHRONIC ULCER OF LEFT ANKLE W FAT LAYER EXPOSED SNOMED Code(s): 99290639072469098 Plan: We discussed in detail with the patient his options for therapy. We've discussed split-thickness skin graft with harvest from the left thigh in detail including risks. He appears to understand the process and verbalizes his agreement with the procedure.
[2021-04-16 11:12] VITALS: TEMP 96.7
[2021-04-16] MEDS ORDERED: KETAMINE 10 MG/ML 20 ML VIAL ONE (12:19)
[2021-04-16] MEDS ORDERED: PROPOFOL 10 MG/ML 20 ML VIAL IV ONE (12:19)
[2021-04-16] MEDS ORDERED: LIDOCAINE 1% INJ 10MG/ML (20 ML MDV) ONE (12:19)
[2021-04-16] MEDS ORDERED: fentaNYL (PF) 50 MCG/ML 2 ML AMP ONE ×2 (12:19→13:47)
[2021-04-16] MEDS ORDERED: MIDAZOLAM 2 MG/2 ML VIAL ONE (12:19)
[2021-04-16] MEDS ORDERED: MINERAL OIL 30 ML CUP TOPICAL ONE (12:57)
[2021-04-16] MEDS ORDERED: HYDROcodone/APAP 10-325MG 1 EACH TAB ONE (13:47)
[2021-04-16] MEDS ORDERED: HYDROcodone/APAP 10-325MG 1 EACH TAB PO ONE (13:52)
[2021-04-16 14:06] VITALS: BP 136/72; PULSE 78; RESP 20
--- NOTE | 2021-04-16 14:11 | P.OP ---
Date of Procedure: 04/16/21 Preoperative Diagnosis: Ulcer left ankle Postoperative Diagnosis: Same Procedure(s) Performed: Split-thickness skin graft Anesthesia: MAC Surgeon: Jay Stone Estimated Blood Loss (ml): 50 Pathology: none sent Condition: stable Disposition: PACU Indications for Procedure: The patient has an 8 x 6 cm ulcer over the area of the left Achilles tendon. It is well granulated. Operative Findings: The initial ulceration was about 8 x 6 cm and about 0.1 cm in depth. Following debridement it remained 8 x 6 cm but about 0.3 cm in depth. With debridement there was excellent granulation throughout. There are a couple of areas where there was non-granulated tendon and exposed but this was only about 2% of the surface. Description of Procedure: With this patient in lateral position under benefit of IV sedation we prepped an d draped in standard fashion. We used a sharp curette to remove fibrinous slough and exudate. We also removed some nonbleeding exposed tendon. This was, however, only about 1 or 2% of the surface. Hemostasis was accomplished with direct pressure. We then used the dermatome set at 0.09 and removed to 1 inch patches of skin graft about 8 cm in length. Hemostasis was accomplished with direct pressure. Both portions of grafted skin were put through the stage III to 1 mesh device and placed over the wound. Care was taken to make sure they were deep portion of the graft facing inward. They were shaped and spread appropriately to cover the majority of the ulcerated area. We then fixed the grafts in place using Adaptic held in place by window pained Steri-Strips. Hydrogel was placed on this and a topical of absorptive silver was placed again soaked with hydrogel. We then used Kerlix as a topical dressing and Eligio wrap to hold the dressing in place. The patient tolerated the procedure well 06 recovery area in stable condition. Instructions were given to the patient and the family to keep the dressing in place for 1 week, until seen in wound care.
== END 2021-04-16 14:42 | disposition home or self-care (01) ==
LOC: OR 10:23
PROVIDERS: ATTEND Thoracic Surgery (Cardiothoracic Vascular Surgery)
DX: L97.329 Non-pressure chronic ulcer of left ankle with unspecified severity (principal); J44.9 Chronic obstructive pulmonary disease, unspecified; I10 Essential (primary) hypertension; Z86.711 Personal history of pulmonary embolism; M19.90 Unspecified osteoarthritis, unspecified site; Z87.891 Personal history of nicotine dependence
CPT/HCPCS: 15100; J2250; J1100; J0690; J2405; J2001; J3010; J2704

== ENCOUNTER → 2021-11-05 | Outpatient (CLI) | payer OTHER ==
[2021-11-05 22:46] LABS: ALT 24 U/L (10-49); AST 21 U/L (14-35); African American GFR (CKD) 108.7 (60.0-200.0); Alkaline Phosphatase 74 U/L (41-126); Blood Urea Nitrogen 19.6 mg/dL (9.0-27.0); Calcium 9.4 mg/dL (8.7-10.3); Carbon Dioxide 28.1 mmol/L (20.0-27.5); Chloride 102 mmol/L (96-109); Chol/HDL Ratio 2.82 Ratio; Glucose 84 mg/dL (70-110); LDL Cholesterol,Calculated 79.9 mg/dL (0.0-131.0); Non-African American GFR(CKD) 93.8 (60.0-200.0); Potassium 4.4 mmol/L (3.5-5.5); Sodium 139 mmol/L (135-145); Total Protein 6.7 g/dL (6.2-8.2); VLDL Calculation 11.66 mg/dL (5.00-40.00)
== END ==
LOC: LAB 15:40
PROVIDERS: ATTEND Internal Medicine Interventional Cardiology
DX: E78.2 Mixed hyperlipidemia (principal)
CPT/HCPCS: 80053; 80061

== ENCOUNTER 2022-01-21 14:42 | Observation (INO) | payer OTHER ==
[2022-01-21] MEDS ORDERED: predniSONE 20 MG TAB PO STA (15:09)
[2022-01-21] MEDS ORDERED: IPRATROPIUM-ALBUTEROL 3 ML NEB INHALATION STA (15:09)
--- NOTE | 2022-01-21 15:15 | ED ---
SOB HPI - General Chief Complaint: Shortness of Breath Stated Complaint: SOB Time Seen by Provider: 01/21/22 14:51 Source: patient, EMS Mode of arrival: EMS Limitations: no limitations - History of Present Illness Initial Comments: This patient is 56-year-old man with history of COPD and previous DVT who presents with worsening of his respiratory status going back a number days. He states that now any time he tries to move he becomes short of breath. Sometimes the breathing is worse lying down. He has not noted fever or chills. Cough nonproductive. No chest pain. No hemoptysis. He has not noted a change in leg swelling. He states he does have a chronic ulcer of the left foot that the wound care center as a dressing. MD Complaint: shortness of breath, cough -: days(s) Severity scale (1-10): 0 Consistency: constant Improves With: upright position Worsens With: lying flat, exertion Known History Of: COPD - Related Data Home Medications Medication Instructions Recorded Confirmed Benazepril [Lotensin] 10 mg PO DAILY 01/21/21 01/21/22 Clopidogrel Bisulfate [Plavix] 75 mg PO DAILY 03/07/21 01/21/22 Fluticasone Propion/Salmeterol 1 puff INHALATION RT-BID 03/07/21 01/21/22 [Advair 250-50 Diskus] Furosemide [Lasix] 40 mg PO DAILY 03/07/21 01/21/22 Multivitamins, Thera [Multivitamin 1 tab PO DAILY 03/07/21 01/21/22 (formulary)] Zinc 50 mg PO DAILY 04/11/21 01/21/22 Albuterol Nebulized [Ventolin 2.5 mg INHALATION RT-Q6H PRN 01/21/22 01/21/22 Nebulized] Apixaban [Eliquis] 5 mg PO BID 01/21/22 01/21/22 Famotidine 40 mg PO HS 01/21/22 01/21/22 Gabapentin [Neurontin] 300 mg PO Q8H 01/21/22 01/21/22 Meloxicam [Mobic] 7.5 mg PO DAILY 01/21/22 01/21/22 Nicotine Polacrilex [Nicotine Gum] 4 mg BUCCAL DIRECTED PRN 01/21/22 01/21/22 Sertraline [Zoloft] 25 mg PO DAILY 01/21/22 01/21/22 Previous Rx's Medication Instructions Recorded Ascorbic Acid [Vitamin C] 500 mg PO DAILY tab 03/10/21 Cholecalciferol [Vitamin D3 (25 25 mcg PO DAILY tablet 03/10/21 Mcg = 1000 Iu)] Allergies Allergy/AdvReac Type Severity Reaction Status Date / Time No Known Allergies Allergy Verified 01/21/22 17:15 Review of Systems ROS Statement: Those systems with pertinent positive or pertinent negative responses have been documented in the HPI. ROS Other: All systems not noted in ROS Statement are negative. Constitutional: Denies: fever, chills Respiratory: Reports: cough, dyspnea, wheezes. Denies: hemoptysis Cardiovascular: Reports: orthopnea, edema. Denies: chest pain, palpitations, syncope Gastrointestinal: Denies: abdominal pain, vomiting, diarrhea, constipation, melena, hematochezia Genitourinary: Denies: dysuria, hematuria Musculoskeletal: Denies: back pain Skin: Denies: rash Neurological: Denies: headache Past Medical History Past Medical History: COPD, Deep Vein Thrombosis (DVT), Hypertension, Osteoart hritis (OA), Pulmonary Embolus (PE), Skin Disorder, Vascular Disorder Additional Past Medical History / Comment(s): Wound open sore left posterior lombardi, [facility] patient. PE, DVT 03/07/21. Edema feet mild. History of Any Multi-Drug Resistant Organisms: None Reported Past Surgical History: Cholecystectomy Additional Past Surgical History / Comment(s): Lt leg Femoral-femoral bypass 01/26/21. PICC line, now removed. Past Anesthesia/Blood Transfusion Reactions: No Reported Reaction Past Psychological History: No Psychological Hx Reported Smoking Status: Former smoker - Past Family History Father Family Medical History: Cancer, Myocardial Infarction ([place]) Additional Family Medical History / Comment(s): Lung CA Mother Family Medical History: Cancer Additional Family Medical History / Comment(s): pancreatic cancer Sister(s) Family Medical History: Cancer Additional Family Medical History / Comment(s): Leukemia General Exam Limitations: no limitations General appearance: alert, in no apparent distress Head exam: Present: atraumatic, normocephalic Eye exam: Present: normal appearance. Absent: scleral icterus, conjunctival injection Neck exam: Present: normal inspection Respiratory exam: Present: respiratory distress, wheezes, accessory muscle use, decreased breath sounds. Absent: rales, rhonchi, stridor, chest wall tenderness Cardiovascular Exam: Present: regular rate, normal rhythm, normal heart sounds. Absent: systolic murmur, diastolic murmur, rubs, gallop GI/Abdominal exam: Present: soft. Absent: distended, tenderness, guarding, rebound, rigid, mass, pulsatile mass Extremities exam: Present: normal inspection, normal capillary refill, pedal edema. Absent: calf tenderness Back exam: Present: normal inspection. Absent: CVA tenderness (R), CVA tenderness (L) Neurological exam: Present: alert Skin exam: Present: warm, dry, normal color. Absent: rash Course Vital Signs 01/21/22 01/21/22 01/21/22 14:43 15:37 15:59 Pulse Rate 75 89 89 Respiratory 20 20 Rate Blood Pressure 116/75 O2 Sat by Pulse 96 97 Oximetry 01/21/22 01/21/22 01/21/22 16:08 16:47 19:05 Pulse Rate 91 100 92 Respiratory 20 18 Rate Blood Pressure 132/87 141/93 O2 Sat by Pulse 96 96 Oximetry 01/21/22 01/21/22 20:25 20:35 Pulse Rate 90 88 Respiratory Rate Blood Pressure O2 Sat by Pulse Oximetry Medical Decision Making - Medical Decision Making Patient's 56-year-old man with dyspnea. He has had some improvement following nebulized treatments and steroids however still dyspneic and not back to baseline. Will admit for further treatment as well as consultation. The d- dimer is negative there does not appear to be evidence of acute DVT/PE. - Lab Data Result diagrams: 01/21/22 15:13 01/21/22 15:13 Lab Results 01/21/22 01/21/22 01/21/22 Range/Units 14:57 15:13 15:13 WBC 8.1 (3.8-10.6) k/uL RBC 4.45 (4.30-5.90) m/uL Hgb 13.7 (13.0-17.5) gm/dL Hct 42.3 (39.0-53.0) % MCV 95.0 (80.0-100.0) fL MCH 30.7 (25.0-35.0) pg MCHC 32.3 (31.0-37.0) g/dL RDW 14.4 (11.5-15.5) % Plt Count 249 (150-450) k/uL MPV 8.1 Neutrophils % 77 % Lymphocytes % 14 % Monocytes % 6 % Eosinophils % 2 % Basophils % 0 % Neutrophils # 6.3 (1.3-7.7) k/uL Lymphocytes # 1.1 (1.0-4.8) k/uL Monocytes # 0.5 (0-1.0) k/uL Eosinophils # 0.2 (0-0.7) k/uL Basophils # 0.0 (0-0.2) k/uL PT 10.4 (9.0-12.0) sec INR 0.9 (<1.2) APTT 24.4 (22.0-30.0) sec D-Dimer 0.43 (<0.60) mg/L FEU Sodium (137-145) mmol/L Potassium (3.5-5.1) mmol/L Chloride (98-107) mmol/L Carbon Dioxide (22-30) mmol/L Anion Gap mmol/L BUN (9-20) mg/dL Creatinine (0.66-1.25) mg/dL Est GFR (CKD-EPI)AfAm (>60 ml/min/1.73 sqM) Est GFR (CKD-EPI)NonAf (>60 ml/min/1.73 sqM) Glucose (74-99) mg/dL Plasma Lactic Acid Rob (0.7-2.0) mmol/L Calcium (8.4-10.2) mg/dL Total Bilirubin (0.2-1.3) mg/dL AST (17-59) U/L ALT (4-49) U/L Alkaline Phosphatase (38-126) U/L Troponin I (0.000-0.034) ng/mL NT-Pro-B Natriuret Pep 64 pg/mL Total Protein (6.3-8.2) g/dL Albumin (3.5-5.0) g/dL Coronavirus (PCR) (Not Detectd) Influenza Type A RNA (Not Detectd) Influenza Type B (PCR) (Not Detectd) 01/21/22 01/21/22 01/21/22 Range/Units 15:13 15:13 15:13 WBC (3.8-10.6) k/uL RBC (4.30-5.90) m/uL Hgb (13.0-17.5) gm/dL Hct (39.0-53.0) % MCV (80.0-100.0) fL MCH (25.0-35.0) pg MCHC (31.0-37.0) g/dL RDW (11.5-15.5) % Plt Count (150-450) k/uL MPV Neutrophils % % Lymphocytes % % Monocytes % % Eosinophils % % Basophils % % Neutrophils # (1.3-7.7) k/uL Lymphocytes # (1.0-4.8) k/uL Monocytes # (0-1.0) k/uL Eosinophils # (0-0.7) k/uL Basophils # (0-0.2) k/uL PT (9.0-12.0) sec INR (<1.2) APTT (22.0-30.0) sec D-Dimer (<0.60) mg/L FEU Sodium 138 (137-145) mmol/L Potassium 4.6 (3.5-5.1) mmol/L Chloride 103 (98-107) mmol/L Carbon Dioxide 25 (22-30) mmol/L Anion Gap 10 mmol/L BUN 19 (9-20) mg/dL Creatinine 0.74 (0.66-1.25) mg/dL Est GFR (CKD-EPI)AfAm >90 (>60 ml/min/1.73 sqM) Est GFR (CKD-EPI)NonAf >90 (>60 ml/min/1.73 sqM) Glucose 99 (74-99) mg/dL Plasma Lactic Acid Rob 1.3 (0.7-2.0) mmol/L Calcium 8.8 (8.4-10.2) mg/dL Total Bilirubin 0.3 (0.2-1.3) mg/dL AST 24 (17-59) U/L ALT 25 (4-49) U/L Alkaline Phosphatase 71 (38-126) U/L Troponin I <0.012 (0.000-0.034) ng/mL NT-Pro-B Natriuret Pep pg/mL Total Protein 6.4 (6.3-8.2) g/dL Albumin 4.0 (3.5-5.0) g/dL Coronavirus (PCR) (Not Detectd) Influenza Type A RNA (Not Detectd) Influenza Type B (PCR) (Not Detectd) 01/21/22 01/21/22 Range/Units 15:13 15:13 WBC (3.8-10.6) k/uL RBC (4.30-5.90) m/uL Hgb (13.0-17.5) gm/dL Hct (39.0-53.0) % MCV (80.0-100.0) fL MCH (25.0-35.0) pg MCHC (31.0-37.0) g/dL RDW (11.5-15.5) % Plt Count (150-450) k/uL MPV Neutrophils % % Lymphocytes % % Monocytes % % Eosinophils % % Basophils % % Neutrophils # (1.3-7.7) k/uL Lymphocytes # (1.0-4.8) k/uL Monocytes # (0-1.0) k/uL Eosinophils # (0-0.7) k/uL Basophils # (0-0.2) k/uL PT (9.0-12.0) sec INR (<1.2) APTT (22.0-30.0) sec D-Dimer (<0.60) mg/L FEU Sodium (137-145) mmol/L Potassium (3.5-5.1) mmol/L Chloride (98-107) mmol/L Carbon Dioxide (22-30) mmol/L Anion Gap mmol/L BUN (9-20) mg/dL Creatinine (0.66-1.25) mg/dL Est GFR (CKD-EPI)AfAm (>60 ml/min/1.73 sqM) Est GFR (CKD-EPI)NonAf (>60 ml/min/1.73 sqM) Glucose (74-99) mg/dL Plasma Lactic Acid Rob (0.7-2.0) mmol/L Calcium (8.4-10.2) mg/dL Total Bilirubin (0.2-1.3) mg/dL AST (17-59) U/L ALT (4-49) U/L Alkaline Phosphatase (38-126) U/L Troponin I (0.000-0.034) ng/mL NT-Pro-B Natriuret Pep pg/mL Total Protein (6.3-8.2) g/dL Albumin (3.5-5.0) g/dL Coronavirus (PCR) Not Detected (Not Detectd) Influenza Type A RNA Not Detected (Not Detectd) Influenza Type B (PCR) Not Detected (Not Detectd) - EKG Data -: EKG Interpreted by Me EKG shows normal: sinus rhythm (Sinus arrhythmia), axis, intervals (Normal), QRS complexes (Low-voltage QRS complex), ST-T waves (Normal) Rate: normal (Rate 84 bpm) Interpretation: normal EKG Disposition Clinical Impression: Non-pressure chronic ulcer of left ankle with fat layer exposed, COPD exacerbation Disposition: ADMITTED IP TO THIS HOSP Condition: Fair
[2022-01-21 15:20] LABS: Basophils % (A) 0 %; Eosinophils # (A) 0.2 k/uL (0-0.7); Eosinophils % (A) 2 %; HCT 42.3 % (39.0-53.0); HGB 13.7 gm/dL (13.0-17.5); Lymphocytes # (A) 1.1 k/uL (1.0-4.8); Lymphocytes % (A) 14 %; MCH 30.7 pg (25.0-35.0); MCHC 32.3 g/dL (31.0-37.0); Mean Platelet Volume 8.1; Monocytes # (A) 0.5 k/uL (0-1.0); Monocytes % (A) 6 %; Neutrophils # (A) 6.3 k/uL (1.3-7.7); Neutrophils % (A) 77 %; Platelet Count 249 k/uL (150-450); RBC 4.45 m/uL (4.30-5.90); RDW 14.4 % (11.5-15.5); WBC 8.1 k/uL (3.8-10.6)
--- NOTE | 2022-01-21 15:27 | XR ---
EXAMINATION TYPE: XR chest 2V DATE OF EXAM: 01/21/2022 COMPARISON: 03/07/21 HISTORY: Shortness of breath TECHNIQUE: Frontal and lateral views of the chest are obtained. FINDINGS: Scattered senescent parenchymal changes noted. No evidence for infiltrate. No evidence for atelectasis. Heart size is stable. Mediastinal structures are stable and grossly unremarkable. No evidence for hilar prominence. Degenerative changes dorsal spine. IMPRESSION: 1. No evidence for acute pulmonary disease.
[2022-01-21 15:31] LABS: ALT 25 U/L (4-49); AST 24 U/L (17-59); African American GFR (CKD) >90 (>60 ml/min/1.73 sqM); Alkaline Phosphatase 71 U/L (38-126); Anion Gap 10 mmol/L; Blood Urea Nitrogen 19 mg/dL (9-20); Calcium 8.8 mg/dL (8.4-10.2); Carbon Dioxide 25 mmol/L (22-30); Chloride 103 mmol/L (98-107); Glucose 99 mg/dL (74-99); Non-African American GFR(CKD) >90 (>60 ml/min/1.73 sqM); Potassium 4.6 mmol/L (3.5-5.1); Sodium 138 mmol/L (137-145); Total Bilirubin 0.3 mg/dL (0.2-1.3); Total Protein 6.4 g/dL (6.3-8.2)
[2022-01-21 15:39] LABS: INR 0.9 (<1.2); Partial Thromboplastin Time 24.4 sec (22.0-30.0); Prothrombin Time 10.4 sec (9.0-12.0)
[2022-01-21] MEDS ORDERED: ALBUTEROL NEBULIZED 2.5 MG/3 ML INHALATION STA (18:48)
[2022-01-21] MEDS ORDERED: NALOXONE 0.4 MG/ML 1 ML VIAL IVP PRN (18:56)
[2022-01-21] MEDS ORDERED: IPRATROPIUM-ALBUTEROL 3 ML NEB INHALATION PRN (18:56)
[2022-01-21] MEDS: IPRATROPIUM-ALBUTEROL 3 ML NEB INHALATION SCH (20:25)
[2022-01-21] MEDS ORDERED: ALBUTEROL NEBULIZED 2.5 MG/3 ML INHALATION PRN (22:47)
[2022-01-21] MEDS ORDERED: NICOTINE GUM (POLACRILEX) 2 MG GUM BUCCAL PRN (23:00)
[2022-01-22] MEDS ORDERED: HEPARIN SODIUM,PORCINE/PF 5,000 UNIT/0.5 ML SYRINGE SQ SCH
[2022-01-22] MEDS: GABAPENTIN 300 MG CAP PO SCH ×4 (00:28→21:02)
[2022-01-22] MEDS: NICOTINE GUM (POLACRILEX) 2 MG GUM BUCCAL PRN ×2 (06:05→22:05)
[2022-01-22] MEDS: SYMBICORT 80-4.5 MCG INHALER INHALATION SCH ×2 (07:34→19:29)
[2022-01-22] MEDS: IPRATROPIUM-ALBUTEROL 3 ML NEB INHALATION SCH ×4 (07:34→19:29)
[2022-01-22] MEDS: APIXABAN 5 MG TAB PO SCH ×2 (11:09→21:02)
[2022-01-22] MEDS: ASCORBIC ACID 500 MG TAB PO SCH (11:10)
[2022-01-22] MEDS: CHOLECALCIFEROL 25 MCG (1000 IU) TABLET PO SCH (11:10)
[2022-01-22] MEDS: CLOPIDOGREL 75 MG TAB PO SCH (11:11)
[2022-01-22] MEDS: FUROSEMIDE 40 MG TAB PO SCH (11:12)
[2022-01-22] MEDS: lisinopriL 10 MG TAB PO SCH (11:13)
[2022-01-22] MEDS: predniSONE 20 MG TAB PO SCH (11:14)
[2022-01-22] MEDS: SERTRALINE 25 MG TAB PO SCH (11:15)
[2022-01-22] MEDS: ZINC SULFATE 220 MG CAP PO SCH (11:16)
--- NOTE | 2022-01-22 14:35 | P.HPIM ---
History of Present Illness H&P Date: 01/22/22 This is a 56-year-old male patient of Dr. Bauman past history significant for DVT, PE, hypertension, COPD, peripheral vascular disease with femoral bypass. He is anticoagulated with eliquis. Patient is a former smoker quit about 1 year ago smoked one pack per day for 30 years. Patient presents with complaints of shortness of breath worse when lying down that is ongoing for the past couple weeks. He currently denies fever and chills. He reports nonproductive cough. No chest pain. Patient does have chronic wound of the left foot that he follows with the wound care for. Chest xray showing no acute process. He is noted to have audible expiratory wheeze and is currently maintained on oxygen via nasal cannula. His labs are unremarkable, no white count, troponin negative, proBNP 64. He is covid negative, influenza A/B negative. He is admitted for COPD exacerbation, he is continued on bronchodilators and also continues on symbicort. He is started on oral prednisone burst. Most likely a viral etiology, patient currently does not have a white count, troponin negative. ProBNP 64. Procalcitonin level is currently pending. Patient also has evidence for lower extremity cellulitis on the left he does have redness and tender to palpation. For this reason patient will be started on IV cefazolin and Dr. William consulted for further evaluation. REVIEW OF SYSTEMS: CONSTITUTIONAL: No fever, no malaise, no fatigue. HEENT: No recent visual problems or hearing problems. Denied any sore throat. CARDIOVASCULAR: No chest pain, orthopnea, PND, no palpitations, no syncope. PULMONARY: Reports shortness of breath, reports nonproductive cough. GASTROINTESTINAL: No diarrhea, no nausea, no vomiting, no abdominal pain. NEUROLOGICAL: No headaches, no weakness, no numbness. HEMATOLOGICAL: Denies any bleeding or petechiae. GENITOURINARY: Denies any burning micturition, frequency, or urgency. MUSCULOSKELETAL/RHEUMATOLOGICAL: Denies any joint pain, swelling, or any muscle pain. ENDOCRINE: Denies any polyuria or polydipsia. The rest of the 14-point review of systems is negative. PHYSICAL EXAMINATION: GENERAL: The patient is alert and oriented x3, not in any acute distress. Well developed, well nourished. Obese. HEENT: Pupils are round and equally reacting to light. EOMI. No scleral icterus. No conjunctival pallor. Normocephalic, atraumatic. No pharyngeal erythema. No thyromegaly. CARDIOVASCULAR: S1 and S2 present. No murmurs, rubs, or gallops. PULMONARY: Chest is clear to auscultation, no wheezing or crackles. ABDOMEN: Soft, nontender, nondistended, normoactive bowel sounds. No palpable organomegaly. MUSCULOSKELETAL: No joint swelling or deformity. EXTREMITIES: No cyanosis, clubbing, or pedal edema. NEUROLOGICAL: Gross neurological examination did not reveal any focal deficits. SKIN: No rashes. Assessment and Plan Assessment Shortness of breath Acute COPD exacerbation mostly viral etiology patient has no white count does have some wheezing on examination will be continued on bronchodilators and oral prednisone burst and taper Acute hypoxic respiratory failure secondary to above Chronic lower extremity History of PE/DVT maintained on eliquis at home History of femoro-femoral bypass secondary to severe peripheral vascular disease Hypertension History of degenerative disc disease History of cholecystectomy GI prophylaxis DVT prophylaxis Plan Continue bronchodilators, oral steroids Wean oxygen as tolerated Patient has been started on IV cefazolin Infectious disease consultation Resume appropriate home medications The impression and plan of care has been dictated by Irma Delong Nurse Practitioner as directed. Dr. Martín MD I have performed a history and physical examination and medical decision making of this patient, discussed the same with the dictator, and agree with the dictators assessment and plan as written, documented as a scribe. Based on total visit time, I have performed more than 50% of this visit. Past Medical History Past Medical History: COPD, Deep Vein Thrombosis (DVT), Hypertension, Osteoarthritis (OA), Pulmonary Embolus (PE), Skin Disorder, Vascular Disorder Additional Past Medical History / Comment(s): Wound open sore left posterior l[place]ardi, [facility] patient. PE, DVT 03/07/21. Edema feet mild. History of Any Multi-Drug Resistant Organisms: None Reported Past Surgical History: Cholecystectomy Additional Past Surgical History / Comment(s): Lt leg Femoral-femoral bypass 01/26/21. PICC line, now removed. Past Anesthesia/Blood Transfusion Reactions: No Reported Reaction Past Psychological History: No Psychological Hx Reported Smoking Status: Former smoker Past Alcohol Use History: Rare Additional Past Alcohol Use History / Comment(s): Smoked 1ppd for 30 yrs, quit 03/07/21. Past Drug Use History: None Reported - Past Family History Father Family Medical History: Cancer, Myocardial Infarction ([place]) Additional Family Medical History / Comment(s): Lung CA Mother Family Medical History: Cancer Additional Family Medical History / Comment(s): pancreatic cancer Sister(s) Family Medical History: Cancer Additional Family Medical History / Comment(s): Leukemia Medications and Allergies Home Medications Medication Instructions Recorded Confirmed Type Benazepril [Lotensin] 10 mg PO DAILY 01/21/21 01/21/22 History Clopidogrel Bisulfate [Plavix] 75 mg PO DAILY 03/07/21 01/21/22 History Fluticasone Propion/Salmeterol 1 puff INHALATION RT-BID 03/07/21 01/21/22 History [Advair 250-50 Diskus] Furosemide [Lasix] 40 mg PO DAILY 03/07/21 01/21/22 History Multivitamins, Thera [Multivitamin 1 tab PO DAILY 03/07/21 01/21/22 History (formulary)] Ascorbic Acid [Vitamin C] 500 mg PO DAILY tab 03/10/21 01/21/22 Rx Cholecalciferol [Vitamin D3 (25 25 mcg PO DAILY tablet 03/10/21 01/21/22 Rx Mcg = 1000 Iu)] Zinc 50 mg PO DAILY 04/11/21 01/21/22 History Albuterol Nebulized [Ventolin 2.5 mg INHALATION RT-Q6H PRN 01/21/22 01/21/22 History Nebulized] Apixaban [Eliquis] 5 mg PO BID 01/21/22 01/21/22 History Famotidine 40 mg PO HS 01/21/22 01/21/22 History Gabapentin [Neurontin] 300 mg PO Q8H 01/21/22 01/21/22 History Meloxicam [Mobic] 7.5 mg PO DAILY 01/21/22 01/21/22 History Nicotine Polacrilex [Nicotine Gum] 4 mg BUCCAL DIRECTED PRN 01/21/22 01/21/22 History Sertraline [Zoloft] 25 mg PO DAILY 01/21/22 01/21/22 History Allergies Allergy/AdvReac Type Severity Reaction Status Date / Time No Known Allergies Allergy Verified 01/21/22 17:15 Physical Exam Vitals: Vital Signs Temp Pulse Pulse Resp BP BP Pulse Ox 01/22/22 08:34 18 01/22/22 07:47 80 01/22/22 07:35 76 01/22/22 07:00 97.5 F L 76 18 134/80 96 01/22/22 02:46 97.8 F 87 19 137/78 100 01/21/22 23:41 22 01/21/22 22:05 98.5 F 100 20 129/69 96 01/21/22 20:35 88 01/21/22 20:25 90 01/21/22 19:05 92 18 141/93 96 01/21/22 16:47 100 20 132/87 96 01/21/22 16:08 91 01/21/22 15:59 89 01/21/22 15:37 89 20 97 01/21/22 14:43 75 20 116/75 96 Intake and Output 01/21/22 01/22/22 01/22/22 22:59 06:59 14:59 Intake Total 500 Output Total 600 Balance -100 Intake: Oral 500 Output: Urine 600 Other: Voiding Method Urinal Urinal # Voids 0 Weight 163.293 kg Results CBC & Chem 7: 01/21/22 15:13 01/21/22 15:13 Assessment and Plan Time with Patient: Less than 30
[2022-01-22] MEDS ORDERED: FAMOTIDINE 20 MG TAB PO SCH (21:00)
[2022-01-22] MEDS ORDERED: ACETAMINOPHEN TAB 325 MG TAB PO PRN (21:11)
[2022-01-22] MEDS ORDERED: IBUPROFEN 400 MG TAB PO PRN (21:12)
[2022-01-23] MEDS: NICOTINE GUM (POLACRILEX) 2 MG GUM BUCCAL PRN ×2 (01:04→05:54)
[2022-01-23] MEDS: GABAPENTIN 300 MG CAP PO SCH (05:54)
[2022-01-23 07:22] VITALS: RESP 19; TEMP 97.2
[2022-01-23] MEDS: SYMBICORT 80-4.5 MCG INHALER INHALATION SCH (07:37)
[2022-01-23] MEDS: IPRATROPIUM-ALBUTEROL 3 ML NEB INHALATION SCH ×3 (07:37→15:55)
--- NOTE | 2022-01-23 10:04 | P.CONS ---
History of Present Illness - Reason for Consult Consult date: 01/22/22 cellulitis Requesting physician: Karma Resendiz - Chief Complaint shortness of breath x few days - History of Present Illness Patient is a 56-year-old male with a past medical history significant for DVT PE hypertension COPD peripheral vascular disease in this patient with previous history of femoral bypass patient presenting to the ER for evaluation of increasing shortness of breath that apparently has been getting worse for the last few days. Denies having any chest pain he did have a cough mild to moderate intensity not bringing up any sputum patient also have a chronic nonhealing wound to the left lower extremity for the patient is currently getti ng treatment at [facility] [place] patient was noticed to have some erythema around the wound concerning for wound infection for the patient was started on cefazolin infectious disease was consulted for further management of antibiotic therapy patient did have slight more swelling to the left lower extremity with minimal erythema however denies having any foul-smelling drainage from the wound denies high-grade fever or any chills no nausea no vomiting and no diarrhea Review of Systems Positive point has been mentioned in HPI, rest of the systems are negative Past Medical History Past Medical History: COPD, Deep Vein Thrombosis (DVT), Hypertension, Osteoarthritis (OA), Pulmonary Embolus (PE), Skin Disorder, Vascular Disorder Additional Past Medical History / Comment(s): Wound open sore left posterior [place]ardi, [facility] patient. PE, DVT 03/07/21. Edema feet mild. History of Any Multi-Drug Resistant Organisms: None Reported Past Surgical History: Cholecystectomy Additional Past Surgical History / Comment(s): Lt leg Femoral-femoral bypass 01/26/21. PICC line, now removed. Past Anesthesia/Blood Transfusion Reactions: No Reported Reaction Past Psychological History: No Psychological Hx Reported Smoking Status: Former smoker Past Alcohol Use History: Rare Additional Past Alcohol Use History / Comment(s): Smoked 1ppd for 30 yrs, quit 03/07/21. Past Drug Use History: None Reported - Past Family History Father Family Medical History: Cancer, Myocardial Infarction ([place]) Additional Family Medical History / Comment(s): Lung CA Mother Family Medical History: Cancer Additional Family Medical History / Comment(s): pancreatic cancer Sister(s) Family Medical History: Cancer Additional Family Medical History / Comment(s): Leukemia Medications and Allergies Home Medications Medication Instructions Recorded Confirmed Type Benazepril [Lotensin] 10 mg PO DAILY 01/21/21 01/21/22 History Clopidogrel Bisulfate [Plavix] 75 mg PO DAILY 03/07/21 01/21/22 History Fluticasone Propion/Salmeterol 1 puff INHALATION RT-BID 03/07/21 01/21/22 History [Advair 250-50 Diskus] Furosemide [Lasix] 40 mg PO DAILY 03/07/21 01/21/22 History Multivitamins, Thera [Multivitamin 1 tab PO DAILY 03/07/21 01/21/22 History (formulary)] Ascorbic Acid [Vitamin C] 500 mg PO DAILY tab 03/10/21 01/21/22 Rx Cholecalciferol [Vitamin D3 (25 25 mcg PO DAILY tablet 03/10/21 01/21/22 Rx Mcg = 1000 Iu)] Zinc 50 mg PO DAILY 04/11/21 01/21/22 History Albuterol Nebulized [Ventolin 2.5 mg INHALATION RT-Q6H PRN 01/21/22 01/21/22 History Nebulized] Apixaban [Eliquis] 5 mg PO BID 01/21/22 01/21/22 History Famotidine 40 mg PO HS 01/21/22 01/21/22 History Gabapentin [Neurontin] 300 mg PO Q8H 01/21/22 01/21/22 History Meloxicam [Mobic] 7.5 mg PO DAILY 01/21/22 01/21/22 History Nicotine Polacrilex [Nicotine Gum] 4 mg BUCCAL DIRECTED PRN 01/21/22 01/21/22 History Sertraline [Zoloft] 25 mg PO DAILY 01/21/22 01/21/22 History Cephalexin [Keflex] 500 mg PO Q8HR 10 Days #30 cap 01/23/22 Rx Famotidine [Pepcid] 20 mg PO BID #60 tablet 01/23/22 Rx Ipratropium-Albuterol Nebulize 3 ml INHALATION RT-QID #24 each 01/23/22 Rx [Duoneb 0.5 mg-3 mg/3 ml Soln] predniSONE [Deltasone] 0 mg PO DIRECTED 13 Days #13.5 01/23/22 Rx tab Allergies Allergy/AdvReac Type Severity Reaction Status Date / Time No Known Allergies Allergy Verified 01/21/22 17:15 Physical Exam Vitals: Vital Signs Temp Pulse Pulse Pulse Resp BP BP 01/22/22 15:44 88 01/22/22 15:33 88 01/22/22 14:00 16 01/22/22 13:39 97.1 F L 91 16 149/84 01/22/22 12:02 80 01/22/22 11:49 80 01/22/22 11:07 79 138/88 01/22/22 08:34 18 01/22/22 07:47 80 01/22/22 07:35 76 01/22/22 07:00 97.5 F L 76 18 134/80 01/22/22 02:46 97.8 F 87 19 137/78 01/21/22 23:41 22 01/21/22 22:05 98.5 F 100 20 129/69 01/21/22 20:35 88 01/21/22 20:25 90 01/21/22 19:05 92 18 141/93 01/21/22 16:47 100 20 132/87 Pulse Ox 01/22/22 15:44 01/22/22 15:33 01/22/22 14:00 01/22/22 13:39 92 L 01/22/22 12:02 01/22/22 11:49 01/22/22 11:07 01/22/22 08:34 01/22/22 07:47 01/22/22 07:35 01/22/22 07:00 96 01/22/22 02:46 100 01/21/22 23:41 01/21/22 22:05 96 01/21/22 20:35 01/21/22 20:25 01/21/22 19:05 96 01/21/22 16:47 96 Intake and Output 01/22/22 01/22/22 01/22/22 06:59 14:59 22:59 Intake Total 500 Output Total 600 525 600 Balance -100 -525 -600 Intake: Oral 500 Output: Urine 600 525 600 Other: Voiding Method Urinal Urinal GENERAL DESCRIPTION: Middle-aged male lying in bed, no distress. No tachypnea or accessory muscle of respiration use. HEENT: Shows Pallor , no scleral icterus. Oral mucous membrane is dry. No pharyngeal erythema or thrush NECK: Trachea central, no thyromegaly. LUNGS: Unlabored breathing. Coarse breath sounds bilaterally HEART: S1, S2, regular rate and rhythm. No loud murmur ABDOMEN: Soft, no tenderness , guarding or rigidity, no organomegaly EXTREMITIES: Left leg wound base with no slough tissue minimal surrounding swelling and redness no foul-smelling drainage. SKIN: No rash, no masses palpable. NEUROLOGICAL: The patient is awake, alert, oriented x3, mood and affect normal. Results CBC & Chem 7: 01/21/22 15:13 01/21/22 15:13 Assessment and Plan (1) Cellulitis of left lower leg Status: Acute Code(s): L03.116 - CELLULITIS OF LEFT LOWER LIMB SNOMED Code(s): 486089932 Plan: 1patient with a chronic nonhealing wound to the left lower extremity in this patient who do have history of underlying peripheral arterial disease and is status post bypass surgery with concern for possible secondary cellulitis likely from gram-positive skin monica. 2patient to continue cefazolin 2 g every 8 hours. 3local wound care with a dry Aquacel silver dressing change every 48 hour. We will follow on clinical condition and cultures to further adjust medication if needed Thank you for this consultation will follow this patient along with you Time with Patient: Greater than 30
[2022-01-23 11:07] VITALS: BP 138/80
[2022-01-23] MEDS: APIXABAN 5 MG TAB PO SCH (11:07)
[2022-01-23] MEDS: ASCORBIC ACID 500 MG TAB PO SCH (11:08)
[2022-01-23] MEDS: CHOLECALCIFEROL 25 MCG (1000 IU) TABLET PO SCH (11:08)
[2022-01-23] MEDS: CLOPIDOGREL 75 MG TAB PO SCH (11:09)
[2022-01-23] MEDS: lisinopriL 10 MG TAB PO SCH (11:10)
[2022-01-23] MEDS: FUROSEMIDE 40 MG TAB PO SCH (11:10)
[2022-01-23] MEDS: predniSONE 20 MG TAB PO SCH (11:10)
[2022-01-23] MEDS: SERTRALINE 25 MG TAB PO SCH (11:11)
[2022-01-23] MEDS: ZINC SULFATE 220 MG CAP PO SCH (11:12)
[2022-01-23 15:57] VITALS: PULSE 80
--- NOTE | 2022-01-25 21:33 | P.DS ---
Providers Date of admission: 01/21/22 18:56 Attending physician: Sigifredo Barakat MD Consults: 01/22/22 14:17 Consult Physician Routine Consulting Provider: Dl William Consult Reason/Comments: cellulitis Do you want consulting provider notified?: Yes Primary care physician: Chip Bauman [facility] Hospital Course: Final Diagnosis Shortness of breath Acute COPD exacerbation mostly viral etiology Acute hypoxic respiratory failure secondary to above Chronic lower extremity History of PE/DVT maintained on eliquis at home History of femoro-femoral bypass secondary to severe peripheral vascular disease Hypertension History of degenerative disc disease History of cholecystectomy Morbid obesity possible obesity hypovenilation syndrome. Discharge Disposition Patient is stable for discharge home. Patient will be discharged on home oxygen via nasal cannula at 2 to 3 L. Patient will also complete steroid burst and taper. Patient is discharged on course of oral keflex for lower extremity cellulitis. Recommended to see Dr Bauman in 1 to 2 days. Patient to follow up in the wound care center with Dr. Stone as previous. Continue with local wound care. Hospital Course This is a 56-year-old male patient of Dr. Bauman past history significant for DVT, PE, hypertension, COPD, peripheral vascular disease with femoral bypass. He is anticoagulated with eliquis. Patient is a former smoker quit about 1 year ago smoked one pack per day for 30 years. Patient presents with complaints of shortness of breath worse when lying down that is ongoing for the past couple weeks. He currently denies fever and chills. He reports nonproductive cough. No chest pain. Patient does have chronic wound of the left foot that he follows with the wound care for. Chest xray showing no acute process. He is noted to have audible expiratory wheeze and was admitted for acute COPD exacerbation and started on bronchodilators and oral prednisone at 40 mg daily. Patient also was placed on 3L nasal cannula he was hypoxic on room air on admission. His labs are unremarkable, no white count, troponin negative, proBNP 64. He is covid negative, influenza A/B negative. Most likely a viral etiology, patient currently does not have a white count, troponin negative. ProBNP 64. Procalcitonin level negative. Patient also has lower extremity cellulitis on the left he does have redness and tender to palpation. For this reason patient will be started on IV cefazolin and Dr. William consulted for further evaluation. Local wound care recommended with aquacel rope to change every 48 hours. He as monitored overnight and redness improved. Shortness of breath and cough improved. Patient will be discharged home on oral keflex and also required home oxygen on discharge. 01/23/2022 Patient is evaluated today resting in bed. Continues on 3 L nasal cannula. He denies shortness of breath, denies chest pain. Redness and tenderness have improved to his left lower extremity. Local wound care with aquacel rope and kerlex in place. He will be transitioned to oral keflex and discharged home today. His lungs are clear, no audible wheezing. S1 S2 auscultated. Alert x3, focal neurological exam is negative. Oxygen saturation 80% on room air with exercise. For this reason patient will be discharged home on oxygen via nasal cannula. He has remained afebrile, heart rate 80, blood pressure 138/80. Please see medication reconciliation for a list of current medication. Thank you for allowing us to participate in the care of this patient. The impression and plan of care has been dictated by Irma Delong, Nurse Practitioner as directed. Dr. Martín MD I have performed a history and physical examination and medical decision making of this patient, discussed the same with the dictator, and agree with the [facility] assessment and plan as written, documented as a scribe. Based on total visit time, I have performed more than 50% of this visit. Patient Condition at Discharge: Stable Plan - Discharge Summary New Discharge Prescriptions: New Ipratropium-Albuterol Nebulize [Duoneb 0.5 mg-3 mg/3 ml Soln] 3 ml INHALATION RT-QID #24 each Famotidine [Pepcid] 20 mg PO BID #60 tablet predniSONE [Deltasone] 0 mg PO DIRECTED 13 Days #13.5 tab Cephalexin [Keflex] 500 mg PO Q8HR 10 Days #30 cap Continue Benazepril [Lotensin] 10 mg PO DAILY Clopidogrel Bisulfate [Plavix] 75 mg PO DAILY Fluticasone Propion/Salmeterol [Advair 250-50 Diskus] 1 puff INHALATION RT- BID Multivitamins, Thera [Multivitamin (formulary)] 1 tab PO DAILY Ascorbic Acid [Vitamin C] 500 mg PO DAILY tab Cholecalciferol [Vitamin D3 (25 Mcg = 1000 Iu)] 25 mcg PO DAILY tablet Zinc 50 mg PO DAILY Sertraline [Zoloft] 25 mg PO DAILY Gabapentin [Neurontin] 300 mg PO Q8H Famotidine 40 mg PO HS Furosemide [Lasix] 40 mg PO DAILY Albuterol Nebulized [Ventolin Nebulized] 2.5 mg INHALATION RT-Q6H PRN PRN Reason: Shortness Of Breath Nicotine Polacrilex [Nicotine Gum] 4 mg BUCCAL DIRECTED PRN PRN Reason: Nicotine Cravings Meloxicam [Mobic] 7.5 mg PO DAILY Apixaban [Eliquis] 5 mg PO BID Discharge Medication List Benazepril [Lotensin] 10 mg PO DAILY 01/21/21 [History] Clopidogrel Bisulfate [Plavix] 75 mg PO DAILY 03/07/21 [History] Fluticasone Propion/Salmeterol [Advair 250-50 Diskus] 1 puff INHALATION RT-BID 03/07/21 [History] Furosemide [Lasix] 40 mg PO DAILY 03/07/21 [History] Multivitamins, Thera [Multivitamin (formulary)] 1 tab PO DAILY 03/07/21 [History] Ascorbic Acid [Vitamin C] 500 mg PO DAILY tab 03/10/21 [Rx] Cholecalciferol [Vitamin D3 (25 Mcg = 1000 Iu)] 25 mcg PO DAILY tablet 03/10/21 [Rx] Zinc 50 mg PO DAILY 04/11/21 [History] Albuterol Nebulized [Ventolin Nebulized] 2.5 mg INHALATION RT-Q6H PRN 01/21/22 [History] Apixaban [Eliquis] 5 mg PO BID 01/21/22 [History] Famotidine 40 mg PO HS 01/21/22 [History] Gabapentin [Neurontin] 300 mg PO Q8H 01/21/22 [History] Meloxicam [Mobic] 7.5 mg PO DAILY 01/21/22 [History] Nicotine Polacrilex [Nicotine Gum] 4 mg BUCCAL DIRECTED PRN 01/21/22 [History] Sertraline [Zoloft] 25 mg PO DAILY 01/21/22 [History] Cephalexin [Keflex] 500 mg PO Q8HR 10 Days #30 cap 01/23/22 [Rx] Famotidine [Pepcid] 20 mg PO BID #60 tablet 01/23/22 [Rx] Ipratropium-Albuterol Nebulize [Duoneb 0.5 mg-3 mg/3 ml Soln] 3 ml INHALATION RT-QID #24 each 01/23/22 [Rx] predniSONE [Deltasone] 0 mg PO DIRECTED 13 Days #13.5 tab 01/23/22 [Rx] Follow up Appointment(s)/Referral(s): Chip Bauman III, MD [Primary Care Provider] - 1-2 days [facility] [NON-STAFF] - 1 Week Ambulatory/Diagnostic Orders: Basic Metabolic Panel [LAB.AMB] Time Frame: 3 Days, Location: None Selected Patient Instructions/Handouts: Cellulitis (GEN), Using Oxygen at Home (DC), COPD (Chronic Obstructive Pulmonary Disease) (DC) Activity/Diet/Wound Care/Special Instructions: Continue to follow up with Dr. Stone in wound care center as previous. Wound care recommendations from this hospital stay include dry aquacel silver dressing change every 48 hours Discharge Disposition: HOME WITH HOME HEALTH SERVICES
--- NOTE | 2022-01-31 00:01 | P.PN ---
Subjective Progress Note Date: 01/23/22 Principal diagnosis: L leg wound and cellulitis Patient is a 56-year-old male with a past medical history significant for chronic nonhealing wound to the left lower extremity admitted to the hospital with increasing shortness of breath and concern for possible cellulitis of the left leg. On today's evaluation that is 01/23/2022, the patient denies having any fever or any chills he is breathing slightly comfortably no chest pain occasional cough denies any worsening pain to the left lower extremity and no diarrhea Objective - Vital Signs Vital signs: Vital Signs Temp 97.2 F L 01/23/22 07:15 Pulse 80 01/23/22 16:02 Resp 19 01/23/22 07:15 BP 138/80 01/23/22 11:05 Pulse Ox 95 01/23/22 10:55 FiO2 - Exam GENERAL DESCRIPTION: Middle-aged male lying in bed, no distress. No tachypnea or accessory muscle of respiration use. LUNGS: Unlabored breathing decrease intensity of breath sounds HEART: S1, S2, regular rate and rhythm. No loud murmur ABDOMEN: Soft, no tenderness , guarding or rigidity, no organomegaly EXTREMITIES: Left leg is currently dressed no drainage on the dressing - Labs CBC & Chem 7: 01/21/22 15:13 01/21/22 15:13 Assessment and Plan (1) Cellulitis of left lower leg Status: Acute Code(s): L03.116 - CELLULITIS OF LEFT LOWER LIMB SNOMED Code(s): 889023889 Plan: 1patient with a chronic nonhealing wound to the left lower extremity in this patient who do have history of underlying peripheral arterial disease and is status post bypass surgery with concern for possible secondary cellulitis likely from gram-positive skin monica. 2 local wound care with a dry Aquacel silver dressing change every 48 hour. 3patient to finish therapy short course of oral Keflex on discharge and close outpatient follow-up discussed with the [facility]ERRICK OPERATOR for admitting team working on discharge Time with Patient: Less than 30
== END 2022-01-23 16:14 | disposition home health service (06) ==
LOC: EC 14:42 → 6NMEDSUR 18:56
PROVIDERS: ADMIT Internal Medicine; ATTEND Internal Medicine
DX: J96.01 Acute respiratory failure with hypoxia (principal); J44.1 Chronic obstructive pulmonary disease with (acute) exacerbation; I10 Essential (primary) hypertension; L97.322 Non-pressure chronic ulcer of left ankle with fat layer exposed; L03.116 Cellulitis of left lower limb; I73.9 Peripheral vascular disease, unspecified; E66.01 Morbid (severe) obesity due to excess calories; Z68.43 Body mass index [BMI] 50.0-59.9, adult; Z20.822 Contact with and (suspected) exposure to COVID-19; M19.90 Unspecified osteoarthritis, unspecified site; Z86.711 Personal history of pulmonary embolism; Z90.49 Acquired absence of other specified parts of digestive tract; Z86.718 Personal history of other venous thrombosis and embolism; Z98.890 Other specified postprocedural states; Z87.891 Personal history of nicotine dependence; Z82.49 Family history of ischemic heart disease and other diseases of the circulatory system; Z80.1 Family history of malignant neoplasm of trachea, bronchus and lung; Z80.0 Family history of malignant neoplasm of digestive organs; Z80.6 Family history of leukemia; Z79.1 Long term (current) use of non-steroidal anti-inflammatories (NSAID); Z79.02 Long term (current) use of antithrombotics/antiplatelets; Z79.01 Long term (current) use of anticoagulants; Z79.51 Long term (current) use of inhaled steroids; Z79.899 Other long term (current) drug therapy
CPT/HCPCS: 96365; 96366; 99285; 36415; 94640 ×5; 93005; 85379; 83880; 80053; 83605; 84484; 85025; 85610; 85730; 87502; 84145; 87635; 71046; G0378 ×3; J0690 ×2; J7512 ×3

== ENCOUNTER 2022-03-18 12:33 | Emergency (ER) | payer OTHER ==
[2022-03-18 12:47] VITALS: TEMP 97.8
[2022-03-18 15:13] LABS: Basophils % (A) 0 %; Eosinophils # (A) 0.1 k/uL (0-0.7); Eosinophils % (A) 2 %; HCT 39.7 % (39.0-53.0); HGB 13.3 gm/dL (13.0-17.5); Lymphocytes # (A) 1.1 k/uL (1.0-4.8); Lymphocytes % (A) 14 %; MCHC 33.5 g/dL (31.0-37.0); MCV 95.5 fL (80.0-100.0); Mean Platelet Volume 8.3; Monocytes # (A) 0.4 k/uL (0-1.0); Monocytes % (A) 5 %; Neutrophils # (A) 5.9 k/uL (1.3-7.7); Neutrophils % (A) 77 %; Platelet Count 232 k/uL (150-450); RBC 4.16 m/uL (4.30-5.90); WBC 7.6 k/uL (3.8-10.6)
[2022-03-18 15:22] LABS: Chloride 103 mmol/L (98-107)
[2022-03-18 15:23] LABS: ALT 30 U/L (4-49); AST 28 U/L (17-59); African American GFR (CKD) >90 (>60 ml/min/1.73 sqM); Alkaline Phosphatase 80 U/L (38-126); Anion Gap 7 mmol/L; Blood Urea Nitrogen 20 mg/dL (9-20); Calcium 8.6 mg/dL (8.4-10.2); Carbon Dioxide 28 mmol/L (22-30); Glucose 93 mg/dL (74-99); Non-African American GFR(CKD) >90 (>60 ml/min/1.73 sqM); Potassium 4.4 mmol/L (3.5-5.1); Sodium 138 mmol/L (137-145); Total Bilirubin 0.6 mg/dL (0.2-1.3); Total Protein 6.6 g/dL (6.3-8.2)
--- NOTE | 2022-03-18 15:37 | XR ---
EXAMINATION TYPE: XR tibia fibula LT DATE OF EXAM: 03/18/2022 COMPARISON: Left ankle HISTORY: Pain, swelling TECHNIQUE: 2 view left tibia and fibula FINDINGS: Ankle joint space is limited evaluation on these images. There is diffuse soft tissue swell ing through the left tibia and fibula. Some calcifications within the soft tissues proximal anterior region. No cortical erosions are identified. IMPRESSION: 1. Diffuse soft tissue swelling. No definite changes of osteomyelitis within the [id number].
--- NOTE | 2022-03-18 15:41 | XR ---
EXAMINATION TYPE: XR ankle limited LT DATE OF EXAM: 03/18/2022 COMPARISON: Left tibia and fibula same date HISTORY: Pain swelling cellulitis TECHNIQUE: 2 view left ankle FINDINGS: Some widening of the medial portion of the ankle mortise. Lateral portion is not well visua lized. No definite fractures are evident. Cortical erosion is not evident. Diffuse soft tissue swelli ng is present. Achilles tendon spur is present. IMPRESSION: 1. Diffuse soft tissue swelling greater on the lateral ankle. Ankle mortise may be somewhat asymmetr ic. No definite cortical erosion to suggest osteomyelitis. Three-phase bone scan could be performed f or sufficient clinical suspicion.
--- NOTE | 2022-03-18 17:19 | ED ---
General Adult HPI - General Chief complaint: Skin/Abscess/Foreign Body Stated complaint: lt leg cellulitis Time Seen by Provider: 03/18/22 16:55 Source: patient, RN notes reviewed Mode of arrival: wheelchair Limitations: no limitations - History of Present Illness Initial comments: Patient is a 56-year-old male who presents to the emergency room with complaints of increased left lower extremity pain, redness and drainage. He reports that his home health care nurse advised him to go to the emergency room in regards of concern for cellulitis and severe infection. He previously was seen by the wound care clinic for ulcers to the same area but reports that there is increased redness in the region. He reports that his swelling has increased slightly. He reports that the wound has clear yellowish drainage that is saturating the dressings that are applied to his lower extremity often. He has chronic lower extremity swelling and decreased range of motion that is not significantly changed and he is wheelchair-bound. He was on a course of antibiotics in January of this year but has not been on any antibiotics in February; he was on Keflex in January according to pharmacy evaluation. He denies any systemic symptoms including but not limited to any fevers, chills, chest pain, shortness of breath, altered mental status, lethargy, fatigue, abdominal pain, nausea, vomiting or generalized weakness. In addition to his chronic venous stasis ulcer is a past medical history significant for COPD, hypertension, DVT, osteoarthritis, nares pulmonary emboli, peripheral vascular disease/insufficiency. - Related Data Home Medications Medication Instructions Recorded Confirmed Benazepril [Lotensin] 10 mg PO DAILY 01/21/21 03/18/22 Clopidogrel Bisulfate [Plavix] 75 mg PO DAILY 03/07/21 03/18/22 Fluticasone Propion/Salmeterol 1 puff INHALATION RT-BID 03/07/21 03/18/22 [Advair 250-50 Diskus] Furosemide [Lasix] 40 mg PO DAILY 03/07/21 03/18/22 Multivitamins, Thera [Multivitamin 1 tab PO DAILY 03/07/21 03/18/22 (formulary)] Zinc 50 mg PO DAILY 04/11/21 03/18/22 Albuterol Nebulized [Ventolin 2.5 mg INHALATION RT-Q6H PRN 01/21/22 03/18/22 Nebulized] Apixaban [Eliquis] 5 mg PO BID 01/21/22 03/18/22 Famotidine 40 mg PO HS 01/21/22 03/18/22 Gabapentin [Neurontin] 300 mg PO Q8H 01/21/22 03/18/22 Meloxicam [Mobic] 7.5 mg PO DAILY 01/21/22 03/18/22 Nicotine Polacrilex [Nicotine Gum] 4 mg BUCCAL Q1H PRN MDD 24 doses 01/21/22 03/18/22 Sertraline [Zoloft] 25 mg PO DAILY 01/21/22 03/18/22 Previous Rx's Medication Instructions Recorded Ascorbic Acid [Vitamin C] 500 mg PO DAILY tab 03/10/21 Cholecalciferol [Vitamin D3 (25 25 mcg PO DAILY tablet 03/10/21 Mcg = 1000 Iu)] Famotidine [Pepcid] 20 mg PO BID #60 tablet 01/23/22 Ipratropium-Albuterol Nebulize 3 ml INHALATION RT-QID #24 each 01/23/22 [Duoneb 0.5 mg-3 mg/3 ml Soln] clindamycin HCL [Cleocin] 300 mg PO Q6HR 10 Days #40 cap 03/18/22 Allergies Allergy/AdvReac Type Severity Reaction Status Date / Time No Known Allergies Allergy Verified 01/21/22 17:15 Review of Systems ROS Statement: Those systems with pertinent positive or pertinent negative responses have been documented in the HPI. ROS Other: All systems not noted in ROS Statement are negative. Past Medical History Past Medical History: COPD, Deep Vein Thrombosis (DVT), Hypertension, Osteoarthritis (OA), Pulmonary Embolus (PE), Skin Disorder, Vascular Disorder Additional Past Medical History / Comment(s): Wound open sore left posterior lombardi, [facility] patient. PE, DVT 03/07/21. Edema feet mild. History of Any Multi-Drug Resistant Organisms: None Reported Past Surgical History: Cholecystectomy Additional Past Surgical History / Comment(s): Lt leg Femoral-femoral bypass 01/26/21. PICC line, now removed. Past Anesthesia/Blood Transfusion Reactions: No Reported Reaction Past Psychological History: No Psychological Hx Reported Smoking Status: Former smoker Past Alcohol Use History: Rare Past Drug Use History: None Reported - Past Family History Father Family Medical History: Cancer, Myocardial Infarction ([place]) Additional Family Medical History / Comment(s): Lung CA Mother Family Medical History: Cancer Additional Family Medical History / Comment(s): pancreatic cancer Sister(s) Family Medical History: Cancer Additional Family Medical History / Comment(s): Leukemia General Exam - General Exam Comments Initial Comments: GENERAL: No acute distress, well developed, well nourished. HEENT: Normocephalic, atraumatic. Pupils equal, round, reactive to light. LUNGS: Diminished throughout otherwise clear to auscultation, no adventitious sounds, no use of accessory muscles. HEART: Regular rate and rhythm without murmur, rub, or gallop. ABDOMEN: Normal bowel sounds. Soft, non-tender, non-distended. DERMATOLOGIC: Left lower extremity erythema with venous stasis ulcers 2 one anteriorly and posteriorly. No evidence of necrosis. Granulation tissue noted. Yellow clear serous drainage of copious amounts on dressing with weepage noted throughout left lower extremity. Foul odor noted dressing reapplied with culture obtained. EXTREMITIES: Bilateral lower extremity edema left greater than right. NEUROLOGIC: Alert & oriented x 3. CN II-XII grossly intact. PSYCHIATRIC: Normal affect and behavior. Limitations: physical limitation Course Vital Signs 03/18/22 03/18/22 12:41 18:15 Temperature 97.8 F 97.8 F Pulse Rate 80 68 Respiratory 16 22 Rate Blood Pressure 155/75 142/78 O2 Sat by Pulse 93 L 95 Oximetry Medical Decision Making - Medical Decision Making Was pt. sent in by a medical professional or institution? @ -Advised by home health care nurse Did you speak to anyone other than the patient for history? @ -No Did you review nursing and triage notes? @ -Yes and agree Were old charts reviewed? @ -Previous pharmacy reports regarding antibiotic therapy Differential Diagnosis? @ -Differential diagnosis lower extremity swelling with wound, cellulitis, chronic venous insufficiency, osteomyelitis, this is not meant to be an all- inclusive list. EKG interpreted by me (3pts min.)? @ -None X-rays interpreted by me (1pt min.)? @ -X-ray left ankle image interpreted by me demonstrates soft tissue swelling no definitive ostia occlusion. X-ray tibia-fibula left image interpreted by me demonstrates soft tissue swelling with no fracture or dislocation. No focal osseous lesions noted. CT interpreted by me (1pt min.)? @ -None U/S interpreted by me (1pt. min.)? @ -None What testing was considered but not performed? (CT, X-rays, U/S, labs)? Why? @-None What meds were considered but not given? Why? @ -None Did you discuss the management of the patient with other professionals? @ -Pharmacy to verify previous antibiotic treatment and case management for establishing and setting up wound care treatment Did you reconcile home meds? @ -Reviewed not reconciled Was smoking cessation discussed for >3mins.? @ -None Was critical care preformed (if so, how long)? @ -None Were there social determinants of health that impacted care today? How? (Homelessness, low income, unemployed, alcoholism, drug addiction, transportation, low edu. Level, literacy, decrease access to med. care, care home, rehab)? @ -Transportation coordinated with case management to assist with wound care appointments and transportation with outpatient case support person. Was there de-escalation of care discussed even if they declined? (Discuss DNR or withdrawal of care, Hospice)? @ -No What co-morbidities impacted this encounter? (DM, HTN, Smoking, COPD, CAD, Cancer, CVA, Hep., AIDS, mental health diagnosis, sleep apnea, morbid obesity)? @ -Peripheral vascular disease Was patient admitted / discharged? @ -Lower extremity left leg swelling with multiple vascular ulcers with significant drainage of serous fluid and odor with uricemia. No recent antibiotic prescription for antibiotic therapy in January. X-ray of ankle and tibia-fibula obtained. CBC, CMP along with wound culture also obtained. X-rays without of evidence of osteomyelitis as indicated above. CBC unremarkable, CMP normal. Wound care completed and culture obtained. Wound redressed. Given lack of recent antibiotic therapy leukocytosis or other systemic symptoms no indication for IV antibiotics and inpatient admission. Will give dose of oral clindamycin in the absence of IV contrast and availability in place on oral clindamycin outpatient. Return parameters to the emergency room reviewed. Will discharge home in stable condition with dressing intact to left lower extremity on oral antibiotic therapy to follow-up with wound care clinic and his primary care provider. Undiagnosed new problem with uncertain prognosis? @ -None Drug Therapy requiring intensive monitoring for toxicity (Heparin, Nitro, Insulin, Cardizem)? @ -None Were any procedures done? @ -Dressing change, wound care. Nonadherent dressing with 4 x 4 Kerlix and Coban applied to left lower extremity tolerated well. Diagnosis/symptom? @ -Cellulitis Acute, or Chronic, or Acute on Chronic? @ -Acute on chronic Uncomplicated (without systemic symptoms) or Complicated (systemic symptoms)? @ -Uncomplicated Side effects of treatment? @ -None Exacerbation, Progression, or Severe Exacerbation] @ -No Poses a threat to life or bodily function? @ -No Diagnosis/symptom? @ -Chronic venous stasis ulcer of left lower extremity Acute, or Chronic, or Acute on Chronic? @ -Chronic Uncomplicated (without systemic symptoms) or Complicated (systemic symptoms)? @ -Complicated Side effects of treatment? @ -None Exacerbation, Progression, or Severe Exacerbation] @ -Now Poses a threat to life or bodily function? @ -No Case discussed with Dr. Payne - Lab Data Result diagrams: 03/18/22 12:48 03/18/22 12:48 Lab Results 03/18/22 03/18/22 Range/Units 12:48 12:48 WBC 7.6 (3.8-10.6) k/uL RBC 4.16 L (4.30-5.90) m/uL Hgb 13.3 (13.0-17.5) gm/dL Hct 39.7 (39.0-53.0) % MCV 95.5 (80.0-100.0) fL MCH 32.0 (25.0-35.0) pg MCHC 33.5 (31.0-37.0) g/dL RDW 15.0 (11.5-15.5) % Plt Count 232 (150-450) k/uL MPV 8.3 Neutrophils % 77 % Lymphocytes % 14 % Monocytes % 5 % Eosinophils % 2 % Basophils % 0 % Neutrophils # 5.9 (1.3-7.7) k/uL Lymphocytes # 1.1 (1.0-4.8) k/uL Monocytes # 0.4 (0-1.0) k/uL Eosinophils # 0.1 (0-0.7) k/uL Basophils # 0.0 (0-0.2) k/uL Sodium 138 (137-145) mmol/L Potassium 4.4 (3.5-5.1) mmol/L Chloride 103 (98-107) mmol/L Carbon Dioxide 28 (22-30) mmol/L Anion Gap 7 mmol/L BUN 20 (9-20) mg/dL Creatinine 0.75 (0.66-1.25) mg/dL Est GFR (CKD-EPI)AfAm >90 (>60 ml/min/1.73 sqM) Est GFR (CKD-EPI)NonAf >90 (>60 ml/min/1.73 sqM) Glucose 93 (74-99) mg/dL Calcium 8.6 (8.4-10.2) mg/dL Total Bilirubin 0.6 (0.2-1.3) mg/dL AST 28 (17-59) U/L ALT 30 (4-49) U/L Alkaline Phosphatase 80 (38-126) U/L Total Protein 6.6 (6.3-8.2) g/dL Albumin 4.0 (3.5-5.0) g/dL Disposition Clinical Impression: Cellulitis of left lower leg, Non-pressure chronic ulcer of left ankle with fat layer exposed, Non-pressure chronic ulcer of left calf with fat layer exposed Disposition: HOME SELF-CARE Condition: Stable Instructions (If sedation given, give patient instructions): Cellulitis (ED), Leg Edema (ED), Chronic Wounds (ED) Prescriptions: clindamycin HCL [Cleocin] 300 mg PO Q6HR 10 Days #40 cap Is patient prescribed a controlled substance at d/c from ED?: No Referrals: Chip Bauman III, MD [Primary Care Provider] - 1-2 days [facility] [NON-STAFF] - As Soon As Possible ([facility] Center has been notified of the consult. They will reach out to you regarding an appointment.) Time of Disposition: 17:53
[2022-03-18] MEDS ORDERED: MORPHINE SULFATE 4 MG/ML SYRINGE IM STA (17:20)
[2022-03-18] MEDS ORDERED: CLINDAMYCIN 150 MG/ML 4 ML VIAL IM STA (17:52)
[2022-03-18] MEDS ORDERED: CLINDAMYCIN 150 MG CAP PO ONE (18:15)
[2022-03-18 18:17] VITALS: BP 142/78; PULSE 68; RESP 22
== END 2022-03-18 18:15 | disposition home or self-care (01) ==
LOC: EC 12:33
DX: L03.116 Cellulitis of left lower limb (principal); L97.222 Non-pressure chronic ulcer of left calf with fat layer exposed; L97.322 Non-pressure chronic ulcer of left ankle with fat layer exposed; I10 Essential (primary) hypertension; J44.9 Chronic obstructive pulmonary disease, unspecified; M19.90 Unspecified osteoarthritis, unspecified site; Z79.01 Long term (current) use of anticoagulants; Z79.899 Other long term (current) drug therapy; Z87.891 Personal history of nicotine dependence
CPT/HCPCS: 36415; 80053; 85025; 87070; 87205; 87077; 87186; 73590; 73600; 99283; 96372; J2270

== ENCOUNTER → 2022-03-27 | Outpatient (CLI) | payer OTHER ==
--- NOTE | 2022-03-27 11:06 | US ---
EXAMINATION TYPE: US venous doppler duplex LE LT DATE OF EXAM: 03/27/2022 10:57 AM COMPARISON: CLINICAL HISTORY: I80.9 PHLEBITIS AND THROMBOPHLEBITIS OF UNSPECIFIE. Leg swelling, on blood thinners . SIDE PERFORMED: Left TECHNIQUE: The lower extremity deep venous system is examined utilizing real time linear array sonog matt with graded compression, doppler sonography and color-flow sonography. VESSELS IMAGED: Common Femoral Vein Deep Femoral Vein Greater Saphenous Vein * Femoral Vein Popliteal Vein Small Saphenous Vein * Proximal Calf Veins (* superficial vessels) Grayscale, color doppler, spectral doppler imaging performed of the deep veins of the lower extremiti es. There is normal flow, compressibility, vascular waveforms. Suboptimal due to patient body habitus Left Leg: Negative for DVT IMPRESSION: Suboptimal examination due to patient's body habitus. No ultrasound evidence for deep venous thrombos is of the left lower extremity within these limitations.
== END | disposition home or self-care (01) ==
LOC: RADUSWWP 10:25
PROVIDERS: ATTEND Emergency Medicine
DX: I80.3 Phlebitis and thrombophlebitis of lower extremities, unspecified (principal)

== ENCOUNTER → 2022-08-25 | Outpatient (CLI) | payer OTHER ==
--- NOTE | 2022-08-25 16:46 | P.PN ---
Progress Note - Text Progress Note Date: 08/25/22 57-year-old male patient was coming in for a compliance check regarding his sleep apnea treatment. This patient is diagnosed having severe symptomatic obstructive sleep apnea. The patient underwent a screening polysomnography on 05/19/2022 and the patient was diagnosed having severe ELEANOR with an AHI of 98. He also demonstrated severe nocturnal oxygen desaturation. Is morbidly obese with a BMI 57.9. He has chronic COPD with chronic hypoxic respiratory failure and other comorbidities including previous history of DVT, peripheral vascular disease and peripheral neuropathy and hypertension. He is a smoker. The patient underwent a CPAP/BiPAP titration on 05/25/2022 and ultimately was ti trated to a BiPAP pressure of 22/18 cm of water. He was offered a VPAP auto at a pressure minimum EPAP of 12, neck some pressure of 22 and a pressure support of 4. He is coming in today for a follow-up. I noted that the patient was given a resVent BiPAP unit. He was also given a Simplus fullface mask. I noted that initially, he was compliant and over the past 1 month, his compliancy gradually went down. The patient was using his machine regularly. More recently, there has been drop in a number of hours that he has used. The patient was sleeping on a decline in the transition himself to the bed and with this transition, he was unable to use the mask and he was having excessive amount of leaks and he was not tolerant to the treatment. Over the past 30 days, the patient utilized the machine 17 out of 30 days and his been averaging only 2.5 hours of BiPAP use per night. His average pressure delivered by the machine is 14.5 over 10.1 cm of water. His leak is in order of 52 L/m and his AHI is down to 2.2 while treatment. Note that the treatment has been successful and the patient was able to lower his AHI to quite low levels while on treatment. The patient otherwise is doing the same. He is still tired and sleepy. His comorbidities remain unchanged. He seems to be committed to BiPAP therapy as long as he is able to achieve adequate seen of the mask. BP is 130/84, pulse is 72, respirations 20, and temperature is 97.9 Gen. appearance the patient is morbidly obese, calm and comfortable,The patient appeared well nourished and normally developed. Vital signs as documented. Head exam is unremarkable. No scleral icterus or corneal arcus noted. Neck is without jugular venous distension, thyromegaly, or carotid bruits. Carotid upstrokes are brisk bilaterally. The patient has a Mallampati class IV with significant crowding of the posterior oropharynx. Lungs are clear to auscultation and percussion. Cardiac exam reveals the PMI to be normally sized and situated. Rhythm is regular. First and second heart sounds normal. No murmurs, rubs or gallops. Abdominal exam reveals normal bowel sounds, no masses, no organomegaly and no aortic enlargement. Extremities are nonedematous and both femoral and pedal pulses are normal. Examination of the skin revealed no evidence of significant rashes, suspicious appearing nevi or other concerning lesion s.Neurologically, the patient is awake and alert and the patient does not have any focal neurological deficit. Cranial nerves are essentially intact. Assessment Severe symptomatic ELEANOR with an AHI of 98. The patient is utilizing a VPAP auto with EPAP minimum pressure of 12, maximum pressure of 22 and a pressure support of 4 and the patient is using his Simplus fullface mask. Treatment is succe ssful as long as the patient is able to tolerate the machine. I think the problem is essentially his mask as the patient is transition himself to sleep and in bed and is unable to keep the mask on because of leaks and discomfort. Severe nocturnal oxygen desaturations secondary to above , recovered with BiPAP therapy Morbid obesity with a BMI of 57.9 Advanced COPD with chronic hypoxic respiratory failure Previous history of DVT of the left lower extremity and pulmonary embolism maintain on Eliquis Chronic dyspnea with acute decompensation secondary to above Severe peripheral vascular disease with previous fem-fem bypass surgery and insertion of an iliac stent Chronic nonhealing wounds involving the left foot, none pressure non-healing ulcer along the left ankle Chronic pain Chronic peripheral neuropathy Hypertension Osteoarthritis History of smoking Plan We'll give the patient an Airfit F20 fullface mask medium size and will allow the patient to use the BiPAP and the same settings We'll do a short-term compliancy evaluation within 30 days hoping and the patient's compliancy would improve Keep the same pressure settings A mask fit was done and and a sample was offered Encourage weight loss Counseled the patient on importance of BiPAP use Single back in 30 days for another compliancy check. We'll continue to follow.
== END ==
LOC: 3 N SLEEP 15:41
PROVIDERS: ATTEND Internal Medicine Critical Care Medicine
DX: G47.33 Obstructive sleep apnea (adult) (pediatric) (principal); E66.01 Morbid (severe) obesity due to excess calories; Z68.43 Body mass index [BMI] 50.0-59.9, adult; I10 Essential (primary) hypertension; M19.90 Unspecified osteoarthritis, unspecified site; F17.200 Nicotine dependence, unspecified, uncomplicated; G90.09 Other idiopathic peripheral autonomic neuropathy; Z98.890 Other specified postprocedural states; Z86.718 Personal history of other venous thrombosis and embolism; J44.9 Chronic obstructive pulmonary disease, unspecified; I73.9 Peripheral vascular disease, unspecified
CPT/HCPCS: 99212

== ENCOUNTER → 2022-10-06 | Outpatient (CLI) | payer OTHER ==
--- NOTE | 2022-10-06 15:30 | P.PN ---
Progress Note - Text Progress Note Date: 10/06/22 57-year-old male patient was coming in for a compliance check regarding his sleep apnea treatment. This patient is diagnosed having severe symptomatic obstructive sleep apnea. The patient underwent a screening polysomnography on 05/19/2022 and the patient was diagnosed having severe ELEANOR with an AHI of 98. He also demonstrated severe nocturnal oxygen desaturation. Is morbidly obese with a BMI 57.9. He has chronic COPD with chronic hypoxic respiratory failure and other comorbidities including previous history of DVT, peripheral vascular disease and peripheral neuropathy and hypertension. He is a smoker. The patient underwent a CPAP/BiPAP titration on 05/25/2022 and ultimately was t itrated to a BiPAP pressure of 22/18 cm of water. He was offered a VPAP auto at a pressure minimum EPAP of 12, neck some pressure of 22 and a pressure support of 4. He is coming in today for a follow-up. I noted that the patient was given a resVent BiPAP unit. He was also given a Simplus fullface mask. The patient's treatment was initially not successful as the patient was having difficulties with his BiPAP machine and the mask interface. Based on that, I saw the patient consultation at the sleep Center switched him to a Airfit F20 any fullface mask medium size. I also made recommendations to switch him to an alternative BiPAP machine and the patient is currently has a dream station which is running at the same pressures. I checked his compliance data and since his last evaluation his treatment has become much more successful. The patient for now is averaging 8.2 hours of BiPAP use per night is using the machine every night. His AHI down to 3.5 and the patient is not having any major leaks around the fullface mask. As such, history of asthma, smoker successful and the patient is awake and alert and awake during the day. No major hypersomnia or sleepiness during the day. BP is 108/73, pulse is 83, respirations 20, and temperature is 96.7 Gen. appearance the patient is morbidly obese, calm and comfortable,The patient appeared well nourished and normally developed. Vital signs as documented. Head exam is unremarkable. No scleral icterus or corneal arcus noted. Neck is without jugular venous distension, thyromegaly, or carotid bruits. Carotid upstrokes are brisk bilaterally. The patient has a Mallampati class IV with significant crowding of the posterior oropharynx. Lungs are clear to auscultation and percussion. Cardiac exam reveals the PMI to be normally sized and situated. Rhythm is regular. First and second heart sounds normal. No murmurs, rubs or gallops. Abdominal exam reveals normal bowel sounds, no masses, no organomegaly and no aortic enlargement. Extremities are nonedematous and both femoral and pedal pulses are normal. Examination of the skin revealed no evidence of significant rashes, suspicious appearing nevi or other concerning lesions.Neurologically, the patient is awake and alert and the patient does not have any focal neurological deficit. Cranial nerves are essentially intact. Assessment Severe symptomatic ELEANOR with an AHI of 98. The patient is utilizing a VPAP auto with EPAP minimum pressure of 12, maximum pressure of 22 and a pressure support of 4 and the patient is using his Airfit 20 fullface mask at a treatment has become much more successful and the patient is meeting compliancy as required by his insurance. He has a dream station BiPAP unit and his data look great and the patient is having adequate clinical response with BiPAP therapy for now. He has no specific complaints. Severe nocturnal oxygen desaturations secondary to above , recovered with BiPAP therapy Morbid obesity with a BMI of 57.9 Advanced COPD with chronic hypoxic respiratory failure Previous history of DVT of the left lower extremity and pulmonary embolism maintain on Eliquis Chronic dyspnea with acute decompensation secondary to above Severe peripheral vascular disease with previous fem-fem bypass surgery and insertion of an iliac stent Chronic nonhealing wounds involving the left foot, none pressure non-healing ulcer along the left ankle Chronic pain Chronic peripheral neuropathy Hypertension Osteoarthritis History of smoking Plan Continue using the Airfit F20 fullface mask medium size and will allow the patient to use the BiPAP and the same settings, through his dream station BiPAP unit The patient has achieved compliancy Patient has adequate mask fit His AHI while in treatment is down to 3.5 Encourage weight loss Maintain good sleep hygiene measures Seen back in one year's time in follow-up. His supplies will be refilled
== END ==
LOC: 3 N SLEEP 14:01
PROVIDERS: ATTEND Internal Medicine Critical Care Medicine
DX: G47.33 Obstructive sleep apnea (adult) (pediatric) (principal); E66.01 Morbid (severe) obesity due to excess calories; Z68.43 Body mass index [BMI] 50.0-59.9, adult; J44.9 Chronic obstructive pulmonary disease, unspecified; J96.11 Chronic respiratory failure with hypoxia; I10 Essential (primary) hypertension; G89.29 Other chronic pain; G62.9 Polyneuropathy, unspecified; I73.9 Peripheral vascular disease, unspecified; M19.90 Unspecified osteoarthritis, unspecified site; Z86.711 Personal history of pulmonary embolism; Z86.718 Personal history of other venous thrombosis and embolism; Z87.891 Personal history of nicotine dependence; Z99.89 Dependence on other enabling machines and devices; Z79.01 Long term (current) use of anticoagulants; Z79.51 Long term (current) use of inhaled steroids
CPT/HCPCS: 99212

== ENCOUNTER 2023-12-06 18:33 | Emergency (ER) | payer OTHER ==
[2023-12-06 18:39] VITALS: TEMP 98.1
[2023-12-06] MEDS: SILVER NITRATE APPLICATOR 1 EACH STICK..EA. TOPICAL STA (19:12)
[2023-12-06 19:28] LABS: Basophils % (A) 0 %; Eosinophils # (A) 0.1 k/uL (0-0.7); Eosinophils % (A) 2 %; HCT 42.8 % (39.0-53.0); HGB 13.5 gm/dL (13.0-17.5); Hypochromasia Slight; Lymphocytes # (A) 1.4 k/uL (1.0-4.8); Lymphocytes % (A) 19 %; MCH 31.4 pg (25.0-35.0); MCHC 31.5 g/dL (31.0-37.0); MCV 99.7 fL (80.0-100.0); Mean Platelet Volume 8.1; Monocytes # (A) 0.4 k/uL (0-1.0); Monocytes % (A) 6 %; Neutrophils # (A) 5.3 k/uL (1.3-7.7); Neutrophils % (A) 72 %; Platelet Count 198 k/uL (150-450); RBC 4.29 m/uL (4.30-5.90); WBC 7.4 k/uL (3.8-10.6)
[2023-12-06 19:38] LABS: African American GFR (CKD) >90 (>60 ml/min/1.73 sqM); Anion Gap 4 mmol/L; Blood Urea Nitrogen 24 mg/dL (9-20); Calcium 9.1 mg/dL (8.4-10.2); Carbon Dioxide 30 mmol/L (22-30); Chloride 100 mmol/L (98-107); Glucose 206 mg/dL (74-99); Non-African American GFR(CKD) >90 (>60 ml/min/1.73 sqM); Potassium 4.3 mmol/L (3.5-5.1); Sodium 134 mmol/L (137-145)
--- NOTE | 2023-12-06 19:49 | ED ---
General Adult HPI - General Chief complaint: GI Bleed Stated complaint: rectal bleeding Time Seen by Provider: 12/06/23 18:38 Source: EMS Mode of arrival: EMS - History of Present Illness Initial comments: This patient is 58-year-old man who arrives here to have further evaluation for bleeding from the gluteal cleft. The patient states that he knows he has some skin irritation there. He states that he thinks that when he went to sit down he scraped his buttocks against a chair. There has been intermittent bleeding. The patient does take blood thinning medicines including Plavix and he thinks Eliquis. He continued to have intermittent bleeding throughout the day and was sent here to have evaluation. The patient denies signs or symptoms of anemia, no lightheadedness, palpitations, syncope, chest pain, dyspnea, diaphoresis. Onset/Timin -: days(s) Severity scale (1-10): 0 Consistency: intermittent Improves with: none Worsens with: none Associated Symptoms: denies other symptoms Treatments Prior to Arrival: none - Related Data Home Medications Medication Instructions Recorded Confirmed Clopidogrel Bisulfate [Plavix] 75 mg PO DAILY 03/07/21 12/06/23 Furosemide [Lasix] 80 mg PO DAILY 03/07/21 12/06/23 Apixaban [Eliquis] 5 mg PO BID 01/21/22 12/06/23 Meloxicam [Mobic] 7.5 mg PO DAILY 01/21/22 12/06/23 Nicotine Polacrilex [Nicotine Gum] 2 mg BUCCAL Q3H PRN MDD 12 doses 01/21/22 12/06/23 Sertraline [Zoloft] 25 mg PO DAILY 01/21/22 12/06/23 Benazepril [Lotensin] 10 mg PO DAILY 05/04/22 12/06/23 Cholecalciferol [Vitamin D3 (25 50 mcg PO DAILY 05/04/22 12/06/23 Mcg = 1000 Iu)] Famotidine [Pepcid] 40 mg PO DAILY 05/04/22 12/06/23 Multivitamins, Thera [Multivitamin 1 tab PO DAILY 05/04/22 12/06/23 (formulary)] Acetaminophen-Codeine 300-30mg 1 tab PO QID PRN 12/06/23 12/06/23 [Tylenol w/codeine #3] Atorvastatin Calcium [Lipitor] 40 mg PO DAILY 12/06/23 12/06/23 Cetirizine HCl [Zyrtec] 10 mg PO DAILY 12/06/23 12/06/23 Escitalopram [Lexapro] 10 mg PO DAILY 12/06/23 12/06/23 Fluticasone Nasal [place] [Flonase 1 spr EA NOSTRIL DAILY 12/06/23 12/06/23 Nasal [place]] Fluticasone/Umeclidin/Vilanter 1 puff INHALATION RT-DAILY 12/06/23 12/06/23 [Trelegy Ellipta 100-62.5-25] Gabapentin 600 mg PO TID 12/06/23 12/06/23 Ipratropium-Albuterol Nebulize 3 ml INHALATION RT-QID PRN 12/06/23 12/06/23 [Duoneb 0.5 mg-3 mg/3 ml Soln] Lidocaine 5% Patch [Lidoderm] 1 patch TRANSDERM DAILY 12/06/23 12/06/23 polyethylene glycoL 3350 [Miralax] 17 gm PO DAILY 12/06/23 12/06/23 Previous Rx's Medication Instructions Recorded Ascorbic Acid [Vitamin C] 500 mg PO DAILY tab 03/10/21 Nystatin 100,000 Unit/gm Powd 1 applic TOPICAL BID #15 gm 12/06/23 [Mycostatin Powder] Allergies Allergy/AdvReac Type Severity Reaction Status Date / Time No Known Allergies Allergy Verified 12/06/23 20:26 Review of Systems ROS Statement: Those systems with pertinent positive or pertinent negative responses have been documented in the HPI. ROS Other: All systems not noted in ROS Statement are negative. Constitutional: Denies: fever, chills Respiratory: Denies: cough, dyspnea Cardiovascular: Denies: chest pain, palpitations Gastrointestinal: Denies: abdominal pain, melena, hematochezia Genitourinary: Denies: dysuria Musculoskeletal: Denies: back pain Skin: Reports: rash Neurological: Denies: headache, weakness Past Medical History Past Medical History: COPD, Deep Vein Thrombosis (DVT), Hypertension, Osteoarthritis (OA), Pulmonary Embolus (PE), Skin Disorder, Vascular Disorder Additional Past Medical History / Comment(s): Wound open sore left posterior l[facility]ardi, [facility] patient. PE, DVT 03/07/21. Edema feet mild. History of Any Multi-Drug Resistant Organisms: None Reported Past Surgical History: Cholecystectomy Additional Past Surgical History / Comment(s): Lt leg Femoral-femoral bypass 01/26/21. PICC line, now removed. Past Anesthesia/Blood Transfusion Reactions: No Reported Reaction Past Psychological History: No Psychological Hx Reported Smoking Status: Former smoker Past Alcohol Use History: Rare Past Drug Use History: None Reported - Past Family History Father Family Medical History: Cancer, Myocardial Infarction (OR) Additional Family Medical History / Comment(s): Lung CA Mother Family Medical History: Cancer Additional Family Medical History / Comment(s): pancreatic cancer Sister(s) Family Medical History: Cancer Additional Family Medical History / Comment(s): Leukemia General Exam Limitations: no limitations General appearance: alert, in no apparent distress Head exam: Present: atraumatic, normocephalic Eye exam: Present: normal appearance Respiratory exam: Present: normal lung sounds bilaterally. Absent: respiratory distress, wheezes, rales, rhonchi, stridor, accessory muscle use Cardiovascular Exam: Present: regular rate, normal rhythm, normal heart sounds. Absent: systolic murmur, diastolic murmur, rubs, gallop GI/Abdominal exam: Present: soft. Absent: distended, tenderness, guarding, rebound, rigid, mass Extremities exam: Present: normal inspection, normal capillary refill. Absent: pedal edema, calf tenderness Back exam: Present: normal inspection. Absent: vertebral tenderness Neurological exam: Present: alert Skin exam: Present: warm, dry, normal color, other (The patient has small bleeding varicosity in the gluteal cleft. There is mild candidal dermatitis to the gluteal cleft) Course Vital Signs 12/06/23 12/06/23 18:34 21:26 Temperature 98.1 F Pulse Rate 76 101 H Respiratory 18 20 Rate Blood Pressure 144/73 148/88 O2 Sat by Pulse 93 L 93 L Oximetry Medical Decision Making - Medical Decision Making The patient does have bleeding varicosity that is the source of the hemorrhage for his chief complaint. I did apply hemostasis with silver nitrate which resulted in no further bleeding. Discussed appropriate further care and follow- up as well as use of antifungal powder. Discussed return parameters Was pt. sent in by a medical professional or institution (, PA, GAS PLANT REPAIRER, urgent care, hospital, or correction...) When possible be specific @ -[No] Did you speak to anyone other than the patient for history (EMS, parent, family, police, friend...)? What history was obtained from this source @ -[No] Did you review nursing and triage notes (agree or disagree)? Why? @ -[I reviewed and agree with nursing and triage notes] Were old charts reviewed (outside hosp., previous admission, EMS record, old EKG, old radiological studies, urgent care reports/EKG's, correction records)? Report findings @ -[No old charts were reviewed] Differential Diagnosis (chest pain, altered mental status, abdominal pain women, abdominal pain men, vaginal bleeding, weakness, fever, dyspnea, syncope, headache, dizziness, GI bleed, back pain, seizure, CVA, palpatations, mental health, musculoskeletal)? @ -[Differential diagnosis includes bleeding varicosity, bleeding diathesis, medication related hemorrhage, GI bleed, this list not comprehensive EKG interpreted by me (3pts min.). @ -[As above] X-rays interpreted by me (1pt min.). @ -[None done] CT interpreted by me (1pt min.). @ -[None done] U/S interpreted by me (1pt. min.). @ -[None done] What testing was considered but not performed or refused? (CT, X-rays, U/S, labs)? Why? @ -[None] What meds were considered but not given or refused? Why? @ -[None] Did you discuss the management of the patient with other professionals (professionals i.e. , PA, GAS PLANT REPAIRER, lab, RT, psych nurse, social worker assistant, correction officer penitentiary, teacher, correction officer penitentiary, onsite case manager)? Give summary @ -[No] Was smoking cessation discussed for >3mins.? @ -[No] Was critical care preformed (if so, how long)? @ -[No] Were there social determinants of health that impacted care today? How? (Homelessness, low income, unemployed, alcoholism, drug addiction, transportation, low edu. Level, literacy, decrease access to med. care, [facility], rehab)? @ -[No] Was there de-escalation of care discussed even if they declined (Discuss DNR or withdrawal of care, Hospice)? DNR status @ -[No] What co-morbidities impacted this encounter? (DM, HTN, Smoking, COPD, CAD, Cancer, CVA, ARF, Chemo, Hep., AIDS, mental health diagnosis, sleep apnea, morbid obesity)? @ -[None] Was patient admitted / discharged? Hospital course, mention meds given and route, prescriptions, significant lab abnormalities, going to OR and other pertinent info. @ -[See above Undiagnosed new problem with uncertain prognosis? @ -[No] Drug Therapy requiring intensive monitoring for toxicity (Heparin, Nitro, Insulin, Cardizem)? @ -[No] Were any procedures done? @ -[No] Diagnosis/symptom? @ -[Acute bleeding varicosity Tinia infection, gluteal cleft Acute, or Chronic, or Acute on Chronic? @ -[Acute Uncomplicated (without systemic symptoms) or Complicated (systemic symptoms)? @ -[Uncomplicated Side effects of treatment? @ -[No] Exacerbation, Progression, or Severe Exacerbation? @ -[No] Poses a threat to life or bodily function? How? (Chest pain, USA, OR, pneumonia, PE, COPD, DKA, ARF, appy, cholecystitis, CVA, Diverticulitis, Homicidal, Suicidal, threat to staff... and all critical care pts) @ -[No] - Lab Data Result diagrams: 12/06/23 19:11 12/06/23 19:11 Lab Results 12/06/23 12/06/23 Range/Units 19:11 19:11 WBC 7.4 (3.8-10.6) k/uL RBC 4.29 L (4.30-5.90) m/uL Hgb 13.5 (13.0-17.5) gm/dL Hct 42.8 (39.0-53.0) % MCV 99.7 (80.0-100.0) fL MCH 31.4 (25.0-35.0) pg MCHC 31.5 (31.0-37.0) g/dL RDW 14.0 (11.5-15.5) % Plt Count 198 (150-450) k/uL MPV 8.1 Neutrophils % 72 % Lymphocytes % 19 % Monocytes % 6 % Eosinophils % 2 % Basophils % 0 % Neutrophils # 5.3 (1.3-7.7) k/uL Lymphocytes # 1.4 (1.0-4.8) k/uL Monocytes # 0.4 (0-1.0) k/uL Eosinophils # 0.1 (0-0.7) k/uL Basophils # 0.0 (0-0.2) k/uL Hypochromasia Slight Sodium 134 L (137-145) mmol/L Potassium 4.3 (3.5-5.1) mmol/L Chloride 100 (98-107) mmol/L Carbon Dioxide 30 (22-30) mmol/L Anion Gap 4 mmol/L BUN 24 H (9-20) mg/dL Creatinine 0.77 (0.66-1.25) mg/dL Est GFR (CKD-EPI)AfAm >90 (>60 ml/min/1.73 sqM) Est GFR (CKD-EPI)NonAf >90 (>60 ml/min/1.73 sqM) Glucose 206 H (74-99) mg/dL Calcium 9.1 (8.4-10.2) mg/dL Disposition Clinical Impression: Bleeding from varicose vein, Skin erosion Disposition: HOME SELF-CARE Condition: Good Instructions (If sedation given, give patient instructions): Antifungals (On the skin) Prescriptions: Nystatin 100,000 Unit/gm Powd [Mycostatin Powder] 1 applic TOPICAL BID #15 gm Is patient prescribed a controlled substance at d/c from ED?: No Referrals: Bolivar Mckeon MD [Primary Care Provider] - 1-2 days
[2023-12-06 21:27] VITALS: BP 148/88; PULSE 101; RESP 20
== END 2023-12-06 21:45 | disposition home or self-care (01) ==
LOC: EC 18:33
DX: I83.899 Varicose veins of unspecified lower extremity with other complications (principal)
CPT/HCPCS: 36415; 80048; 85025; 99283